=== PATIENT | female | born 1945 | race Caucasian/White ===

== ENCOUNTER 2016-08-21 12:38 | Outpatient (CLI) | payer MEDICARE, OTHER | END 2016-08-21 12:39 | disposition home or self-care (01) | DX: L89.309 Pressure ulcer of unspecified buttock, unspecified stage (principal) ==

== ENCOUNTER 2016-11-05 15:03 | Outpatient (CLI) | payer MEDICARE, OTHER | END 2016-11-05 15:04 | DX: N18.9 Chronic kidney disease, unspecified (principal); E11.9 Type 2 diabetes mellitus without complications; R25.2 Cramp and spasm ==

== ENCOUNTER 2016-11-06 08:00 | Outpatient (CLI) | payer MEDICARE, OTHER | END 2016-11-06 23:59 | DX: N39.0 Urinary tract infection, site not specified (principal) ==

== ENCOUNTER 2016-11-23 17:56 | Outpatient (CLI) | payer MEDICARE | END 2016-11-23 17:57 | disposition EMS.NT | DX: Z03.89 Encounter for observation for other suspected diseases and conditions ruled out (principal) ==

== ENCOUNTER 2017-01-07 11:00 | Outpatient (CLI) | payer MEDICARE, OTHER | END 2017-01-07 11:01 | disposition home or self-care (01) | LOC: LAB.R 11:00 | PROVIDERS: ATTEND Nurse Practitioner Family | DX: L97.929 Non-pressure chronic ulcer of unspecified part of left lower leg with unspecified severity (principal); I87.313 Chronic venous hypertension (idiopathic) with ulcer of bilateral lower extremity | CPT/HCPCS: 87070; 87077; 87205 ==

== ENCOUNTER 2017-01-14 00:36 | Outpatient (CLI) | payer MEDICARE, OTHER | END 2017-01-14 00:37 | disposition EMS.NT | DX: Z03.89 Encounter for observation for other suspected diseases and conditions ruled out (principal) ==

== ENCOUNTER 2017-02-20 09:06 | Outpatient (CLI) | payer MEDICARE, OTHER ==
[2017-02-20 18:12] LABS: ALBUMIN/GLOBULIN RATIO 0.9 (1.0-2.2); BILIRUBIN,TOTAL 0.5 mg/dL (0.2-1.0); BUN - BLOOD UREA NITROGEN 26 mg/dL (6-20); CARBON DIOXIDE - CO2 26 mmol/L (21-32); CHLORIDE 104 mmol/L (101-111); CHOL/HDL RATIO 5.4 (<4.4); CHOLESTEROL 206 mg/dL; CREATININE 1.5 mg/dL (0.4-1.0); GFR - MDRD 34 (>89); GLUCOSE 122 mg/dL (70-100); HDL CHOLESTEROL 38 mg/dL; LDL/HDL RATIO 3.8 (<4.4); POTASSIUM 3.6 mmol/L (3.5-5.0); SODIUM 139 mmol/L (135-145); TOTAL PROTEIN 7.1 g/dL (6.7-8.2); TRIGLYCERIDES 116 mg/dL; VLDL CHOLESTEROL 23 mg/dL
[2017-02-20 18:32] LABS: HEMOGLOBIN A1C 1.94 g/dL
== END 2017-02-20 09:07 | disposition home or self-care (01) ==
LOC: LAB.F 09:06
PROVIDERS: ATTEND Nurse Practitioner Family
DX: E11.9 Type 2 diabetes mellitus without complications (principal)
CPT/HCPCS: 36415; 80053; 80061; 83036

== ENCOUNTER 2017-04-26 15:00 | Outpatient (CLI) | payer MEDICARE, OTHER | END 2017-04-26 15:01 | disposition home or self-care (01) | LOC: LAB.R 15:00 | PROVIDERS: ATTEND Nurse Practitioner Family | DX: Z79.4 Long term (current) use of insulin (principal); G89.29 Other chronic pain | CPT/HCPCS: 80307 ==

== ENCOUNTER 2017-07-04 08:39 | Outpatient (CLI) | payer MEDICARE, OTHER ==
[2017-07-04 12:04] LABS: CALCIUM 8.6 mg/dL (8.5-10.3); CREATININE 1.1 mg/dL (0.4-1.0); POTASSIUM 3.8 mmol/L (3.5-5.0)
[2017-07-04 12:19] LABS: HEMOGLOBIN A1C 1.99 g/dL
== END 2017-07-04 08:40 | disposition home or self-care (01) ==
LOC: LAB.F 08:39
PROVIDERS: ATTEND Nurse Practitioner Family
DX: E11.65 Type 2 diabetes mellitus with hyperglycemia (principal); N18.9 Chronic kidney disease, unspecified; R60.0 Localized edema
CPT/HCPCS: 36415; 80048; 83036; 85379

== ENCOUNTER 2017-07-05 17:52 | Outpatient (CLI) | payer MEDICARE, OTHER ==
--- NOTE | 2017-07-05 19:57 | Ultrasound Preliminary Report ---
Exam: US DUPLEX EXT VEINS BILATERAL IMPRESSION: 1. Bilateral lower extremity edema. 2. No evidence for deep venous thrombosis bilaterally. [facility] The call report notification system was initiated by Dr. Risa Godinez at 19:30 hrs on 07/05/17. The above findings were discussed with NAVA King by Dr. Risa Godinez at 19:56 hrs on 09/04/16. SITE ID: [id number]
--- NOTE | 2017-07-05 20:01 | Ultrasound Report ---
EXAM: BILATERAL LOWER EXTREMITY VENOUS ULTRASOUND EXAM DATE: 07/05/2017 07:10 PM. CLINICAL HISTORY: Leg edema, bilateral. COMPARISON: None. TECHNIQUE: Real-time sonographic vascular imaging was performed by the journeyman pipefitter through the lower extremities utilizing both color-flow and Doppler spectral analysis. Multiple publications sales representative static i mages were saved for review. FINDINGS: Right: Common Femoral Vein (CFV): Normal. CFV-GSV Junction: Normal. Profunda Femoral Vein (PFV): Normal. Femoral Vein (FV) Prox: Normal. Femoral Vein (FV) Mid: Normal. Femoral Vein (FV) Dist: Normal. Popliteal Vein: Normal. Posterior Tibial Veins: Normal. Peroneal Veins: Normal. Left: Common Femoral Vein (CFV): Normal. CFV-GSV Junction: Normal. Profunda Femoral Vein (PFV): Normal. Femoral Vein (FV) Prox: Normal. Femoral Vein (FV) Mid: Normal. Femoral Vein (FV) Dist: Normal. Popliteal Vein: Normal. Posterior Tibial Veins: Normal. Peroneal Veins: Normal. Other: Bilateral lower extremity edema noted. IMPRESSION: 1. Bilateral lower extremity edema. 2. No evidence for deep venous thrombosis bilaterally. [facility] The call report notification system was initiated by Dr. Risa Godinez at 19:30 hrs on 07/05/17. The above findings were discussed with NAVA King by Dr. Risa Godinez at 19:56 hrs on 09/04/16. Referring Provider Line: [phone] SITE ID: [id number]
== END 2017-07-05 17:53 | disposition home or self-care (01) ==
LOC: DI 17:52
PROVIDERS: ATTEND Nurse Practitioner Family
DX: R60.0 Localized edema (principal)
CPT/HCPCS: 93970

== ENCOUNTER 2017-07-14 01:36 | Outpatient (CLI) | payer MEDICARE, OTHER | END 2017-07-14 01:37 | disposition critical access hospital (66) | LOC: EMS 01:36 | PROVIDERS: ATTEND Surgery | DX: M54.9 Dorsalgia, unspecified (principal); R53.1 Weakness; W18.30XA Fall on same level, unspecified, initial encounter; Y92.008 Other place in unspecified non-institutional (private) residence as the place of occurrence of the external cause | CPT/HCPCS: A0425; A0429 ==

== ENCOUNTER 2017-07-14 02:01 | Inpatient (IN) | payer MEDICARE, OTHER ==
--- NOTE | 2017-07-14 02:08 | ED Physician Documentation ---
PD HPI BACK INJURY - Stated complaint Stated Complaint: GLF/BACK PAIN - History obtained from History obtained from: Patient, EMS - History of Present Illness Location: Lower Type of injury: Fall Where injury occurred: Home Timing - onset: Today (She had fallen this evening with an increase in her back pain. However she has been having back pain ongoing for a long time but is worsened with falls in the last several days. She has fallen several times last days because of generalized weakness and inability to transfer herself as she typically does. She does have obesity and neuropathy with swelling in the legs. She states her swelling in the legs has increased over the last week or 2. She is feeling generalized weakness and has been unable to transfer herself to her wheelchair, which is her primary mode of movement. She lives with her granddaughter who does help take care of her and helps with transfers. However the granddaughter says that she has been unable to maneuver the patient due to general weakness.) Timing - details: Gradual onset, Still present (worse the past few days after falling.) Quality: Pain, Aching Worsened by: Moving Associated symptoms: Weakness (generalized, but does feel weakness in her legs both sides.), Incontinent of urine (for long time). No: Fever Similar symptoms before: Diagnosis (she has had similar weakness with infections in the past, such as UTI. Has had ongoing low back pain, worse at times. Has had some leg edema chronically but worse recently. She does not like to take her diuretic as it is hard to get to the bathroom, especially with the weakness of the last few days.) Review of Systems Constitutional: denies: Fever, Chills, Myalgias Nose: denies: Rhinorrhea / runny nose, Congestion Throat: denies: Sore throat Cardiac: denies: Chest pain / pressure, Palpitations Respiratory: denies: Dyspnea, Cough, Wheezing GI: reports: Nausea. denies: Abdominal Pain, Vomiting, Constipation, Diarrhea, Bloody / black stool : reports: Frequency, Incontinent. denies: Dysuria Skin: denies: Rash, Lesions, Abrasion (s) Neurologic: reports: Generalized weakness, Numbness (chronically in both legs due to diabetic neuropathy). denies: Focal weakness, Headache, Head injury Endocrine: denies: Weight loss Immunocompromised: denies: Immunocompromised PD PAST MEDICAL HISTORY - Past Medical History Cardiovascular: High cholesterol, Atrial fibrillation Respiratory: Pneumonia Neuro: Peripheral neuropathy Endocrine/Autoimmune: Type 2 diabetes GI: Other : Chronic bladder infection, Frequency HEENT: Chronic vision loss Psych: Depression Musculoskeletal: Osteoarthritis Derm: None - Past Surgical History Past Surgical History: Yes Ortho: Other Derm: Other - Present Medications Home Medications: Ambulatory Orders Medication Instructions Recorded Confirmed Cholecalciferol (Vitamin D3) 1,000 unit PO DAILY 08/02/13 07/14/17 [Vitamin D3] Gabapentin 600 mg PO TID 08/02/13 07/14/17 Insulin Glargine,Hum.rec.anlog 45 unit SQ DAILY 11/09/13 07/14/17 [Lantus] Furosemide 80 mg PO DAILY 12/21/14 07/14/17 HYDROmorphone [Dilaudid] 8 mg PO TID 12/21/14 07/14/17 Insulin Aspart (Vial) [NovoLOG 5 - 20 units SQ AC 12/21/14 07/14/17 (VIAL FOR ED USE)] Felodipine [Felodipine ER] 10 mg PO DAILY 08/23/15 07/14/17 Omeprazole 20 mg PO DAILY 08/23/15 07/14/17 Fluconazole 100 mg PO ONCE 03/04/16 07/14/17 Cyclobenzaprine [Flexeril] 10 mg PO TID 01/15/17 07/14/17 Duloxetine HCl [Cymbalta] 60 mg PO DAILY 01/15/17 07/14/17 Furosemide 40 mg PO DAILY PM 01/15/17 07/14/17 Insulin Glargine [Lantus] 40 unit SUBQ QPM 01/15/17 07/14/17 Nystatin 1 each PO DAILY PRN 01/15/17 07/14/17 Potassium Chloride 20 meq PO BID 01/15/17 07/14/17 Rivaroxaban [Xarelto] 20 mg PO DAILY 01/15/17 07/14/17 diazePAM [Diazepam] 10 mg PO DAILY PRN 01/15/17 07/14/17 - Allergies Allergies/Adverse Reactions: Allergies Allergy/AdvReac Type Severity Reaction Status Date / Time Penicillins Allergy unknown Verified 07/14/17 02:09 - Social History Does the pt smoke?: No Smoking Status: Former smoker Does the pt drink ETOH?: No Does the pt have substance abuse?: No - Family History Family history: reports: Non contributory - Immunizations Immunizations are current?: Yes - POLST Patient has POLST: No PD ED PE NORMAL - Vitals Vital signs reviewed: Yes - General General: Alert and oriented X 3, Well developed/nourished - HEENT HEENT: Ears normal, Moist mucous membranes, Pharynx benign - Neck Neck: Supple, no meningeal sign, No bony TTP, No adenopathy - Cardiac Cardiac: RRR, No murmur - Respiratory Respiratory: Clear bilaterally - Abdomen Abdomen: Soft, Non tender, Non distended, Other (obese) - Female Female : Deferred (but nurses said no rash noted when they did urine cath. ) - Rectal Rectal: Deferred - Back Back: No CVA TTP - Derm Derm: Normal color, Warm and dry - Extremities Extremities: No tenderness to palpate, Other (edema 2+ pitting in both legs up to knees, with tenderness. No redness and no calf pain per se. ) - Neuro Neuro: Alert and oriented X 3, No motor deficit, Normal speech, Other ( decreased sensation in both legs generally more c/w neuropathy. ) Eye Opening: Spontaneous Motor: Obeys Commands Verbal: Oriented GCS Score: 15 - Psych Psych: Normal mood, Normal affect Results - Vitals Vitals: Vital Signs - 24 hr 07/14/17 02:06 Temperature 36.6 C Heart Rate 95 Respiratory 20 Rate Blood Pressure 114/66 O2 Saturation 96 Oxygen O2 Source [With Activity] Nasal cannula O2 Source [Without Activity] Nasal cannula O2 Source Room air - Labs Labs: Laboratory Tests 07/14/17 07/14/17 07/14/17 03:38 03:38 03:38 WBC 6.9 RBC 3.86 L Hgb 11.7 L Hct 34.4 L MCV 89.2 MCH 30.5 MCHC 34.1 RDW 13.2 Plt Count 201 MPV 9.4 Neut # 4.8 Lymph # 1.3 L [place] # 0.6 Eos # 0.2 Baso # 0.0 Absolute Nucleated RBC 0.00 Nucleated RBC % 0.0 Sodium 131 L Potassium 5.0 Chloride 102 Carbon Dioxide 23 Anion Gap 6.0 BUN 34 H Creatinine 1.4 H Estimated GFR (MDRD) 37 L Glucose 426 H Calcium 8.3 L Magnesium 1.8 Total Bilirubin 0.5 AST 19 ALT 26 Alkaline Phosphatase 119 B-Natriuretic Peptide 77 Total Protein 6.5 L Albumin 2.9 L Globulin 3.6 Albumin/Globulin Ratio 0.8 L Lipase 29 Urine Color Urine Clarity Urine pH Ur Specific [place] Urine Protein Urine Glucose (UA) Urine Ketones Urine Occult Blood Urine Nitrite Urine Bilirubin Urine Urobilinogen Ur Leukocyte Esterase Urine RBC Urine WBC Ur Squamous Epith Cells Urine Bacteria Ur Microscopic Review Urine Culture Comments 07/14/17 04:30 WBC RBC Hgb Hct MCV MCH MCHC RDW Plt Count MPV Neut # Lymph # [place] # Eos # Baso # Absolute Nucleated RBC Nucleated RBC % Sodium Potassium Chloride Carbon Dioxide Anion Gap BUN Creatinine Estimated GFR (MDRD) Glucose Calcium Magnesium Total Bilirubin AST ALT Alkaline Phosphatase B-Natriuretic Peptide Total Protein Albumin Globulin Albumin/Globulin Ratio Lipase Urine Color YELLOW Urine Clarity HAZY Urine pH 6.0 Ur Specific [place] 1.010 Urine Protein 30 H Urine Glucose (UA) >=1000 H Urine Ketones NEGATIVE Urine Occult Blood MODERATE H Urine Nitrite POSITIVE H Urine Bilirubin NEGATIVE Urine Urobilinogen 0.2 (NORMAL) Ur Leukocyte Esterase NEGATIVE Urine RBC 6-10 H Urine WBC >25 H Ur Squamous Epith Cells MOD Squamous H Urine Bacteria Many H Ur Microscopic Review INDICATED Urine Culture Comments NOT INDICATED - Rads (name of study) lumbar CT Radiology: Prelim report reviewed (no acute fractures) head CT Radiology: Prelim report reviewed (no ICH nor focal lesions) chest xray Radiology: Prelim report reviewed (no infiltrates nor over CHF; borderline enlarged heart.) PD MEDICAL DECISION MAKING - ED course Complexity details: reviewed results, re-evaluated patient (She does have UTI by cath urine. Normal WBC, but does have general weakness, elevated glucose. So can be effect of infection. Has edema and neuropathy which are chronic but worse the past few days. Had fall with worse back pain but no fractures. Concern with the general weakness and falls, presume from increased edema, UTI. Will treat with diuretic and antibiotics. She does not seem septic. In hospital with goal of improved general strength to resume her regular mobility at home of transfers and ability to get to bathroom/etc. ), considered differential, d/ w patient, d/w family Departure - Departure Disposition: ED Place in Observation Clinical Impression: Weakness generalized, Bilateral leg edema Falls Qualifiers: Encounter type: initial encounter Qualified Code(s): W19.XXXA - Unspecified fall, initial encounter UTI (urinary tract infection) Qualifiers: Urinary tract infection type: acute cystitis Hematuria presence: without hematuria Qualified Code(s): N30.00 - Acute cystitis without hematuria Diabetic neuropathy Qualifiers: Diabetes mellitus type: type 2 Diabetes mellitus complication detail: diabetic polyneuropathy Qualified Code(s): E11.42 - Type 2 diabetes mellitus with diabetic polyneuropathy Low back pain Qualifiers: Chronicity: chronic Back pain laterality: bilateral Sciatica presence: unspecified whether sciatica present Qualified Code(s): M54.5 - Low back pain Condition: Stable Record reviewed to determine appropriate education?: Yes
[2017-07-14] MEDS ORDERED: KETOROLAC 60 MG/2 ML VIAL IVP STA (02:43)
[2017-07-14] MEDS ORDERED: KETOROLAC 30 MG/ML VIAL ONE (03:15)
[2017-07-14] MEDS ORDERED: KETOROLAC 60 MG/2 ML VIAL IM STA (03:43)
[2017-07-14 03:44] LABS: BASOPHILS % (AUTO) 0.6 %; EOSINOPHILS # (AUTO) 0.2 10^3/uL (0.0-0.7); EOSINOPHILS % (AUTO) 2.5 %; HCT - HEMATOCRIT 34.4 % (37.0-47.0); HGB - HEMOGLOBIN 11.7 g/dL (12.0-16.0); LYMPHOCYTES # (AUTO) 1.3 10^3/uL (1.5-3.5); LYMPHOCYTES % (AUTO) 18.7 %; MEAN CORPUSCULAR HEMOGLOBIN 30.5 pg (27.0-31.0); MEAN CORPUSCULAR HGB CONC 34.1 g/dL (32.0-36.0); MEAN CORPUSCULAR VOLUME 89.2 fL (81.0-99.0); MEAN PLATELET VOLUME 9.4 fL (7.9-10.8); MONOCYTES # (AUTO) 0.6 10^3/uL (0.0-1.0); MONOCYTES % (AUTO) 8.7 %; NEUTROPHILS # (AUTO) 4.8 10^3/uL (1.5-6.6); NEUTROPHILS % (AUTO) 69.5 %; RED BLOOD COUNT 3.86 10^6/uL (4.20-5.40); RED CELL DISTRIBUTION WIDTH 13.2 % (12.0-15.0); UNCORRECTED WHITE BLOOD COUNT 6.9 x10^3/uL; WHITE BLOOD COUNT 6.9 x10^3/uL (4.8-10.8)
[2017-07-14] MEDS ORDERED: ACETAMINOPHEN 325 MG TABLET PO STA (03:45)
--- NOTE | 2017-07-14 03:49 | CT Preliminary Report ---
Exam: CT HEAD W/O IMPRESSION: 1. No acute intra-cranial process. 2. Chronic appearing frontal and ethmoid paranasal sinus disease. [facility] SITE ID: [id number]
--- NOTE | 2017-07-14 03:50 | XRAY Preliminary Report ---
Exam: XR CHEST 1 VIEW IMPRESSION: Borderline enlargement of the cardiac silhouette without overt CHF. [facility] SITE ID: [id number]
--- NOTE | 2017-07-14 03:51 | CT Report ---
EXAM: CT HEAD EXAM DATE: 07/14/2017 03:10 AM. CLINICAL HISTORY: Recent falls, some headache. COMPARISON: Head CT 03/05/2016. TECHNIQUE: Multiaxial CT images were obtained from the foramen magnum to the vertex. Reformats: Coron al. IV contrast: None. In accordance with CT protocol optimization, one or more of the following dose reduction techniques w ere utilized for this exam: automated exposure control, adjustment of mA and/or KV based on patient s ize, or use of iterative reconstructive technique. FINDINGS: Parenchyma: No intraparenchymal hemorrhage. No evidence of mass, midline shift, or CT findings of inf arction. Lafleur-white differentiation is distinct. Extraaxial Spaces: Mild diffuse enlargement of sulci. No subdural or epidural collections identified. Ventricles: Mild ventricular megaly. No mass effect. No midline shift. Sinuses and Orbits: Orbits unremarkable. There is opacification and mucosal thickening in multiple et hmoid air cells. There is frontal sinus opacification. No sinus fluid levels. Bones: No evidence of fracture or calvarial defect. Other: None. IMPRESSION: 1. No acute intra-cranial process. 2. Chronic appearing frontal and ethmoid paranasal sinus disease. [facility] Referring Provider Line: [phone] SITE ID: [id number]
--- NOTE | 2017-07-14 03:53 | XRAY Report ---
EXAM: CHEST RADIOGRAPHY EXAM DATE: 07/14/2017 03:07 AM. CLINICAL HISTORY: Dyspnea and weakness. COMPARISON: 03/04/2016 TECHNIQUE: 1 view. FINDINGS: Lungs/Pleura: No focal opacities evident. No pleural effusion. No pneumothorax. Mediastinum: Borderline enlargement of the cardiac silhouette. Other: None. IMPRESSION: Borderline enlargement of the cardiac silhouette without overt CHF. [facility] Referring Provider Line: [phone] SITE ID: [id number]
[2017-07-14 03:54] LABS: ALBUMIN/GLOBULIN RATIO 0.8 (1.0-2.2); BILIRUBIN,TOTAL 0.5 mg/dL (0.2-1.0); CALCIUM 8.3 mg/dL (8.5-10.3); CREATININE 1.4 mg/dL (0.4-1.0); MAGNESIUM 1.8 mg/dL (1.7-2.8); TOTAL PROTEIN 6.5 g/dL (6.7-8.2)
--- NOTE | 2017-07-14 04:02 | CT Preliminary Report ---
Exam: CT LUMBAR SPINE W/O IMPRESSION: 1. No evidence of lumbar spine fracture. 2. Detail diminished by motion and soft tissue attenuation. 3. Likely stable degenerative changes with mild central canal narrowing at L2-L3, L3-L4, and L4-L5. 4. Moderate right L1-L2 neural foraminal narrowing. Mild bilateral L3-L4, mild left L4-L5, and mild b ilateral L5-S1 neural foraminal narrowing. [facility] SITE ID: [id number]
--- NOTE | 2017-07-14 04:05 | CT Report ---
EXAM: CT LUMBAR SPINE WITHOUT CONTRAST EXAM DATE: 07/14/2017 03:16 AM. CLINICAL HISTORY: Low back pain, recent falls. COMPARISONS: Lumbar spine CT 02/26/2016. TECHNIQUE: Thin-section axial images were acquired of the lumbar spine from T12 to S1 without contras t. Post-processing: Coronal and sagittal reformats. Other: None. In accordance with CT protocol optimization, one or more of the following dose reduction techniques w ere utilized for this exam: automated exposure control, adjustment of mA and/or KV based on patient s ize, or use of iterative reconstructive technique. FINDINGS: Motion and soft tissue attenuation decrease bone detail. Alignment: Normal. No scoliosis or spondylolisthesis. Bones: Five [id number] lumbar vertebral bodies are present. No fractures or bone lesions. Disk Levels/Facets: T12-L1: Unremarkable. L1-L2: There is moderate right facet hypertrophy with moderate right neural foraminal narrowing. No e vidence of central canal narrowing. L2-L3: There is mild bilateral facet hypertrophy. There is likely mild central canal narrowing. L3-L4: There is mild bilateral facet hypertrophy. There may be mild central canal narrowing. There is mild bilateral neural foraminal narrowing. L4-L5: There is disk height loss and endplate degenerative changes. There is a broad-based disk bulge . There is mild bilateral facet hypertrophy. There is mild central canal narrowing. There is mild lef t neural foraminal narrowing. L5-S1: There is vacuum disk phenomena. There is moderate right and mild left facet hypertrophy. There is mild bilateral neural foraminal narrowing. Other: There is a punctate right renal calculus. There is a 16 x 23 mm left adrenal nodule, likely an adenoma. IMPRESSION: 1. No evidence of lumbar spine fracture. 2. Detail diminished by motion and soft tissue attenuation. 3. Likely stable degenerative changes with mild central canal narrowing at L2-L3, L3-L4, and L4-L5. 4. Moderate right L1-L2 neural foraminal narrowing. Mild bilateral L3-L4, mild left L4-L5, and mild b ilateral L5-S1 neural foraminal narrowing. [facility] Referring Provider Line: [phone] SITE ID: [id number]
[2017-07-14 04:51] LABS: BILIRUBIN,URINE NEGATIVE (NEGATIVE); UA w/ MICROSCOPIC CHARGE YES
[2017-07-14 04:57] LABS: UR CULTURE IF IND NOT INDICATED; WBC,URINE >25 /HPF (0-5)
[2017-07-14] MEDS ORDERED: cefTRIAXone 1 GM in SODIUM CHLORIDE 0.9% MINIBAG 100 ML IV STA (05:02)
[2017-07-14] MEDS ORDERED: INSULIN REGULAR HUMAN 100 UNIT/1 ML 10 ML MDV IVP STA (05:03)
[2017-07-14] MEDS ORDERED: NYSTATIN PO PRN (05:03)
[2017-07-14] MEDS ORDERED: FUROSEMIDE 20 MG/2 ML VIAL IVP STA (05:03)
[2017-07-14] MEDS ORDERED: SODIUM CHLORIDE FLUSH 0.9% 10 ML SYRINGE IVP PRN (05:05)
[2017-07-14] MEDS ORDERED: ONDANSETRON 4 MG/2 ML VIAL IVP PRN (05:05)
[2017-07-14] MEDS ORDERED: ZOLPIDEM 5 MG TABLET PO PRN (05:05)
[2017-07-14] MEDS ORDERED: PROCHLORPERAZINE 10 MG/2 ML VIAL IVP PRN (05:05)
[2017-07-14] MEDS ORDERED: HYDROmorphone 0.5 MG/0.5 ML SYRINGE IVP PRN (05:05)
[2017-07-14] MEDS ORDERED: ACETAMINOPHEN 325 MG TABLET PO PRN (05:05)
[2017-07-14] MEDS ORDERED: cefTRIAXone 1 GM VIAL ONE (05:23)
[2017-07-14] MEDS ORDERED: FUROSEMIDE 20 MG/2 ML VIAL IVP ONE (05:24)
[2017-07-14] MEDS ORDERED: INSULIN REGULAR HUMAN 100 UNIT/1 ML 10 ML MDV ONE (05:24)
--- NOTE | 2017-07-14 05:51 | HISTORY & PHYSICAL EXAMINATION ---
Chief Complaint - Chief Complaint Chief Complaint: Generalized weakness and back History of Present Illness - Admitted From Admitted From:: Emergency department - History Obtained From Records Reviewed: Yes History obtained from: Patient and patient's granddaughter Exam Limitations: Patient has severe immobility secondary to back pain and morbid obesity - History of Present Illness HPI Comment/Other: Patient is a 71-year-old female with past medical history significant for morbid obesity which is left ear wheelchair-bound with ability to transfer, poorly controlled diabetes, hypertension, atrial fibrillation on Xarelto, CKD stage III, pulmonary hypertension and chronic back pain and she presents to the emergency department today with a complaint of generalized weakness and increasing back pain for several days. The patient states that she has had 3 falls in the last 2 days. She states that her decline started about 3 weeks ago when she went from being able to transfer from the wheelchair to requiring the help of her kids to make the transfer. She also states that over the last week she has noticed that she has had increased urinary frequency and incontinence. The patient states that after her fall today she had worsening back pain and was so weak she could not get up so she was brought into the ER. The patient denies any nausea, vomiting or abdominal pain. She does admit to chills but no fevers. The patient denies any headaches, blurred vision, runny nose, sore throat, nasal congestion, difficulty swallowing, neck pain, chest pain, shortness of air , the patient does have chronic orthopnea and usually sleeps in a recliner. The patient denies any abdominal pain, vomiting, diarrhea, constipation, increased joint swelling, neck stiffness, recent unintentional weight loss, change in her appetite or any focal neurologic deficits. On presentation to the emergency department the patient was afebrile heart rate was in the 90s, blood pressure was stable and she was not in any respiratory distress. The patient however was in significant distress secondary to pain and inability to move in the bed due to back pain. The patient was given Toradol in the emergency department for her back pain. The patient underwent routine lab tests which revealed that she did have a chronic kidney disease mild hyponatremia significantly elevated blood glucose of 426 but without any evidence of DKA. The patient did not have any leukocytosis but she did have a mild lymphopenia. The patient's urine did reveal positive nitrite, with RBCs, greater than 25 WBCs and many bacteria. Given the patient's generalized weakness she was placed in observation for urinary tract infection. The patient also underwent CT imaging of her lumbar spine which showed chronic degenerative disease and chronic spinal canal narrowing as well as chronic neural foramen narrowing in the L-spine. There was no evidence of any acute fractures. The patient also had a CT head which did not show any acute bleed. The patient's chest x-ray showed no acute process. The patient was placed in observation for urinary tract infection with generalized weakness. History - Past Medical History Cardiovascular: reports: Hypertension, High cholesterol, Atrial fibrillation, Other (Morbid obesity) Respiratory: reports: Pneumonia, Other (Moderate pulmonary hypertension) Neuro: reports: Peripheral neuropathy Endocrine/Autoimmune: reports: Type 2 diabetes GI: reports: Other : reports: Chronic bladder infection, Renal insuffiency (CKD stage III), Frequency HEENT: reports: Chronic vision loss Psych: reports: Depression Musculoskeletal: reports: Osteoarthritis Derm: reports: None MRSA Hx?: No - Past Surgical History Ortho: reports: Other Derm: reports: Other - Family & Social History Family History: Mother: , Father: , Sister: Diabetes, Type 2, Renal Disease/Failure (Sister has end-stage renal disease), Other family: Alcoholism (Daughter is an alcoholic) Living arrangement: At home Living Situation: With family Social History Notes: The patient lives in her home in [place], [place] with her daughter and granddaughter as well as 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 She is wheelchair-bound at home but is able to transfer from the wheelchair to bed or couch. She sleeps in a recliner at home. She is born in [place]. She is her in 2011. She has 7 children. She smoked 3-4 packs a day for 2 years in her early 20s but quit almost 50 years ago. She does not drink alcohol and denies any illicit drug use. - POLST Patient has POLST: Yes POLST Status: DNR Meds/Allgy - Home Medications Home Medications: Ambulatory Orders Medication Instructions Recorded Confirmed Cholecalciferol (Vitamin D3) 1,000 unit PO DAILY 08/02/13 07/14/17 [Vitamin D3] Gabapentin 600 mg PO TID 08/02/13 07/14/17 Insulin Glargine,Hum.rec.anlog 45 unit SQ DAILY 11/09/13 07/14/17 [Lantus] Furosemide 80 mg PO DAILY 12/21/14 07/14/17 HYDROmorphone [Dilaudid] 8 mg PO TID 12/21/14 07/14/17 Insulin Aspart (Vial) [NovoLOG 5 - 20 units SQ AC 12/21/14 07/14/17 (VIAL FOR ED USE)] Felodipine [Felodipine ER] 10 mg PO DAILY 08/23/15 07/14/17 Omeprazole 20 mg PO DAILY 08/23/15 07/14/17 Fluconazole 100 mg PO ONCE 03/04/16 07/14/17 Cyclobenzaprine [Flexeril] 10 mg PO TID 01/15/17 07/14/17 Duloxetine HCl [Cymbalta] 60 mg PO DAILY 01/15/17 07/14/17 Furosemide 40 mg PO DAILY PM 01/15/17 07/14/17 Insulin Glargine [Lantus] 40 unit SUBQ QPM 01/15/17 07/14/17 Nystatin 1 each PO DAILY PRN 01/15/17 07/14/17 Potassium Chloride 20 meq PO BID 01/15/17 07/14/17 Rivaroxaban [Xarelto] 20 mg PO DAILY 01/15/17 07/14/17 diazePAM [Diazepam] 10 mg PO DAILY PRN 01/15/17 07/14/17 - Allergies Allergies/Adverse Reactions: Allergies Allergy/AdvReac Type Severity Reaction Status Date / Time Penicillins Allergy unknown Verified 07/14/17 02:09 Review of Systems - Other Findings Other Findings: A comprehensive review of systems was performed the pertinent positives and negatives are stated above in the HPI and the remainder of the review of systems is negative. Exam - Physical Exam General Appearance: positive: Alert, Mild distress (Secondary to back pain she cannot move in bed), Other (Morbidly obese) Eyes Bilateral: positive: Normal inspection, PERRL, EOMI, No lid inflammation, Conjunctivae nml, No scleral icterus ENT: positive: ENT inspection nml, Pharynx nml, Dry mucous membranes. negative : Purulent nasal drainage, Pharyngeal erythema, Oral lesions Neck: positive: Nml inspection, Thyroid nml, No JVD, Trachea midline. negative : Thyromegaly, Lymphadenopathy (R), Lymphadenopathy (L), Stiff neck, Carotid bruit, Tracheal deviation Respiratory: positive: Chest non-tender, No respiratory distress, Other ( Decreased breath sounds bilaterally secondary to large body habitus) Cardiovascular: positive: No murmur, No gallop, Irregularly irregular Peripheral Pulses: positive: 2+ Abdomen: positive: Non-tender, Nml bowel sounds, Other (Obese). negative: Guarding, Rebound, Hepatomegaly Back: positive: Other (Severe back pain with decreased range of motion). negative: CVA tenderness (R), CVA tenderness (L) Skin: positive: Color nml, No rash, Dry. negative: Cyanosis, Diaphoresis, Pallor Extremities: positive: Full ROM, Pedal edema (Bilateral edema) Neurologic/Psychiatric: positive: Oriented x3, CN's nml (2-12), Sensation nml, Weakness (Generalized) Conclusion/Plan - Problem List (1) Urinary tract infection Conclusion/Plan: Patient presents to the emergency department with generalized weakness for several days with frequent falls at home. Several times EMS had to be called to the home to help to lift the patient and patient's granddaughter and family are unable to lift her off the floor due to her morbid obesity. The patient also has worsening chronic back pain secondary to the falls. Today she presented with generalized weakness and was found to have positive UA with positive nitrate, moderate blood, RBCs and greater than 25 WBCs with many bacteria. Patient was afebrile, hemodynamically stable and did not have a leukocytosis. Given the patient's generalized weakness she was placed in observation for treatment of UTI, hydration and PT consultation. Plan: Treat patient with IV ceftriaxone Await urine cultures Give IV fluids Qualifiers: Urinary tract infection type: acute cystitis Hematuria presence: without hematuria Qualified Code(s): N30.00 - Acute cystitis without hematuria (2) Weakness generalized Conclusion/Plan: Patient presents with generalized weakness. She likely has generalized weakness secondary to urinary tract infection. The patient has had multiple falls during the last few days and now has worsening of her chronic back pain. Plan: We will treat the patient's urinary tract infection and give her IV fluids hoping that she does have improvement in her weakness. Patient will be seen by physical therapy and will be assessed to see if she is at her baseline strength after treatment Patient would likely benefit from home health and we will consult social work (3) Diabetes Conclusion/Plan: The patient has very poorly controlled diabetes her glucose on presentation is 426 this is likely led to her urinary tract infection. Blood glucose likely elevated due to infection Plan: Patient will be placed on her home dose of Lantus and sliding scale insulin at moderate to high dose Patient will be given IV fluids We will monitor patient's blood glucose before meals at bedtime Check hemoglobin A1c We will titrate patient's insulin regimen as needed Qualifiers: Diabetes mellitus type: type 2 (4) Hyponatremia Conclusion/Plan: Patient does appear to have hypovolemic hyponatremia although some part of the patient's hypo-natremia is due to pseudohyponatremia from the patient's elevated blood glucose. We will treat patient with insulin for her blood glucose and treat her UTI to improve her blood glucose. Patient will be given IV fluids We will monitor the patient's sodium (5) Chronic back pain Conclusion/Plan: Patient has chronic back pain and after recent falls has worsening of her symptoms. Patient underwent CT of her lumbar spine which showed significant neural foraminal narrowing throughout the L-spine and stable degenerative changes with mild central canal narrowing throughout the L-spine. The patient did not have any acute fractures. Plan: Patient will be continued on her chronic pain medication p.o. Dilaudid and we will give her IV Dilaudid for breakthrough pain. She will also be continued on diazepam and gabapentin. Patient will get a PT evaluation (6) HTN (hypertension) Conclusion/Plan: The patient has history of hypertension and is on Lasix and felodipine at home for her hypertension. The patient does have significant swelling of bilateral lower extremities. Although the patient does appear to be dehydrated and hypovolemic given her severe lower extremity edema we will continue her oral Lasix and give her IV fluid at the same time. We will continue to monitor patient's blood pressure and titrate medications as needed. Qualifiers: Hypertension type: essential hypertension Qualified Code(s): I10 - Essential (primary) hypertension (7) Atrial fibrillation Conclusion/Plan: The patient has chronic atrial fibrillation and is on Xarelto for anticoagulation. The patient does not appear to be on any medications for rate control. On presentation to the emergency department the patient's rate is controlled in the high 90s. Patient will be monitored on telemetry We will continue the patient's home dose of Xarelto We will consider starting a rate control agent if the heart rate does become elevated. Qualifiers: Atrial fibrillation type: chronic Qualified Code(s): I48.2 - Chronic atrial fibrillation - Lab Results Lab results reviewed: Yes Fish Bones: 07/14/17 03:38 07/14/17 03:38 Other Lab Results: Laboratory Results WBC 6.9 x10^3/uL (4.8-10.8) 07/14/17 03:38 RBC 3.86 10^6/uL (4.20-5.40) L 07/14/17 03:38 Hgb 11.7 g/dL (12.0-16.0) L 07/14/17 03:38 Hct 34.4 % (37.0-47.0) L 07/14/17 03:38 MCV 89.2 fL (81.0-99.0) 07/14/17 03:38 MCH 30.5 pg (27.0-31.0) 07/14/17 03:38 MCHC 34.1 g/dL (32.0-36.0) 07/14/17 03:38 RDW 13.2 % (12.0-15.0) 07/14/17 03:38 Plt Count 201 10^3/uL (130-450) 07/14/17 03:38 MPV 9.4 fL (7.9-10.8) 07/14/17 03:38 Neut # 4.8 10^3/uL (1.5-6.6) 07/14/17 03:38 Lymph # 1.3 10^3/uL (1.5-3.5) L 07/14/17 03:38 [place] # 0.6 10^3/uL (0.0-1.0) 07/14/17 03:38 Eos # 0.2 10^3/uL (0.0-0.7) 07/14/17 03:38 Baso # 0.0 10^3/uL (0.0-0.1) 07/14/17 03:38 Absolute Nucleated RBC 0.00 x10^3/uL 07/14/17 03:38 Nucleated RBC % 0.0 /100WBC 07/14/17 03:38 Sodium 131 mmol/L (135-145) L 07/14/17 03:38 Potassium 5.0 mmol/L (3.5-5.0) 07/14/17 03:38 Chloride 102 mmol/L (101-111) 07/14/17 03:38 Carbon Dioxide 23 mmol/L (21-32) 07/14/17 03:38 Anion Gap 6.0 (6-13) 07/14/17 03:38 BUN 34 mg/dL (6-20) H 07/14/17 03:38 Creatinine 1.4 mg/dL (0.4-1.0) H 07/14/17 03:38 Estimated GFR (MDRD) 37 (>89) L 07/14/17 03:38 Glucose 426 mg/dL (70-100) H 07/14/17 03:38 Calcium 8.3 mg/dL (8.5-10.3) L 07/14/17 03:38 Magnesium 1.8 mg/dL (1.7-2.8) 07/14/17 03:38 Total Bilirubin 0.5 mg/dL (0.2-1.0) 07/14/17 03:38 AST 19 IU/L (10-42) 07/14/17 03:38 ALT 26 IU/L (10-60) 07/14/17 03:38 Alkaline Phosphatase 119 IU/L (42-121) 07/14/17 03:38 B-Natriuretic Peptide 77 pg/mL (5-100) 07/14/17 03:38 Total Protein 6.5 g/dL (6.7-8.2) L 07/14/17 03:38 Albumin 2.9 g/dL (3.2-5.5) L 07/14/17 03:38 Globulin 3.6 g/dL (2.1-4.2) 07/14/17 03:38 Albumin/Globulin Ratio 0.8 (1.0-2.2) L 07/14/17 03:38 Lipase 29 U/L (22-51) 07/14/17 03:38 Urine Color YELLOW 07/14/17 04:30 Urine Clarity HAZY (CLEAR) 07/14/17 04:30 Urine pH 6.0 PH (5.0-7.5) 07/14/17 04:30 Ur Specific [place] 1.010 (1.002-1.030) 07/14/17 04:30 Urine Protein 30 mg/dL (NEGATIVE) H 07/14/17 04:30 Urine Glucose (UA) >=1000 mg/dL (NEGATIVE) H 07/14/17 04:30 Urine Ketones NEGATIVE mg/dL (NEGATIVE) 07/14/17 04:30 Urine Occult Blood MODERATE (NEGATIVE) H 07/14/17 04:30 Urine Nitrite POSITIVE (NEGATIVE) H 07/14/17 04:30 Urine Bilirubin NEGATIVE (NEGATIVE) 07/14/17 04:30 Urine Urobilinogen 0.2 (NORMAL) E.U./dL (NORMAL) 07/14/17 04:30 Ur Leukocyte Esterase NEGATIVE (NEGATIVE) 07/14/17 04:30 Urine RBC 6-10 /HPF (0-5) H 07/14/17 04:30 Urine WBC >25 /HPF (0-5) H 07/14/17 04:30 Ur Squamous Epith Cells MOD Squamous (<= Few) H 07/14/17 04:30 Urine Bacteria Many /HPF (None Seen) H 07/14/17 04:30 Ur Microscopic Review INDICATED 07/14/17 04:30 Urine Culture Comments NOT INDICATED 07/14/17 04:30 - Diagnostic Imaging Results Diagnostic Imaging Results: positive: Final report reviewed Diagnostic Imaging Results Comments: Chest x-ray Impression: Borderline enlargement of the cardiac silhouette without overt CHF CT head Impression: 1. No acute intracranial process. 2. Chronic appearing frontal and ethmoid para nasal sinus disease. CT lumbar spine Impression: 1. No evidence of lumbar spinal fracture 2 detailed diminished by motion and soft tissue attenuation 3. Likely stable degenerative changes with mild central canal narrowing at L2- L3, L3-L4 and L4-L5 4. Moderate right L1-L2 neural foraminal narrowing. Mild bilateral L3-L4, mild left L4-L5, and mild bilateral L5-S1 neural foraminal narrowing. Issues/Core Measures - Anticipated LOS Anticipated Stay Length: Less than 2 midnights - DVT/VTE - Prophylaxis VTE/DVT Device ordered at admit?: Yes
[2017-07-14] MEDS ORDERED: NON FORMULARY MED (Gabapentin [Gabapentin] 600 MG) PO SCH (06:00)
[2017-07-14] MEDS: SODIUM CHLORIDE FLUSH 0.9% 10 ML SYRINGE IVP SCH ×3 (07:20→21:40)
[2017-07-14] MEDS ORDERED: NON FORMULARY MED (Duloxetine Hcl [Cymbalta] 60 MG) PO SCH (09:00)
[2017-07-14] MEDS ORDERED: FELODIPINE 10 MG PO SCH (09:00)
[2017-07-14] MEDS ORDERED: FUROSEMIDE 20 MG TABLET PO SCH (09:00)
[2017-07-14] MEDS ORDERED: INSULIN GLARGINE HUM REC ANLOG 45 UNIT SQ SCH (09:00)
[2017-07-14] MEDS ORDERED: diazePAM 5 MG TABLET PO PRN (09:00)
[2017-07-14] MEDS: SODIUM CHLORIDE 0.9% 1,000 ML IV SCH ×2 (09:30→17:26)
[2017-07-14] MEDS: CYCLOBENZAPRINE 10 MG TABLET PO SCH ×3 (10:22→20:25)
[2017-07-14] MEDS: RIVAROXABAN 15 MG TABLET PO SCH (10:23)
[2017-07-14] MEDS: INSULIN ASPART 300 UNIT/3 ML PEN SUBQ SCH ×4 (10:23→21:40)
[2017-07-14] MEDS: HYDROmorphone 2 MG TABLET PO SCH ×2 (10:23→14:38)
[2017-07-14] MEDS: GABAPENTIN 300 MG CAPSULE PO SCH ×3 (10:23→20:25)
[2017-07-14] MEDS: INSULIN GLARGINE 300 UNIT/3 ML PEN SUBQ SCH (10:24)
[2017-07-14] MEDS: FAMOTIDINE 20 MG TABLET PO SCH (10:25)
[2017-07-14] MEDS ORDERED: FLUCONAZOLE 100 MG TABLET PO SCH (11:06)
[2017-07-14 11:35] LABS: BASOPHILS % (AUTO) 0.7 %; EOSINOPHILS # (AUTO) 0.2 10^3/uL (0.0-0.7); EOSINOPHILS % (AUTO) 3.1 %; HCT - HEMATOCRIT 32.3 % (37.0-47.0); HGB - HEMOGLOBIN 11.1 g/dL (12.0-16.0); LYMPHOCYTES # (AUTO) 1.1 10^3/uL (1.5-3.5); LYMPHOCYTES % (AUTO) 23.5 %; MEAN CORPUSCULAR HEMOGLOBIN 30.2 pg (27.0-31.0); MEAN CORPUSCULAR HGB CONC 34.3 g/dL (32.0-36.0); MEAN CORPUSCULAR VOLUME 88.2 fL (81.0-99.0); MEAN PLATELET VOLUME 9.1 fL (7.9-10.8); MONOCYTES # (AUTO) 0.4 10^3/uL (0.0-1.0); MONOCYTES % (AUTO) 9.1 %; NEUTROPHILS # (AUTO) 3.1 10^3/uL (1.5-6.6); NEUTROPHILS % (AUTO) 63.6 %; NUCLEATED RED BLOOD CELLS AUTO 0.1 /100WBC; RED BLOOD COUNT 3.66 10^6/uL (4.20-5.40); UNCORRECTED WHITE BLOOD COUNT 4.9 x10^3/uL; WHITE BLOOD COUNT 4.9 x10^3/uL (4.8-10.8)
[2017-07-14 11:44] LABS: CALCIUM 8.5 mg/dL (8.5-10.3); CREATININE 1.6 mg/dL (0.4-1.0); POTASSIUM 4.7 mmol/L (3.5-5.0)
[2017-07-14 11:54] LABS: HEMOGLOBIN A1C 1.55 g/dL
[2017-07-14] MEDS: FELODIPINE ER 2.5 MG TABLET PO SCH (13:19)
[2017-07-14] MEDS: POTASSIUM CHLORIDE 20 MEQ TABLET PO SCH ×2 (13:20→17:19)
[2017-07-14] MEDS: DULoxetine 30 MG CAPSULE PO SCH (13:20)
[2017-07-14] MEDS: SACCHAROMYCES BOULARDII 250 MG CAPSULE PO SCH ×2 (13:21→17:19)
[2017-07-14] MEDS: CHOLECALCIFEROL 1,000 UNIT TABLET PO SCH (13:22)
[2017-07-14] MEDS: POLYETHYLENE GLYCOL 3350 17 GM PACKET PO SCH (13:33)
[2017-07-14] MEDS: NYSTATIN POWDER 15 GM TOP SCH ×2 (13:34→20:28)
[2017-07-14] MEDS: FUROSEMIDE 40 MG TABLET PO SCH (14:38)
--- NOTE | 2017-07-14 17:04 | PROVIDER PROGRESS NOTE ---
Subjective - Prog Note Date Prog Note Date: 07/14/17 Prog Note Time: 17:04 - Subjective Pt reports feeling: No change Subjective: Cleo has minimal responses during exam, but appears comfortable. Current Medications - Current Medications Current Medications: Active Medications Acetaminophen (Tylenol) 650 mg PO Q4HR PRN PRN Reason: Pain 1 to 4 Cholecalciferol (Vitamin D3) 1,000 unit PO DAILY [facility] Last Admin: 07/14/17 13:22 Dose: 1,000 unit Cyclobenzaprine HCl (Flexeril) 10 mg PO TID [facility] Last Admin: 07/14/17 14:38 Dose: Not Given Diazepam (Valium) 10 mg PO DAILY PRN PRN Reason: NEEDED PER PROVIDER ORDERS Duloxetine HCl (Cymbalta) 60 mg PO DAILY [facility] Last Admin: 07/14/17 13:20 Dose: 60 mg Famotidine (Pepcid) 20 mg PO DAILY [facility] Last Admin: 07/14/17 10:25 Dose: 20 mg Felodipine (Plendil) 10 mg PO DAILY [facility] Last Admin: 07/14/17 13:19 Dose: 10 mg Furosemide (Lasix) 80 mg PO DAILY [facility] Last Admin: 07/14/17 10:22 Dose: 80 mg Furosemide (Lasix) 40 mg PO DAILY@1400 [facility] Last Admin: 07/14/17 14:38 Dose: Not Given Gabapentin (Neurontin) 600 mg PO TID [facility] Last Admin: 07/14/17 14:38 Dose: Not Given Hydromorphone HCl (Dilaudid) 8 mg PO TID [facility] Last Admin: 07/14/17 14:38 Dose: Not Given Hydromorphone HCl (Dilaudid Inj Syringe) 0.5 mg IVP Q2H PRN PRN Reason: Pain 8 to 10 Ceftriaxone Sodium 1 gm/ (Sodium Chloride) 100 mls @ 200 mls/hr IV DAILY [facility] Sodium Chloride (Normal Saline 0.9%) 1,000 mls @ 125 mls/hr IV .Q8H [facility] Last Admin: 07/14/17 09:30 Dose: 125 mls/hr Insulin Aspart (Novolog) 3 - 11 unit SUBQ 0800,1200,1700,2100 [facility] PRN Reason: Protocol Insulin Glargine (Lantus Solostar) 40 unit SUBQ QPM [facility] Insulin Glargine (Lantus Solostar) 45 unit SUBQ DAILY [facility] Last Admin: 07/14/17 10:24 Dose: 45 unit Nystatin (Nystop) 1 applic TOP BID [facility] Last Admin: 07/14/17 13:34 Dose: 1 applic Ondansetron HCl (Zofran Inj) 4 mg IVP Q6HR PRN PRN Reason: Nausea / Vomiting Polyethylene Glycol (Miralax) 17 gm PO DAILY [facility] Last Admin: 07/14/17 13:33 Dose: Not Given Potassium Chloride (K-Dur) 20 meq PO BIDWM [facility] Last Admin: 07/14/17 13:20 Dose: 20 meq Prochlorperazine Edisylate (Compazine Inj) 10 mg IVP Q6HR PRN PRN Reason: Nausea / Vomiting Rivaroxaban (Xarelto) 15 mg PO DAILY [facility] Last Admin: 07/14/17 10:23 Dose: 15 mg Saccharomyces Boulardii (Florastor) 250 mg PO BIDWM [facility] Last Admin: 07/14/17 13:21 Dose: 250 mg Sodium Chloride (Normal Saline Flush 0.9%) 10 ml IVP PRN PRN PRN Reason: NEEDED PER PROVIDER ORDERS Sodium Chloride (Normal Saline Flush 0.9%) 10 ml IVP Q8HR [facility] Last Admin: 07/14/17 10:31 Dose: Not Given Zolpidem Tartrate (Ambien) 5 mg PO QPM PRN PRN Reason: Insomnia Cholecalciferol (Vitamin D3) [Vitamin D3] 1,000 unit PO DAILY 08/02/13 Gabapentin 600 mg PO TID 08/02/13 HYDROmorphone [Dilaudid] 8 mg PO Q8HR 12/21/14 Felodipine [Felodipine ER] 10 mg PO DAILY 08/23/15 Omeprazole 20 mg PO QDAC 08/23/15 Cyclobenzaprine [Flexeril] 10 mg PO TID 01/15/17 Duloxetine HCl [Cymbalta] 60 mg PO DAILY 01/15/17 Furosemide 40 mg PO DAILY 01/15/17 Nystatin 1 applic TOP BID 01/15/17 Potassium Chloride 20 meq PO BID 01/15/17 diazePAM [Diazepam] 5 mg PO QPM PRN 01/15/17 Atorvastatin Calcium 80 mg PO QPM 07/14/17 Cholecalciferol (Vitamin D3) [Vitamin D3] 1,000 units PO DAILY 07/14/17 Cyclobenzaprine [Flexeril] 10 mg PO TID PRN 07/14/17 Felodipine [Felodipine ER] 10 mg PO DAILY 07/14/17 Insulin Glargine [Lantus Solostar] 45 units SUBQ BID 07/14/17 Lisinopril 2.5 mg PO DAILY 07/14/17 Rivaroxaban [Xarelto] 20 mg PO DAILY 07/14/17 Objective - Vital Signs/Intake & Output Reviewed Vital Signs: Yes Vital Signs: Vital Signs x48h Temp Pulse Pulse Resp BP BP Pulse Ox 07/14/17 15:52 36.7 C 90 19 116/68 96 07/14/17 11:45 95 113/64 07/14/17 10:03 36.3 C L 90 20 127/62 92 Pulse Ox 07/14/17 15:52 07/14/17 11:45 98 07/14/17 10:03 Intake & Output: Intake & Output 07/11/17 07/12/17 07/13/17 07/14/17 23:59 23:59 23:59 23:59 Intake Total 600 Output Total 700 Balance -100 - Objective General Appearance: positive: No acute distress, Lethargic Eyes Bilateral: positive: Normal inspection ENT: positive: ENT inspection nml, Pharynx nml, Dry mucous membranes Neck: positive: Nml inspection, Thyroid nml, No JVD Respiratory: positive: Chest non-tender, No respiratory distress, Wheezes, Rhonchi (lower lobe crackes.) Cardiovascular: positive: Regular rate & rhythm, No gallop, Systolic murmur Peripheral Pulses: 1+ Radial (R), 1+ Radial (L) Abdomen: positive: Non-tender, Nml bowel sounds, Guarding, Hepatomegaly Back: positive: Nml inspection Skin: positive: Color nml, No rash, Warm, Dry, Pallor Neurologic/Psychiatric: positive: Disoriented to time, Weakness, Sensory loss Reflexes: Bicep (R): 2+, Bicep (L): 2+ - Lab Results Fish Bones: 07/14/17 11:24 07/14/17 11:24 Other Labs: Lab Results x24hrs 07/14/17 07/14/17 07/14/17 Range/Units 11:24 11:24 11:24 WBC 4.9 (4.8-10.8) x10^3/uL RBC 3.66 L (4.20-5.40) 10^6/uL Hgb 11.1 L (12.0-16.0) g/dL Hct 32.3 L (37.0-47.0) % MCV 88.2 (81.0-99.0) fL MCH 30.2 (27.0-31.0) pg MCHC 34.3 (32.0-36.0) g/dL RDW 13.0 (12.0-15.0) % Plt Count 198 (130-450) 10^3/uL MPV 9.1 (7.9-10.8) fL Neut # 3.1 (1.5-6.6) 10^3/uL Lymph # 1.1 L (1.5-3.5) 10^3/uL [place] # 0.4 (0.0-1.0) 10^3/uL Eos # 0.2 (0.0-0.7) 10^3/uL Baso # 0.0 (0.0-0.1) 10^3/uL Absolute Nucleated RBC 0.00 x10^3/uL Nucleated RBC % 0.1 /100WBC Sodium 134 L (135-145) mmol/L Potassium 4.7 (3.5-5.0) mmol/L Chloride 101 (101-111) mmol/L Carbon Dioxide 25 (21-32) mmol/L Anion Gap 8.0 (6-13) BUN 33 H (6-20) mg/dL Creatinine 1.6 H (0.4-1.0) mg/dL Estimated GFR (MDRD) 32 L (>89) Glucose 294 H (70-100) mg/dL Glycated Hemoglobin 14.4 H (4.6-6.2) % Estim Average Glucose 367 H (70-100) Calcium 8.5 (8.5-10.3) mg/dL TSH (0.34-5.60) uIU/mL 07/14/17 Range/Units 07:42 WBC (4.8-10.8) x10^3/uL RBC (4.20-5.40) 10^6/uL Hgb (12.0-16.0) g/dL Hct (37.0-47.0) % MCV (81.0-99.0) fL MCH (27.0-31.0) pg MCHC (32.0-36.0) g/dL RDW (12.0-15.0) % Plt Count (130-450) 10^3/uL MPV (7.9-10.8) fL Neut # (1.5-6.6) 10^3/uL Lymph # (1.5-3.5) 10^3/uL [place] # (0.0-1.0) 10^3/uL Eos # (0.0-0.7) 10^3/uL Baso # (0.0-0.1) 10^3/uL Absolute Nucleated RBC x10^3/uL Nucleated RBC % /100WBC Sodium (135-145) mmol/L Potassium (3.5-5.0) mmol/L Chloride (101-111) mmol/L Carbon Dioxide (21-32) mmol/L Anion Gap (6-13) BUN (6-20) mg/dL Creatinine (0.4-1.0) mg/dL Estimated GFR (MDRD) (>89) Glucose (70-100) mg/dL Glycated Hemoglobin (4.6-6.2) % Estim Average Glucose (70-100) Calcium (8.5-10.3) mg/dL TSH 1.43 (0.34-5.60) uIU/mL - Diagnostic Imaging Diagnostic Imaging Results: positive: Prelim report reviewed Assessment/Plan - Problem List (1) Urinary tract infection Impression: Patient was admitted after findings of generalized weakness and was found to have positive UA with positive nitrate, moderate blood, RBCs and greater than 25 WBCs with many bacteria. Patient was afebrile, hemodynamically stable and did not have a leukocytosis. Given the patient's generalized weakness she was placed in observation for treatment of UTI, hydration and PT consultation. Plan: Treat patient with IV ceftriaxone, IV fluids. We will attempt to obtain another sample since first specimen was not eligible for culture. Qualifiers: Urinary tract infection type: acute cystitis Hematuria presence: without hematuria Qualified Code(s): N30.00 - Acute cystitis without hematuria (2) Weakness generalized Impression: Patient presents with generalized weakness. She likely has generalized weakness secondary to urinary tract infection. The patient has had multiple falls during the last few days and now has worsening of her chronic back pain. Plan: We will treat the patient's urinary tract infection and give her IV fluids hoping that she does have improvement in her weakness. Patient will be seen by physical therapy and will be assessed to see if she is at her baseline strength after treatment. Patient would likely benefit from home health and we will consult social work (3) Chronic back pain Impression: Patient has chronic back pain and after recent falls has worsening of her symptoms. Patient underwent CT of her lumbar spine which showed significant neural foraminal narrowing throughout the L-spine and stable degenerative changes with mild central canal narrowing throughout the L-spine. The patient did not have any acute fractures. Plan: Patient will be continued on her chronic pain medication p.o. Dilaudid and we will give her IV Dilaudid for breakthrough pain. She will also be continued on diazepam and gabapentin. Patient will get a PT evaluation. Continue to encourage activity. (4) Type II diabetes mellitus with complication, uncontrolled Impression: The patient has very poorly controlled diabetes her glucose on presentation is 426 this is likely led to her urinary tract infection. Blood glucose likely elevated due to infection. HgA1C was grossly elevated at 14.4, which confirms uncontrolled status and not a new problem. Plan: Patient will be placed on her home dose of Lantus and sliding scale insulin at moderate to high dose, IV fluids, monitor patient's blood glucose before meals at bedtime. We will titrate patient's insulin regimen as needed. (5) Hyponatremia Impression: This is likely due to acute illness and dehydration. Plan: we will continue to monitor lab results and hydration status. (6) HTN (hypertension) Impression: The patient has history of hypertension and is on Lasix and felodipine at home for her hypertension. The patient does have significant swelling of bilateral lower extremities. Although the patient does appear to be dehydrated and hypovolemic given her severe lower extremity edema we will continue her oralLasix and give her IV fluid at the same time. Patient refused oral lasix, so IV was ordered to ensure appropriate diuresis. Plan: We will continue to monitor patient's blood pressure and titrate medications as needed. Qualifiers: Hypertension type: essential hypertension Qualified Code(s): I10 - Essential (primary) hypertension (7) Atrial fibrillation Impression: Patient has a know history and is on Xarelto for anticoagulation. The patient does not appear to be on any medications for rate control. On presentation to the emergency department the patient's rate is controlled in the high 90s. Xarelto may be renally adjusted. Plan: Patient will be monitored on telemetry continue Xarelto, and may consider starting a rate control agent if the heart rate does become elevated. Qualifiers: Atrial fibrillation type: chronic Qualified Code(s): I48.2 - Chronic atrial fibrillation
[2017-07-14] MEDS: HYDROmorphone 2 MG TABLET PO PRN (20:25)
[2017-07-14] MEDS ORDERED: INSULIN GLARGINE 300 UNIT/3 ML PEN SUBQ SCH (21:00)
[2017-07-14] MEDS ORDERED: INSULIN GLARGINE 40 UNIT SUBQ SCH (21:00)
[2017-07-15] MEDS: SODIUM CHLORIDE 0.9% 1,000 ML IV SCH ×2 (01:44→05:00)
[2017-07-15] MEDS: SODIUM CHLORIDE FLUSH 0.9% 10 ML SYRINGE IVP SCH ×3 (05:01→20:58)
[2017-07-15] MEDS ORDERED: FUROSEMIDE 100 MG/10 ML VIAL IVP ONE (05:49)
[2017-07-15] MEDS ORDERED: NS W/20 MEQ KCL 1,000 ML IV SCH (06:00)
[2017-07-15 06:13] LABS: ALBUMIN/GLOBULIN RATIO 0.7 (1.0-2.2); BILIRUBIN,TOTAL 0.6 mg/dL (0.2-1.0); CALCIUM 7.9 mg/dL (8.5-10.3); CREATININE 1.6 mg/dL (0.4-1.0); POTASSIUM 5.6 mmol/L (3.5-5.0); TOTAL PROTEIN 5.5 g/dL (6.7-8.2)
[2017-07-15 06:18] LABS: BASOPHILS % (AUTO) 0.4 %; EOSINOPHILS # (AUTO) 0.2 10^3/uL (0.0-0.7); EOSINOPHILS % (AUTO) 3.2 %; HCT - HEMATOCRIT 31.5 % (37.0-47.0); HGB - HEMOGLOBIN 10.3 g/dL (12.0-16.0); LYMPHOCYTES # (AUTO) 1.2 10^3/uL (1.5-3.5); LYMPHOCYTES % (AUTO) 19.6 %; MEAN CORPUSCULAR HEMOGLOBIN 29.9 pg (27.0-31.0); MEAN CORPUSCULAR HGB CONC 32.9 g/dL (32.0-36.0); MEAN CORPUSCULAR VOLUME 90.9 fL (81.0-99.0); MEAN PLATELET VOLUME 10.1 fL (7.9-10.8); MONOCYTES # (AUTO) 0.4 10^3/uL (0.0-1.0); NEUTROPHILS # (AUTO) 4.4 10^3/uL (1.5-6.6); NEUTROPHILS % (AUTO) 69.8 %; RED BLOOD COUNT 3.46 10^6/uL (4.20-5.40); UNCORRECTED WHITE BLOOD COUNT 7.2 x10^3/uL; WHITE BLOOD COUNT 6.3 x10^3/uL (4.8-10.8)
[2017-07-15 06:46] LABS: PLATELET ESTIMATE, MANUAL DECREASED (<130,000) (NORMAL); PLATELET MORPHOLOGY NORMAL APPEARANCE (NORMAL)
[2017-07-15] MEDS: GABAPENTIN 300 MG CAPSULE PO SCH ×3 (06:46→21:00)
[2017-07-15] MEDS: CYCLOBENZAPRINE 10 MG TABLET PO SCH ×3 (06:46→21:00)
[2017-07-15] MEDS: INSULIN ASPART 300 UNIT/3 ML PEN SUBQ SCH ×4 (08:41→20:58)
[2017-07-15] MEDS: POLYETHYLENE GLYCOL 3350 17 GM PACKET PO SCH (08:42)
[2017-07-15] MEDS: SACCHAROMYCES BOULARDII 250 MG CAPSULE PO SCH ×2 (08:43→16:24)
[2017-07-15] MEDS: POTASSIUM CHLORIDE 20 MEQ TABLET PO SCH ×2 (08:43→16:24)
[2017-07-15] MEDS: FELODIPINE ER 2.5 MG TABLET PO SCH (08:43)
[2017-07-15] MEDS: CHOLECALCIFEROL 1,000 UNIT TABLET PO SCH (08:44)
[2017-07-15] MEDS: RIVAROXABAN 15 MG TABLET PO SCH (08:44)
[2017-07-15] MEDS: DULoxetine 30 MG CAPSULE PO SCH (08:45)
[2017-07-15] MEDS: INSULIN GLARGINE 300 UNIT/3 ML PEN SUBQ SCH (08:45)
[2017-07-15] MEDS: FAMOTIDINE 20 MG TABLET PO SCH (08:47)
[2017-07-15] MEDS: cefTRIAXone 1 GM in SODIUM CHLORIDE 0.9% MINIBAG 100 ML IV SCH (08:51)
[2017-07-15] MEDS: NYSTATIN POWDER 15 GM TOP SCH ×2 (08:54→20:58)
[2017-07-15] MEDS ORDERED: FUROSEMIDE 40 MG TABLET PO SCH (09:00)
[2017-07-15] MEDS ORDERED: INSULIN GLARGINE 300 UNIT/3 ML PEN SUBQ SCH ×2 (11:39→11:41)
[2017-07-15] MEDS: FUROSEMIDE 40 MG TABLET PO SCH (13:31)
--- NOTE | 2017-07-15 13:46 | PROVIDER PROGRESS NOTE ---
Subjective - Prog Note Date Prog Note Date: 07/15/17 Prog Note Time: 13:46 - Subjective Pt reports feeling: No change Subjective: Cleo's grand daughter was at the bedside for this exam. She denies SOB, chest pain, N/V or a new cough. Current Medications - Current Medications Current Medications: Active Medications Acetaminophen (Tylenol) 650 mg PO Q4HR PRN PRN Reason: Pain 1 to 4 Cholecalciferol (Vitamin D3) 1,000 unit PO DAILY [facility] Last Admin: 07/15/17 08:44 Dose: 1,000 unit Cyclobenzaprine HCl (Flexeril) 10 mg PO TID [facility] Last Admin: 07/15/17 13:31 Dose: 10 mg Diazepam (Valium) 10 mg PO DAILY PRN PRN Reason: NEEDED PER PROVIDER ORDERS Duloxetine HCl (Cymbalta) 60 mg PO DAILY [facility] Last Admin: 07/15/17 08:45 Dose: 60 mg Famotidine (Pepcid) 20 mg PO DAILY [facility] Last Admin: 07/15/17 08:47 Dose: 20 mg Felodipine (Plendil) 10 mg PO DAILY [facility] Last Admin: 07/15/17 08:43 Dose: 10 mg Furosemide (Lasix) 40 mg PO DAILY@1400 [facility] Last Admin: 07/15/17 13:31 Dose: 40 mg Furosemide (Lasix) 80 mg PO DAILY [facility] Last Admin: 07/15/17 08:44 Dose: 80 mg Gabapentin (Neurontin) 600 mg PO TID [facility] Last Admin: 07/15/17 13:31 Dose: 600 mg Hydromorphone HCl (Dilaudid Inj Syringe) 0.5 mg IVP Q2H PRN PRN Reason: Pain 8 to 10 Hydromorphone HCl (Dilaudid) 8 mg PO TID PRN PRN Reason: PAIN Last Admin: 07/14/17 20:25 Dose: 8 mg Ceftriaxone Sodium 1 gm/ (Sodium Chloride) 100 mls @ 200 mls/hr IV DAILY [facility] Last Infusion: 07/15/17 09:21 Dose: Infused Insulin Aspart (Novolog) 3 - 11 unit SUBQ 0800,1200,1700,2100 [facility] PRN Reason: Protocol Last Admin: 07/15/17 11:59 Dose: Not Given Insulin Glargine (Lantus Solostar) 35 unit SUBQ QPM [facility] Insulin Glargine (Lantus Solostar) 40 unit SUBQ DAILY [facility] Nystatin (Nystop) 1 applic TOP BID [facility] Last Admin: 07/15/17 08:54 Dose: 1 applic Ondansetron HCl (Zofran Inj) 4 mg IVP Q6HR PRN PRN Reason: Nausea / Vomiting Polyethylene Glycol (Miralax) 17 gm PO DAILY [facility] Last Admin: 07/15/17 08:42 Dose: 17 gm Potassium Chloride (K-Dur) 20 meq PO BIDWM [facility] Last Admin: 07/15/17 08:43 Dose: 20 meq Prochlorperazine Edisylate (Compazine Inj) 10 mg IVP Q6HR PRN PRN Reason: Nausea / Vomiting Rivaroxaban (Xarelto) 15 mg PO DAILY [facility] Last Admin: 07/15/17 08:44 Dose: 15 mg Saccharomyces Boulardii (Florastor) 250 mg PO BIDWM [facility] Last Admin: 07/15/17 08:43 Dose: 250 mg Sodium Chloride (Normal Saline Flush 0.9%) 10 ml IVP PRN PRN PRN Reason: NEEDED PER PROVIDER ORDERS Sodium Chloride (Normal Saline Flush 0.9%) 10 ml IVP Q8HR [facility] Last Admin: 07/15/17 13:32 Dose: 10 ml Zolpidem Tartrate (Ambien) 5 mg PO QPM PRN PRN Reason: Insomnia Cholecalciferol (Vitamin D3) [Vitamin D3] 1,000 unit PO DAILY 08/02/13 Gabapentin 600 mg PO TID 08/02/13 HYDROmorphone [Dilaudid] 8 mg PO Q8HR 12/21/14 Felodipine [Felodipine ER] 10 mg PO DAILY 08/23/15 Omeprazole 20 mg PO QDAC 08/23/15 Cyclobenzaprine [Flexeril] 10 mg PO TID 01/15/17 Duloxetine HCl [Cymbalta] 60 mg PO DAILY 01/15/17 Furosemide 40 mg PO DAILY 01/15/17 Nystatin 1 applic TOP BID 01/15/17 Potassium Chloride 20 meq PO BID 01/15/17 diazePAM [Diazepam] 5 mg PO QPM PRN 01/15/17 Atorvastatin Calcium 80 mg PO QPM 07/14/17 Cholecalciferol (Vitamin D3) [Vitamin D3] 1,000 units PO DAILY 07/14/17 Cyclobenzaprine [Flexeril] 10 mg PO TID PRN 07/14/17 Felodipine [Felodipine ER] 10 mg PO DAILY 07/14/17 Insulin Glargine [Lantus Solostar] 45 units SUBQ BID 07/14/17 Lisinopril 2.5 mg PO DAILY 07/14/17 Rivaroxaban [Xarelto] 20 mg PO DAILY 07/14/17 Objective - Vital Signs/Intake & Output Reviewed Vital Signs: Yes Vital Signs: Vital Signs x48h Temp Pulse Resp BP Pulse Ox 07/15/17 11:44 36.2 C L 76 18 77/57 L 95 Intake & Output: Intake & Output 07/12/17 07/13/17 07/14/17 07/15/17 23:59 23:59 23:59 23:59 Intake Total 240 Output Total 510 Balance -270 - Objective General Appearance: positive: No acute distress, Alert Eyes Bilateral: positive: Normal inspection ENT: positive: ENT inspection nml, Pharynx nml, Dry mucous membranes Neck: positive: Nml inspection, Thyroid nml, No JVD, Trachea midline Respiratory: positive: Chest non-tender, No respiratory distress, Other ( diminished.) Cardiovascular: positive: Regular rate & rhythm, Systolic murmur Peripheral Pulses: 1+ Radial (R), 1+ Radial (L) Abdomen: positive: Non-tender, Guarding, Rebound, Hepatomegaly, Abnml bowel sounds Back: positive: Nml inspection Skin: positive: Color nml, No rash, Warm, Dry Extremities: positive: Non-tender, Pedal edema, Calf tenderness, Joint swelling Neurologic/Psychiatric: positive: Disoriented to time, Weakness, Sensory loss Reflexes: Bicep (R): 2+, Bicep (L): 2+ - Lab Results Fish Bones: 07/17/17 05:43 07/17/17 14:10 - Diagnostic Imaging Diagnostic Imaging Results: positive: Prelim report reviewed Assessment/Plan - Problem List (1) Urinary tract infection Impression: Patient was admitted after findings of generalized weakness and was found to have positive UA with positive nitrate, moderate blood, RBCs and greater than 25 WBCs with many bacteria. Patient was afebrile, hemodynamically stable and did not have a leukocytosis. Given the patient's generalized weakness she was placed in observation for treatment of UTI, hydration and PT consultation. Plan: Treat patient with IV ceftriaxone, IV fluids. Urine culture pending. Qualifiers: Urinary tract infection type: acute cystitis Hematuria presence: without hematuria Qualified Code(s): N30.00 - Acute cystitis without hematuria (2) Weakness generalized Impression: Patient presents with generalized weakness. She likely has generalized weakness secondary to urinary tract infection. The patient has had multiple falls during the last few days and now has worsening of her chronic back pain. Plan: We will treat the patient's urinary tract infection and give her IV fluids hoping that she does have improvement in her weakness. Patient will be seen by physical therapy and will be assessed to see if she is at her baseline strength after treatment. Patient would likely benefit from home health and we will consult social work (3) Hyponatremia Impression: This is likely due to acute illness and dehydration. Last sodium level was 136. Plan: we will continue to monitor lab results and hydration status. (4) Type II diabetes mellitus with complication, uncontrolled Impression: The patient has very poorly controlled diabetes her glucose on presentation is 426 this is likely led to her urinary tract infection. Blood glucose likely elevated due to infection. HgA1C was grossly elevated at 14.4, which confirms uncontrolled status and not a new problem. Plan: Patient will be placed on her home dose of Lantus and sliding scale insulin at moderate to high dose, IV fluids, monitor patient's blood glucose before meals at bedtime. We will titrate patient's insulin regimen as needed. (5) HTN (hypertension) Impression: The patient has history of hypertension and is on Lasix and felodipine at home for her hypertension. The patient does have significant swelling of bilateral lower extremities. Although the patient does appear to be dehydrated and hypovolemic given her severe lower extremity edema we will continue her oralLasix and give her IV fluid at the same time. Patient refused oral lasix, so IV was ordered to ensure appropriate diuresis. Plan: We will continue to monitor patient's blood pressure and titrate medications as needed. Qualifiers: Hypertension type: essential hypertension Qualified Code(s): I10 - Essential (primary) hypertension (6) Atrial fibrillation Impression: Patient has a know history and is on Xarelto for anticoagulation. The patient does not appear to be on any medications for rate control. On presentation to the emergency department the patient's rate is controlled in the high 90s. Xarelto may be renally adjusted. Plan: Patient will be monitored on telemetry continue Xarelto, and may consider starting a rate control agent if the heart rate does become elevated. 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 She has a known history of AMS upon chart review. Plan: Control blood sugars, keep patient free from infection. Monitor labs.
[2017-07-15] MEDS ORDERED: ZINC OXIDE 20% OINT 28.35 GM TUBE TOP ONE (20:49)
[2017-07-15] MEDS ORDERED: ZINC OXIDE 20% OINT 28.35 GM TUBE TOP PRN (21:05)
[2017-07-16 06:02] LABS: BASOPHILS % (AUTO) 0.6 %; EOSINOPHILS # (AUTO) 0.1 10^3/uL (0.0-0.7); EOSINOPHILS % (AUTO) 2.1 %; HCT - HEMATOCRIT 32.8 % (37.0-47.0); HGB - HEMOGLOBIN 10.9 g/dL (12.0-16.0); LYMPHOCYTES # (AUTO) 1.3 10^3/uL (1.5-3.5); MEAN CORPUSCULAR HEMOGLOBIN 30.1 pg (27.0-31.0); MEAN CORPUSCULAR HGB CONC 33.4 g/dL (32.0-36.0); MEAN CORPUSCULAR VOLUME 90.1 fL (81.0-99.0); MEAN PLATELET VOLUME 8.6 fL (7.9-10.8); MONOCYTES # (AUTO) 0.5 10^3/uL (0.0-1.0); MONOCYTES % (AUTO) 6.7 %; NEUTROPHILS # (AUTO) 4.9 10^3/uL (1.5-6.6); NEUTROPHILS % (AUTO) 71.6 %; RED BLOOD COUNT 3.64 10^6/uL (4.20-5.40); RED CELL DISTRIBUTION WIDTH 13.2 % (12.0-15.0); UNCORRECTED WHITE BLOOD COUNT 6.8 x10^3/uL; WHITE BLOOD COUNT 6.8 x10^3/uL (4.8-10.8)
[2017-07-16] MEDS: CYCLOBENZAPRINE 10 MG TABLET PO SCH ×3 (06:06→21:13)
[2017-07-16] MEDS: GABAPENTIN 300 MG CAPSULE PO SCH ×3 (06:06→21:13)
[2017-07-16] MEDS: SODIUM CHLORIDE FLUSH 0.9% 10 ML SYRINGE IVP SCH ×3 (06:07→21:15)
[2017-07-16 06:17] LABS: ALBUMIN/GLOBULIN RATIO 0.8 (1.0-2.2); BILIRUBIN,TOTAL 0.3 mg/dL (0.2-1.0); CALCIUM 8.3 mg/dL (8.5-10.3); CREATININE 1.7 mg/dL (0.4-1.0); POTASSIUM 5.1 mmol/L (3.5-5.0)
[2017-07-16] MEDS ORDERED: INSULIN GLARGINE 300 UNIT/3 ML PEN SUBQ SCH ×4 (07:01→21:00)
[2017-07-16] MEDS: INSULIN ASPART 300 UNIT/3 ML PEN SUBQ SCH ×4 (08:41→21:15)
[2017-07-16] MEDS: POTASSIUM CHLORIDE 20 MEQ TABLET PO SCH (08:42)
[2017-07-16] MEDS: cefTRIAXone 1 GM in SODIUM CHLORIDE 0.9% MINIBAG 100 ML IV SCH (08:54)
[2017-07-16] MEDS: SACCHAROMYCES BOULARDII 250 MG CAPSULE PO SCH ×2 (08:54→16:04)
[2017-07-16] MEDS: INSULIN GLARGINE 300 UNIT/3 ML PEN SUBQ SCH (08:54)
[2017-07-16] MEDS: RIVAROXABAN 15 MG TABLET PO SCH (08:54)
[2017-07-16] MEDS: CHOLECALCIFEROL 1,000 UNIT TABLET PO SCH (08:54)
[2017-07-16] MEDS: FAMOTIDINE 20 MG TABLET PO SCH (08:54)
[2017-07-16] MEDS: POLYETHYLENE GLYCOL 3350 17 GM PACKET PO SCH (08:54)
[2017-07-16] MEDS: DULoxetine 30 MG CAPSULE PO SCH (08:54)
[2017-07-16] MEDS: NYSTATIN POWDER 15 GM TOP SCH ×2 (08:55→20:28)
[2017-07-16] MEDS: FUROSEMIDE 40 MG TABLET PO SCH (13:41)
--- NOTE | 2017-07-16 14:20 | PROVIDER PROGRESS NOTE ---
Subjective - Prog Note Date Prog Note Date: 07/16/17 - Subjective Pt reports feeling: Improved Subjective: pt state she feel better. No chest pain, shortness of breath, fever, chill. Current Medications - Current Medications Current Medications: Active Medications Acetaminophen (Tylenol) 650 mg PO Q4HR PRN PRN Reason: Pain 1 to 4 Cholecalciferol (Vitamin D3) 1,000 unit PO DAILY [facility] Last Admin: 07/16/17 08:54 Dose: 1,000 unit Cyclobenzaprine HCl (Flexeril) 10 mg PO TID [facility] Last Admin: 07/16/17 13:41 Dose: 10 mg Diazepam (Valium) 10 mg PO DAILY PRN PRN Reason: NEEDED PER PROVIDER ORDERS Duloxetine HCl (Cymbalta) 60 mg PO DAILY [facility] Last Admin: 07/16/17 08:54 Dose: 60 mg Famotidine (Pepcid) 20 mg PO DAILY [facility] Last Admin: 07/16/17 08:54 Dose: 20 mg Furosemide (Lasix) 40 mg PO DAILY@1400 [facility] Last Admin: 07/16/17 13:41 Dose: 40 mg Gabapentin (Neurontin) 600 mg PO TID [facility] Last Admin: 07/16/17 13:41 Dose: 600 mg Hydromorphone HCl (Dilaudid Inj Syringe) 0.5 mg IVP Q2H PRN PRN Reason: Pain 8 to 10 Hydromorphone HCl (Dilaudid) 8 mg PO TID PRN PRN Reason: PAIN Last Admin: 07/14/17 20:25 Dose: 8 mg Ceftriaxone Sodium 1 gm/ (Sodium Chloride) 100 mls @ 200 mls/hr IV DAILY [facility] Last Infusion: 07/16/17 09:24 Dose: Infused Insulin Aspart (Novolog) 3 - 11 unit SUBQ 0800,1200,1700,2100 [facility] PRN Reason: Protocol Last Admin: 07/16/17 12:14 Dose: 3 unit Insulin Glargine (Lantus Solostar) 25 unit SUBQ QPM [facility] Insulin Glargine (Lantus Solostar) 25 unit SUBQ DAILY [facility] Last Admin: 07/16/17 08:54 Dose: Not Given Multi-Ingredient Ointment (Zinc Oxide) 1 applic TOP PRN PRN PRN Reason: Skin Care Nystatin (Nystop) 1 applic TOP BID [facility] Last Admin: 07/16/17 08:55 Dose: 1 applic Ondansetron HCl (Zofran Inj) 4 mg IVP Q6HR PRN PRN Reason: Nausea / Vomiting Polyethylene Glycol (Miralax) 17 gm PO DAILY [facility] Last Admin: 07/16/17 08:54 Dose: 17 gm Prochlorperazine Edisylate (Compazine Inj) 10 mg IVP Q6HR PRN PRN Reason: Nausea / Vomiting Rivaroxaban (Xarelto) 15 mg PO DAILY [facility] Last Admin: 07/16/17 08:54 Dose: 15 mg Saccharomyces Boulardii (Florastor) 250 mg PO BIDWM [facility] Last Admin: 07/16/17 08:54 Dose: 250 mg Sodium Chloride (Normal Saline Flush 0.9%) 10 ml IVP PRN PRN PRN Reason: NEEDED PER PROVIDER ORDERS Sodium Chloride (Normal Saline Flush 0.9%) 10 ml IVP Q8HR [facility] Last Admin: 07/16/17 13:41 Dose: 10 ml Zolpidem Tartrate (Ambien) 5 mg PO QPM PRN PRN Reason: Insomnia Cholecalciferol (Vitamin D3) [Vitamin D3] 1,000 unit PO DAILY 08/02/13 Gabapentin 600 mg PO TID 08/02/13 HYDROmorphone [Dilaudid] 8 mg PO Q8HR 12/21/14 Felodipine [Felodipine ER] 10 mg PO DAILY 08/23/15 Omeprazole 20 mg PO QDAC 08/23/15 Cyclobenzaprine [Flexeril] 10 mg PO TID 01/15/17 Duloxetine HCl [Cymbalta] 60 mg PO DAILY 01/15/17 Furosemide 40 mg PO DAILY 01/15/17 Nystatin 1 applic TOP BID 01/15/17 Potassium Chloride 20 meq PO BID 01/15/17 diazePAM [Diazepam] 5 mg PO QPM PRN 01/15/17 Atorvastatin Calcium 80 mg PO QPM 07/14/17 Cholecalciferol (Vitamin D3) [Vitamin D3] 1,000 units PO DAILY 07/14/17 Cyclobenzaprine [Flexeril] 10 mg PO TID PRN 07/14/17 Felodipine [Felodipine ER] 10 mg PO DAILY 07/14/17 Insulin Glargine [Lantus Solostar] 45 units SUBQ BID 07/14/17 Lisinopril 2.5 mg PO DAILY 07/14/17 Rivaroxaban [Xarelto] 20 mg PO DAILY 07/14/17 Objective - Vital Signs/Intake & Output Reviewed Vital Signs: Yes Vital Signs: Vital Signs x48h Temp Pulse Resp BP Pulse Ox 07/16/17 12:04 36.3 C L 93 18 107/68 93 07/16/17 09:46 94 16 115/53 L 96 07/16/17 09:27 36.3 C L 93 18 103/68 95 Intake & Output: Intake & Output 07/13/17 07/14/17 07/15/17 07/16/17 23:59 23:59 23:59 23:59 Intake Total 800 100 Output Total 1410 1600 Balance -610 -1500 - Objective General Appearance: positive: No acute distress, Alert. negative: Lethargic Eyes Bilateral: positive: Normal inspection, PERRL, No lid inflammation, Conjunctivae nml ENT: positive: ENT inspection nml, Pharynx nml, No signs of dehydration. negative: Purulent nasal drainage, Pharyngeal erythema, Oral lesions Neck: positive: Nml inspection, Thyroid nml, Trachea midline. negative: Thyromegaly, Lymphadenopathy (R), Lymphadenopathy (L), Stiff neck, Carotid bruit , Swelling/bruising, Tracheal deviation Respiratory: positive: Chest non-tender, No respiratory distress, Breath sounds nml. negative: Wheezes, Rales, Rhonchi Cardiovascular: positive: Regular rate & rhythm, No murmur, No gallop. negative : Irregularly irregular, Extrasystoles, Tachycardia, Bradycardia, Systolic murmur, Diastolic murmur Peripheral Pulses: 2+ Radial (R), 2+ Radial (L), 2+ Dorsalis pedis (R), 2+ Dorsalis pedis (L) Abdomen: positive: Non-tender, Nml bowel sounds. negative: Tenderness, Guarding , Rebound Back: positive: Nml inspection. negative: CVA tenderness (R), CVA tenderness (L ) Skin: positive: Color nml, Warm, Dry, Skin rash (mild to moderate skin erythema at lower extremity). negative: Cyanosis, Diaphoresis, Pallor Extremities: positive: Non-tender, Full ROM. negative: Calf tenderness, Joint swelling, Matthew's sign/cords Neurologic/Psychiatric: positive: Oriented x3, Motor nml, Sensation nml, Weakness. negative: Sensory loss, Facial droop, Slurred/abnml speech, Depressed mood/affect - Lab Results Fish Bones: 07/16/17 05:50 07/16/17 05:50 Other Labs: Lab Results x24hrs 07/16/17 07/16/17 07/16/17 Range/Units 09:21 06:58 06:39 WBC (4.8-10.8) x10^3/uL RBC (4.20-5.40) 10^6/uL Hgb (12.0-16.0) g/dL Hct (37.0-47.0) % MCV (81.0-99.0) fL MCH (27.0-31.0) pg MCHC (32.0-36.0) g/dL RDW (12.0-15.0) % Plt Count (130-450) 10^3/uL MPV (7.9-10.8) fL Neut # (1.5-6.6) 10^3/uL Lymph # (1.5-3.5) 10^3/uL [place] # (0.0-1.0) 10^3/uL Eos # (0.0-0.7) 10^3/uL Baso # (0.0-0.1) 10^3/uL Absolute Nucleated RBC x10^3/uL Nucleated RBC % /100WBC Sodium (135-145) mmol/L Potassium (3.5-5.0) mmol/L Chloride (101-111) mmol/L Carbon Dioxide (21-32) mmol/L Anion Gap (6-13) BUN (6-20) mg/dL Creatinine (0.4-1.0) mg/dL Estimated GFR (MDRD) (>89) Glucose (70-100) mg/dL POC Whole Bld Glucose 133 H 64 L 62 L (70 - 100) mg/dL Calcium (8.5-10.3) mg/dL Total Bilirubin (0.2-1.0) mg/dL AST (10-42) IU/L ALT (10-60) IU/L Alkaline Phosphatase (42-121) IU/L Total Protein (6.7-8.2) g/dL Albumin (3.2-5.5) g/dL Globulin (2.1-4.2) g/dL Albumin/Globulin Ratio (1.0-2.2) 07/16/17 07/16/17 07/15/17 Range/Units 05:50 05:50 20:37 WBC 6.8 (4.8-10.8) x10^3/uL RBC 3.64 L (4.20-5.40) 10^6/uL Hgb 10.9 L (12.0-16.0) g/dL Hct 32.8 L (37.0-47.0) % MCV 90.1 (81.0-99.0) fL MCH 30.1 (27.0-31.0) pg MCHC 33.4 (32.0-36.0) g/dL RDW 13.2 (12.0-15.0) % Plt Count 238 (130-450) 10^3/uL MPV 8.6 (7.9-10.8) fL Neut # 4.9 (1.5-6.6) 10^3/uL Lymph # 1.3 L (1.5-3.5) 10^3/uL [place] # 0.5 (0.0-1.0) 10^3/uL Eos # 0.1 (0.0-0.7) 10^3/uL Baso # 0.0 (0.0-0.1) 10^3/uL Absolute Nucleated RBC 0.00 x10^3/uL Nucleated RBC % 0.0 /100WBC Sodium 136 (135-145) mmol/L Potassium 5.1 H (3.5-5.0) mmol/L Chloride 104 (101-111) mmol/L Carbon Dioxide 25 (21-32) mmol/L Anion Gap 7.0 (6-13) BUN 42 H (6-20) mg/dL Creatinine 1.7 H (0.4-1.0) mg/dL Estimated GFR (MDRD) 30 L (>89) Glucose 60 L* (70-100) mg/dL POC Whole Bld Glucose 91 (70 - 100) mg/dL Calcium 8.3 L (8.5-10.3) mg/dL Total Bilirubin 0.3 (0.2-1.0) mg/dL AST 15 (10-42) IU/L ALT 17 (10-60) IU/L Alkaline Phosphatase 97 (42-121) IU/L Total Protein 6.0 L (6.7-8.2) g/dL Albumin 2.6 L (3.2-5.5) g/dL Globulin 3.4 (2.1-4.2) g/dL Albumin/Globulin Ratio 0.8 L (1.0-2.2) 07/15/17 Range/Units 16:30 WBC (4.8-10.8) x10^3/uL RBC (4.20-5.40) 10^6/uL Hgb (12.0-16.0) g/dL Hct (37.0-47.0) % MCV (81.0-99.0) fL MCH (27.0-31.0) pg MCHC (32.0-36.0) g/dL RDW (12.0-15.0) % Plt Count (130-450) 10^3/uL MPV (7.9-10.8) fL Neut # (1.5-6.6) 10^3/uL Lymph # (1.5-3.5) 10^3/uL [place] # (0.0-1.0) 10^3/uL Eos # (0.0-0.7) 10^3/uL Baso # (0.0-0.1) 10^3/uL Absolute Nucleated RBC x10^3/uL Nucleated RBC % /100WBC Sodium (135-145) mmol/L Potassium (3.5-5.0) mmol/L Chloride (101-111) mmol/L Carbon Dioxide (21-32) mmol/L Anion Gap (6-13) BUN (6-20) mg/dL Creatinine (0.4-1.0) mg/dL Estimated GFR (MDRD) (>89) Glucose (70-100) mg/dL POC Whole Bld Glucose 130 H (70 - 100) mg/dL Calcium (8.5-10.3) mg/dL Total Bilirubin (0.2-1.0) mg/dL AST (10-42) IU/L ALT (10-60) IU/L Alkaline Phosphatase (42-121) IU/L Total Protein (6.7-8.2) g/dL Albumin (3.2-5.5) g/dL Globulin (2.1-4.2) g/dL Albumin/Globulin Ratio (1.0-2.2) Assessment/Plan - Problem List (1) Urinary tract infection Impression: Impression: review of UA and sensitive study, Rocephin is sensitive in the study continue Rocephin treatment for antibiotics course Patient was admitted after findings of generalized weakness and was found to have positive UA with positive nitrate, moderate blood, RBCs and greater than 25 WBCs with many bacteria. Patient was afebrile, hemodynamically stable and did not have a leukocytosis. Given the patient's generalized weakness she was placed in observation for treatment of UTI, hydration and PT consultation. Plan: Treat patient with IV ceftriaxone, IV fluids. We will attempt to obtain another sample since first specimen was not eligible for culture. (2) Weakness generalized Impression: pt with hx of chronic back pain, UTI, mortality of obese, uncontrolled DM2 will continue PT and OT evaluation and treatment continue treatment of UTI continue vital monitor Patient presents with generalized weakness. She likely has generalized weakness secondary to urinary tract infection. The patient has had multiple falls during the last few days and now has worsening of her chronic back pain. Plan: We will treat the patient's urinary tract infection and give her IV fluids hoping that she does have improvement in her weakness. Patient will be seen by physical therapy and will be assessed to see if she is at her baseline strength after treatment. Patient would likely benefit from home health and we will consult social work (3) Chronic back pain Impression: continue pain control Patient has chronic back pain and after recent falls has worsening of her symptoms. Patient underwent CT of her lumbar spine which showed significant neural foraminal narrowing throughout the L-spine and stable degenerative changes with mild central canal narrowing throughout the L-spine. The patient did not have any acute fractures. Plan: Patient will be continued on her chronic pain medication p.o. Dilaudid and we will give her IV Dilaudid for breakthrough pain. She will also be continued on diazepam and gabapentin. Patient will get a PT evaluation. Continue to encourage activity. (4) Type II diabetes mellitus with complication, uncontrolled Impression: hypoglycemia once, and pt is at low glucose level at morning. reduce Lantus dosage, [facility] hypoglycemia protocol The patient has very poorly controlled diabetes her glucose on presentation is 426 this is likely led to her urinary tract infection. Blood glucose likely elevated due to infection. HgA1C was grossly elevated at 14.4, which confirms uncontrolled status and not a new problem. Plan: Patient will be placed on her home dose of Lantus and sliding scale insulin at moderate to high dose, IV fluids, monitor patient's blood glucose before meals at bedtime. We will titrate patient's insulin regimen as needed. (5) Hyponatremia Impression: resolved continue lab test This is likely due to acute illness and dehydration. Plan: we will continue to monitor lab results and hydration status. (6) HTN (hypertension) Impression: slight low blood pressure, hold home meds Plendil now vital monitor continue home Lasix The patient has history of hypertension and is on Lasix and felodipine at home for her hypertension. The patient does have significant swelling of bilateral lower extremities. Although the patient does appear to be dehydrated and hypovolemic given her severe lower extremity edema we will continue her oralLasix and give her IV fluid at the same time. Patient refused oral lasix, so IV was ordered to ensure appropriate diuresis. Plan: We will continue to monitor patient's blood pressure and titrate medications as needed. (7) Atrial fibrillation Impression: HR is stable continue Xarelto as home meds for anticoagulation continue vital, tele monitor continue lab daily Patient has a know history and is on Xarelto for anticoagulation. The patient does not appear to be on any medications for rate control. On presentation to the emergency department the patient's rate is controlled in the high 90s. Xarelto may be renally adjusted. Plan: Patient will be monitored on telemetry continue Xarelto, and may consider starting a rate control agent if the heart rate does become elevated. (8) CKD chronic renal insufficiency will balance hydration for CKD and prevention of fluid over-loaded hold nephrotoxic agents daily lab monitor Qualifiers: Urinary tract infection type: acute cystitis Hematuria presence: without hematuria Qualified Code(s): N30.00 - Acute cystitis without hematuria
[2017-07-17] MEDS: HYDROmorphone 2 MG TABLET PO PRN (03:05)
[2017-07-17 05:59] LABS: BASOPHILS % (AUTO) 0.6 %; EOSINOPHILS # (AUTO) 0.2 10^3/uL (0.0-0.7); HCT - HEMATOCRIT 32.8 % (37.0-47.0); HGB - HEMOGLOBIN 10.9 g/dL (12.0-16.0); LYMPHOCYTES # (AUTO) 1.9 10^3/uL (1.5-3.5); LYMPHOCYTES % (AUTO) 31.2 %; MEAN CORPUSCULAR HEMOGLOBIN 29.9 pg (27.0-31.0); MEAN CORPUSCULAR HGB CONC 33.3 g/dL (32.0-36.0); MEAN CORPUSCULAR VOLUME 89.7 fL (81.0-99.0); MEAN PLATELET VOLUME 8.8 fL (7.9-10.8); MONOCYTES # (AUTO) 0.5 10^3/uL (0.0-1.0); MONOCYTES % (AUTO) 8.8 %; NEUTROPHILS # (AUTO) 3.5 10^3/uL (1.5-6.6); NEUTROPHILS % (AUTO) 56.4 %; RED BLOOD COUNT 3.66 10^6/uL (4.20-5.40); RED CELL DISTRIBUTION WIDTH 12.9 % (12.0-15.0); UNCORRECTED WHITE BLOOD COUNT 6.2 x10^3/uL; WHITE BLOOD COUNT 6.2 x10^3/uL (4.8-10.8)
[2017-07-17] MEDS: CYCLOBENZAPRINE 10 MG TABLET PO SCH ×3 (06:10→22:09)
[2017-07-17] MEDS: SODIUM CHLORIDE FLUSH 0.9% 10 ML SYRINGE IVP SCH ×3 (06:10→22:13)
[2017-07-17] MEDS: GABAPENTIN 300 MG CAPSULE PO SCH ×3 (06:10→22:09)
[2017-07-17 06:13] LABS: ALBUMIN/GLOBULIN RATIO 0.6 (1.0-2.2); BILIRUBIN,TOTAL 0.4 mg/dL (0.2-1.0); CALCIUM 8.1 mg/dL (8.5-10.3); CREATININE 1.6 mg/dL (0.4-1.0); POTASSIUM 5.3 mmol/L (3.5-5.0); TOTAL PROTEIN 6.1 g/dL (6.7-8.2)
[2017-07-17] MEDS: INSULIN ASPART 300 UNIT/3 ML PEN SUBQ SCH ×4 (07:42→20:37)
[2017-07-17] MEDS ORDERED: INSULIN GLARGINE 300 UNIT/3 ML PEN SUBQ SCH (07:45)
[2017-07-17] MEDS ORDERED: SODIUM POLYSTYRENE SULFONATE 15 GM/60 ML BOTTLE PO SCH (07:48)
[2017-07-17] MEDS: FAMOTIDINE 20 MG TABLET PO SCH (08:37)
[2017-07-17] MEDS: CHOLECALCIFEROL 1,000 UNIT TABLET PO SCH (08:38)
[2017-07-17] MEDS: SACCHAROMYCES BOULARDII 250 MG CAPSULE PO SCH ×2 (08:38→17:07)
[2017-07-17] MEDS: RIVAROXABAN 15 MG TABLET PO SCH (08:38)
[2017-07-17] MEDS: DULoxetine 30 MG CAPSULE PO SCH (08:39)
[2017-07-17] MEDS: cefTRIAXone 1 GM in SODIUM CHLORIDE 0.9% MINIBAG 100 ML IV SCH (08:39)
[2017-07-17] MEDS: POLYETHYLENE GLYCOL 3350 17 GM PACKET PO SCH (08:39)
[2017-07-17] MEDS ORDERED: DOCUSATE SODIUM 250 MG CAPSULE PO SCH (09:00)
[2017-07-17] MEDS ORDERED: SENNA 8.6 MG TABLET PO SCH (09:00)
[2017-07-17] MEDS: NYSTATIN POWDER 15 GM TOP SCH ×2 (10:19→20:48)
[2017-07-17] MEDS: INSULIN GLARGINE 300 UNIT/3 ML PEN SUBQ SCH (10:19)
--- NOTE | 2017-07-17 12:59 | PROVIDER PROGRESS NOTE ---
Subjective - Prog Note Date Prog Note Date: 07/17/17 - Subjective Pt reports feeling: Improved Subjective: pt state she feel good. no pain. no fever, chill, dysuria. pt's glucose is down to 49, 55 at vest backer, although continue down Lantus dosage. Pt took Lantus 45 unit daily but she has 427 glucose at admission. Then pt had Lantus 85 units on 07/14, 35 at 07/15, 25 unit at 07/16 but had hypoglycemia. Objective - Vital Signs/Intake & Output Vital Signs: Vital Signs x48h Temp Pulse Resp BP Pulse Ox 07/17/17 09:08 35.6 C L 95 13 113/62 98 Intake & Output: Intake & Output 07/14/17 07/15/17 07/16/17 07/17/17 23:59 23:59 23:59 23:59 Intake Total 689 910 7219 Output Total 1410 3800 575 Balance -610 -3280 755 - Lab Results Fish Bones: 07/17/17 05:43 07/17/17 05:43 Other Labs: Lab Results x24hrs 07/17/17 07/17/17 07/17/17 Range/Units 11:14 08:23 07:50 WBC (4.8-10.8) x10^3/uL RBC (4.20-5.40) 10^6/uL Hgb (12.0-16.0) g/dL Hct (37.0-47.0) % MCV (81.0-99.0) fL MCH (27.0-31.0) pg MCHC (32.0-36.0) g/dL RDW (12.0-15.0) % Plt Count (130-450) 10^3/uL MPV (7.9-10.8) fL Neut # (1.5-6.6) 10^3/uL Lymph # (1.5-3.5) 10^3/uL [place] # (0.0-1.0) 10^3/uL Eos # (0.0-0.7) 10^3/uL Baso # (0.0-0.1) 10^3/uL Absolute Nucleated RBC x10^3/uL Nucleated RBC % /100WBC Sodium (135-145) mmol/L Potassium (3.5-5.0) mmol/L Chloride (101-111) mmol/L Carbon Dioxide (21-32) mmol/L Anion Gap (6-13) BUN (6-20) mg/dL Creatinine (0.4-1.0) mg/dL Estimated GFR (MDRD) (>89) Glucose (70-100) mg/dL POC Whole Bld Glucose 165 H 109 H 55 L* (70 - 100) mg/dL Calcium (8.5-10.3) mg/dL Total Bilirubin (0.2-1.0) mg/dL AST (10-42) IU/L ALT (10-60) IU/L Alkaline Phosphatase (42-121) IU/L Total Protein (6.7-8.2) g/dL Albumin (3.2-5.5) g/dL Globulin (2.1-4.2) g/dL Albumin/Globulin Ratio (1.0-2.2) 07/17/17 07/17/17 07/17/17 Range/Units 07:34 05:43 05:43 WBC 6.2 (4.8-10.8) x10^3/uL RBC 3.66 L (4.20-5.40) 10^6/uL Hgb 10.9 L (12.0-16.0) g/dL Hct 32.8 L (37.0-47.0) % MCV 89.7 (81.0-99.0) fL MCH 29.9 (27.0-31.0) pg MCHC 33.3 (32.0-36.0) g/dL RDW 12.9 (12.0-15.0) % Plt Count 241 (130-450) 10^3/uL MPV 8.8 (7.9-10.8) fL Neut # 3.5 (1.5-6.6) 10^3/uL Lymph # 1.9 (1.5-3.5) 10^3/uL [place] # 0.5 (0.0-1.0) 10^3/uL Eos # 0.2 (0.0-0.7) 10^3/uL Baso # 0.0 (0.0-0.1) 10^3/uL Absolute Nucleated RBC 0.00 x10^3/uL Nucleated RBC % 0.0 /100WBC Sodium 136 (135-145) mmol/L Potassium 5.3 H (3.5-5.0) mmol/L Chloride 104 (101-111) mmol/L Carbon Dioxide 26 (21-32) mmol/L Anion Gap 6.0 (6-13) BUN 43 H (6-20) mg/dL Creatinine 1.6 H (0.4-1.0) mg/dL Estimated GFR (MDRD) 32 L (>89) Glucose 63 L (70-100) mg/dL POC Whole Bld Glucose 49 L* (70 - 100) mg/dL Calcium 8.1 L (8.5-10.3) mg/dL Total Bilirubin 0.4 (0.2-1.0) mg/dL AST 14 (10-42) IU/L ALT 16 (10-60) IU/L Alkaline Phosphatase 92 (42-121) IU/L Total Protein 6.1 L (6.7-8.2) g/dL Albumin 2.4 L (3.2-5.5) g/dL Globulin 3.7 (2.1-4.2) g/dL Albumin/Globulin Ratio 0.6 L (1.0-2.2) 07/16/17 07/16/17 Range/Units 20:18 16:03 WBC (4.8-10.8) x10^3/uL RBC (4.20-5.40) 10^6/uL Hgb (12.0-16.0) g/dL Hct (37.0-47.0) % MCV (81.0-99.0) fL MCH (27.0-31.0) pg MCHC (32.0-36.0) g/dL RDW (12.0-15.0) % Plt Count (130-450) 10^3/uL MPV (7.9-10.8) fL Neut # (1.5-6.6) 10^3/uL Lymph # (1.5-3.5) 10^3/uL [place] # (0.0-1.0) 10^3/uL Eos # (0.0-0.7) 10^3/uL Baso # (0.0-0.1) 10^3/uL Absolute Nucleated RBC x10^3/uL Nucleated RBC % /100WBC Sodium (135-145) mmol/L Potassium (3.5-5.0) mmol/L Chloride (101-111) mmol/L Carbon Dioxide (21-32) mmol/L Anion Gap (6-13) BUN (6-20) mg/dL Creatinine (0.4-1.0) mg/dL Estimated GFR (MDRD) (>89) Glucose (70-100) mg/dL POC Whole Bld Glucose 178 H 218 H (70 - 100) mg/dL Calcium (8.5-10.3) mg/dL Total Bilirubin (0.2-1.0) mg/dL AST (10-42) IU/L ALT (10-60) IU/L Alkaline Phosphatase (42-121) IU/L Total Protein (6.7-8.2) g/dL Albumin (3.2-5.5) g/dL Globulin (2.1-4.2) g/dL Albumin/Globulin Ratio (1.0-2.2) Assessment/Plan - Problem List (1) Urinary tract infection Impression: Impression: continue to treat, planing D/C pt tomorrow continue lab daily, vital monitor review of UA and sensitive study, Rocephin is sensitive in the study continue Rocephin treatment for antibiotics course Patient was admitted after findings of generalized weakness and was found to have positive UA with positive nitrate, moderate blood, RBCs and greater than 25 WBCs with many bacteria. Patient was afebrile, hemodynamically stable and did not have a leukocytosis. Given the patient's generalized weakness she was placed in observation for treatment of UTI, hydration and PT consultation. Plan: Treat patient with IV ceftriaxone, IV fluids. We will attempt to obtain another sample since first specimen was not eligible for culture. (2) Weakness generalized Impression: pt request D/C to home, refuse to have the arrange to SNF per PT report plan D/C home tomorrow continue PT and OT evaluation and treatment pt with hx of chronic back pain, UTI, mortality of obese, uncontrolled DM2 will continue PT and OT evaluation and treatment continue treatment of UTI continue vital monitor Patient presents with generalized weakness. She likely has generalized weakness secondary to urinary tract infection. The patient has had multiple falls during the last few days and now has worsening of her chronic back pain. Plan: We will treat the patient's urinary tract infection and give her IV fluids hoping that she does have improvement in her weakness. Patient will be seen by physical therapy and will be assessed to see if she is at her baseline strength after treatment. Patient would likely benefit from home health and we will consult social work (3) Chronic back pain Impression: stable continue pain control Patient has chronic back pain and after recent falls has worsening of her symptoms. Patient underwent CT of her lumbar spine which showed significant neural foraminal narrowing throughout the L-spine and stable degenerative changes with mild central canal narrowing throughout the L-spine. The patient did not have any acute fractures. Plan: Patient will be continued on her chronic pain medication p.o. Dilaudid and we will give her IV Dilaudid for breakthrough pain. She will also be continued on diazepam and gabapentin. Patient will get a PT evaluation. Continue to encourage activity. (4) Type II diabetes mellitus with complication, uncontrolled Impression: pt's A1C 14.4, uncontrolled. continue to have episode of hypoglycemia, although decrease Lantus dosage continue decrease Lantus, recheck morning sugar continue hypoglycemia protocol hypoglycemia once, and pt is at low glucose level at morning. reduce Lantus dosage, [facility] hypoglycemia protocol The patient has very poorly controlled diabetes her glucose on presentation is 426 this is likely led to her urinary tract infection. Blood glucose likely elevated due to infection. HgA1C was grossly elevated at 14.4, which confirms uncontrolled status and not a new problem. Plan: Patient will be placed on her home dose of Lantus and sliding scale insulin at moderate to high dose, IV fluids, monitor patient's blood glucose before meals at bedtime. We will titrate patient's insulin regimen as needed. (5) Hyponatremia Impression: resolved continue lab test This is likely due to acute illness and dehydration. Plan: we will continue to monitor lab results and hydration status. (6) HTN (hypertension) Impression: slight low blood pressure, hold home meds Plendil now vital monitor continue home Lasix The patient has history of hypertension and is on Lasix and felodipine at home for her hypertension. The patient does have significant swelling of bilateral lower extremities. Although the patient does appear to be dehydrated and hypovolemic given her severe lower extremity edema we will continue her oralLasix and give her IV fluid at the same time. Patient refused oral lasix, so IV was ordered to ensure appropriate diuresis. Plan: We will continue to monitor patient's blood pressure and titrate medications as needed. (7) Atrial fibrillation Impression: HR is stable continue Xarelto as home meds for anticoagulation continue vital, tele monitor continue lab daily Patient has a know history and is on Xarelto for anticoagulation. The patient does not appear to be on any medications for rate control. On presentation to the emergency department the patient's rate is controlled in the high 90s. Xarelto may be renally adjusted. Plan: Patient will be monitored on telemetry continue Xarelto, and may consider starting a rate control agent if the heart rate does become elevated. (8) CKD stable, continue current treatment daily lab, vital monitor pt chronic renal insufficiency will balance hydration for CKD and prevention of fluid over-loaded hold nephrotoxic agents daily lab monitor (9) hypoglycemia pt has glucose at 49 at vest backer, and pt report she felt very dizziness. pt had 25 units Lantus at last night, pt took 45 units at home. Decrease Lantus to 15 unit tonight, recheck tomorrow morning glucose ACHS, hypoglycemia protocol Qualifiers: Urinary tract infection type: acute cystitis Hematuria presence: without hematuria Qualified Code(s): N30.00 - Acute cystitis without hematuria
[2017-07-17] MEDS: FUROSEMIDE 40 MG TABLET PO SCH (14:45)
[2017-07-18 05:47] LABS: BASOPHILS % (AUTO) 0.4 %; EOSINOPHILS # (AUTO) 0.2 10^3/uL (0.0-0.7); EOSINOPHILS % (AUTO) 2.7 %; HCT - HEMATOCRIT 34.5 % (37.0-47.0); HGB - HEMOGLOBIN 11.5 g/dL (12.0-16.0); LYMPHOCYTES # (AUTO) 2.3 10^3/uL (1.5-3.5); LYMPHOCYTES % (AUTO) 31.1 %; MEAN CORPUSCULAR HGB CONC 33.3 g/dL (32.0-36.0); MEAN PLATELET VOLUME 10.7 fL (7.9-10.8); MONOCYTES # (AUTO) 0.6 10^3/uL (0.0-1.0); MONOCYTES % (AUTO) 8.1 %; NEUTROPHILS # (AUTO) 4.3 10^3/uL (1.5-6.6); NEUTROPHILS % (AUTO) 57.7 %; RED BLOOD COUNT 3.83 10^6/uL (4.20-5.40); UNCORRECTED WHITE BLOOD COUNT 7.4 x10^3/uL; WHITE BLOOD COUNT 7.4 x10^3/uL (4.8-10.8)
[2017-07-18 06:26] LABS: ALBUMIN/GLOBULIN RATIO 0.7 (1.0-2.2); BILIRUBIN,TOTAL 0.5 mg/dL (0.2-1.0); CALCIUM 8.4 mg/dL (8.5-10.3); CREATININE 1.5 mg/dL (0.4-1.0); TOTAL PROTEIN 6.3 g/dL (6.7-8.2)
[2017-07-18] MEDS: CYCLOBENZAPRINE 10 MG TABLET PO SCH ×4 (06:40→21:24)
[2017-07-18] MEDS: SODIUM CHLORIDE FLUSH 0.9% 10 ML SYRINGE IVP SCH ×3 (06:41→21:24)
[2017-07-18] MEDS: GABAPENTIN 300 MG CAPSULE PO SCH ×4 (06:50→21:24)
[2017-07-18] MEDS: INSULIN ASPART 300 UNIT/3 ML PEN SUBQ SCH ×4 (08:03→21:28)
[2017-07-18] MEDS: cefTRIAXone 1 GM in SODIUM CHLORIDE 0.9% MINIBAG 100 ML IV SCH (10:32)
[2017-07-18] MEDS: SACCHAROMYCES BOULARDII 250 MG CAPSULE PO SCH ×2 (10:32→20:09)
[2017-07-18] MEDS: CHOLECALCIFEROL 1,000 UNIT TABLET PO SCH (10:32)
[2017-07-18] MEDS: FAMOTIDINE 20 MG TABLET PO SCH (10:33)
[2017-07-18] MEDS: INSULIN GLARGINE 300 UNIT/3 ML PEN SUBQ SCH (10:33)
[2017-07-18] MEDS: DULoxetine 30 MG CAPSULE PO SCH (10:33)
[2017-07-18] MEDS: POLYETHYLENE GLYCOL 3350 17 GM PACKET PO SCH (10:34)
[2017-07-18] MEDS: NYSTATIN POWDER 15 GM TOP SCH ×2 (10:34→21:26)
[2017-07-18] MEDS: RIVAROXABAN 15 MG TABLET PO SCH (10:34)
[2017-07-18] MEDS: FUROSEMIDE 40 MG TABLET PO SCH (14:15)
--- NOTE | 2017-07-18 15:32 | PROVIDER PROGRESS NOTE ---
Subjective - Prog Note Date Prog Note Date: 07/18/17 - Subjective Pt reports feeling: Worse Subjective: pt feel dizziness and weakness and some lethargic at the morning. Pt's glucose is 49 at morning. Pt had Lantus 45 unit at home but she only had 15 unit on last night. Current Medications - Current Medications Current Medications: Active Medications Acetaminophen (Tylenol) 650 mg PO Q4HR PRN PRN Reason: Pain 1 to 4 Cholecalciferol (Vitamin D3) 1,000 unit PO DAILY [facility] Last Admin: 07/18/17 10:32 Dose: 1,000 unit Cyclobenzaprine HCl (Flexeril) 10 mg PO TID [facility] Last Admin: 07/18/17 14:15 Dose: 10 mg Diazepam (Valium) 10 mg PO DAILY PRN PRN Reason: NEEDED PER PROVIDER ORDERS Duloxetine HCl (Cymbalta) 60 mg PO DAILY [facility] Last Admin: 07/18/17 10:33 Dose: 60 mg Famotidine (Pepcid) 20 mg PO DAILY [facility] Last Admin: 07/18/17 10:33 Dose: 20 mg Furosemide (Lasix) 40 mg PO DAILY@1400 [facility] Last Admin: 07/18/17 14:15 Dose: 40 mg Gabapentin (Neurontin) 600 mg PO TID [facility] Last Admin: 07/18/17 14:15 Dose: 600 mg Hydromorphone HCl (Dilaudid Inj Syringe) 0.5 mg IVP Q2H PRN PRN Reason: Pain 8 to 10 Hydromorphone HCl (Dilaudid) 8 mg PO TID PRN PRN Reason: PAIN Last Admin: 07/17/17 03:05 Dose: 8 mg Ceftriaxone Sodium 1 gm/ (Sodium Chloride) 100 mls @ 200 mls/hr IV DAILY [facility] Last Infusion: 07/18/17 11:02 Dose: Infused Insulin Aspart (Novolog) 3 - 11 unit SUBQ 0800,1200,1700,2100 [facility] PRN Reason: Protocol Last Admin: 07/18/17 14:02 Dose: Not Given Insulin Glargine (Lantus Solostar) 25 unit SUBQ DAILY [facility] Last Admin: 07/18/17 10:33 Dose: Not Given Multi-Ingredient Ointment (Zinc Oxide) 1 applic TOP PRN PRN PRN Reason: Skin Care Nystatin (Nystop) 1 applic TOP BID [facility] Last Admin: 07/18/17 10:34 Dose: 1 applic Ondansetron HCl (Zofran Inj) 4 mg IVP Q6HR PRN PRN Reason: Nausea / Vomiting Polyethylene Glycol (Miralax) 17 gm PO DAILY [facility] Last Admin: 07/18/17 10:34 Dose: 17 gm Prochlorperazine Edisylate (Compazine Inj) 10 mg IVP Q6HR PRN PRN Reason: Nausea / Vomiting Rivaroxaban (Xarelto) 15 mg PO DAILY [facility] Last Admin: 07/18/17 10:34 Dose: 15 mg Saccharomyces Boulardii (Florastor) 250 mg PO BIDWM [facility] Last Admin: 07/18/17 10:32 Dose: 250 mg Sodium Chloride (Normal Saline Flush 0.9%) 10 ml IVP PRN PRN PRN Reason: NEEDED PER PROVIDER ORDERS Last Admin: 07/18/17 10:35 Dose: 10 ml Sodium Chloride (Normal Saline Flush 0.9%) 10 ml IVP Q8HR [facility] Last Admin: 07/18/17 14:15 Dose: 10 ml Zolpidem Tartrate (Ambien) 5 mg PO QPM PRN PRN Reason: Insomnia Cholecalciferol (Vitamin D3) [Vitamin D3] 1,000 unit PO DAILY 08/02/13 Gabapentin 600 mg PO TID 08/02/13 HYDROmorphone [Dilaudid] 8 mg PO Q8HR 12/21/14 Felodipine [Felodipine ER] 10 mg PO DAILY 08/23/15 Omeprazole 20 mg PO QDAC 08/23/15 Cyclobenzaprine [Flexeril] 10 mg PO TID 01/15/17 Duloxetine HCl [Cymbalta] 60 mg PO DAILY 01/15/17 Furosemide 40 mg PO DAILY 01/15/17 Nystatin 1 applic TOP BID 01/15/17 Potassium Chloride 20 meq PO BID 01/15/17 diazePAM [Diazepam] 5 mg PO QPM PRN 01/15/17 Atorvastatin Calcium 80 mg PO QPM 07/14/17 Cholecalciferol (Vitamin D3) [Vitamin D3] 1,000 units PO DAILY 07/14/17 Cyclobenzaprine [Flexeril] 10 mg PO TID PRN 07/14/17 Felodipine [Felodipine ER] 10 mg PO DAILY 07/14/17 Insulin Glargine [Lantus Solostar] 45 units SUBQ BID 07/14/17 Lisinopril 2.5 mg PO DAILY 07/14/17 Rivaroxaban [Xarelto] 20 mg PO DAILY 07/14/17 Objective - Vital Signs/Intake & Output Reviewed Vital Signs: Yes Vital Signs: Vital Signs x48h Temp Pulse Resp BP Pulse Ox 07/18/17 07:47 36.3 C L 91 16 103/55 L 95 Intake & Output: Intake & Output 07/15/17 07/16/17 07/17/17 07/18/17 23:59 23:59 23:59 23:59 Intake Total 039 785 0568 940 Output Total 1410 3800 2225 1999 Balance -610 -3280 -895 -1060 - Objective General Appearance: positive: No acute distress, Alert, Lethargic Eyes Bilateral: positive: Normal inspection, PERRL, No lid inflammation, Conjunctivae nml ENT: positive: ENT inspection nml, Pharynx nml, No signs of dehydration. negative: Purulent nasal drainage, Pharyngeal erythema, Oral lesions Neck: positive: Nml inspection, Thyroid nml, No JVD, Trachea midline. negative : Thyromegaly, Lymphadenopathy (R), Lymphadenopathy (L), Stiff neck, Carotid bruit, Swelling/bruising, Tracheal deviation Respiratory: positive: Chest non-tender, No respiratory distress, Breath sounds nml. negative: Wheezes, Rales, Rhonchi Cardiovascular: positive: Regular rate & rhythm, No murmur, No gallop. negative : Irregularly irregular, Extrasystoles, Tachycardia, Bradycardia, Systolic murmur, Diastolic murmur Peripheral Pulses: 2+ Radial (R), 2+ Radial (L), 2+ Dorsalis pedis (R), 2+ Dorsalis pedis (L) Abdomen: positive: Non-tender, Nml bowel sounds. negative: Tenderness, Guarding , Rebound Back: positive: Nml inspection. negative: CVA tenderness (R), CVA tenderness (L ) Skin: positive: Color nml, No rash, Warm, Dry. negative: Cyanosis, Diaphoresis , Pallor, Skin rash Extremities: positive: Non-tender, Full ROM, Nml appearance. negative: Pedal edema, Joint swelling, Matthew's sign/cords Neurologic/Psychiatric: positive: Oriented x3, Sensation nml, Mood/affect nml. negative: Sensory loss, Facial droop, Slurred/abnml speech, Depressed mood/ affect - Lab Results Fish Bones: 07/18/17 04:53 07/18/17 04:53 Other Labs: Lab Results x24hrs 07/18/17 07/18/17 07/18/17 Range/Units 11:14 07:44 07:22 WBC (4.8-10.8) x10^3/uL RBC (4.20-5.40) 10^6/uL Hgb (12.0-16.0) g/dL Hct (37.0-47.0) % MCV (81.0-99.0) fL MCH (27.0-31.0) pg MCHC (32.0-36.0) g/dL RDW (12.0-15.0) % Plt Count (130-450) 10^3/uL MPV (7.9-10.8) fL Neut # (1.5-6.6) 10^3/uL Lymph # (1.5-3.5) 10^3/uL [place] # (0.0-1.0) 10^3/uL Eos # (0.0-0.7) 10^3/uL Baso # (0.0-0.1) 10^3/uL Absolute Nucleated RBC x10^3/uL Nucleated RBC % /100WBC Sodium (135-145) mmol/L Potassium (3.5-5.0) mmol/L Chloride (101-111) mmol/L Carbon Dioxide (21-32) mmol/L Anion Gap (6-13) BUN (6-20) mg/dL Creatinine (0.4-1.0) mg/dL Estimated GFR (MDRD) (>89) Glucose (70-100) mg/dL POC Whole Bld Glucose 116 H 90 72 (70 - 100) mg/dL Calcium (8.5-10.3) mg/dL Total Bilirubin (0.2-1.0) mg/dL AST (10-42) IU/L ALT (10-60) IU/L Alkaline Phosphatase (42-121) IU/L Total Protein (6.7-8.2) g/dL Albumin (3.2-5.5) g/dL Globulin (2.1-4.2) g/dL Albumin/Globulin Ratio (1.0-2.2) 07/18/17 07/18/17 07/18/17 Range/Units 07:02 06:42 04:53 WBC (4.8-10.8) x10^3/uL RBC (4.20-5.40) 10^6/uL Hgb (12.0-16.0) g/dL Hct (37.0-47.0) % MCV (81.0-99.0) fL MCH (27.0-31.0) pg MCHC (32.0-36.0) g/dL RDW (12.0-15.0) % Plt Count (130-450) 10^3/uL MPV (7.9-10.8) fL Neut # (1.5-6.6) 10^3/uL Lymph # (1.5-3.5) 10^3/uL [place] # (0.0-1.0) 10^3/uL Eos # (0.0-0.7) 10^3/uL Baso # (0.0-0.1) 10^3/uL Absolute Nucleated RBC x10^3/uL Nucleated RBC % /100WBC Sodium 138 (135-145) mmol/L Potassium 5.0 (3.5-5.0) mmol/L Chloride 104 (101-111) mmol/L Carbon Dioxide 27 (21-32) mmol/L Anion Gap 7.0 (6-13) BUN 42 H (6-20) mg/dL Creatinine 1.5 H (0.4-1.0) mg/dL Estimated GFR (MDRD) 34 L (>89) Glucose 53 L* (70-100) mg/dL POC Whole Bld Glucose 50 L* 48 L* (70 - 100) mg/dL Calcium 8.4 L (8.5-10.3) mg/dL Total Bilirubin 0.5 (0.2-1.0) mg/dL AST 15 (10-42) IU/L ALT 15 (10-60) IU/L Alkaline Phosphatase 95 (42-121) IU/L Total Protein 6.3 L (6.7-8.2) g/dL Albumin 2.6 L (3.2-5.5) g/dL Globulin 3.7 (2.1-4.2) g/dL Albumin/Globulin Ratio 0.7 L (1.0-2.2) 07/18/17 07/17/17 07/17/17 Range/Units 04:53 20:24 16:48 WBC 7.4 (4.8-10.8) x10^3/uL RBC 3.83 L (4.20-5.40) 10^6/uL Hgb 11.5 L (12.0-16.0) g/dL Hct 34.5 L (37.0-47.0) % MCV 90.0 (81.0-99.0) fL MCH 30.0 (27.0-31.0) pg MCHC 33.3 (32.0-36.0) g/dL RDW 13.0 (12.0-15.0) % Plt Count 154 (130-450) 10^3/uL MPV 10.7 (7.9-10.8) fL Neut # 4.3 (1.5-6.6) 10^3/uL Lymph # 2.3 (1.5-3.5) 10^3/uL [place] # 0.6 (0.0-1.0) 10^3/uL Eos # 0.2 (0.0-0.7) 10^3/uL Baso # 0.0 (0.0-0.1) 10^3/uL Absolute Nucleated RBC 0.00 x10^3/uL Nucleated RBC % 0.0 /100WBC Sodium (135-145) mmol/L Potassium (3.5-5.0) mmol/L Chloride (101-111) mmol/L Carbon Dioxide (21-32) mmol/L Anion Gap (6-13) BUN (6-20) mg/dL Creatinine (0.4-1.0) mg/dL Estimated GFR (MDRD) (>89) Glucose (70-100) mg/dL POC Whole Bld Glucose 103 H 136 H (70 - 100) mg/dL Calcium (8.5-10.3) mg/dL Total Bilirubin (0.2-1.0) mg/dL AST (10-42) IU/L ALT (10-60) IU/L Alkaline Phosphatase (42-121) IU/L Total Protein (6.7-8.2) g/dL Albumin (3.2-5.5) g/dL Globulin (2.1-4.2) g/dL Albumin/Globulin Ratio (1.0-2.2) Assessment/Plan - Problem List (1) Urinary tract infection Impression: (1) Urinary tract infection Impression: Impression: continue to treat with antibiotics, according to sensitivity study hold D/C today because pt has some lethargic and hypoglycemia continue lab daily, vital monitor review of UA and sensitive study, Rocephin is sensitive in the study continue Rocephin treatment for antibiotics course Patient was admitted after findings of generalized weakness and was found to have positive UA with positive nitrate, moderate blood, RBCs and greater than 25 WBCs with many bacteria. Patient was afebrile, hemodynamically stable and did not have a leukocytosis. Given the patient's generalized weakness she was placed in observation for treatment of UTI, hydration and PT consultation. Plan: Treat patient with IV ceftriaxone, IV fluids. We will attempt to obtain another sample since first specimen was not eligible for culture. (2) Weakness generalized Impression: pt refuse to have the arrange to SNF per PT report plan D/C home tomorrow continue PT and OT evaluation and treatment pt with hx of chronic back pain, UTI, mortality of obese, uncontrolled DM2 will continue PT and OT evaluation and treatment continue treatment of UTI continue vital monitor Patient presents with generalized weakness. She likely has generalized weakness secondary to urinary tract infection. The patient has had multiple falls during the last few days and now has worsening of her chronic back pain. Plan: We will treat the patient's urinary tract infection and give her IV fluids hoping that she does have improvement in her weakness. Patient will be seen by physical therapy and will be assessed to see if she is at her baseline strength after treatment. Patient would likely benefit from home health and we will consult social work (3) Chronic back pain Impression: stable continue pain control Patient has chronic back pain and after recent falls has worsening of her symptoms. Patient underwent CT of her lumbar spine which showed significant neural foraminal narrowing throughout the L-spine and stable degenerative changes with mild central canal narrowing throughout the L-spine. The patient did not have any acute fractures. Plan: Patient will be continued on her chronic pain medication p.o. Dilaudid and we will give her IV Dilaudid for breakthrough pain. She will also be continued on diazepam and gabapentin. Patient will get a PT evaluation. Continue to encourage activity. (4) Type II diabetes mellitus with complication, uncontrolled Impression: pt's A1C 14.4, uncontrolled. Glucose 427 at admission pt took 45 unit Lantus at home but had 15 unit, morning glucose 49 will hold day time insulin ACHS, slide scale, adjust insulin as needed for safe to be d/c. continue to have episode of hypoglycemia, although decrease Lantus dosage continue decrease Lantus, recheck morning sugar continue hypoglycemia protocol hypoglycemia once, and pt is at low glucose level at morning. reduce Lantus dosage, [facility] hypoglycemia protocol The patient has very poorly controlled diabetes her glucose on presentation is 426 this is likely led to her urinary tract infection. Blood glucose likely elevated due to infection. HgA1C was grossly elevated at 14.4, which confirms uncontrolled status and not a new problem. Plan: Patient will be placed on her home dose of Lantus and sliding scale insulin at moderate to high dose, IV fluids, monitor patient's blood glucose before meals at bedtime. We will titrate patient's insulin regimen as needed. (5) Hyponatremia Impression: resolved continue lab test This is likely due to acute illness and dehydration. Plan: we will continue to monitor lab results and hydration status. (6) HTN (hypertension) Impression: slight low blood pressure, hold home meds Plendil now vital monitor continue home Lasix The patient has history of hypertension and is on Lasix and felodipine at home for her hypertension. The patient does have significant swelling of bilateral lower extremities. Although the patient does appear to be dehydrated and hypovolemic given her severe lower extremity edema we will continue her oralLasix and give her IV fluid at the same time. Patient refused oral lasix, so IV was ordered to ensure appropriate diuresis. Plan: We will continue to monitor patient's blood pressure and titrate medications as needed. (7) Atrial fibrillation Impression: HR is stable continue Xarelto as home meds for anticoagulation continue vital, tele monitor continue lab daily Patient has a know history and is on Xarelto for anticoagulation. The patient does not appear to be on any medications for rate control. On presentation to the emergency department the patient's rate is controlled in the high 90s. Xarelto may be renally adjusted. Plan: Patient will be monitored on telemetry continue Xarelto, and may consider starting a rate control agent if the heart rate does become elevated. (8) CKD stable, continue current treatment daily lab, vital monitor pt chronic renal insufficiency will balance hydration for CKD and prevention of fluid over-loaded hold nephrotoxic agents daily lab monitor (9) hypoglycemia pt has glucose at 48 at pruner, hold daytime insulin will adjust insulin at the night and pt report she felt very dizziness. pt had 25 units Lantus at last night, pt took 45 units at home. Decrease Lantus to 15 unit tonight, recheck tomorrow morning glucose ACHS, hypoglycemia protocol (10) Lethargic most likely from hypoglycemia, glucose 48 today morning closely monitor glucose, vital monitor adjust insulin, continue ACHS hypoglycemia protocol Qualifiers: Urinary tract infection type: acute cystitis Hematuria presence: without hematuria Qualified Code(s): N30.00 - Acute cystitis without hematuria
[2017-07-18] MEDS ORDERED: INSULIN GLARGINE 300 UNIT/3 ML PEN SUBQ SCH (21:00)
[2017-07-19] MEDS: CYCLOBENZAPRINE 10 MG TABLET PO SCH (05:37)
[2017-07-19] MEDS: GABAPENTIN 300 MG CAPSULE PO SCH (05:38)
[2017-07-19] MEDS: HYDROmorphone 2 MG TABLET PO PRN (05:43)
[2017-07-19] MEDS: SODIUM CHLORIDE FLUSH 0.9% 10 ML SYRINGE IVP SCH (05:46)
[2017-07-19 05:56] LABS: BASOPHILS % (AUTO) 0.5 %; EOSINOPHILS # (AUTO) 0.2 10^3/uL (0.0-0.7); EOSINOPHILS % (AUTO) 2.5 %; LYMPHOCYTES # (AUTO) 1.8 10^3/uL (1.5-3.5); LYMPHOCYTES % (AUTO) 29.1 %; MEAN CORPUSCULAR HEMOGLOBIN 29.9 pg (27.0-31.0); MEAN CORPUSCULAR HGB CONC 33.2 g/dL (32.0-36.0); MEAN CORPUSCULAR VOLUME 89.9 fL (81.0-99.0); MEAN PLATELET VOLUME 8.6 fL (7.9-10.8); MONOCYTES # (AUTO) 0.5 10^3/uL (0.0-1.0); MONOCYTES % (AUTO) 7.5 %; NEUTROPHILS # (AUTO) 3.7 10^3/uL (1.5-6.6); NEUTROPHILS % (AUTO) 60.4 %; RED BLOOD COUNT 3.67 10^6/uL (4.20-5.40); RED CELL DISTRIBUTION WIDTH 13.1 % (12.0-15.0); UNCORRECTED WHITE BLOOD COUNT 6.1 x10^3/uL; WHITE BLOOD COUNT 6.1 x10^3/uL (4.8-10.8)
[2017-07-19 06:08] LABS: ALBUMIN/GLOBULIN RATIO 0.7 (1.0-2.2); BILIRUBIN,TOTAL 0.6 mg/dL (0.2-1.0); CALCIUM 8.2 mg/dL (8.5-10.3); CREATININE 1.5 mg/dL (0.4-1.0); POTASSIUM 5.2 mmol/L (3.5-5.0); TOTAL PROTEIN 6.1 g/dL (6.7-8.2)
[2017-07-19] MEDS: INSULIN ASPART 300 UNIT/3 ML PEN SUBQ SCH ×2 (08:04→12:03)
[2017-07-19] MEDS: POLYETHYLENE GLYCOL 3350 17 GM PACKET PO SCH (08:48)
[2017-07-19] MEDS: cefTRIAXone 1 GM in SODIUM CHLORIDE 0.9% MINIBAG 100 ML IV SCH (08:48)
[2017-07-19] MEDS: CHOLECALCIFEROL 1,000 UNIT TABLET PO SCH (08:48)
[2017-07-19] MEDS: NYSTATIN POWDER 15 GM TOP SCH (08:48)
[2017-07-19] MEDS: RIVAROXABAN 15 MG TABLET PO SCH (08:48)
[2017-07-19] MEDS: DULoxetine 30 MG CAPSULE PO SCH (08:48)
[2017-07-19] MEDS: SACCHAROMYCES BOULARDII 250 MG CAPSULE PO SCH (08:48)
[2017-07-19] MEDS: FAMOTIDINE 20 MG TABLET PO SCH (08:48)
[2017-07-19 10:04] VITALS: BP 109/57
--- NOTE | 2017-07-19 10:19 | Discharge Plan ---
Discharge Plan Disposition: Home, Self Care Condition: Stable Prescriptions: Ciprofloxacin HCl [Cipro] 500 mg PO BID #8 tablet Diet: Diabetic Activity Restrictions: Activity as Tolerated Shower Restrictions: No Assistance Devices: Walker Weight Bearing: Full Weight Instruction Topics: Diabetes Healthy Meals, Diabetes Kidney Disease, UTI Additional Instructions or Follow Up instructions: May follow up PCP in three or four days. May have a sleep study as out-pt. Follow-Up Care: Dietitian, [facility], [facility] No Smoking: If you smoke, Please STOP! Call for help. Follow-up with: Gosia King ARNP [Primary Care Provider] -
--- NOTE | 2017-07-19 11:42 | DISCHARGE SUMMARY ---
Discharge Summary Discharge Date: 07/19/17 Discharging Provider: RODRIGES Primary Care Provider: Gosia Ortega Condition at Discharge: Stable Discharge Disposition: Home, Self Care Discharge Facility Name: home - DIAGNOSES Admission Diagnoses: (1) Urinary tract infection (2) Weakness generalized (3) Chronic back pain (4) Type II diabetes mellitus with complication, uncontrolled (5) Hyponatremia (6) HTN (hypertension) (7) Atrial fibrillation (8) CKD Discharge Diagnoses with Status of Each Condition: (1) Urinary tract infection treated with Rocephin, according to sensitive study. No dysuria or hematuria continue antibiotics course (2) Weakness generalized better, pt decline to go to SNF (3) Chronic back pain stable (4) Type II diabetes mellitus with complication, uncontrolled Pt' A1C is 14.4. Pt is found hypoglycemia, then reduce Lantus unit to home follow PCP in 3/4 days (5) Hyponatremia resolved (6) HTN (hypertension) stable (7) Atrial fibrillation stable, continue home regime (8) CKD stable (9) hypoglycemia resolved after reduced Lantus (10) Lethargic resolved - HPI History of Present Illness: please refer from Dr. Ordaz's HPI on 07/14/17 as the following: Patient is a 71-year-old female with past medical history significant for morbid obesity which is left ear wheelchair-bound with ability to transfer, poorly controlled diabetes, hypertension, atrial fibrillation on Xarelto, CKD stage III, pulmonary hypertension and chronic back pain and she presents to the emergency department today with a complaint of generalized weakness and increasing back pain for several days. The patient states that she has had 3 falls in the last 2 days. She states that her decline started about 3 weeks ago when she went from being able to transfer from the wheelchair to requiring the help of her kids to make the transfer. She also states that over the last week she has noticed that she has had increased urinary frequency and incontinence. The patient states that after her fall today she had worsening back pain and was so weak she could not get up so she was brought into the ER. The patient denies any nausea, vomiting or abdominal pain. She does admit to chills but no fevers. The patient denies any headaches, blurred vision, runny nose, sore throat, nasal congestion, difficulty swallowing, neck pain, chest pain, shortness of air , the patient does have chronic orthopnea and usually sleeps in a recliner. The patient denies any abdominal pain, vomiting, diarrhea, constipation, increased joint swelling, neck stiffness, recent unintentional weight loss, change in her appetite or any focal neurologic deficits. On presentation to the emergency department the patient was afebrile heart rate was in the 90s, blood pressure was stable and she was not in any respiratory distress. The patient however was in significant distress secondary to pain and inability to move in the bed due to back pain. The patient was given Toradol in the emergency department for her back pain. The patient underwent routine lab tests which revealed that she did have a chronic kidney disease mild hyponatremia significantly elevated blood glucose of 426 but without any evidence of DKA. The patient did not have any leukocytosis but she did have a mild lymphopenia. The patient's urine did reveal positive nitrite, with RBCs, greater than 25 WBCs and many bacteria. Given the patient's generalized weakness she was placed in observation for urinary tract infection. The patient also underwent CT imaging of her lumbar spine which showed chronic degenerative disease and chronic spinal canal narrowing as well as chronic neural foramen narrowing in the L-spine. There was no evidence of any acute fractures. The patient also had a CT head which did not show any acute bleed. The patient's chest x-ray showed no acute process. The patient was placed in observation for urinary tract infection with generalized weakness. - HOSPITAL COURSE Hospital Course: pt was admitted for generalized weakness, UTI and hyperglycemia. Pt was treated with Rocephin, and evaluation and treatment with PT/OT, increase of Lantus for hyperglycemia. Then Pt was found hypoglycemia, the lantus was reduced. Pt declined to be discharged to SNF for further training and strength training. The antibiotics was selected to treat pt according to sensitive study. Pt will continue to have antibiotics to finish the course after D/C. - ALLERGIES Allergies/Adverse Reactions: Allergies Allergy/AdvReac Type Severity Reaction Status Date / Time Penicillins Allergy unknown Verified 07/14/17 02:09 - MEDICATIONS Home Medications: Ambulatory Orders Medication Instructions Recorded Confirmed Gabapentin 600 mg PO TID 08/02/13 07/14/17 HYDROmorphone [Dilaudid] 8 mg PO Q8HR 12/21/14 07/14/17 Omeprazole 20 mg PO QDAC 08/23/15 07/14/17 Duloxetine HCl [Cymbalta] 60 mg PO DAILY 01/15/17 07/14/17 Furosemide 40 mg PO DAILY 01/15/17 07/14/17 Nystatin 1 applic TOP BID 01/15/17 07/14/17 diazePAM [Diazepam] 5 mg PO QPM PRN 01/15/17 07/14/17 Atorvastatin Calcium 80 mg PO QPM 07/14/17 07/14/17 Cholecalciferol (Vitamin D3) 1,000 units PO DAILY 07/14/17 07/14/17 [Vitamin D3] Cyclobenzaprine [Flexeril] 10 mg PO TID PRN 07/14/17 07/14/17 Felodipine [Felodipine ER] 10 mg PO DAILY 07/14/17 07/14/17 Rivaroxaban [Xarelto] 20 mg PO DAILY 07/14/17 07/14/17 Ciprofloxacin HCl [Cipro] 500 mg PO BID #8 tablet 07/19/17 Insulin Glargine [Lantus Solostar] 10 unit SUBQ QPM pen 07/19/17 - PHYSICAL EXAM AT DISCHARGE General Appearance: positive: No acute distress, Alert. negative: Lethargic Eyes Bilateral: positive: Normal inspection, PERRL, No lid inflammation, Conjunctivae nml ENT: positive: ENT inspection nml, Pharynx nml, No signs of dehydration. negative: Purulent nasal drainage, Pharyngeal erythema, Oral lesions Neck: positive: Nml inspection, Thyroid nml, No JVD, Trachea midline. negative : Thyromegaly, Lymphadenopathy (R), Lymphadenopathy (L), Stiff neck, Carotid bruit, Swelling/bruising, Tracheal deviation Respiratory: positive: Chest non-tender, No respiratory distress, Breath sounds nml. negative: Wheezes, Rales, Rhonchi Cardiovascular: positive: Regular rate & rhythm, No murmur, No gallop. negative : Irregularly irregular, Extrasystoles, Tachycardia, Bradycardia, Systolic murmur, Diastolic murmur Peripheral Pulses: positive: 2+ Abdomen: positive: Non-tender, Nml bowel sounds. negative: Tenderness, Guarding , Rebound, Abnml bowel sounds Back: positive: Nml inspection. negative: CVA tenderness (R), CVA tenderness (L ) Skin: positive: Color nml, No rash, Warm, Dry. negative: Cyanosis, Diaphoresis , Pallor, Skin rash Extremities: positive: Non-tender, Full ROM, Nml appearance. negative: Calf tenderness, Joint swelling, Matthew's sign/cords Neurologic/Psychiatric: positive: Oriented x3, Sensation nml, Mood/affect nml, Weakness. negative: Sensory loss, Facial droop, Slurred/abnml speech, Depressed mood/affect - LABS Result Diagrams: 07/19/17 05:41 07/19/17 05:41 - FOLLOW UP Follow Up: Pt is advised to follow op PCP in 3 or 4 days. Pt state she did not use Novelog insulin for quite long time. Pt is advised to continue monitor her glucose and continue to use Novelog at [facility] base. Pt is advised to hold Lisinopril and Potassium until see her PCP Pt is advised to have carbo controlled, health diet.
== END 2017-07-19 12:28 | disposition home or self-care (01) | DRG 690 ==
LOC: EDUNIT# → SUPCPDRO 02:01 → ED 02:01 → OBS 05:05 → OBSVTOIN 07-15 11:37 → MS2 07-15 11:37
PROVIDERS: ADMIT Internal Medicine; ATTEND Nurse Practitioner Gerontology
DX: R53.1 Weakness (principal); R60.0 Localized edema; N39.0 Urinary tract infection, site not specified; N30.00 Acute cystitis without hematuria; E66.9 Obesity, unspecified; E87.1 Hypo-osmolality and hyponatremia; R32 Unspecified urinary incontinence; Z68.43 Body mass index [BMI] 50.0-59.9, adult; M54.5 Low back pain; G89.29 Other chronic pain; M54.9 Dorsalgia, unspecified; E11.65 Type 2 diabetes mellitus with hyperglycemia; E11.649 Type 2 diabetes mellitus with hypoglycemia without coma; E11.42 Type 2 diabetes mellitus with diabetic polyneuropathy; M19.90 Unspecified osteoarthritis, unspecified site; I12.9 Hypertensive chronic kidney disease with stage 1 through stage 4 chronic kidney disease, or unspecified chronic kidney disease; E11.22 Type 2 diabetes mellitus with diabetic chronic kidney disease; N18.3 Chronic kidney disease, stage 3 (moderate); Z79.4 Long term (current) use of insulin; I48.2 Chronic atrial fibrillation; E66.01 Morbid (severe) obesity due to excess calories; Z99.3 Dependence on wheelchair; I27.20 Pulmonary hypertension, unspecified; Z79.891 Long term (current) use of opiate analgesic; Z79.01 Long term (current) use of anticoagulants; Z79.899 Other long term (current) drug therapy; Z91.81 History of falling; Z87.01 Personal history of pneumonia (recurrent); Z87.440 Personal history of urinary (tract) infections; Z87.891 Personal history of nicotine dependence
CPT/HCPCS: 36415; 51701; 70450; 71010; 72131; 80048; 80053; 81001; 81003; 83036; 83690; 83735; 83880; 84132; 84443; 85025; 87040; 87086; 96361; 96365; 96366; 96372; 96375; 96376; 99283; 99285

== ENCOUNTER 2017-09-12 08:00 | Outpatient (CLI) | payer MEDICARE, OTHER ==
[2017-09-12 17:21] LABS: BILIRUBIN,URINE NEGATIVE (NEGATIVE); GLUCOSE, URINE (UA) >=1000 mg/dL (NEGATIVE); KETONES,URINE (UA) NEGATIVE (NEGATIVE); LEUKOCYTE ESTERASE, URINE TRACE (NEGATIVE); NITRITE,URINE NEGATIVE (NEGATIVE); OCCULT BLOOD,URINE MODERATE (NEGATIVE); PROTEIN,URINE 100 mg/dL (NEGATIVE); UROBILINOGEN,URINE 0.2 (NORMAL) E.U./dL (NORMAL)
[2017-09-12 17:38] LABS: BACTERIA,URINE Many /HPF (None Seen); CLARITY,URINE HAZY (CLEAR); SQUAMOUS EPITHELIAL CELL,UR FEW Squamous (<= Few); WBC CLUMPS,URINE PRESENT; YEAST,URINE PRESENT
== END 2017-09-12 08:01 | disposition home or self-care (01) ==
LOC: LAB.R 08:00
PROVIDERS: ATTEND Nurse Practitioner Family
DX: R30.0 Dysuria (principal)
CPT/HCPCS: 81001; 87086

== ENCOUNTER 2017-12-23 08:00 | Outpatient (CLI) | payer MEDICARE, OTHER ==
[2017-12-23 18:10] LABS: BILIRUBIN,URINE NEGATIVE (NEGATIVE); GLUCOSE, URINE (UA) >=1000 mg/dL (NEGATIVE); KETONES,URINE (UA) NEGATIVE (NEGATIVE); LEUKOCYTE ESTERASE, URINE NEGATIVE (NEGATIVE); NITRITE,URINE POSITIVE (NEGATIVE); OCCULT BLOOD,URINE MODERATE (NEGATIVE); PROTEIN,URINE 100 mg/dL (NEGATIVE); UROBILINOGEN,URINE 0.2 (NORMAL) E.U./dL (NORMAL)
[2017-12-23 18:21] LABS: BACTERIA,URINE Many /HPF (None Seen); CLARITY,URINE HAZY (CLEAR); RBC,URINE TNTC /HPF (0-5); SQUAMOUS EPITHELIAL CELL,UR RARE Squamous (<= Few); WBC CLUMPS,URINE PRESENT; YEAST,URINE PRESENT
== END 2017-12-23 08:01 | disposition home or self-care (01) ==
LOC: LAB.R 08:00
PROVIDERS: ATTEND Nurse Practitioner Family
DX: R30.0 Dysuria (principal)
CPT/HCPCS: 81001; 87077; 87086

== ENCOUNTER 2018-01-07 18:46 | Emergency (ER) | payer MEDICARE, OTHER ==
[2018-01-07 19:03] VITALS: BP 146/81
[2018-01-07] MEDS ORDERED: NYSTATIN CREAM 15 GM TUBE TOP STA (20:21)
--- NOTE | 2018-01-07 21:04 | ED Physician Documentation ---
PD HPI LOWER EXT INJURY - Stated complaint Stated Complaint: LT LEG PX - Chief complaint Chief Complaint: Ext Problem - History obtained from History obtained from: Patient, Family - History of Present Illness PD HPI LOW EXT INJURY LOCATION: Left, Hip Where injury occurred: Home Timing - onset: Chronic Timing - details: Gradual onset, Still present, Intermittant Worsened by: Moving Similar symptoms before: Work up / diagnostics, Treatment Recently seen: Clinic - Additional information Additional information: Patient is a 72 year old female with severe peripheral edema and chronic pain who is presenting to the emergency department for chronic leg pain. According to patient and family patient's leg pain has been getting progressively worse. patient is on multiple medications and is unable to control the pain. Patient states that she has fallen multiple times and wants an x-ray to make sure there is no fracture. Review of Systems Constitutional: denies: Fever, Chills Skin: reports: Rash, Lesions Musculoskeletal: reports: Extremity pain, Joint pain, Extremity swelling, Joint swelling Neurologic: reports: Generalized weakness. denies: Focal weakness, Headache, LOC Immunocompromised: denies: Immunocompromised PD PAST MEDICAL HISTORY - Past Medical History Cardiovascular: Hypertension, High cholesterol, Atrial fibrillation, Other Respiratory: Pneumonia, Other Endocrine/Autoimmune: Type 2 diabetes GI: GERD, Other : Incontinence, Chronic bladder infection, Renal insuffiency, Frequency HEENT: Chronic vision loss Psych: Depression Musculoskeletal: Osteoarthritis, Chronic back pain Derm: None - Past Surgical History Past Surgical History: Yes Ortho: Other Derm: Other - Present Medications Home Medications: Ambulatory Orders Medication Instructions Recorded Confirmed Gabapentin 600 mg PO TID 08/02/13 11/19/17 HYDROmorphone [Dilaudid] 8 mg PO Q8HR PRN 12/21/14 11/19/17 Omeprazole 20 mg PO QDAC 08/23/15 11/19/17 Duloxetine HCl [Cymbalta] 60 mg PO DAILY 01/15/17 11/19/17 Furosemide 40 mg PO DAILY 01/15/17 11/19/17 Nystatin 1 applic TOP BID 01/15/17 11/19/17 Atorvastatin Calcium 80 mg PO QPM 07/14/17 11/19/17 Cyclobenzaprine [Flexeril] 10 mg PO TID PRN 07/14/17 01/07/18 Felodipine [Felodipine ER] 10 mg PO DAILY 07/14/17 11/19/17 Rivaroxaban [Xarelto] 20 mg PO DAILY 07/14/17 11/19/17 Insulin Glargine [Lantus Solostar] 10 unit SUBQ QPM pen 07/19/17 11/19/17 Ciprofloxacin HCl [Cipro] 1 tab PO BID 01/07/18 01/07/18 Ciprofloxacin HCl [Cipro] 500 mg PO BID #14 tablet 01/07/18 Nystatin Cream [Mycostatin Cream] 1 applic TOP BID #1 tube 01/07/18 - Allergies Allergies/Adverse Reactions: Allergies Allergy/AdvReac Type Severity Reaction Status Date / Time Penicillins Allergy unknown Verified 01/07/18 19:03 - Social History Does the pt smoke?: No Smoking Status: Former smoker Does the pt drink ETOH?: No Does the pt have substance abuse?: No - Immunizations Immunizations are current?: Yes - POLST Patient has POLST: Yes POLST Status: DNR PD ED PE NORMAL - Vitals Vital signs reviewed: Yes - General General: Alert and oriented X 3 - HEENT HEENT: Atraumatic - Cardiac Cardiac: RRR - Neuro Neuro: Alert and oriented X 3 Eye Opening: Spontaneous PD ED PE EXPANDED - General General: Other (morbidly obese) - Derm Derm: Rash (rash consistent with fungal infection with abdominal and lower extremity creases) - Extremities Extremities: Pedal edema bilateral, Other (severe bilateral lymphadema ) Results - Vitals Vitals: Vital Signs - 24 hr 01/07/18 19:00 Temperature 36.2 C L Heart Rate 99 Respiratory 18 Rate Blood Pressure 146/81 H O2 Saturation 98 Oxygen O2 Source [With Activity] Room air O2 Source [Without Activity] Nasal cannula O2 Source Room air - Rads (name of study) left hip x-ray Radiology: Final report received (no acute fracture or dislocation) PD MEDICAL DECISION MAKING - ED course Complexity details: reviewed old records, reviewed results, re-evaluated patient , considered differential, d/w patient, d/w family ED course: Patient was seen and examined at bedside. patient's symptoms were chronic in nature but imaging was ordered. When patient returned she was treated with nystatin cream for fungal infection. Patient had no acute fracture or dislocation. patient was already on multiple pain medications and was having a home health evaluation by [facility] tomorrow. Patient required no further inpatient work-up and was stable for discharge with outpatient follow up. Departure - Departure Disposition: 01 Home, Self Care Clinical Impression: Bilateral leg edema, Fungal infection of musculoskeletal system Condition: Good Instructions: ED Chronic Pain Management Follow-Up: Sylvia Martinez ARNP [Primary Care Provider] - Tomorrow Prescriptions: Ciprofloxacin HCl [Cipro] 500 mg PO BID #14 tablet Nystatin Cream [Mycostatin Cream] 1 applic TOP BID #1 tube Comments: Your diagnostics today were within normal limits. There was no acute fracture or dislocation. You do have a fungal infection and will need to apply the nystatin cream or powder twice a day. You should continue to work with your doctor for chronic pain management and sustainable long care solutions. You may return to the emergency department at any time for new, worsening or uncontrollable symptoms.
[2018-01-07] MEDS ORDERED: GABAPENTIN 100 MG CAPSULE PO STA (21:18)
--- NOTE | 2018-01-07 21:36 | XRAY Report ---
EXAM: LEFT HIP AND PELVIS RADIOGRAPHY EXAM DATE: 01/07/2018 09:14 PM. HISTORY: Left hip pain. COMPARISONS: None. TECHNIQUE: 1 view of the pelvis and 1 view of the hip. FINDINGS: Bones: No acute fracture identified. Optimal visualization limited by body habitus. Joints: Joint space appears symmetric. Soft Tissues: Normal. No soft tissue swelling. IMPRESSION: No fracture identified. Limited by body habitus. [facility] Referring Provider Line: [phone] SITE ID: [id number]
== END 2018-01-07 21:55 | disposition home or self-care (01) ==
LOC: ED 18:46
DX: R60.0 Localized edema (principal); B99.8 Other infectious disease; I87.313 Chronic venous hypertension (idiopathic) with ulcer of bilateral lower extremity; L97.921 Non-pressure chronic ulcer of unspecified part of left lower leg limited to breakdown of skin; L97.911 Non-pressure chronic ulcer of unspecified part of right lower leg limited to breakdown of skin; I10 Essential (primary) hypertension; Z48.00 Encounter for change or removal of nonsurgical wound dressing; E78.00 Pure hypercholesterolemia, unspecified; I48.91 Unspecified atrial fibrillation; Z79.01 Long term (current) use of anticoagulants; E11.9 Type 2 diabetes mellitus without complications; Z79.4 Long term (current) use of insulin; K21.9 Gastro-esophageal reflux disease without esophagitis; M19.90 Unspecified osteoarthritis, unspecified site; G89.29 Other chronic pain; Z79.899 Other long term (current) drug therapy; Z87.891 Personal history of nicotine dependence
CPT/HCPCS: 29581; 73502; 99281; 99283; A9270

== ENCOUNTER 2018-02-03 | Outpatient (CLI) | END 2018-02-03 17:26 | disposition critical access hospital (66) | CPT/HCPCS: A0425; A0429 ==

== ENCOUNTER 2018-02-03 18:16 | Emergency (ER) | payer MEDICARE, OTHER ==
[2018-02-03] MEDS ORDERED: SODIUM CHLORIDE 0.9% 1,000 ML IV ONE ×2 (18:44)
--- NOTE | 2018-02-03 18:46 | ED Physician Documentation ---
History of Present Illness - Stated complaint Stated Complaint: GLF - Chief complaint Chief Complaint: General - History obtained from History obtained from: Patient, EMS - History of Present Illness Timing: Today Pain level max: 5 Pain level now: 4 Improved by: nothing Worsened by: nothing - Additonal information Additional information: Patient is a 72-year-old diabetic female who presents to the emergency department with chief complaint of increasing weakness for the past 3-4 days. Today she fell out of her wheelchair. No injury. Did not strike her head. Family called 911. She states that she is on antibiotics for infections in her legs. She does not know which antibiotics. No headache. No loss of consciousness. Has chronic leg pain. Unchanged from baseline. No fevers. Review of Systems Ten Systems: 10 systems reviewed and negative Constitutional: denies: Fever, Chills Ears: denies: Ear pain Nose: denies: Rhinorrhea / runny nose, Congestion Throat: denies: Sore throat Cardiac: denies: Chest pain / pressure Respiratory: denies: Cough GI: denies: Nausea, Vomiting, Diarrhea Skin: denies: Rash Musculoskeletal: denies: Neck pain, Back pain Neurologic: denies: Focal weakness, Numbness, Confused, Altered mental status, Headache PD PAST MEDICAL HISTORY - Past Medical History Cardiovascular: Hypertension, High cholesterol, Atrial fibrillation, Other Respiratory: Pneumonia, Other Endocrine/Autoimmune: Type 2 diabetes GI: GERD, Other : Incontinence, Chronic bladder infection, Renal insuffiency, Frequency HEENT: Chronic vision loss Psych: Depression Musculoskeletal: Osteoarthritis, Chronic back pain Derm: None - Past Surgical History Past Surgical History: Yes Ortho: Other Derm: Other - Present Medications Home Medications: Ambulatory Orders Medication Instructions Recorded Confirmed Gabapentin 600 mg PO TID 08/02/13 11/19/17 HYDROmorphone [Dilaudid] 8 mg PO Q8HR PRN 12/21/14 11/19/17 Omeprazole 20 mg PO QDAC 08/23/15 11/19/17 Duloxetine HCl [Cymbalta] 60 mg PO DAILY 01/15/17 11/19/17 Furosemide 40 mg PO DAILY 01/15/17 11/19/17 Nystatin 1 applic TOP BID 01/15/17 11/19/17 Atorvastatin Calcium 80 mg PO QPM 07/14/17 11/19/17 Cyclobenzaprine [Flexeril] 10 mg PO TID PRN 07/14/17 01/07/18 Felodipine [Felodipine ER] 10 mg PO DAILY 07/14/17 11/19/17 Rivaroxaban [Xarelto] 20 mg PO DAILY 07/14/17 11/19/17 Insulin Glargine [Lantus Solostar] 10 unit SUBQ QPM pen 07/19/17 11/19/17 Ciprofloxacin HCl [Cipro] 1 tab PO BID 01/07/18 01/07/18 Ciprofloxacin HCl [Cipro] 500 mg PO BID #14 tablet 01/07/18 Nystatin Cream [Mycostatin Cream] 1 applic TOP BID #1 tube 01/07/18 Cefdinir 300 mg PO BID #14 capsule 02/03/18 - Allergies Allergies/Adverse Reactions: Allergies Allergy/AdvReac Type Severity Reaction Status Date / Time Penicillins Allergy unknown Verified 02/03/18 18:36 - Social History Does the pt smoke?: No Smoking Status: Former smoker Does the pt drink ETOH?: No Does the pt have substance abuse?: No - Immunizations Immunizations are current?: Yes - POLST Patient has POLST: Yes POLST Status: DNR PD ED PE NORMAL - Vitals Vital signs reviewed: Yes - General General: Alert and oriented X 3, No acute distress, Other (morbidly obese) - HEENT HEENT: Moist mucous membranes, Pharynx benign - Neck Neck: Supple, no meningeal sign - Cardiac Cardiac: RRR, Strong equal pulses - Respiratory Respiratory: No respiratory distress, Clear bilaterally - Abdomen Abdomen: Soft, Non tender, Non distended - Back Back: No CVA TTP - Derm Derm: Warm and dry - Extremities Extremities: Other (diffuse edema to BLE) - Neuro Neuro: Alert and oriented X 3, foreman or supervisor and operator 2-12 intact, No motor deficit, No sensory deficit - Psych Psych: Normal mood, Normal affect Results - Vitals Vitals: Vital Signs - 24 hr 02/03/18 02/03/18 02/03/18 18:18 21:01 21:11 Temperature 37 C 37.0 C Heart Rate 106 H 102 H 100 Respiratory 20 14 14 Rate Blood Pressure 123/71 91/70 129/81 H O2 Saturation 97 99 95 02/03/18 22:20 Temperature 37.0 C Heart Rate 104 H Respiratory 14 Rate Blood Pressure 131/90 H O2 Saturation 100 Oxygen O2 Source [With Activity] Room air O2 Source [Without Activity] Nasal cannula O2 Source Room air - Labs Labs: Laboratory Tests 02/03/18 02/03/18 02/03/18 19:10 20:00 20:00 WBC 7.0 RBC 3.42 L Hgb 10.5 L Hct 31.0 L MCV 90.8 MCH 30.6 MCHC 33.7 RDW 13.7 Plt Count 174 MPV 9.9 Neut # (Auto) 5.4 Lymph # (Auto) 0.8 L [place] # (Auto) 0.5 Eos # (Auto) 0.1 Baso # (Auto) 0.0 Absolute Nucleated RBC 0.00 Nucleated RBC % 0.0 VBG pH VBG pCO2 VBG pO2 VBG HCO3 VBG Total CO2 VBG O2 Saturation VBG Base Excess Sodium 129 L Potassium 4.0 Chloride 97 L Carbon Dioxide 27 Anion Gap 5.0 L BUN 20 Creatinine 1.4 H Estimated GFR (MDRD) 37 L Glucose 498 H Calcium 7.9 L Total Bilirubin 1.0 AST 13 ALT 15 Alkaline Phosphatase 118 Total Protein 5.6 L Albumin 2.3 L Globulin 3.3 Albumin/Globulin Ratio 0.7 L Lipase 22 Urine Color YELLOW Urine Clarity HAZY Urine pH 5.5 Ur Specific [place] 1.020 Urine Protein >=300 H Urine Glucose (UA) >=1000 H Urine Ketones NEGATIVE Urine Occult Blood LARGE H Urine Nitrite NEGATIVE Urine Bilirubin NEGATIVE Urine Urobilinogen 0.2 (NORMAL) Ur Leukocyte Esterase NEGATIVE Urine RBC 6-10 H Urine WBC 4-5 Ur Squamous Epith Cells FEW Squamous Amorphous Sediment Few Urine Bacteria Rare Ur Microscopic Review INDICATED Urine Culture Comments NOT INDICATED Serum Ketones NEGATIVE 02/03/18 20:00 WBC RBC Hgb Hct MCV MCH MCHC RDW Plt Count MPV Neut # (Auto) Lymph # (Auto) [place] # (Auto) Eos # (Auto) Baso # (Auto) Absolute Nucleated RBC Nucleated RBC % VBG pH 7.450 H VBG pCO2 39.8 L VBG pO2 82.0 H VBG HCO3 27.0 VBG Total CO2 28.3 VBG O2 Saturation 96.3 H VBG Base Excess 2.9 H Sodium Potassium Chloride Carbon Dioxide Anion Gap BUN Creatinine Estimated GFR (MDRD) Glucose Calcium Total Bilirubin AST ALT Alkaline Phosphatase Total Protein Albumin Globulin Albumin/Globulin Ratio Lipase Urine Color Urine Clarity Urine pH Ur Specific [place] Urine Protein Urine Glucose (UA) Urine Ketones Urine Occult Blood Urine Nitrite Urine Bilirubin Urine Urobilinogen Ur Leukocyte Esterase Urine RBC Urine WBC Ur Squamous Epith Cells Amorphous Sediment Urine Bacteria Ur Microscopic Review Urine Culture Comments Serum Ketones PD MEDICAL DECISION MAKING - ED course Complexity details: reviewed old records, reviewed results, re-evaluated patient , considered differential, d/w patient, d/w family ED course: Patient is a 72-year-old female who appears to have recurrent infection of her bilateral lower extremities, this apparently is a chronic illness for her. She had been on ciprofloxacin, but ran out of antibiotics and recently started taking some old antibiotics per her granddaughter. I reviewed her prior cultures and sensitivities and we will try her on a cephalosporin instead and see how she progresses. She is also found to be significantly hyperglycemic, improved with insulin and family states that her blood sugars normally run 3- 400. She feels better after IV fluids as well. No altered mental status here. Will have her follow-up closely with her doctor for further evaluation and care. Family is comfortable taking her home at this time. Patient and family counseled regarding signs and symptoms for which I believe and urgent re- evaluation would be necessary. Patient with good understanding of and agreement to plan and is comfortable going home at this time This document was made in part using voice recognition software. While efforts are made to proofread this document, sound alike and grammatical errors may occur. - Sepsis Event Vital Signs: Vital Signs - 24 hr 02/03/1818 02/03/18 18:18 21:01 21:11 Temperature 37 C 37.0 C Heart Rate 106 H 102 H 100 Respiratory 20 14 14 Rate Blood Pressure 123/71 91/70 129/81 H O2 Saturation 97 99 95 02/03/18 22:20 Temperature 37.0 C Heart Rate 104 H Respiratory 14 Rate Blood Pressure 131/90 H O2 Saturation 100 Oxygen O2 Source [With Activity] Room air O2 Source [Without Activity] Nasal cannula O2 Source Room air Departure - Departure Disposition: Home, Self Care Clinical Impression: Hyperglycemia UTI (urinary tract infection) Qualifiers: Urinary tract infection type: acute cystitis Hematuria presence: without hematuria Qualified Code(s): N30.00 - Acute cystitis without hematuria Condition: Good Instructions: ED Infec Skin Cellulitis Follow-Up: Sylvia Martinez ARNP [Primary Care Provider] - Within 3 Days Prescriptions: Cefdinir 300 mg PO BID #14 capsule Comments: Return if Cleo worsens. Take all antibiotics until gone. Discharge Date/Time: 02/03/18 22:39
[2018-02-03 19:49] LABS: BILIRUBIN,URINE NEGATIVE (NEGATIVE); GLUCOSE, URINE (UA) >=1000 mg/dL (NEGATIVE); KETONES,URINE (UA) NEGATIVE (NEGATIVE); LEUKOCYTE ESTERASE, URINE NEGATIVE (NEGATIVE); NITRITE,URINE NEGATIVE (NEGATIVE); OCCULT BLOOD,URINE LARGE (NEGATIVE); PH,URINE 5.5 PH (5.0-7.5); PROTEIN,URINE >=300 mg/dL (NEGATIVE); UROBILINOGEN,URINE 0.2 (NORMAL) E.U./dL (NORMAL)
[2018-02-03 19:56] LABS: CLARITY,URINE HAZY (CLEAR)
[2018-02-03 19:57] LABS: AMORPHOUS SEDIMENT,UR Few /LPF; BACTERIA,URINE Rare /HPF (None Seen); SQUAMOUS EPITHELIAL CELL,UR FEW Squamous (<= Few)
[2018-02-03 20:12] LABS: BASOPHILS % (AUTO) 0.6 %; EOSINOPHILS # (AUTO) 0.1 10^3/uL (0.0-0.7); HGB - HEMOGLOBIN 10.5 g/dL (12.0-16.0); LYMPHOCYTES # (AUTO) 0.8 10^3/uL (1.5-3.5); LYMPHOCYTES % (AUTO) 12.2 %; MEAN CORPUSCULAR HEMOGLOBIN 30.6 pg (27.0-31.0); MEAN CORPUSCULAR HGB CONC 33.7 g/dL (32.0-36.0); MEAN CORPUSCULAR VOLUME 90.8 fL (81.0-99.0); MEAN PLATELET VOLUME 9.9 fL (7.9-10.8); MONOCYTES # (AUTO) 0.5 10^3/uL (0.0-1.0); MONOCYTES % (AUTO) 7.6 %; NEUTROPHILS # (AUTO) 5.4 10^3/uL (1.5-6.6); NEUTROPHILS % (AUTO) 77.6 %; PLT - PLATELET COUNT 174 10^3/uL (130-450); RED BLOOD COUNT 3.42 10^6/uL (4.20-5.40); RED CELL DISTRIBUTION WIDTH 13.7 % (12.0-15.0)
[2018-02-03 20:13] LABS: VBG PCO2 39.8 mmHg (41-51); VBG PH 7.45 (7.31-7.41)
[2018-02-03 20:14] LABS: VBG BASE EXCESS 2.9 mmol/L (-2 - +2); VBG TOTAL CO2 28.3 mmol/L (24-29)
[2018-02-03 20:17] LABS: KETONES, SERUM (ACETEST) NEGATIVE (NEGATIVE)
[2018-02-03 20:22] LABS: ALBUMIN 2.3 g/dL (3.2-5.5); ALBUMIN/GLOBULIN RATIO 0.7 (1.0-2.2); ALKALINE PHOSPHATASE 118 IU/L (42-121); ALT ALANINE AMINOTRANSFERASE 15 IU/L (10-60); AST ASPARTATE AMINOTRANSFERASE 13 IU/L (10-42); BUN - BLOOD UREA NITROGEN 20 mg/dL (6-20); CALCIUM 7.9 mg/dL (8.5-10.3); CARBON DIOXIDE - CO2 27 mmol/L (21-32); CHLORIDE 97 mmol/L (101-111); CREATININE 1.4 mg/dL (0.4-1.0); GFR - MDRD 37 (>89); GLUCOSE 498 mg/dL (70-100); LIPASE 22 U/L (22-51); SODIUM 129 mmol/L (135-145); TOTAL PROTEIN 5.6 g/dL (6.7-8.2)
[2018-02-03] MEDS ORDERED: INSULIN REGULAR HUMAN 100 UNIT/1 ML 10 ML MDV IVP STA (20:30)
[2018-02-03] MEDS ORDERED: INSULIN REGULAR HUMAN 100 UNIT/1 ML 10 ML MDV SUBQ STA (21:20)
[2018-02-03] MEDS ORDERED: CIPROFLOXACIN 250 MG TABLET PO STA (21:43)
[2018-02-03] MEDS ORDERED: cefTRIAXone 1 GM VIAL IVP STA (21:48)
[2018-02-03 22:22] VITALS: BP 131/90
== END 2018-02-03 22:39 | disposition home or self-care (01) ==
LOC: EDUNIT# → ED 18:16
DX: E11.65 Type 2 diabetes mellitus with hyperglycemia (principal); Z79.4 Long term (current) use of insulin; N30.00 Acute cystitis without hematuria; L08.9 Local infection of the skin and subcutaneous tissue, unspecified; I10 Essential (primary) hypertension; I48.91 Unspecified atrial fibrillation; E78.00 Pure hypercholesterolemia, unspecified; K21.9 Gastro-esophageal reflux disease without esophagitis; N28.9 Disorder of kidney and ureter, unspecified; M19.90 Unspecified osteoarthritis, unspecified site; Z79.01 Long term (current) use of anticoagulants; Z87.891 Personal history of nicotine dependence
CPT/HCPCS: 36415; 80053; 81001; 81003; 82009; 82803; 83690; 85025; 87086; 99283; 99284

== ENCOUNTER 2018-02-06 06:50 | Outpatient (CLI) | payer MEDICARE, OTHER | END 2018-02-06 06:51 | disposition critical access hospital (66) | LOC: EMS 06:50 | PROVIDERS: ATTEND Surgery | DX: R41.82 Altered mental status, unspecified (principal); R53.1 Weakness | CPT/HCPCS: A0425; A0429 ==

== ENCOUNTER 2018-02-06 07:41 | Inpatient (IN) | payer MEDICARE, OTHER ==
[2018-02-06] MEDS ORDERED: SODIUM CHLORIDE 0.9% 500 ML IV ONE (08:05)
--- NOTE | 2018-02-06 08:08 | ED Physician Documentation ---
History of Present Illness - Stated complaint Stated Complaint: DEC LOC - Chief complaint Chief Complaint: Neuro - History obtained from History obtained from: Patient, EMS - Additonal information Additional information: The patient is a 72-year-old female with a history of type 2 diabetes, atrial fibrillation, and renal insufficiency, who arrives via ambulance because of progressive generalized weakness and decreased mental status. She was seen here 4 days ago and diagnosed with acute cystitis and cellulitis, and prescribed Cefdinar. Her granddaughters who provide in-home care for her report that this morning she was too weak to get out of bed. Normally she is able to ambulate without assistance. The patient provides limited history, although she denies pain of any kind, denies cough, and denies dysuria. Review of her medical records reveals history of chronic cystitis. She is seen in wound care clinic for venous stasis ulcers on her lower extremities. Review of Systems Constitutional: reports: Fatigue. denies: Fever Nose: denies: Congestion Throat: denies: Sore throat Cardiac: denies: Chest pain / pressure Respiratory: denies: Dyspnea, Cough GI: denies: Abdominal Pain, Vomiting, Diarrhea : denies: Dysuria Skin: reports: Other (venous stasis dermatitis; recently diagnosed with lower extremity cellulitis.). denies: Rash Musculoskeletal: reports: Extremity swelling (chronic) Neurologic: reports: Generalized weakness, Altered mental status (Decreased responsiveness.). 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: None : Incontinence, Chronic bladder infection, Renal insuffiency, Frequency HEENT: Chronic vision loss Psych: Depression Musculoskeletal: Osteoarthritis, Chronic back pain Derm: None - Past Surgical History Past Surgical History: Yes Ortho: Other Derm: Other - Present Medications Home Medications: Ambulatory Orders Medication Instructions Recorded Confirmed Omeprazole 20 mg PO QDAC 08/23/15 02/06/18 Duloxetine HCl [Cymbalta] 60 mg PO DAILY 01/15/17 02/06/18 Furosemide 40 mg PO DAILY 01/15/17 02/06/18 Atorvastatin Calcium 80 mg PO QPM 07/14/17 02/06/18 Cyclobenzaprine [Flexeril] 10 mg PO TID PRN 07/14/17 02/06/18 Felodipine [Felodipine ER] 10 mg PO DAILY 07/14/17 02/06/18 Rivaroxaban [Xarelto] 20 mg PO DAILY 07/14/17 02/06/18 Diazepam [Valium] 5 mg PO QPM PRN 02/06/18 02/06/18 Gabapentin [Neurontin] 800 mg PO TID 02/06/18 02/06/18 Hydromorphone HCl [Dilaudid] 8 mg PO Q8H 02/06/18 02/06/18 Insulin Aspart [NovoLOG] 3 unit SUBQ TIDWM 02/06/18 02/06/18 Insulin Glargine [Lantus Solostar] 10 unit SUBQ BID 02/06/18 02/06/18 - Allergies Allergies/Adverse Reactions: Allergies Allergy/AdvReac Type Severity Reaction Status Date / Time Penicillins Allergy unknown Verified 02/03/18 18:36 - Social History Does the pt smoke?: No Smoking Status: Former smoker Does the pt drink ETOH?: No Does the pt have substance abuse?: No - Immunizations Immunizations are current?: Yes - POLST Patient has POLST: Yes POLST Status: DNR PD ED PE NORMAL - Vitals Vital signs reviewed: Yes (blood pressure low end of normal.) - General General: Other (Awake but drowsy appearing; morbidly obese.) - HEENT HEENT: Atraumatic, Moist mucous membranes, Pharynx benign - Neck Neck: No adenopathy, No JVD - Cardiac Cardiac: RRR - Respiratory Respiratory: Clear bilaterally - Abdomen Abdomen: Soft, Non tender - Back Back: No CVA TTP - Derm Derm: Other (Dermatitis in abdominal pannus and lower extremities.) - Extremities Extremities: No calf tenderness / cord, Other (Venous stasis dermatitis.) - Neuro Neuro: Other (Awake, but drowsy. Moves all extremities, though very slowly. No focal motor deficit.) Results - Vitals Vitals: Vital Signs - 24 hr 02/06/18 02/06/18 02/06/18 07:46 09:00 09:30 Temperature 36.7 C Heart Rate 94 99 95 Respiratory 16 18 18 Rate Blood Pressure 94/49 L 107/64 100/60 O2 Saturation 94 98 97 02/06/18 02/06/18 10:00 10:49 Temperature 36 C L Heart Rate 101 H 99 Respiratory 18 14 Rate Blood Pressure 125/64 108/63 O2 Saturation 98 98 Oxygen O2 Source [With Activity] Room air O2 Source [Without Activity] Nasal cannula O2 Source Room air - EKG (time done) 08:14 Rate: Rate (enter#) (96) Rhythm: Atrial fibrillation [place]: Normal QRS: Low voltage Ischemia: Other (Diffuse T-wave flattening.) Compare to prior EKG: Unchanged from prior EKG Computer interpretation: Agree with computer - Labs Labs: Laboratory Tests 02/06/18 02/06/18 02/06/18 08:37 08:37 08:37 WBC 5.9 RBC 3.49 L Hgb 10.7 L Hct 31.9 L MCV 91.5 MCH 30.6 MCHC 33.4 RDW 13.9 Plt Count 195 MPV 9.0 Neut # (Auto) 5.3 Lymph # (Auto) 0.3 L [place] # (Auto) 0.3 Eos # (Auto) 0.0 Baso # (Auto) 0.0 Absolute Nucleated RBC 0.00 Nucleated RBC % 0.0 PT 11.7 INR 1.0 APTT 30.3 Sodium 132 L Potassium 4.5 Chloride 100 L Carbon Dioxide 26 Anion Gap 6.0 BUN 29 H Creatinine 1.8 H Estimated GFR (MDRD) 28 L Glucose 473 H POC Whole Bld Glucose Lactic Acid Calcium 8.0 L Total Bilirubin 1.1 H AST 15 ALT 15 Alkaline Phosphatase 106 Troponin I Total Protein 6.1 L Albumin 2.5 L Globulin 3.6 Albumin/Globulin Ratio 0.7 L Lipase 17 L Urine Color Urine Clarity Urine pH Ur Specific [place] Urine Protein Urine Glucose (UA) Urine Ketones Urine Occult Blood Urine Nitrite Urine Bilirubin Urine Urobilinogen Ur Leukocyte Esterase Urine RBC Urine WBC Urine WBC Clumps Ur Squamous Epith Cells Urine Crystals Amorphous Sediment Urine Bacteria Urine Casts Urine Yeast Ur Microscopic Review Urine Culture Comments 02/06/18 02/06/18 02/06/18 08:37 08:37 08:53 WBC RBC Hgb Hct MCV MCH MCHC RDW Plt Count MPV Neut # (Auto) Lymph # (Auto) [place] # (Auto) Eos # (Auto) Baso # (Auto) Absolute Nucleated RBC Nucleated RBC % PT INR APTT Sodium Potassium Chloride Carbon Dioxide Anion Gap BUN Creatinine Estimated GFR (MDRD) Glucose POC Whole Bld Glucose Lactic Acid 1.0 Calcium Total Bilirubin AST ALT Alkaline Phosphatase Troponin I < 0.04 Total Protein Albumin Globulin Albumin/Globulin Ratio Lipase Urine Color YELLOW Urine Clarity HAZY Urine pH 5.5 Ur Specific [place] 1.025 Urine Protein >=300 H Urine Glucose (UA) >=1000 H Urine Ketones NEGATIVE Urine Occult Blood MODERATE H Urine Nitrite NEGATIVE Urine Bilirubin NEGATIVE Urine Urobilinogen 0.2 (NORMAL) Ur Leukocyte Esterase NEGATIVE Urine RBC 6-10 H Urine WBC 11-25 H Urine WBC Clumps PRESENT Ur Squamous Epith Cells MANY Squamous H Urine Crystals 0-2 Calcium Oxalate Amorphous Sediment Marked Urine Bacteria Many H Urine Casts 3-5 Granular Casts Urine Yeast PRESENT Ur Microscopic Review INDICATED Urine Culture Comments NOT INDICATED 02/06/18 02/06/18 10:37 11:12 WBC RBC Hgb Hct MCV MCH MCHC RDW Plt Count MPV Neut # (Auto) Lymph # (Auto) [place] # (Auto) Eos # (Auto) Baso # (Auto) Absolute Nucleated RBC Nucleated RBC % PT INR APTT Sodium Potassium Chloride Carbon Dioxide Anion Gap BUN Creatinine Estimated GFR (MDRD) Glucose POC Whole Bld Glucose 437 H Lactic Acid Calcium Total Bilirubin AST ALT Alkaline Phosphatase Troponin I Total Protein Albumin Globulin Albumin/Globulin Ratio Lipase Urine Color YELLOW Urine Clarity HAZY Urine pH 5.5 Ur Specific [place] 1.025 Urine Protein 100 H Urine Glucose (UA) >=1000 H Urine Ketones NEGATIVE Urine Occult Blood MODERATE H Urine Nitrite NEGATIVE Urine Bilirubin NEGATIVE Urine Urobilinogen 0.2 (NORMAL) Ur Leukocyte Esterase NEGATIVE Urine RBC 6-10 H Urine WBC 6-10 H Urine WBC Clumps PRESENT Ur Squamous Epith Cells FEW Squamous Urine Crystals Amorphous Sediment Marked Urine Bacteria Many H Urine Casts 3-5 Granular Casts Urine Yeast PRESENT Ur Microscopic Review INDICATED Urine Culture Comments INDICATED PD MEDICAL DECISION MAKING - ED course Complexity details: reviewed old records, reviewed results, re-evaluated patient , considered differential, d/w patient, d/w content management consultant ED course: Patient's presentation is significant for left lower lobe pneumonia and urinary tract infection, with associated generalized weakness and mental status changes , characterized as decreased level of alertness and generalized confusion. Sepsis was considered, but is unlikely with a normal white count and a normal lactate of 1.0. In addition to the above she has hyperglycemia with a blood sugar of 473, without ketoacidosis. Treatment in the emergency department included administration of normal saline 500 mL IV, insulin 10 units subcu, ceftriaxone 1 g IV, and Zithromax 500 mg IV. I discussed her condition with Dr. Tompkins who accepts for further evaluation and treatment. - Sepsis Event Vital Signs: Vital Signs - 24 hr 02/06/18 02/06/18 02/06/18 07:46 09:00 09:30 Temperature 36.7 C Heart Rate 94 99 95 Respiratory 16 18 18 Rate Blood Pressure 94/49 L 107/64 100/60 O2 Saturation 94 98 97 02/06/18 02/06/18 10:00 10:49 Temperature 36 C L Heart Rate 101 H 99 Respiratory 18 14 Rate Blood Pressure 125/64 108/63 O2 Saturation 98 98 Oxygen O2 Source [With Activity] Room air O2 Source [Without Activity] Nasal cannula O2 Source Room air Departure - Departure Disposition: 66 [facility] DC/Xfer Clinical Impression: Confusion Pneumonia Qualifiers: Pneumonia type: due to unspecified organism Laterality: left Lung location: lower lobe of lung Qualified Code(s): J18.1 - Lobar pneumonia, unspecified organism Urinary tract infection Qualifiers: Urinary tract infection type: acute cystitis Hematuria presence: without hematuria Qualified Code(s): N30.00 - Acute cystitis without hematuria Hyperglycemia due to type 2 diabetes mellitus Qualifiers: 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
--- NOTE | 2018-02-06 08:35 | XRAY Report ---
Procedure Date: 02/06/2018 Accession Number: [id number] / [id number] Procedure: XR - Chest 1 View X-Ray CPT Code: 52724 FULL RESULT: EXAM: CHEST RADIOGRAPHY EXAM DATE: 02/06/2018 08:24 AM. CLINICAL HISTORY: Chest pain. COMPARISON: 07/14/2017. TECHNIQUE: 1 view. FINDINGS: Lungs/Pleura: New small to moderate left pleural effusion and left basilar opacity. No vascular congestion. No pneumothorax. Mediastinum: Heart is enlarged. Aorta is tortuous. Other: None. IMPRESSION: 1. New left basilar consolidation/atelectasis and small to moderate left pleural effusion. [facility]
[2018-02-06 08:50] LABS: BASOPHILS % (AUTO) 0.3 %; EOSINOPHILS % (AUTO) 0.2 %; HGB - HEMOGLOBIN 10.7 g/dL (12.0-16.0); LYMPHOCYTES # (AUTO) 0.3 10^3/uL (1.5-3.5); LYMPHOCYTES % (AUTO) 4.8 %; MEAN CORPUSCULAR HEMOGLOBIN 30.6 pg (27.0-31.0); MEAN CORPUSCULAR HGB CONC 33.4 g/dL (32.0-36.0); MEAN CORPUSCULAR VOLUME 91.5 fL (81.0-99.0); MONOCYTES # (AUTO) 0.3 10^3/uL (0.0-1.0); MONOCYTES % (AUTO) 4.3 %; NEUTROPHILS # (AUTO) 5.3 10^3/uL (1.5-6.6); NEUTROPHILS % (AUTO) 90.4 %; PLT - PLATELET COUNT 195 10^3/uL (130-450); RED BLOOD COUNT 3.49 10^6/uL (4.20-5.40); RED CELL DISTRIBUTION WIDTH 13.9 % (12.0-15.0); WHITE BLOOD COUNT 5.9 x10^3/uL (4.8-10.8)
[2018-02-06 08:58] LABS: PT - PROTHROMBIN TIME 11.7 secs (9.9-12.6)
[2018-02-06 09:01] LABS: ALBUMIN 2.5 g/dL (3.2-5.5); ALBUMIN/GLOBULIN RATIO 0.7 (1.0-2.2); BILIRUBIN,TOTAL 1.1 mg/dL (0.2-1.0); CREATININE 1.8 mg/dL (0.4-1.0); TOTAL PROTEIN 6.1 g/dL (6.7-8.2)
[2018-02-06 09:12] LABS: BILIRUBIN,URINE NEGATIVE (NEGATIVE); GLUCOSE, URINE (UA) >=1000 mg/dL (NEGATIVE); KETONES,URINE (UA) NEGATIVE (NEGATIVE); LEUKOCYTE ESTERASE, URINE NEGATIVE (NEGATIVE); NITRITE,URINE NEGATIVE (NEGATIVE); OCCULT BLOOD,URINE MODERATE (NEGATIVE); PH,URINE 5.5 PH (5.0-7.5); PROTEIN,URINE >=300 mg/dL (NEGATIVE); UROBILINOGEN,URINE 0.2 (NORMAL) E.U./dL (NORMAL)
[2018-02-06 09:15] LABS: CLARITY,URINE HAZY (CLEAR)
[2018-02-06 09:28] LABS: AMORPHOUS SEDIMENT,UR Marked /LPF; BACTERIA,URINE Many /HPF (None Seen); SQUAMOUS EPITHELIAL CELL,UR MANY Squamous (<= Few); WBC CLUMPS,URINE PRESENT
[2018-02-06 09:29] LABS: CRYSTALS,URINE 0-2 Calcium Oxalate /LPF; YEAST,URINE PRESENT
[2018-02-06 10:47] LABS: BILIRUBIN,URINE NEGATIVE (NEGATIVE); GLUCOSE, URINE (UA) >=1000 mg/dL (NEGATIVE); KETONES,URINE (UA) NEGATIVE (NEGATIVE); LEUKOCYTE ESTERASE, URINE NEGATIVE (NEGATIVE); NITRITE,URINE NEGATIVE (NEGATIVE); OCCULT BLOOD,URINE MODERATE (NEGATIVE); PH,URINE 5.5 PH (5.0-7.5); PROTEIN,URINE 100 mg/dL (NEGATIVE); UROBILINOGEN,URINE 0.2 (NORMAL) E.U./dL (NORMAL)
[2018-02-06] MEDS ORDERED: cefTRIAXone 1 GM in SODIUM CHLORIDE 0.9% MINIBAG 100 ML IV STA (10:58)
[2018-02-06] MEDS ORDERED: INSULIN REGULAR HUMAN 100 UNIT/1 ML 10 ML MDV SUBQ STA (11:02)
[2018-02-06 11:10] LABS: BACTERIA,URINE Many /HPF (None Seen); CLARITY,URINE HAZY (CLEAR); SQUAMOUS EPITHELIAL CELL,UR FEW Squamous (<= Few)
[2018-02-06 11:11] LABS: AMORPHOUS SEDIMENT,UR Marked /LPF
[2018-02-06 11:12] LABS: WBC CLUMPS,URINE PRESENT; YEAST,URINE PRESENT
[2018-02-06] MEDS ORDERED: AZITHROMYCIN INJ 500 MG in SODIUM CHLORIDE 0.9% 250 ML IV STA (11:39)
[2018-02-06] MEDS ORDERED: CYCLOBENZAPRINE 10 MG TABLET PO PRN (11:43)
--- NOTE | 2018-02-06 11:43 | HISTORY & PHYSICAL EXAMINATION ---
Chief Complaint - Chief Complaint Chief Complaint: Lethargy and generalized weakness History of Present Illness - Admitted From Admitted From:: Emergency department - History Obtained From Records Reviewed: Yes History obtained from: Patient and patient's children Exam Limitations: None - History of Present Illness HPI Comment/Other: Patient is a 72-year-old female with a past medical history significant for morbid obesity which has left her wheelchair bound with ability to transfer, poorly controlled diabetes, hypertension, atrial fibrillation on Xarelto, CKD stage III, pulmonary hypertension and chronic back pain who presents to the emergency department with a chief complaint of lethargy and generalized weakness. The patient lives with her granddaughter who is also her caregiver. The patient's granddaughter provides the history. The patient's granddaughter states that about 1 week ago she noticed that the patient was having increasing fatigue and having episodes of confusion and increasing weakness. She states that this slowly progressed to the point where 2 days ago the patient had a fall and they could not get her up. At that time she presented to the emergency department and was thought to have a left lower extremity cellulitis and was given antibiotics and sent home. The patient's granddaughter states that the patient continued to worsen last night she had decreased level of consciousness and was too weak to transfer just from her wheelchair to the commode. Then she states this morning the patient again fell off the couch and then was so lethargic that she was not responding or answering questions in the family decided to call 911. The granddaughter denies the patient having any cough or fevers at home. She also states that she has not noticed that the patient has had any gross urinary frequency or that she is complained of dysuria. The patient has been having increasing pain in her legs and has recently been started on oral Dilaudid. The patient herself does admit to feeling weak but denies any fevers, chills, cough, urinary symptoms, headache, neck stiffness, vomiting, diarrhea, abdominal pain. Patient denies any blurred vision, runny nose, sore throat, nasal congestion, difficulty swallowing, chest pain, shortness of air, orthopnea, PND, nausea, constipation, dysuria, increased urinary frequency, worsening back pain, changes in her appetite, recent unintentional weight loss, skin changes, hair loss or any focal neurologic deficits. On presentation to the emergency department the patient was afebrile, heart rate was in the 90s and blood pressure was 94/49. Her oxygen saturation was about 94% on room air and she was placed on 2 L of oxygen. The patient was quite lethargic on presentation and underwent workup with labs. Her CBC showed a slight chronic anemia but her white blood cell count was within normal limits. The patient was slightly hyponatremic with a sodium of 132 and had slightly worsening renal failure with a creatinine of 1.8. Patient also had a blood glucose of 473 but had a normal anion gap and no acidosis. The patient's troponin was negative. The patient did undergo a urine analysis which did show 6-10 WBCs with moderate occult blood and many bacteria consistent with a urinary tract infection. The patient's chest x-ray also revealed a new left basilar consolidation and a small to moderate left pleural effusion. The patient was admitted to the hospital for urinary tract infection and community- acquired pneumonia causing her lethargy and generalized weakness. History - Past Medical History Cardiovascular: reports: Hypertension, High cholesterol, Atrial fibrillation, Other Respiratory: reports: Pneumonia, Other Neuro: reports: Peripheral neuropathy Endocrine/Autoimmune: reports: Type 2 diabetes GI: reports: GERD, Other [employer]: reports: None : reports: Incontinence, Chronic bladder infection, Renal insuffiency, Frequency HEENT: reports: Chronic vision loss Psych: reports: Depression Musculoskeletal: reports: Osteoarthritis, Chronic back pain Derm: reports: None MRSA Hx?: No - Past Surgical History Ortho: reports: Other Derm: reports: Other - Family & Social History Family History: Mother: , Father: , Sister: Diabetes, Type 2, Renal Disease/Failure (ESRD), Other family: Alcoholism (Daughter) Living arrangement: At home Living Situation: With family Social History Notes: The patient lives in her home in [place], [place] with her daughter and granddaughter as well as 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 She is wheelchair-bound at home but is able to transfer from the wheelchair to bed or couch. She sleeps in a recliner at home. She is born in [place]. She is her in 2011. She has 7 children. She smoked 3-4 packs a day for 2 years in her early 20s but quit almost 50 years ago. She does not drink alcohol and denies any illicit drug use. - POLST Patient has POLST: Yes POLST Status: DNR Meds/Allgy - Home Medications Home Medications: Ambulatory Orders Medication Instructions Recorded Confirmed Omeprazole 20 mg PO QDAC 08/23/15 02/06/18 Duloxetine HCl [Cymbalta] 60 mg PO DAILY 01/15/17 02/06/18 Furosemide 40 mg PO DAILY 01/15/17 02/06/18 Atorvastatin Calcium 80 mg PO QPM 07/14/17 02/06/18 Cyclobenzaprine [Flexeril] 10 mg PO TID PRN 07/14/17 02/06/18 Felodipine [Felodipine ER] 10 mg PO DAILY 07/14/17 02/06/18 Rivaroxaban [Xarelto] 20 mg PO DAILY 07/14/17 02/06/18 Diazepam [Valium] 5 mg PO QPM PRN 02/06/18 02/06/18 Gabapentin [Neurontin] 800 mg PO TID 02/06/18 02/06/18 Hydromorphone HCl [Dilaudid] 8 mg PO Q8H 02/06/18 02/06/18 Insulin Aspart [NovoLOG] 3 unit SUBQ TIDWM 02/06/18 02/06/18 Insulin Glargine [Lantus Solostar] 10 unit SUBQ BID 02/06/18 02/06/18 - Allergies Allergies/Adverse Reactions: Allergies Allergy/AdvReac Type Severity Reaction Status Date / Time Penicillins Allergy unknown Verified 02/03/18 18:36 Review of Systems - Other Findings Other Findings: A comprehensive review of systems was performed the pertinent positives and negatives are stated above in the HPI and the remainder of the review of systems is negative. Exam - Vital Signs Reviewed Vital Signs: Yes Vital Signs: Vital Signs x48h Temp Pulse Resp BP Pulse Ox 02/06/18 10:49 36 C L 99 14 108/63 98 02/06/18 10:00 101 H 18 125/64 98 02/06/18 09:30 95 18 100/60 97 02/06/18 09:00 99 18 107/64 98 02/06/18 07:46 36.7 C 94 16 94/49 L 94 - Physical Exam General Appearance: positive: No acute distress, Lethargic (now more alert than in ER and able to answer questions) Eyes Bilateral: positive: Normal inspection, PERRL, EOMI, No lid inflammation, Conjunctivae nml, No scleral icterus ENT: positive: ENT inspection nml, Pharynx nml, No signs of dehydration. negative: Purulent nasal drainage, Pharyngeal erythema, Oral lesions Neck: positive: Nml inspection, Thyroid nml, No JVD, Trachea midline. negative : Thyromegaly, Lymphadenopathy (R), Lymphadenopathy (L), Stiff neck, Carotid bruit, Tracheal deviation Respiratory: positive: Chest non-tender, No respiratory distress, Breath sounds nml. negative: Wheezes, Rales, Rhonchi Cardiovascular: positive: No murmur, No gallop, Irregularly irregular Peripheral Pulses: positive: 2+ Abdomen: positive: Non-tender, No organomegaly, Nml bowel sounds, No distention. negative: Guarding, Rebound, Hepatomegaly Back: positive: Nml inspection. negative: CVA tenderness (R), CVA tenderness (L ) Skin: positive: Color nml, No rash, Warm, Dry, Skin rash (Stasis dermatitis bilateral LEs, left worse than right) Extremities: positive: Non-tender, Full ROM, Nml appearance, Pedal edema ( Bilateral lower extremity edema), Other (Bilateral lower extremity erythema with stasis dermatitis) Neurologic/Psychiatric: positive: Oriented x3, CN's nml (2-12), Motor nml, Sensation nml, Mood/affect nml, Other (Decreased level of consciousness) Conclusion/Plan - Problem List (1) CAP (community acquired pneumonia) Conclusion/Plan: Patient presented with 1 week of increasing generalized weakness, confusion, fatigue and lethargy. Patient was found to have a left basilar consolidation on chest x-ray consistent with pneumonia. Patient was not febrile and did not have a white blood cell count but given her systemic symptoms of lethargy and acute renal failure as well as generalized weakness it was felt that she required hospitalization for treatment with IV antibiotics. Plan: IV ceftriaxone and IV azithromycin IV fluids Follow-up blood cultures Oxygen as needed Qualifiers: Laterality: left Lung location: lower lobe of lung Qualified Code(s): J18.1 - Lobar pneumonia, unspecified organism (2) Urinary tract infection Conclusion/Plan: Patient presented with 1 week of increasing generalized weakness, confusion, fatigue and lethargy. Patient was found to have positive UA with WBCs, moderate occult blood and many bacteria. Patient was not febrile and did not have a white blood cell count but given her systemic symptoms of lethargy and acute renal failure as well as generalized weakness it was felt that she required hospitalization for treatment with IV antibiotics. Plan: Ceftriaxone IV IV fluids Follow-up urine culture and blood cultures Qualifiers: Urinary tract infection type: acute cystitis Hematuria presence: without hematuria Qualified Code(s): N30.00 - Acute cystitis without hematuria (3) Metabolic encephalopathy Conclusion/Plan: Patient is lethargic and appears to have combination of metabolic encephalopathy and possible oversedation from narcotics. Patient has been on Dilaudid for the last week and has worsening renal failure which is likely caused decreased metabolism of Dilaudid and causing some lethargy along with the fact that she has got a UTI and pneumonia concurrently that is likely also affecting her mental status. Patient will be given IV fluids, we will decrease the frequency of her Dilaudid and we will give her IV antibiotics to treat the above infections. (4) Acute renal failure superimposed on stage 3 chronic kidney disease Conclusion/Plan: Patient has a history of CKD stage III however on presentation the patient's creatinine is elevated from a baseline of about 1.1-1.4. On presentation the patient's creatinine is elevated at 1.8. This is likely secondary to ongoing infection and dehydration. The patient appears to have prerenal azotemia as her BUN is elevated. The patient also appears to be dry on examination. Plan: Patient will be given IV fluids We will monitor creatinine We will avoid any nephrotoxic agents We will hold Lasix Qualifiers: Acute renal failure type: unspecified Qualified Code(s): N17.9 - Acute kidney failure, unspecified; N18.3 - Chronic kidney disease, stage 3 (moderate) ; N18.3 - Chronic kidney disease, stage 3 (moderate); N18.3 - Chronic kidney disease, stage 3 (moderate) (5) Type II diabetes mellitus with complication, uncontrolled Conclusion/Plan: Patient presents with uncontrolled blood glucose of 473. The patient is not in DKA. Patient is on insulin at home. We will continue her home dose of Lantus and titrate as needed. The patient will be given IV fluids. We will place her on a sliding scale insulin. She was placed on diabetic diet. We will check her blood glucose before meals at bedtime. 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 The patient's generalized weakness is likely systemic effects of ongoing infection with urinary tract infection and pneumonia. Patient also appears to be dehydrated with acute on chronic renal failure. Plan: Patient will be given IV fluids Patient will be given IV antibiotics We will monitor if patient does not improve we will need to get his PT consultation although the patient has wheelchair-bound and only transfers this may not be necessary (7) Hyponatremia Conclusion/Plan: Patient is hypokalemic on presentation with a sodium of 132 patient appears to have hypovolemic hyponatremia. The patient also has an elevated blood glucose of 473 which is likely also contributing to the hyponatremia. Patient will be given IV fluids we will continue to correct the blood glucose and monitor the patient's sodium. (8) Venous stasis dermatitis Conclusion/Plan: Patient has bilateral venous stasis dermatitis. She was diagnosed with cellulitis of the left lower extremity but it just appears to be venous stasis dermatitis. The patient will be continued with wound care while she is hospitalized. Qualifiers: Laterality: bilateral Qualified Code(s): I87.2 - Venous insufficiency ( chronic) (peripheral) (9) Atrial fibrillation Conclusion/Plan: Patient has history of chronic atrial fibrillation. She is in atrial fibrillation on presentation. The patient's rate is well controlled and she will be continued on her home dose of Xarelto for anticoagulation. The patient is not on any rate control agents. Qualifiers: Atrial fibrillation type: chronic Qualified Code(s): I48.2 - Chronic atrial fibrillation (10) Chronic pain Conclusion/Plan: The patient does have chronic back pain but is also been having worsening lower extremity pain from her chronic stasis dermatitis. The patient has been started on Dilaudid over the last week and has been requiring it frequently at home. The patient presented with lethargy and metabolic encephalopathy with some concern for possible effects of the opioids. We will decrease the patient' s Dilaudid frequency and continue to monitor for pain. The patient will be given breakthrough oxycodone if needed. Qualifiers: Chronic pain type: other chronic pain Qualified Code(s): G89.29 - Other chronic pain (11) HTN (hypertension) Conclusion/Plan: Patient has a history of hypertension and is on amlodipine at home. The patient 's blood pressure is borderline on presentation and continues to be in the low 100s. For now we will hold the patient's dose of amlodipine and continue to monitor. She will be given IV fluids. Qualifiers: Hypertension type: essential hypertension Qualified Code(s): I10 - Essential (primary) hypertension - Lab Results Lab results reviewed: Yes Fish Bones: 02/06/18 08:37 02/06/18 08:37 Other Lab Results: Laboratory Results WBC 5.9 x10^3/uL (4.8-10.8) 02/06/18 08:37 RBC 3.49 10^6/uL (4.20-5.40) L 02/06/18 08:37 Hgb 10.7 g/dL (12.0-16.0) L 02/06/18 08:37 Hct 31.9 % (37.0-47.0) L 02/06/18 08:37 MCV 91.5 fL (81.0-99.0) 02/06/18 08:37 MCH 30.6 pg (27.0-31.0) 02/06/18 08:37 MCHC 33.4 g/dL (32.0-36.0) 02/06/18 08:37 RDW 13.9 % (12.0-15.0) 02/06/18 08:37 Plt Count 195 10^3/uL (130-450) 02/06/18 08:37 MPV 9.0 fL (7.9-10.8) 02/06/18 08:37 Neut # (Auto) 5.3 10^3/uL (1.5-6.6) 02/06/18 08:37 Lymph # (Auto) 0.3 10^3/uL (1.5-3.5) L 02/06/18 08:37 [place] # (Auto) 0.3 10^3/uL (0.0-1.0) 02/06/18 08:37 Eos # (Auto) 0.0 10^3/uL (0.0-0.7) 02/06/18 08:37 Baso # (Auto) 0.0 10^3/uL (0.0-0.1) 02/06/18 08:37 Absolute Nucleated RBC 0.00 x10^3/uL 02/06/18 08:37 Nucleated RBC % 0.0 /100WBC 02/06/18 08:37 PT 11.7 secs (9.9-12.6) 02/06/18 08:37 INR 1.0 (0.8-1.2) 02/06/18 08:37 APTT 30.3 secs (24.9-33.3) 02/06/18 08:37 Sodium 132 mmol/L (135-145) L 02/06/18 08:37 Potassium 4.5 mmol/L (3.5-5.0) 02/06/18 08:37 Chloride 100 mmol/L (101-111) L 02/06/18 08:37 Carbon Dioxide 26 mmol/L (21-32) 02/06/18 08:37 Anion Gap 6.0 (6-13) 02/06/18 08:37 BUN 29 mg/dL (6-20) H 02/06/18 08:37 Creatinine 1.8 mg/dL (0.4-1.0) H 02/06/18 08:37 Estimated GFR (MDRD) 28 (>89) L 02/06/18 08:37 Glucose 473 mg/dL (70-100) H 02/06/18 08:37 POC Whole Bld Glucose 437 mg/dL (70 - 100) H 02/06/18 11:12 Lactic Acid 1.0 mmol/L (0.5-2.2) 02/06/18 08:37 Calcium 8.0 mg/dL (8.5-10.3) L 02/06/18 08:37 Total Bilirubin 1.1 mg/dL (0.2-1.0) H 02/06/18 08:37 AST 15 IU/L (10-42) 02/06/18 08:37 ALT 15 IU/L (10-60) 02/06/18 08:37 Alkaline Phosphatase 106 IU/L (42-121) 02/06/18 08:37 Troponin I < 0.04 ng/mL (<0.49) 02/06/18 08:37 Total Protein 6.1 g/dL (6.7-8.2) L 02/06/18 08:37 Albumin 2.5 g/dL (3.2-5.5) L 02/06/18 08:37 Globulin 3.6 g/dL (2.1-4.2) 02/06/18 08:37 Albumin/Globulin Ratio 0.7 (1.0-2.2) L 02/06/18 08:37 Lipase 17 U/L (22-51) L 02/06/18 08:37 Urine Color YELLOW 02/06/18 10:37 Urine Clarity HAZY (CLEAR) 02/06/18 10:37 Urine pH 5.5 PH (5.0-7.5) 02/06/18 10:37 Ur Specific [place] 1.025 (1.002-1.030) 02/06/18 10:37 Urine Protein 100 mg/dL (NEGATIVE) H 02/06/18 10:37 Urine Glucose (UA) >=1000 mg/dL (NEGATIVE) H 02/06/18 10:37 Urine Ketones NEGATIVE mg/dL (NEGATIVE) 02/06/18 10:37 Urine Occult Blood MODERATE (NEGATIVE) H 02/06/18 10:37 Urine Nitrite NEGATIVE (NEGATIVE) 02/06/18 10:37 Urine Bilirubin NEGATIVE (NEGATIVE) 02/06/18 10:37 Urine Urobilinogen 0.2 (NORMAL) E.U./dL (NORMAL) 02/06/18 10:37 Ur Leukocyte Esterase NEGATIVE (NEGATIVE) 02/06/18 10:37 Urine RBC 6-10 /HPF (0-5) H 02/06/18 10:37 Urine WBC 6-10 /HPF (0-5) H 02/06/18 10:37 Urine WBC Clumps PRESENT 02/06/18 10:37 Ur Squamous Epith Cells FEW Squamous (<= Few) 02/06/18 10:37 Urine Crystals 0-2 Calcium Oxalate /LPF 02/06/18 08:53 Amorphous Sediment Marked /LPF 02/06/18 10:37 Urine Bacteria Many /HPF (None Seen) H 02/06/18 10:37 Urine Casts 11-25 Hyaline Casts /LPF3-5 Granular Casts /LPF 02/06/18 08:53 Urine Casts 11-25 Hyaline Casts /LPF3-5 Granular Casts /LPF 02/06/18 10:37 Urine Casts 11-25 Hyaline Casts /LPF3-5 Granular Casts /LPF 02/06/18 10:37 Urine Yeast PRESENT 02/06/18 10:37 Ur Microscopic Review INDICATED 02/06/18 10:37 Urine Culture Comments INDICATED 02/06/18 10:37 - Diagnostic Imaging Results Diagnostic Imaging Results: positive: Final report reviewed Diagnostic Imaging Results Comments: Chest x-ray Impression: New left basilar consolidation/atelectasis and small to moderate left pleural effusion. - EKG Results EKG Interpreted Independently: Yes EKG Comparison: Unchanged from prior EKG EKG Findings: Atrial fibrillation Core Measures - Anticipated LOS I expect patient to be DC'd or transferred within 96 hours.: Yes - DVT/VTE - Prophylaxis VTE/DVT Device ordered at admit?: Yes
[2018-02-06] MEDS ORDERED: ACETAMINOPHEN 325 MG TABLET PO PRN (11:45)
[2018-02-06] MEDS ORDERED: ZOLPIDEM 5 MG TABLET PO PRN (11:45)
[2018-02-06] MEDS ORDERED: PROCHLORPERAZINE 10 MG/2 ML VIAL IVP PRN (11:45)
[2018-02-06] MEDS ORDERED: NON FORMULARY MED (Nystatin [Nystatin] 1 APPLIC) TOP SCH (11:45)
[2018-02-06] MEDS ORDERED: ALBUTEROL NEB 2.5 MG/3 ML INH PRN (11:45)
[2018-02-06] MEDS ORDERED: ONDANSETRON 4 MG/2 ML VIAL IVP PRN (11:45)
[2018-02-06] MEDS ORDERED: RIVAROXABAN 10 MG TABLET PO SCH (11:45)
[2018-02-06] MEDS: SODIUM CHLORIDE 0.9% 1,000 ML IV SCH ×2 (13:40→17:44)
[2018-02-06] MEDS ORDERED: HYDROmorphone 2 MG TABLET PO SCH (14:00)
[2018-02-06] MEDS: GABAPENTIN 300 MG CAPSULE PO SCH ×3 (14:23→21:18)
[2018-02-06] MEDS: NYSTATIN CREAM 15 GM TUBE TOP SCH ×2 (14:42→21:19)
[2018-02-06] MEDS: SACCHAROMYCES BOULARDII 250 MG CAPSULE PO SCH (17:43)
[2018-02-06] MEDS: RIVAROXABAN 10 MG TABLET PO SCH (17:44)
[2018-02-06] MEDS: SODIUM CHLORIDE FLUSH 0.9% 10 ML SYRINGE IVP SCH ×2 (17:44→23:43)
[2018-02-06] MEDS: INSULIN ASPART 300 UNIT/3 ML PEN SUBQ SCH ×2 (17:50→21:19)
[2018-02-06] MEDS: ATORVASTATIN 40 MG TABLET PO SCH (21:17)
[2018-02-06] MEDS: HYDROmorphone 2 MG TABLET PO SCH (21:18)
[2018-02-06] MEDS: INSULIN GLARGINE 300 UNIT/3 ML PEN SUBQ SCH (21:18)
[2018-02-07 05:41] LABS: ALBUMIN 1.9 g/dL (3.2-5.5); ALBUMIN/GLOBULIN RATIO 0.6 (1.0-2.2); BILIRUBIN,TOTAL 0.6 mg/dL (0.2-1.0); CALCIUM 7.7 mg/dL (8.5-10.3); CREATININE 1.8 mg/dL (0.4-1.0); TOTAL PROTEIN 4.9 g/dL (6.7-8.2)
[2018-02-07 05:53] LABS: HB2 TOTAL 10.6 g/dL; HEMOGLOBIN A1C 1.32 g/dL; HEMOGLOBIN A1C % 13.5 % (4.6-6.2)
[2018-02-07 06:30] LABS: BASOPHILS % (AUTO) 0.7 %; EOSINOPHILS # (AUTO) 0.2 10^3/uL (0.0-0.7); HGB - HEMOGLOBIN 10.1 g/dL (12.0-16.0); LYMPHOCYTES # (AUTO) 1.4 10^3/uL (1.5-3.5); LYMPHOCYTES % (AUTO) 22.1 %; MEAN CORPUSCULAR HEMOGLOBIN 30.3 pg (27.0-31.0); MEAN CORPUSCULAR HGB CONC 33.2 g/dL (32.0-36.0); MEAN CORPUSCULAR VOLUME 91.5 fL (81.0-99.0); MEAN PLATELET VOLUME 11.2 fL (7.9-10.8); MONOCYTES # (AUTO) 0.6 10^3/uL (0.0-1.0); MONOCYTES % (AUTO) 9.8 %; NEUTROPHILS % (AUTO) 63.4 %; PLT - PLATELET COUNT 134 10^3/uL (130-450); RED BLOOD COUNT 3.32 10^6/uL (4.20-5.40); RED CELL DISTRIBUTION WIDTH 14.5 % (12.0-15.0); WHITE BLOOD COUNT 6.3 x10^3/uL (4.8-10.8)
[2018-02-07] MEDS: GABAPENTIN 300 MG CAPSULE PO SCH ×3 (06:42→20:28)
[2018-02-07] MEDS: FELODIPINE ER 2.5 MG TABLET PO SCH (08:40)
[2018-02-07] MEDS: SACCHAROMYCES BOULARDII 250 MG CAPSULE PO SCH ×2 (08:41→18:24)
[2018-02-07] MEDS: HYDROmorphone 2 MG TABLET PO SCH (08:41)
[2018-02-07] MEDS: DULoxetine 30 MG CAPSULE PO SCH (08:41)
[2018-02-07] MEDS: INSULIN ASPART 300 UNIT/3 ML PEN SUBQ SCH ×3 (08:42→18:29)
[2018-02-07] MEDS: NYSTATIN CREAM 15 GM TUBE TOP SCH ×2 (08:42→20:27)
[2018-02-07] MEDS: SODIUM CHLORIDE FLUSH 0.9% 10 ML SYRINGE IVP SCH ×2 (08:43→18:15)
[2018-02-07] MEDS: POLYETHYLENE GLYCOL 3350 17 GM PACKET PO SCH (08:43)
[2018-02-07] MEDS ORDERED: cefTRIAXone 2 GM in SODIUM CHLORIDE 0.9% MINIBAG 100 ML IV SCH (09:00)
[2018-02-07] MEDS ORDERED: FAMOTIDINE 20 MG TABLET PO SCH (09:00)
[2018-02-07] MEDS ORDERED: AZITHROMYCIN INJ 500 MG in SODIUM CHLORIDE 0.9% 250 ML IV SCH (09:00)
[2018-02-07] MEDS ORDERED: SODIUM CHLORIDE 0.9% 1,000 ML IV SCH ×2 (11:00→19:00)
[2018-02-07] MEDS: NALOXONE 0.4 MG/ML VIAL IVP ONE ×2 (11:15→11:26)
[2018-02-07] MEDS ORDERED: NALOXONE 0.4 MG/ML VIAL ONE ×2 (11:35→11:45)
[2018-02-07] MEDS ORDERED: SODIUM CHLORIDE FLUSH 0.9% 10 ML SYRINGE ONE ×2 (11:36→11:45)
[2018-02-07] MEDS ORDERED: NALOXONE 0.4 MG/ML VIAL IVP ONE ×2 (11:38→12:33)
[2018-02-07 11:43] LABS: ABG BASE EXCESS -2.1 mmol/L (-2.0-3.0); ABG OXYGEN SATURATION 94 % (94-98); ABG PCO2 54 mmHg (34-45); ABG PH 7.29 (7.35-7.45); ABG PO2 75 mmHg (80-100); ABG TCO2 26.7 MMOL/L (21.0-29.0)
[2018-02-07 12:02] LABS: BASOPHILS % (AUTO) 0.4 %; EOSINOPHILS # (AUTO) 0.2 10^3/uL (0.0-0.7); EOSINOPHILS % (AUTO) 2.9 %; HGB - HEMOGLOBIN 10.3 g/dL (12.0-16.0); LYMPHOCYTES # (AUTO) 0.9 10^3/uL (1.5-3.5); LYMPHOCYTES % (AUTO) 12.8 %; MEAN CORPUSCULAR HEMOGLOBIN 30.3 pg (27.0-31.0); MEAN CORPUSCULAR HGB CONC 33.1 g/dL (32.0-36.0); MEAN CORPUSCULAR VOLUME 91.7 fL (81.0-99.0); MEAN PLATELET VOLUME 8.5 fL (7.9-10.8); MONOCYTES # (AUTO) 0.5 10^3/uL (0.0-1.0); MONOCYTES % (AUTO) 7.9 %; NEUTROPHILS # (AUTO) 5.1 10^3/uL (1.5-6.6); PLT - PLATELET COUNT 236 10^3/uL (130-450); RED CELL DISTRIBUTION WIDTH 14.3 % (12.0-15.0); WHITE BLOOD COUNT 6.7 x10^3/uL (4.8-10.8)
[2018-02-07 12:14] LABS: ALBUMIN/GLOBULIN RATIO 0.6 (1.0-2.2); ALKALINE PHOSPHATASE 85 IU/L (42-121); ALT ALANINE AMINOTRANSFERASE 16 IU/L (10-60); AST ASPARTATE AMINOTRANSFERASE 30 IU/L (10-42); BILIRUBIN,TOTAL 0.4 mg/dL (0.2-1.0); BUN - BLOOD UREA NITROGEN 29 mg/dL (6-20); CALCIUM 7.6 mg/dL (8.5-10.3); CARBON DIOXIDE - CO2 26 mmol/L (21-32); CHLORIDE 103 mmol/L (101-111); CREATININE 1.9 mg/dL (0.4-1.0); GFR - MDRD 26 (>89); GLUCOSE 147 mg/dL (70-100); SODIUM 134 mmol/L (135-145); TOTAL PROTEIN 5.2 g/dL (6.7-8.2)
[2018-02-07 12:19] LABS: VBG PH 7.301 (7.31-7.41)
--- NOTE | 2018-02-07 12:21 | XRAY Report ---
Procedure Date: 02/07/2018 Accession Number: [id number] / [id number] Procedure: XR - Chest 1 View X-Ray CPT Code: 00843 FULL RESULT: EXAM: Chest 1 View X-Ray DATE: 02/07/2018 12:01 PM CLINICAL HISTORY: Worsening, hypoxia, lethargy COMPARISON: 02/06/2018 TECHNIQUE: Single view of the chest. FINDINGS: Lungs/Pleura: Increasing pulmonary vascular redistribution and congestion with bilateral pleural effusions and basilar airspace disease. Mediastinum: Heart size accentuated by the AP technique Other: None. IMPRESSION: Worsening chest x-ray with increasing vascular congestion, bilateral pleural effusions and basilar air space disease left greater than right. RADIA
[2018-02-07 12:28] LABS: MAGNESIUM 1.6 mg/dL (1.7-2.8); PHOSPHORUS 4.1 mg/dL (2.5-4.6)
[2018-02-07] MEDS ORDERED: SODIUM CHLORIDE 0.9% 1,000 ML IV ONE ×2 (12:33→13:30)
[2018-02-07] MEDS: methylPREDNISolone SUCCINATE 40 MG/ML VIAL IVP SCH ×3 (12:57→23:13)
[2018-02-07] MEDS ORDERED: ROCURONIUM 50 MG/5 ML VIAL IVP ONE (13:00)
[2018-02-07] MEDS ORDERED: SUCCINYLCHOLINE 200 MG/10 ML VIAL IVP ONE (13:00)
[2018-02-07] MEDS: CEFEPIME 2 GM in SODIUM CHLORIDE 0.9% MINIBAG 100 ML IV SCH (13:00)
[2018-02-07] MEDS ORDERED: OXYTOCIN 10 UNIT/ML VIAL IV ONE (13:00)
[2018-02-07] MEDS ORDERED: LIDOCAINE-MPF 2% 5 ML VIAL IM ONE (13:00)
[2018-02-07] MEDS ORDERED: VANCOMYCIN PER PHARMACY 1 GM in SODIUM CHLORIDE 0.9% 250 ML IV SCH (13:00)
[2018-02-07 13:56] LABS: ABG PH 7.33 (7.35-7.45)
[2018-02-07 13:57] LABS: ABG BASE EXCESS -2.8 mmol/L (-2.0-3.0); ABG HCO3 23.2 mmol/L (22.0-26.0); ABG OXYGEN SATURATION 99 % (94-98); ABG PCO2 46 mmHg (34-45); ABG TCO2 24.6 MMOL/L (21.0-29.0); ALLEN TEST POSITIVE
[2018-02-07 14:05] LABS: ABG PO2 151 mmHg (80-100)
[2018-02-07] MEDS ORDERED: MIDAZOLAM 2 MG/2 ML VIAL IVP PRN (14:12)
[2018-02-07] MEDS ORDERED: IPRATROPIUM 0.2 MG/ML NEB INH PRN (14:12)
[2018-02-07] MEDS: VANCOMYCIN INJ 2 GM in SODIUM CHLORIDE 0.9% 500 ML IV SCH (14:15)
--- NOTE | 2018-02-07 14:57 | XRAY Report ---
Procedure Date: 02/07/2018 Accession Number: [id number] / [id number] Procedure: XR - Chest for Line Placement CPT Code: FULL RESULT: EXAM: Chest for Line Placement DATE: 02/07/2018 2:47 PM CLINICAL HISTORY: s/p intubation COMPARISON: Earlier the same day. TECHNIQUE: Single view of the chest. FINDINGS/IMPRESSION: New endotracheal tube ends in the mid trachea. Findings of fluid overload/congestive heart failure worsening since earlier. Superimposed pneumonia not excluded. RADIA
[2018-02-07 16:48] LABS: ABG BASE EXCESS -1.6 mmol/L (-2.0-3.0); ABG HCO3 24.5 mmol/L (22.0-26.0); ABG OXYGEN SATURATION 99 % (94-98); ABG PCO2 47 mmHg (34-45); ABG PH 7.34 (7.35-7.45); ABG TCO2 25.9 MMOL/L (21.0-29.0)
[2018-02-07 16:49] LABS: ALLEN TEST POSITIVE
[2018-02-07 16:51] LABS: ABG PO2 162 mmHg (80-100)
[2018-02-07] MEDS: PROPOFOL 1000 MG/100 ML 100 ML IV SCH (17:00)
[2018-02-07] MEDS: RIVAROXABAN 10 MG TABLET PO SCH (18:15)
--- NOTE | 2018-02-07 18:19 | PROVIDER PROGRESS NOTE ---
Assessment/Plan - Problem List (1) Acute respiratory failure with hypoxia and hypercapnia Assessment/Plan: This morning the patient was found to be lethargic and barely arousable even with sternal rub. The patient's oxygen saturations dropped down to the low 80s. The patient was also hypotensive with blood pressure in the 80s. Patient was given several doses of Narcan as we suspected oversedation from 8 mg of Dilaudid in the morning. This did not improve the patient's mentation. The patient was also given a liter of IV fluid with which the patient's blood pressure improved but mentation remained the same. The patient's ABG showed some mild hypercapnia. The patient was placed on a BiPAP and transferred to the intensive care unit. Patient's repeat chest x-ray showed worsening pneumonia. EKG and troponin were negative. Patient continued to be obtundent and was not protecting her airway therefore she was intubated after conversation with the patient's granddaughter. Patient's antibiotics were changed to vancomycin and cefepime and azithromycin and ceftriaxone were discontinued. Plan: Continue IV antibiotics with cefepime and vancomycin Continue ventilator support and CPAP trial in the morning Continue IV fluids. (1) CAP (community acquired pneumonia) Conclusion/Plan: Patient intubated today for acute respiratory failure with hypoxia and hypercapnia. Chest x-ray showed worsening pneumonia. Patient was also hypotensive and required IV fluid bolus. Plan: Ventilator support Switched to IV vancomycin and cefepime IV fluids Qualifiers: Laterality: left Lung location: lower lobe of lung Qualified Code(s): J18.1 - Lobar pneumonia, unspecified organism (2) Urinary tract infection Conclusion/Plan: Patient presented with 1 week of increasing generalized weakness, confusion, fatigue and lethargy. Patient was found to have positive UA with WBCs, moderate occult blood and many bacteria. Patient was not febrile and did not have a white blood cell count but given her systemic symptoms of lethargy and acute renal failure as well as generalized weakness it was felt that she required hospitalization for treatment with IV antibiotics. Plan: Cefepime IV Urine culture pending Blood culture negative after 1 day Qualifiers: Urinary tract infection type: acute cystitis Hematuria presence: without hematuria Qualified Code(s): N30.00 - Acute cystitis without hematuria (3) Metabolic encephalopathy Conclusion/Plan: Patient had worsening metabolic encephalopathy this morning and became obtundent requiring intubation for airway protection. The patient's metabolic encephalopathy was likely multifactorial secondary to infection, sedative medications as well as Dilaudid. The patient received several doses of Narcan which did not improve mentation. Patient required intubation as she was hypoxic and hypercapnic. (4) Acute renal failure superimposed on stage 3 chronic kidney disease Conclusion/Plan: Patient has a history of CKD stage III however on presentation the patient's creatinine is elevated from a baseline of about 1.1-1.4. On presentation the patient's creatinine is elevated at 1.8. This is likely secondary to ongoing infection and dehydration. Today patient's creatinine is stable at 1.8. Plan: Continue IV fluids as patient was hypotensive this morning We will monitor creatinine We will avoid any nephrotoxic agents We will hold Lasix Qualifiers: Acute renal failure type: unspecified Qualified Code(s): N17.9 - Acute kidney failure, unspecified; N18.3 - Chronic kidney disease, stage 3 (moderate) ; N18.3 - Chronic kidney disease, stage 3 (moderate); N18.3 - Chronic kidney disease, stage 3 (moderate) (5) Type II diabetes mellitus with complication, uncontrolled Conclusion/Plan: Blood glucose is improved today Continue Lantus and sliding scale insulin Monitor blood glucose before meals at bedtime Hemoglobin A1c severely elevated at 13.5 Qualifiers: 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 use Qualified Code( s): E11.8 - Type 2 diabetes mellitus with unspecified complications; E11.65 - Type 2 diabetes mellitus with hyperglycemia; E11.65 - Type 2 diabetes mellitus with hyperglycemia; E11.65 - Type 2 diabetes mellitus with hyperglycemia; E11.65 - Type 2 diabetes mellitus with hyperglycemia; Z79.4 - long term (current ) use of insulin; Z79.4 - long term (current) use of insulin; Z79.4 - senior care (current) use of insulin; Z79.4 - long term (current) use of insulin (6) Weakness generalized Conclusion/Plan: The patient has been having increasing generalized weakness for the last week and has fallen now twice. The patient's generalized weakness is likely systemic effects of ongoing infection with urinary tract infection and pneumonia. Patient also appears to be dehydrated with acute on chronic renal failure. Plan: Patient will be Continue IV fluids Patient will be Continue IV antibiotic We will monitor if patient does not improve we will need to get his PT consultation although the patient has wheelchair-bound and only transfers this may not be necessary (7) Hyponatremia Conclusion/Plan: Resolved with IV fluids (8) Venous stasis dermatitis Conclusion/Plan: Patient has bilateral venous stasis dermatitis. Wound care following and gave recommendations for wound care Qualifiers: Laterality: bilateral Qualified Code(s): I87.2 - Venous insufficiency ( chronic) (peripheral) (9) Atrial fibrillation Conclusion/Plan: Patient has history of chronic atrial fibrillation. She is in atrial fibrillation on presentation. The patient's rate is well controlled and she will be continued on her home dose of Xarelto for anticoagulation. The patient is not on any rate control agents. Qualifiers: Atrial fibrillation type: chronic Qualified Code(s): I48.2 - Chronic atrial fibrillation (10) Chronic pain Conclusion/Plan: Patient found to be obtunded and required intubation for airway protection Stop Dilaudid Monitor pain. Qualifiers: Chronic pain type: other chronic pain Qualified Code(s): G89.29 - Other chronic pain (11) HTN (hypertension) Conclusion/Plan: Patient was hypotensive this morning with blood pressure in the 80s required IV fluids Continue to hold antihypertensives Qualifiers: Hypertension type: essential hypertension Qualified Code(s): I10 - Essential (primary) hypertension - Current Meds Current Meds: Current Medications Generic Name Dose Route Start Last Admin Trade Name Freq PRN Reason Stop Dose Admin Atorvastatin Calcium 80 mg 02/06/18 21:00 02/06/18 21:17 Lipitor PO 80 mg QPM JOSE G Administration Duloxetine HCl 60 mg 02/07/18 09:00 02/07/18 08:41 Cymbalta PO 60 mg DAILY JOSE G Administration Felodipine 10 mg 02/07/18 09:00 02/07/18 08:40 Plendil PO 10 mg DAILY JOSE G Administration Gabapentin 600 mg 02/06/18 14:00 02/07/18 16:54 Neurontin PO Not Given TID JOSE G Cefepime HCl 2 gm/ Sodium 100 mls @ 200 mls/hr 02/07/18 13:00 02/07/18 13:00 Chloride IV 200 mls/hr Q12H JOSE G Administration Vancomycin HCl 2 gm/ Sodium 500 mls @ 250 mls/hr 02/07/18 14:00 02/07/18 16: 40 Chloride IV Infused Q24H JOSE G Infusion Propofol 100 mls @ 9.69 mls/hr 02/07/18 17:00 02/07/18 17:00 Diprivan IV 10 mcg/kg/min .[id number] JOSE G 9.69 mls/hr Protocol Administration 10 MCG/KG/MIN Insulin Aspart 2 - 10 unit 02/06/18 17:00 02/07/18 12:25 Novolog SUBQ 2 unit 0800,1200,1700,2100 JOSE G Administration Protocol Insulin Glargine 10 unit 02/06/18 21:00 02/06/18 21:18 Lantus Solostar SUBQ 10 unit QPM JOSE G Administration Methylprednisolone 40 mg 02/07/18 12:00 02/07/18 12:57 Solu-Medrol (40mg Vial) IVP 40 mg Q6HR JOSE G Administration Nystatin 1 applic 02/06/18 12:00 02/07/18 08:42 Mycostatin Cream TOP 1 applic BID JOSE G Administration Polyethylene Glycol 17 gm 02/07/18 09:00 02/07/18 08:43 Miralax PO 17 gm DAILY JOSE G Administration Rivaroxaban 20 mg 02/06/18 17:00 02/06/18 17:44 Xarelto PO 20 mg QDDINNER JOSE G Administration Saccharomyces Boulardii 250 mg 02/06/18 17:00 02/07/18 08:41 Florastor PO 250 mg BIDWM JOSE G Administration Sodium Chloride 10 ml 02/06/18 17:00 02/07/18 08:43 Normal Saline Flush 0.9% IVP 10 ml 0100,0900,1700 JOSE G Administration - Lab Result Lab results reviewed: Yes Fish Bone Diagrams: 02/07/18 11:54 02/07/18 11:54 Other Lab Results: Laboratory Results WBC 6.7 x10^3/uL (4.8-10.8) 02/07/18 11:54 RBC 3.40 10^6/uL (4.20-5.40) L 02/07/18 11:54 Hgb 10.3 g/dL (12.0-16.0) L 02/07/18 11:54 Hct 31.2 % (37.0-47.0) L 02/07/18 11:54 MCV 91.7 fL (81.0-99.0) 02/07/18 11:54 MCH 30.3 pg (27.0-31.0) 02/07/18 11:54 MCHC 33.1 g/dL (32.0-36.0) 02/07/18 11:54 RDW 14.3 % (12.0-15.0) 02/07/18 11:54 Plt Count 236 10^3/uL (130-450) 02/07/18 11:54 MPV 8.5 fL (7.9-10.8) 02/07/18 11:54 Neut # (Auto) 5.1 10^3/uL (1.5-6.6) 02/07/18 11:54 Lymph # (Auto) 0.9 10^3/uL (1.5-3.5) L 02/07/18 11:54 [place] # (Auto) 0.5 10^3/uL (0.0-1.0) 02/07/18 11:54 Eos # (Auto) 0.2 10^3/uL (0.0-0.7) 02/07/18 11:54 Baso # (Auto) 0.0 10^3/uL (0.0-0.1) 02/07/18 11:54 Absolute Nucleated RBC 0.00 x10^3/uL 02/07/18 11:54 Nucleated RBC % 0.0 /100WBC 02/07/18 11:54 PT 11.7 secs (9.9-12.6) 02/06/18 08:37 INR 1.0 (0.8-1.2) 02/06/18 08:37 APTT 30.3 secs (24.9-33.3) 02/06/18 08:37 Bld Gas Analysis Time 1647 02/07/18 16:40 Sample Site LA 02/07/18 16:40 Patient Temperature 36.7 CELSIUS 02/07/18 11:33 ABG pH 7.34 (7.35-7.45) L 02/07/18 16:40 ABG pCO2 47 mmHg (34-45) H 02/07/18 16:40 ABG pO2 162 mmHg (80-100) H* 02/07/18 16:40 ABG HCO3 24.5 mmol/L (22.0-26.0) 02/07/18 16:40 ABG Total CO2 25.9 MMOL/L (21.0-29.0) 02/07/18 16:40 ABG O2 Saturation 99 % (94-98) H 02/07/18 16:40 ABG Oximetry Spot Check 100 % 02/07/18 16:40 ABG Base Excess -1.6 mmol/L (-2.0-3.0) 02/07/18 16:40 Riley Test POSITIVE 02/07/18 16:40 VBG pH 7.301 (7.31-7.41) L 02/07/18 11:54 Ionized Calcium 1.09 mmol/L (1.15-1.33) L 02/07/18 11:54 Respiration Rate 16 b/min 02/07/18 16:40 O2 Delivery Device VENTILATOR 02/07/18 16:40 O2 Liters/Min 15.00 LPM 02/07/18 11:33 Vent Mode SIMV 02/07/18 16:40 FiO2 65.00 02/07/18 16:40 Tidal Volume 450 mL 02/07/18 16:40 PEEP 5 cmH2O 02/07/18 16:40 Pressure Support Vent 10 cmH2O 02/07/18 16:40 EPAP 6 cmH2O 02/07/18 13:38 IPAP 12 cmH2O 02/07/18 13:38 Sodium 134 mmol/L (135-145) L 02/07/18 11:54 Potassium 4.1 mmol/L (3.5-5.0) 02/07/18 11:54 Chloride 103 mmol/L (101-111) 02/07/18 11:54 Carbon Dioxide 26 mmol/L (21-32) 02/07/18 11:54 Anion Gap 5.0 (6-13) L 02/07/18 11:54 BUN 29 mg/dL (6-20) H 02/07/18 11:54 Creatinine 1.9 mg/dL (0.4-1.0) H 02/07/18 11:54 Estimated GFR (MDRD) 26 (>89) L 02/07/18 11:54 Glucose 147 mg/dL (70-100) H 02/07/18 11:54 POC Whole Bld Glucose 148 mg/dL (70 - 100) H 02/07/18 11:31 Glycated Hemoglobin 13.5 % (4.6-6.2) H 02/07/18 04:30 Estim Average Glucose 341 (70-100) H 02/07/18 04:30 Lactic Acid 0.8 mmol/L (0.5-2.2) 02/07/18 11:54 Calcium 7.6 mg/dL (8.5-10.3) L 02/07/18 11:54 Ionized Calcium YES 02/07/18 11:54 Phosphorus 4.1 mg/dL (2.5-4.6) 02/07/18 11:54 Magnesium 1.6 mg/dL (1.7-2.8) L 02/07/18 11:54 Total Bilirubin 0.4 mg/dL (0.2-1.0) 02/07/18 11:54 AST 30 IU/L (10-42) 02/07/18 11:54 ALT 16 IU/L (10-60) 02/07/18 11:54 Alkaline Phosphatase 85 IU/L (42-121) 02/07/18 11:54 Troponin I < 0.04 ng/mL (<0.49) 02/07/18 11:54 B-Natriuretic Peptide 89 pg/mL (5-100) 02/07/18 11:54 Total Protein 5.2 g/dL (6.7-8.2) L 02/07/18 11:54 Albumin 2.0 g/dL (3.2-5.5) L 02/07/18 11:54 Globulin 3.2 g/dL (2.1-4.2) 02/07/18 11:54 Albumin/Globulin Ratio 0.6 (1.0-2.2) L 02/07/18 11:54 Lipase 17 U/L (22-51) L 02/06/18 08:37 Urine Color YELLOW 02/06/18 10:37 Urine Clarity HAZY (CLEAR) 02/06/18 10:37 Urine pH 5.5 PH (5.0-7.5) 02/06/18 10:37 Ur Specific [place] 1.025 (1.002-1.030) 02/06/18 10:37 Urine Protein 100 mg/dL (NEGATIVE) H 02/06/18 10:37 Urine Glucose (UA) >=1000 mg/dL (NEGATIVE) H 02/06/18 10:37 Urine Ketones NEGATIVE mg/dL (NEGATIVE) 02/06/18 10:37 Urine Occult Blood MODERATE (NEGATIVE) H 02/06/18 10:37 Urine Nitrite NEGATIVE (NEGATIVE) 02/06/18 10:37 Urine Bilirubin NEGATIVE (NEGATIVE) 02/06/18 10:37 Urine Urobilinogen 0.2 (NORMAL) E.U./dL (NORMAL) 02/06/18 10:37 Ur Leukocyte Esterase NEGATIVE (NEGATIVE) 02/06/18 10:37 Urine RBC 6-10 /HPF (0-5) H 02/06/18 10:37 Urine WBC 6-10 /HPF (0-5) H 02/06/18 10:37 Urine WBC Clumps PRESENT 02/06/18 10:37 Ur Squamous Epith Cells FEW Squamous (<= Few) 02/06/18 10:37 Urine Crystals 0-2 Calcium Oxalate /LPF 02/06/18 08:53 Amorphous Sediment Marked /LPF 02/06/18 10:37 Urine Bacteria Many /HPF (None Seen) H 02/06/18 10:37 Urine Casts 11-25 Hyaline Casts /LPF3-5 Granular Casts /LPF 02/06/18 08:53 Urine Casts 11-25 Hyaline Casts /LPF3-5 Granular Casts /LPF 02/06/18 10:37 Urine Casts 11-25 Hyaline Casts /LPF3-5 Granular Casts /LPF 02/06/18 10:37 Urine Yeast PRESENT 02/06/18 10:37 Ur Microscopic Review INDICATED 02/06/18 10:37 Urine Culture Comments INDICATED 02/06/18 10:37 - EKG Results EKG Interpreted Independently: Yes - Diagnostic Imaging Results Diagnostic Imaging Results: Final report reviewed Diagnostic Imaging Results Comments: Chest x-ray Impression: Worsening chest x-ray with increasing vascular congestion, bilateral pleural effusions and basilar airspace disease left greater than right - Additional Planning Condition/Complexity: Critical My Orders: My Active Orders 02/07/18 11:44 Daily Weight [RC] 0600 Elevate HOB 30 - 45 degrees [RC] .ONCE IO [RC] Q1HR Initiate Flu Vaccine Screening [RC] ONCE Initiate ICU Electrolyte Prot. [RC] .protocol Initiate Pneumonia Vaccine Scr [RC] ONCE Oral Care - Nursing [RC] Q2HR Vital Signs [RC] Q1HR 02/07/18 11:45 NPO [DIET] 02/07/18 11:47 Oxygen Therapy [RC] .PRN Telemetry- [RC] Routine 02/07/18 12:00 methylPREDNISolone SUCCINATE [SOLU-Medrol (40MG VIAL)] 40 mg IVP Q6HR 02/07/18 13:00 Cefepime 2 gm Sodium Chloride 0.9% Minibag [Normal Saline 0.9% Minibag] 100 ml IV Q12H 02/07/18 13:53 ABG [Arterial Blood Gases - RT] [RC] .ONCE 02/07/18 13:54 ABG [Arterial Blood Gases - RT] [RC] .ONCE 02/07/18 14:00 Vancomycin Inj [Vancomycin] 2 gm Sodium Chloride 0.9% [Normal Saline 0.9%] 500 ml IV Q24H 02/07/18 14:12 Arterial Blood Gases - RT [RC] .ONCE Initial Ventilator Settings [RC] .ONCE Restraints Safety Checks [RC] Q1H Restraints [RC] Q24H Ventilator Bundle Oral Care [RC] Q2H Ventilator Bundle [RC] Q8H Ventilator Care - ICU [RC] Q4HR Ipratropium [Atrovent] 0.5 mg INH RTQ4H PRN Midazolam [Versed] 1 mg IVP Q5M PRN Morphine Inj [Morphine] 2 mg IVP Q1H PRN 02/07/18 15:19 Echo Transthoracic Complete [ECHO] Routine 02/07/18 15:30 Airway Suctioning [Suction] [RC] PRN 02/07/18 17:00 Propofol 1000 mg/100 ml [Diprivan] 100 ml IV 10 mcg/kg/min 02/07/18 17:26 Message to Nursing [RC] QSHIFT 02/07/18 21:00 Chlorhexidine [Peridex] 15 ml PO BID 02/08/18 07:00 Pantoprazole [Protonix] 40 mg IVP QDAC 02/08/18 09:00 ABG - ARTERIAL BLOOD GAS [BG] DAILY ABG - ARTERIAL BLOOD GAS [BG] DAILY 02/08/18 13:30 VANCOMYCIN RANDOM [CHEM] Timed 02/09/18 09:00 ABG - ARTERIAL BLOOD GAS [BG] DAILY ABG - ARTERIAL BLOOD GAS [BG] DAILY 02/10/18 09:00 ABG - ARTERIAL BLOOD GAS [BG] DAILY ABG - ARTERIAL BLOOD GAS [BG] DAILY 02/10/18 13:30 VANCOMYCIN TROUGH [CHEM] Timed 02/11/18 09:00 ABG - ARTERIAL BLOOD GAS [BG] DAILY ABG - ARTERIAL BLOOD GAS [BG] DAILY 02/12/18 09:00 ABG - ARTERIAL BLOOD GAS [BG] DAILY ABG - ARTERIAL BLOOD GAS [BG] DAILY 02/13/18 09:00 ABG - ARTERIAL BLOOD GAS [BG] DAILY Plan Discussed with:: Patient, Family Time Spent: Greater than 60 minutes Subjective - Subjective Patient Reports: Other (Patient found to be obtunded this morning not waking up even to sternal rub. Required several doses of Narcan and eventually needed to be intubated. She was found to be hypoxic, hypotensive and hypercapnic. She is transferred to the intensive care unit.) Nursing Reports: Sedated Objective Vital Signs: Vital Signs - 24 hr 02/07/18 02/07/18 02/07/18 00:11 07:44 07:49 Temperature 36.4 C L 36.6 C Heart Rate 100 Heart Rate [ 100 105 H Brachial] Respiratory 20 14 Rate Blood Pressure 102/59 L 95/55 L [Right Brachial artery] O2 Saturation 94 92 02/07/18 02/07/18 02/07/18 11:45 12:00 13:00 Temperature 36.8 C Heart Rate 86 Heart Rate [ 94 97 Brachial] Respiratory 17 16 Rate Blood Pressure 91/45 L 108/55 L [Right Brachial artery] O2 Saturation 97 02/07/18 02/07/18 02/07/18 14:00 14:29 16:00 Temperature Heart Rate 89 Heart Rate [ 89 88 Brachial] Respiratory 17 16 Rate Blood Pressure 100/64 113/71 [Right Brachial artery] O2 Saturation 100 100 02/07/18 02/07/18 02/07/18 16:25 17:00 17:25 Temperature Heart Rate 91 89 Heart Rate [ 94 Brachial] Respiratory 16 Rate Blood Pressure 124/78 [Right Brachial artery] O2 Saturation 100 Oxygen O2 Source Mechanical ventilator I&O (Last 24 Hrs): Intake and Output Totals x24h 02/05/18 02/06/18 02/07/18 23:59 23:59 23:59 Intake Total 3134.661 4337 Output Total 950 583 Balance 551.231 0796 General: Severe distress, Other (Obtunded, not following commands, not opening eyes to verbal stimuli, not responding to sternal rub.) HEENT: Atraumatic, PERRLA, EOMI, Other (Dry mucous membranes) Neck: Supple, No JVD, No thyromegaly, +2 carotid pulse wo bruit, No LAD Lymphatic: no adenopathy Neuro: Non Focal, Other (Obtunded) Cardiovascular: No murmurs, Other (Irregular) Respiratory: Wheezes, Rales, Rhonchi Abdomen: Normal bowel sounds, Soft, No tenderness, No hepatospenomegaly Extremities: No clubbing, No cyanosis, Normal pulses, Other (Bilateral lower extremity chronic stasis dermatitis) Comments/Notes: Bilateral lower extremity erythema with blisters and stasis dermatitis - Results Results: Laboratory Results WBC 6.7 x10^3/uL (4.8-10.8) 02/07/18 11:54 RBC 3.40 10^6/uL (4.20-5.40) L 02/07/18 11:54 Hgb 10.3 g/dL (12.0-16.0) L 02/07/18 11:54 Hct 31.2 % (37.0-47.0) L 02/07/18 11:54 MCV 91.7 fL (81.0-99.0) 02/07/18 11:54 MCH 30.3 pg (27.0-31.0) 02/07/18 11:54 MCHC 33.1 g/dL (32.0-36.0) 02/07/18 11:54 RDW 14.3 % (12.0-15.0) 02/07/18 11:54 Plt Count 236 10^3/uL (130-450) 02/07/18 11:54 MPV 8.5 fL (7.9-10.8) 02/07/18 11:54 Neut # (Auto) 5.1 10^3/uL (1.5-6.6) 02/07/18 11:54 Lymph # (Auto) 0.9 10^3/uL (1.5-3.5) L 02/07/18 11:54 [place] # (Auto) 0.5 10^3/uL (0.0-1.0) 02/07/18 11:54 Eos # (Auto) 0.2 10^3/uL (0.0-0.7) 02/07/18 11:54 Baso # (Auto) 0.0 10^3/uL (0.0-0.1) 02/07/18 11:54 Absolute Nucleated RBC 0.00 x10^3/uL 02/07/18 11:54 Nucleated RBC % 0.0 /100WBC 02/07/18 11:54 PT 11.7 secs (9.9-12.6) 02/06/18 08:37 INR 1.0 (0.8-1.2) 02/06/18 08:37 APTT 30.3 secs (24.9-33.3) 02/06/18 08:37 Bld Gas Analysis Time 1647 02/07/18 16:40 Sample Site LA 02/07/18 16:40 Patient Temperature 36.7 CELSIUS 02/07/18 11:33 ABG pH 7.34 (7.35-7.45) L 02/07/18 16:40 ABG pCO2 47 mmHg (34-45) H 02/07/18 16:40 ABG pO2 162 mmHg (80-100) H* 02/07/18 16:40 ABG HCO3 24.5 mmol/L (22.0-26.0) 02/07/18 16:40 ABG Total CO2 25.9 MMOL/L (21.0-29.0) 02/07/18 16:40 ABG O2 Saturation 99 % (94-98) H 02/07/18 16:40 ABG Oximetry Spot Check 100 % 02/07/18 16:40 ABG Base Excess -1.6 mmol/L (-2.0-3.0) 02/07/18 16:40 Riley Test POSITIVE 02/07/18 16:40 VBG pH 7.301 (7.31-7.41) L 02/07/18 11:54 Ionized Calcium 1.09 mmol/L (1.15-1.33) L 02/07/18 11:54 Respiration Rate 16 b/min 02/07/18 16:40 O2 Delivery Device VENTILATOR 02/07/18 16:40 O2 Liters/Min 15.00 LPM 02/07/18 11:33 Vent Mode SIMV 02/07/18 16:40 FiO2 65.00 02/07/18 16:40 Tidal Volume 450 mL 02/07/18 16:40 PEEP 5 cmH2O 02/07/18 16:40 Pressure Support Vent 10 cmH2O 02/07/18 16:40 EPAP 6 cmH2O 02/07/18 13:38 IPAP 12 cmH2O 02/07/18 13:38 Sodium 134 mmol/L (135-145) L 02/07/18 11:54 Potassium 4.1 mmol/L (3.5-5.0) 02/07/18 11:54 Chloride 103 mmol/L (101-111) 02/07/18 11:54 Carbon Dioxide 26 mmol/L (21-32) 02/07/18 11:54 Anion Gap 5.0 (6-13) L 02/07/18 11:54 BUN 29 mg/dL (6-20) H 02/07/18 11:54 Creatinine 1.9 mg/dL (0.4-1.0) H 02/07/18 11:54 Estimated GFR (MDRD) 26 (>89) L 02/07/18 11:54 Glucose 147 mg/dL (70-100) H 02/07/18 11:54 POC Whole Bld Glucose 148 mg/dL (70 - 100) H 02/07/18 11:31 Glycated Hemoglobin 13.5 % (4.6-6.2) H 02/07/18 04:30 Estim Average Glucose 341 (70-100) H 02/07/18 04:30 Lactic Acid 0.8 mmol/L (0.5-2.2) 02/07/18 11:54 Calcium 7.6 mg/dL (8.5-10.3) L 02/07/18 11:54 Ionized Calcium YES 02/07/18 11:54 Phosphorus 4.1 mg/dL (2.5-4.6) 02/07/18 11:54 Magnesium 1.6 mg/dL (1.7-2.8) L 02/07/18 11:54 Total Bilirubin 0.4 mg/dL (0.2-1.0) 02/07/18 11:54 AST 30 IU/L (10-42) 02/07/18 11:54 ALT 16 IU/L (10-60) 02/07/18 11:54 Alkaline Phosphatase 85 IU/L (42-121) 02/07/18 11:54 Troponin I < 0.04 ng/mL (<0.49) 02/07/18 11:54 B-Natriuretic Peptide 89 pg/mL (5-100) 02/07/18 11:54 Total Protein 5.2 g/dL (6.7-8.2) L 02/07/18 11:54 Albumin 2.0 g/dL (3.2-5.5) L 02/07/18 11:54 Globulin 3.2 g/dL (2.1-4.2) 02/07/18 11:54 Albumin/Globulin Ratio 0.6 (1.0-2.2) L 02/07/18 11:54 Lipase 17 U/L (22-51) L 02/06/18 08:37 Urine Color YELLOW 02/06/18 10:37 Urine Clarity HAZY (CLEAR) 02/06/18 10:37 Urine pH 5.5 PH (5.0-7.5) 02/06/18 10:37 Ur Specific [place] 1.025 (1.002-1.030) 02/06/18 10:37 Urine Protein 100 mg/dL (NEGATIVE) H 02/06/18 10:37 Urine Glucose (UA) >=1000 mg/dL (NEGATIVE) H 02/06/18 10:37 Urine Ketones NEGATIVE mg/dL (NEGATIVE) 02/06/18 10:37 Urine Occult Blood MODERATE (NEGATIVE) H 02/06/18 10:37 Urine Nitrite NEGATIVE (NEGATIVE) 02/06/18 10:37 Urine Bilirubin NEGATIVE (NEGATIVE) 02/06/18 10:37 Urine Urobilinogen 0.2 (NORMAL) E.U./dL (NORMAL) 02/06/18 10:37 Ur Leukocyte Esterase NEGATIVE (NEGATIVE) 02/06/18 10:37 Urine RBC 6-10 /HPF (0-5) H 02/06/18 10:37 Urine WBC 6-10 /HPF (0-5) H 02/06/18 10:37 Urine WBC Clumps PRESENT 02/06/18 10:37 Ur Squamous Epith Cells FEW Squamous (<= Few) 02/06/18 10:37 Urine Crystals 0-2 Calcium Oxalate /LPF 02/06/18 08:53 Amorphous Sediment Marked /LPF 02/06/18 10:37 Urine Bacteria Many /HPF (None Seen) H 02/06/18 10:37 Urine Casts 11-25 Hyaline Casts /LPF3-5 Granular Casts /LPF 02/06/18 08:53 Urine Casts 11-25 Hyaline Casts /LPF3-5 Granular Casts /LPF 02/06/18 10:37 Urine Casts 11-25 Hyaline Casts /LPF3-5 Granular Casts /LPF 02/06/18 10:37 Urine Yeast PRESENT 02/06/18 10:37 Ur Microscopic Review INDICATED 02/06/18 10:37 Urine Culture Comments INDICATED 02/06/18 10:37 ABX Reporting Has patient been on IV antibiotics over the past 48 hours?: No Current Medications - Current Medications Current Medications: Active Medications Generic Name Dose Route Start Last Admin Trade Name Freq PRN Reason Stop Dose Admin Acetaminophen 650 mg 02/06/18 11:45 Tylenol PO Q4HR PRN Pain 1 to 4 Albuterol 2.5 mg 02/06/18 11:45 INH Q4HR PRN Wheezing Atorvastatin Calcium 80 mg 02/06/18 21:00 02/06/18 21:17 Lipitor PO 80 mg QPM JOSE G Administration Chlorhexidine Gluconate 15 ml 02/07/18 21:00 Peridex PO BID JOSE G Cyclobenzaprine HCl 10 mg 02/06/18 11:43 Flexeril PO TID PRN Spasms Duloxetine HCl 60 mg 02/07/18 09:00 02/07/18 08:41 Cymbalta PO 60 mg DAILY JOS EG Administration Felodipine 10 mg 02/07/18 09:00 02/07/18 08:40 Plendil PO 10 mg DAILY JOSE G Administration Gabapentin 600 mg 02/06/18 14:00 02/07/18 16:54 Neurontin PO Not Given TID JOSE G Cefepime HCl 2 gm/ Sodium 100 mls @ 200 mls/hr 02/07/18 13:00 02/07/18 13:00 Chloride IV 200 mls/hr Q12H JOSE G Administration Vancomycin HCl 2 gm/ Sodium 500 mls @ 250 mls/hr 02/07/18 14:00 02/07/18 16: 40 Chloride IV Infused Q24H JOSE G Infusion Propofol 100 mls @ 9.69 mls/hr 02/07/18 17:00 02/07/18 17:00 Diprivan IV 10 mcg/kg/min .[id number] JOSE G 9.69 mls/hr Protocol Administration 10 MCG/KG/MIN Insulin Aspart 2 - 10 unit 02/06/18 17:00 02/07/18 12:25 Novolog SUBQ 2 unit 0800,1200,1700,2100 JOSE G Administration Protocol Insulin Glargine 10 unit 02/06/18 21:00 02/06/18 21:18 Lantus Solostar SUBQ 10 unit QPM JOSE G Administration Ipratropium [place] 0.5 mg 02/07/18 14:12 Atrovent INH RTQ4H PRN Wheezing Methylprednisolone 40 mg 02/07/18 12:00 02/07/18 18:16 Solu-Medrol (40mg Vial) IVP 40 mg Q6HR JOSE G Administration Midazolam HCl 1 mg 02/07/18 14:12 Versed IVP Q5M PRN Sedation Morphine Sulfate 2 mg 02/07/18 14:12 Morphine IVP Q1H PRN Discomfort Nystatin 1 applic 02/06/18 12:00 02/07/18 08:42 Mycostatin Cream TOP 1 applic BID JOSE G Administration Ondansetron HCl 4 mg 02/06/18 11:45 Zofran Inj IVP Q6HR PRN Nausea / Vomiting Oxycodone HCl 5 mg 02/06/18 11:45 Roxicodone PO Q4HR PRN Pain 5 to 7 Pantoprazole Sodium 40 mg 02/08/18 07:00 Protonix IVP [facility] [facility], [facility] Polyethylene Glycol 17 gm 02/07/18 09:00 02/07/18 08:43 Miralax PO 17 gm DAILY [facility] Administration Prochlorperazine Edisylate 10 mg 02/06/18 11:45 Compazine Inj IVP Q6HR PRN Nausea / Vomiting Rivaroxaban 20 mg 02/06/18 17:00 02/07/18 18:15 Xarelto PO Not Given QDDINNER [facility] Saccharomyces Boulardii 250 mg 02/06/18 17:00 02/07/18 08:41 Florastor PO 250 mg BIDWM JOSE G Administration Sodium Chloride 10 ml 02/06/18 11:45 Normal Saline Flush 0.9% IVP PRN PRN NEEDED PER PROVIDER ORDERS Sodium Chloride 10 ml 02/06/18 17:00 02/07/18 18:15 Normal Saline Flush 0.9% IVP 10 ml 0100,0900,1700 JOSE G Administration Zolpidem Tartrate 5 mg 02/06/18 11:45 Ambien PO QPM PRN Insomnia Omeprazole 20 mg PO QDAC 08/23/15 Duloxetine HCl [Cymbalta] 60 mg PO DAILY 01/15/17 Furosemide 40 mg PO DAILY 01/15/17 Atorvastatin Calcium 80 mg PO QPM 07/14/17 Cyclobenzaprine [Flexeril] 10 mg PO TID PRN 07/14/17 Felodipine [Felodipine ER] 10 mg PO DAILY 07/14/17 Rivaroxaban [Xarelto] 20 mg PO DAILY 07/14/17 Diazepam [Valium] 5 mg PO QPM PRN 02/06/18 Gabapentin [Neurontin] 800 mg PO TID 02/06/18 Hydromorphone HCl [Dilaudid] 8 mg PO Q8H 02/06/18 Insulin Aspart [NovoLOG] 3 unit SUBQ TIDWM 02/06/18 Insulin Glargine [Lantus Solostar] 10 unit SUBQ BID 02/06/18
[2018-02-07] MEDS ORDERED: MAGNESIUM SULFATE 2 GRAM 2 GM/50 ML BAG IV ONE (19:38)
[2018-02-07] MEDS: MORPHINE 2 MG/ML SYRINGE IVP PRN (19:51)
[2018-02-07] MEDS: CHLORHEXIDINE GLUCONATE 15 ML UDC PO SCH (20:20)
[2018-02-07] MEDS: ATORVASTATIN 40 MG TABLET PO SCH (20:22)
[2018-02-07] MEDS: INSULIN GLARGINE 300 UNIT/3 ML PEN SUBQ SCH (20:24)
[2018-02-07] MEDS ORDERED: CHLORHEXIDINE GLUCONATE 15 ML UDC PO SCH (21:00)
[2018-02-07] MEDS ORDERED: FUROSEMIDE 40 MG/4 ML VIAL IVP STA (23:00)
[2018-02-07] MEDS ORDERED: FUROSEMIDE 40 MG/4 ML VIAL IVP SCH (23:21)
[2018-02-07] MEDS: INSULIN REGULAR HUMAN 100 UNIT/1 ML 10 ML MDV SUBQ SCH (23:30)
[2018-02-08] MEDS: MORPHINE 2 MG/ML SYRINGE IVP PRN ×3 (00:38→06:11)
[2018-02-08] MEDS: CEFEPIME 2 GM in SODIUM CHLORIDE 0.9% MINIBAG 100 ML IV SCH ×2 (00:39→12:55)
[2018-02-08] MEDS: SODIUM CHLORIDE FLUSH 0.9% 10 ML SYRINGE IVP SCH ×3 (01:26→17:33)
[2018-02-08] MEDS: PROPOFOL 1000 MG/100 ML 100 ML IV SCH ×2 (02:14→07:45)
[2018-02-08] MEDS: GABAPENTIN 300 MG CAPSULE PO SCH ×2 (05:08→14:10)
[2018-02-08] MEDS: methylPREDNISolone SUCCINATE 40 MG/ML VIAL IVP SCH ×2 (05:35→12:25)
[2018-02-08] MEDS: INSULIN REGULAR HUMAN 100 UNIT/1 ML 10 ML MDV SUBQ SCH ×2 (05:35→12:24)
[2018-02-08 05:59] LABS: ALBUMIN/GLOBULIN RATIO 0.6 (1.0-2.2); BILIRUBIN,TOTAL 0.6 mg/dL (0.2-1.0); TOTAL PROTEIN 5.4 g/dL (6.7-8.2)
[2018-02-08] MEDS: PANTOPRAZOLE 40 MG VIAL IVP SCH (06:11)
[2018-02-08] MEDS: SODIUM CHLORIDE FLUSH 0.9% 10 ML SYRINGE IVP PRN ×2 (06:11→12:18)
[2018-02-08 06:55] LABS: BASOPHILS % (AUTO) 0.2 %; HGB - HEMOGLOBIN 12.1 g/dL (12.0-16.0); LYMPHOCYTES # (AUTO) 0.8 10^3/uL (1.5-3.5); LYMPHOCYTES % (AUTO) 11.6 %; MEAN CORPUSCULAR HEMOGLOBIN 30.3 pg (27.0-31.0); MEAN CORPUSCULAR VOLUME 94.7 fL (81.0-99.0); MEAN PLATELET VOLUME 10.1 fL (7.9-10.8); MONOCYTES # (AUTO) 0.1 10^3/uL (0.0-1.0); MONOCYTES % (AUTO) 1.8 %; NEUTROPHILS # (AUTO) 5.6 10^3/uL (1.5-6.6); NEUTROPHILS % (AUTO) 86.4 %; RED BLOOD COUNT 3.98 10^6/uL (4.20-5.40); RED CELL DISTRIBUTION WIDTH 14.4 % (12.0-15.0); WHITE BLOOD COUNT 6.5 x10^3/uL (4.8-10.8)
[2018-02-08] MEDS ORDERED: PANTOPRAZOLE 40 MG VIAL IVP SCH ×2 (07:00)
[2018-02-08 07:12] LABS: PLATELET MORPHOLOGY PLATELET CLUMPING (NORMAL)
[2018-02-08] MEDS: SACCHAROMYCES BOULARDII 250 MG CAPSULE PO SCH ×2 (07:46→17:33)
[2018-02-08] MEDS: CHLORHEXIDINE GLUCONATE 15 ML UDC PO SCH ×2 (08:35→21:03)
[2018-02-08] MEDS: COD LIVER OIL/ZINC OXIDE 113 GM TUBE TOP PRN (08:36)
[2018-02-08] MEDS: POLYETHYLENE GLYCOL 3350 17 GM PACKET PO SCH (08:41)
[2018-02-08] MEDS: NYSTATIN CREAM 15 GM TUBE TOP SCH ×2 (09:45→21:03)
[2018-02-08] MEDS: DULoxetine 30 MG CAPSULE PO SCH ×2 (09:51→14:11)
[2018-02-08] MEDS: FELODIPINE ER 2.5 MG TABLET PO SCH (09:51)
[2018-02-08] MEDS: FLUCONAZOLE 100 MG TABLET PO SCH ×2 (09:52→14:10)
[2018-02-08] MEDS ORDERED: FUROSEMIDE 40 MG/4 ML VIAL IVP STA (11:20)
--- NOTE | 2018-02-08 11:31 | XRAY Report ---
Procedure Date: 02/08/2018 Accession Number: [id number] / [id number] Procedure: XR - Chest 1 View X-Ray CPT Code: 44388 FULL RESULT: EXAM: CHEST RADIOGRAPHY EXAM DATE: 02/08/2018 09:50 AM. CLINICAL HISTORY: Intubated patient follow CXR. COMPARISON: 02/07/2018. TECHNIQUE: 1 view. FINDINGS: Lungs/Pleura: Similar small to moderate left pleural effusion and basal atelectasis or infiltrate. Mild bilateral interstitial opacity probably edema. No pneumothorax. Cardiomegaly. Mediastinum: As above. Other: ETT terminates 4.7 cm above the berto. Enteric tube terminates below diaphragm, tip excluded from the [id number]. IMPRESSION: 1. Similar appearance of the chest suggesting mild congestive failure. Small to moderate left pleural effusion. 2. ETT terminates 4.7 cm above the berto. RADIA
[2018-02-08] MEDS ORDERED: GABAPENTIN 400 MG CAPSULE PO SCH (14:30)
--- NOTE | 2018-02-08 14:35 | PROVIDER PROGRESS NOTE ---
Assessment/Plan - Problem List (1) Acute respiratory failure with hypoxia and hypercapnia Assessment/Plan: Patient was on vent overnight Improving This am was on minimal vent settings but oversedated after sedation vacation patient more alert Early afternoon patient passed CPAP trial and ABG looked good Patient extubated this afternoon and doing well on NC Plan: Continue IV antibiotics with cefepime and vancomycin day 2 COntinue supplemental O2 Continue nebs prn IV lasix as CXR this am shows CHF but echo shows preserved EF (2) CAP (community acquired pneumonia) Conclusion/Plan: Patient extubted this afternoon Blood cx negative Plan: Supplemental O2 Switched to IV vancomycin and cefepime day 2 Qualifiers: Laterality: left Lung location: lower lobe of lung Qualified Code(s): J18.1 - Lobar pneumonia, unspecified organism (3) Urinary tract infection Conclusion/Plan: Patient presented with 1 week of increasing generalized weakness, confusion, fatigue and lethargy. Patient was found to have positive UA with WBCs, moderate occult blood and many bacteria. Patient was not febrile and did not have a white blood cell count but given her systemic symptoms of lethargy and acute renal failure as well as generalized weakness it was felt that she required hospitalization for treatment with IV antibiotics. Urine cx growing yeast Plan: Start Fluconazole 200 mg q daily x14 days Qualifiers: Urinary tract infection type: acute cystitis Hematuria presence: without hematuria Qualified Code(s): N30.00 - Acute cystitis without hematuria (4) Metabolic encephalopathy Conclusion/Plan: Resolved. The patient's metabolic encephalopathy was likely multifactorial secondary to infection, sedative medications as well as Dilaudid. (5) Acute renal failure superimposed on stage 3 chronic kidney disease Conclusion/Plan: Patient has a history of CKD stage III however on presentation the patient's creatinine is elevated from a baseline of about 1.1-1.4. On presentation the patient's creatinine is elevated at 1.8. This is likely secondary to ongoing infection and dehydration. 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 We will monitor creatinine We will avoid any nephrotoxic agents Start lasix IV Qualifiers: Acute renal failure type: unspecified Qualified Code(s): N17.9 - Acute kidney failure, unspecified; N18.3 - Chronic kidney disease, stage 3 (moderate) ; N18.3 - Chronic kidney disease, stage 3 (moderate); N18.3 - Chronic kidney disease, stage 3 (moderate) (6) Type II diabetes mellitus with complication, uncontrolled Conclusion/Plan: Blood glucose is stable Continue Lantus and sliding scale insulin Monitor blood glucose before meals at bedtime Hemoglobin A1c severely elevated at 13.5 Qualifiers: Diabetes mellitus chcf insulin use: 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 Qualified Code( s): E11.8 - Type 2 diabetes mellitus with unspecified complications; E11.65 - Type 2 diabetes mellitus with hyperglycemia; E11.65 - Type 2 diabetes mellitus with hyperglycemia; E11.65 - Type 2 diabetes mellitus with hyperglycemia; E11.65 - Type 2 diabetes mellitus with hyperglycemia; Z79.4 - custodial (current ) use of insulin; Z79.4 - granulator (current) use of insulin; Z79.4 - custodial (current) use of insulin; Z79.4 - granulator (current) use of insulin (7) Weakness generalized Conclusion/Plan: The patient has been having increasing generalized weakness for the last week and has fallen now twice. The patient's generalized weakness is likely systemic effects of ongoing infection with urinary tract infection and pneumonia. Patient also appears to be dehydrated with acute on chronic renal failure. Plan: Patient will be Continue IV fluids Patient will be Continue IV antibiotic PT consult tomorrow once patient improved (8) Hyponatremia Conclusion/Plan: Resolved with IV fluids (9) Venous stasis dermatitis Conclusion/Plan: Patient has bilateral venous stasis dermatitis. Wound care following and gave recommendations for wound care Qualifiers: Laterality: bilateral Qualified Code(s): I87.2 - Venous insufficiency ( chronic) (peripheral) (10) Atrial fibrillation Conclusion/Plan: Patient has history of chronic atrial fibrillation. She is in atrial fibrillation on presentation. The patient's rate is well controlled and she will be continued on her home dose of Xarelto for anticoagulation. The patient is not on any rate control agents. Qualifiers: Atrial fibrillation type: chronic Qualified Code(s): I48.2 - Chronic atrial fibrillation (11) Chronic pain Conclusion/Plan: Holding dilaudid given respiratory depression Continue gabapentin and oxycodone prn Qualifiers: Chronic pain type: other chronic pain Qualified Code(s): G89.29 - Other chronic pain (12) HTN (hypertension) Conclusion/Plan: BP is stable Qualifiers: Hypertension type: essential hypertension Qualified Code(s): I10 - Essential (primary) hypertension - Current Meds Current Meds: Current Medications Generic Name Dose Route Start Last Admin Trade Name Freq PRN Reason Stop Dose Admin Atorvastatin Calcium 80 mg 02/06/18 21:00 02/07/18 20:22 Lipitor PO Not Given QPM JOSE G Chlorhexidine Gluconate 15 ml 02/07/18 21:00 02/08/18 08:35 Peridex PO 15 ml BID JOSE G Administration Duloxetine HCl 60 mg 02/07/18 09:00 02/08/18 14:11 Cymbalta PO 60 mg DAILY JOSE G Administration Fluconazole 200 mg 02/08/18 09:00 02/08/18 14:10 Diflucan PO 02/21/18 09:01 200 mg DAILY JOSE G Administration Gabapentin 600 mg 02/06/18 14:00 02/08/18 14:10 Neurontin PO 600 mg TID JOSE G Administration Vancomycin HCl 2 gm/ Sodium 500 mls @ 250 mls/hr 02/07/18 14:00 02/07/18 16: 40 Chloride IV Infused Q24H JOSE G Infusion Propofol 100 mls @ 9.69 mls/hr 02/07/18 17:00 02/08/18 12:01 Diprivan IV Infused .[id number] JOSE G Titration Protocol 10 MCG/KG/MIN Insulin Glargine 10 unit 02/06/18 21:00 02/07/18 20:24 Lantus Solostar SUBQ 10 unit QPM JOSE G Administration Insulin Human Regular 2 - 10 unit 02/08/18 00:00 02/08/18 12:24 Novolin R SUBQ 6 unit Q6HR JOSE G Administration Protocol Methylprednisolone 40 mg 02/07/18 12:00 02/08/18 12:25 Solu-Medrol (40mg Vial) IVP 40 mg Q6HR JOSE G Administration Morphine Sulfate 2 mg 02/07/18 14:12 02/08/18 06:11 Morphine IVP 2 mg Q1H PRN Administration Discomfort Nystatin 1 applic 02/06/18 12:00 02/08/18 09:45 Mycostatin Cream TOP 1 applic BID JOSE G Administration Pantoprazole Sodium 40 mg 02/08/18 07:00 02/08/18 06:11 Protonix IVP 40 mg QDAC JOSE G Administration Polyethylene Glycol 17 gm 02/07/18 09:00 02/08/18 08:41 Miralax PO Not Given DAILY [facility] Rivaroxaban 20 mg 02/06/18 17:00 02/07/18 18:15 Xarelto PO Not Given QDDINNER [facility] Saccharomyces Boulardii 250 mg 02/06/18 17:00 02/08/18 07:46 Florastor PO Not Given BIDWM [facility] Sodium Chloride 10 ml 02/06/18 11:45 02/08/18 12:18 Normal Saline Flush 0.9% IVP 20 ml PRN PRN Administration NEEDED PER PROVIDER ORDERS Sodium Chloride 10 ml 02/06/18 17:00 02/08/18 08:42 Normal Saline Flush 0.9% IVP 10 ml 0100,0900,1700 JOSE G Administration Zinc Oxide 113 gm 02/08/18 07:34 02/08/18 08:36 Desitin TOP 1 applic PRN PRN Administration Skin Care - Lab Result Lab results reviewed: Yes Fish Bone Diagrams: 02/08/18 06:20 02/08/18 05:18 - Diagnostic Imaging Results Diagnostic Imaging Results: Final report reviewed - Additional Planning Condition/Complexity: Guarded My Orders: My Active Orders 02/07/18 13:54 ABG [Arterial Blood Gases - RT] [RC] .ONCE 02/07/18 14:00 Vancomycin Inj [Vancomycin] 2 gm Sodium Chloride 0.9% [Normal Saline 0.9%] 500 ml IV Q24H 02/07/18 14:12 Arterial Blood Gases - RT [RC] .ONCE Ipratropium [Atrovent] 0.5 mg INH RTQ4H PRN Midazolam [Versed] 1 mg IVP Q5M PRN Morphine Inj [Morphine] 2 mg IVP Q1H PRN 02/07/18 15:19 Echo Transthoracic Complete [ECHO] Routine 02/07/18 15:30 Airway Suctioning [Suction] [RC] PRN 02/07/18 17:00 Propofol 1000 mg/100 ml [Diprivan] 100 ml IV 10 mcg/kg/min 02/07/18 17:26 Message to Nursing [RC] QSHIFT 02/07/18 19:15 RT [Ventilator Setting Changes] [RC] .ONCE 02/07/18 21:00 Chlorhexidine [Peridex] 15 ml PO BID 02/08/18 Palliative Care Consult [CONS] Routine 02/08/18 00:00 Insulin Regular Human [NovoLIN R] 2 - 10 unit SUBQ Q6HR 02/08/18 07:00 Pantoprazole [Protonix] 40 mg IVP QDAC 02/08/18 07:34 Cod Liver Oil/Zinc Oxide [Desitin] 113 gm TOP PRN PRN 02/08/18 09:00 Fluconazole [Diflucan] 200 mg PO DAILY 02/08/18 13:08 Extubate [RC] ONCE 02/08/18 13:35 VANCOMYCIN RANDOM [CHEM] Timed 02/09/18 05:00 MAGNESIUM [CHEM] DAILYLAB PHOSPHORUS [CHEM] DAILYLAB 02/09/18 09:00 ABG - ARTERIAL BLOOD GAS [BG] DAILY 02/09/18 13:00 Cefepime 2 gm Sodium Chloride 0.9% Minibag [Normal Saline 0.9% Minibag] 100 ml IV Q24H 02/10/18 05:00 MAGNESIUM [CHEM] DAILYLAB PHOSPHORUS [CHEM] DAILYLAB 02/10/18 09:00 ABG - ARTERIAL BLOOD GAS [BG] DAILY 02/10/18 13:30 VANCOMYCIN TROUGH [CHEM] Timed 02/11/18 09:00 ABG - ARTERIAL BLOOD GAS [BG] DAILY 02/12/18 09:00 ABG - ARTERIAL BLOOD GAS [BG] DAILY Plan Discussed with:: Patient, Family Time Spent: 31-60 minutes Subjective - Subjective Patient Reports: Other (Patient was intubated this am. Once extubated she feels much better and denies any coughing. She does have back pain but denies shortness of breath.) Nursing Reports: No Complaints Objective Vital Signs: Vital Signs - 24 hr 02/07/18 02/07/18 02/07/18 14:29 16:00 16:25 Temperature Heart Rate 89 91 Heart Rate [ 88 Brachial] Heart Rate [ Monitoring electrodes] Respiratory 16 Rate Blood Pressure 113/71 [Right Brachial artery] O2 Saturation 100 02/07/18 02/07/18 02/07/18 17:00 17:25 18:00 Temperature 36.2 C L Heart Rate 89 Heart Rate [ 94 89 Brachial] Heart Rate [ Monitoring electrodes] Respiratory 16 16 Rate Blood Pressure 124/78 116/70 [Right Brachial artery] O2 Saturation 100 99 06/22/18 06/22/18 06/22/18 19:00 19:20 20:00 Temperature 36.2 C L Heart Rate 93 Heart Rate [ 91 Brachial] Heart Rate [ 96 Monitoring electrodes] Respiratory 16 17 Rate Blood Pressure 121/76 119/73 [Right Brachial artery] O2 Saturation 100 100 02/07/18 02/07/18 02/07/18 20:54 21:00 22:00 Temperature Heart Rate 85 Heart Rate [ Brachial] Heart Rate [ 88 88 Monitoring electrodes] Respiratory 16 16 Rate Blood Pressure 118/79 118/73 [Right Brachial artery] O2 Saturation 100 98 02/07/18 02/07/18 02/07/18 23:00 23:22 23:24 Temperature 36.2 C L Heart Rate 87 Heart Rate [ Brachial] Heart Rate [ 90 Monitoring electrodes] Respiratory 16 Rate Blood Pressure 111/64 [Right Brachial artery] O2 Saturation 98 02/08/18 02/08/18 02/08/18 00:00 01:00 01:21 Temperature Heart Rate 91 Heart Rate [ Brachial] Heart Rate [ 89 90 Monitoring electrodes] Respiratory 16 16 Rate Blood Pressure 126/81 H 112/72 [Right Brachial artery] O2 Saturation 98 99 02/08/18 02/08/18 02/08/18 02:00 03:00 03:28 Temperature Heart Rate 88 Heart Rate [ Brachial] Heart Rate [ 89 90 Monitoring electrodes] Respiratory 16 16 Rate Blood Pressure 107/61 109/63 [Right Brachial artery] O2 Saturation 99 99 02/08/18 02/08/18 02/08/18 04:00 05:00 05:28 Temperature 37.1 C Heart Rate 86 Heart Rate [ Brachial] Heart Rate [ 91 90 Monitoring electrodes] Respiratory 16 16 Rate Blood Pressure 110/67 120/76 [Right Brachial artery] O2 Saturation 99 99 02/08/18 02/08/18 02/08/18 06:00 07:00 07:58 Temperature Heart Rate 88 Heart Rate [ Brachial] Heart Rate [ 88 90 Monitoring electrodes] Respiratory 18 16 Rate Blood Pressure 121/67 120/76 [Right Brachial artery] O2 Saturation 99 100 02/08/18 02/08/18 02/08/18 08:00 08:50 09:00 Temperature 35.4 C L Heart Rate 86 Heart Rate [ Brachial] Heart Rate [ 90 92 Monitoring electrodes] Respiratory 16 11 L Rate Blood Pressure 114/68 108/63 [Right Brachial artery] O2 Saturation 100 100 02/08/18 02/08/1802/08/18 09:30 10:00 11:00 Temperature Heart Rate 89 Heart Rate [ Brachial] Heart Rate [ 88 88 Monitoring electrodes] Respiratory 15 16 Rate Blood Pressure 104/81 H 120/69 [Right Brachial artery] O2 Saturation 100 100 02/08/18 02/08/18 02/08/18 11:05 12:00 13:00 Temperature 35.5 C L Heart Rate 84 Heart Rate [ Brachial] Heart Rate [ 925 H 90 Monitoring electrodes] Respiratory 18 20 Rate Blood Pressure 106/70 114/68 [Right Brachial artery] O2 Saturation 92 94 02/08/18 14:00 Temperature Heart Rate Heart Rate [ Brachial] Heart Rate [ 86 Monitoring electrodes] Respiratory 16 Rate Blood Pressure 128/82 H [Right Brachial artery] O2 Saturation 99 Oxygen O2 Source Nasal cannula I&O (Last 24 Hrs): Intake and Output Totals x24h 02/06/18 02/07/18 02/08/18 23:59 23:59 23:59 Intake Total 7593.352 5170.973 1197.367 Output Total 950 702 291 Balance 391.601 5062.973 906.367 General: Alert, Oriented x3, Cooperative, No acute distress, Other (Obese) HEENT: Atraumatic, PERRLA, EOMI, Mucous membr. moist/pink Neck: Supple, No JVD, No thyromegaly, +2 carotid pulse wo bruit, No LAD Lymphatic: no adenopathy Neuro: Alert, Non Focal, CN 2-12 Grossly Intact, Oriented Times 3 Cardiovascular: No murmurs, Other (Irregular) Respiratory: Chest non-tender, Rales (Bibasilar), Rhonchi (Left base) Abdomen: Normal bowel sounds, Soft, No tenderness, No hepatospenomegaly Extremities: No clubbing, No cyanosis, Normal pulses, Other (Bilateral lower extremity edema with venous stasis changes of lower extremities) Comments/Notes: Erythema of LE with venous stasis changes with skin break down, patient also has yeast infection under pannus and in groin area and skin folds. - Results Results: Laboratory Results WBC 6.5 x10^3/uL (4.8-10.8) 02/08/18 06:20 RBC 3.98 10^6/uL (4.20-5.40) L 02/08/18 06:20 Hgb 12.1 g/dL (12.0-16.0) 02/08/18 06:20 Hct 37.7 % (37.0-47.0) 02/08/18 06:20 MCV 94.7 fL (81.0-99.0) 02/08/18 06:20 MCH 30.3 pg (27.0-31.0) 02/08/18 06:20 MCHC 32.0 g/dL (32.0-36.0) 02/08/18 06:20 RDW 14.4 % (12.0-15.0) 02/08/18 06:20 Plt Count 10^3/uL (130-450) 02/08/18 06:20 MPV 10.1 fL (7.9-10.8) 02/08/18 06:20 Neut # (Auto) 5.6 10^3/uL (1.5-6.6) 02/08/18 06:20 Lymph # (Auto) 0.8 10^3/uL (1.5-3.5) L 02/08/18 06:20 [place] # (Auto) 0.1 10^3/uL (0.0-1.0) 02/08/18 06:20 Eos # (Auto) 0.0 10^3/uL (0.0-0.7) 02/08/18 06:20 Baso # (Auto) 0.0 10^3/uL (0.0-0.1) 02/08/18 06:20 Absolute Nucleated RBC 0.00 x10^3/uL 02/08/18 06:20 Nucleated RBC % 0.0 /100WBC 02/08/18 06:20 Platelet Morphology PLATELET CLUMPING (NORMAL) 02/08/18 06:20 PT 11.7 secs (9.9-12.6) 02/06/18 08:37 INR 1.0 (0.8-1.2) 02/06/18 08:37 APTT 30.3 secs (24.9-33.3) 02/06/18 08:37 Bld Gas Analysis Time 1647 02/07/18 16:40 Sample Site LA 02/07/18 16:40 Patient Temperature 36.7 CELSIUS 02/07/18 11:33 ABG pH 7.34 (7.35-7.45) L 02/07/18 16:40 ABG pCO2 47 mmHg (34-45) H 02/07/18 16:40 ABG pO2 162 mmHg (80-100) H* 02/07/18 16:40 ABG HCO3 24.5 mmol/L (22.0-26.0) 02/07/18 16:40 ABG Total CO2 25.9 MMOL/L (21.0-29.0) 02/07/18 16:40 ABG O2 Saturation 99 % (94-98) H 02/07/18 16:40 ABG Oximetry Spot Check 100 % 02/07/18 16:40 ABG Base Excess -1.6 mmol/L (-2.0-3.0) 02/07/18 16:40 Riley Test POSITIVE 02/07/18 16:40 VBG pH 7.301 (7.31-7.41) L 02/07/18 11:54 Ionized Calcium 1.09 mmol/L (1.15-1.33) L 02/07/18 11:54 Respiration Rate 16 b/min 02/07/18 16:40 O2 Delivery Device VENTILATOR 02/07/18 16:40 O2 Liters/Min 15.00 LPM 02/07/18 11:33 Vent Mode SIMV 02/07/18 16:40 FiO2 65.00 02/07/18 16:40 Tidal Volume 450 mL 02/07/18 16:40 PEEP 5 cmH2O 02/07/18 16:40 Pressure Support Vent 10 cmH2O 02/07/18 16:40 EPAP 6 cmH2O 02/07/18 13:38 IPAP 12 cmH2O 02/07/18 13:38 Sodium 137 mmol/L (135-145) 02/08/18 05:18 Potassium 5.1 mmol/L (3.5-5.0) H 02/08/18 05:18 Chloride 106 mmol/L (101-111) 02/08/18 05:18 Carbon Dioxide 22 mmol/L (21-32) 02/08/18 05:18 Anion Gap 9.0 (6-13) 02/08/18 05:18 BUN 35 mg/dL (6-20) H 02/08/18 05:18 Creatinine 2.0 mg/dL (0.4-1.0) H 02/08/18 05:18 Estimated GFR (MDRD) 25 (>89) L 02/08/18 05:18 Glucose 212 mg/dL (70-100) H 02/08/18 05:18 POC Whole Bld Glucose 232 mg/dL (70 - 100) H 02/08/18 12:00 Glycated Hemoglobin 13.5 % (4.6-6.2) H 02/07/18 04:30 Estim Average Glucose 341 (70-100) H 02/07/18 04:30 Lactic Acid 0.8 mmol/L (0.5-2.2) 02/07/18 11:54 Calcium 8.0 mg/dL (8.5-10.3) L 02/08/18 05:18 Ionized Calcium YES 02/07/18 11:54 Phosphorus 5.0 mg/dL (2.5-4.6) H 02/08/18 05:18 Magnesium 2.0 mg/dL (1.7-2.8) 02/08/18 05:18 Total Bilirubin 0.6 mg/dL (0.2-1.0) 02/08/18 05:18 AST 25 IU/L (10-42) 02/08/18 05:18 ALT 15 IU/L (10-60) 02/08/18 05:18 Alkaline Phosphatase 88 IU/L (42-121) 02/08/18 05:18 Troponin I < 0.04 ng/mL (<0.49) 02/07/18 11:54 B-Natriuretic Peptide 89 pg/mL (5-100) 02/07/18 11:54 Total Protein 5.4 g/dL (6.7-8.2) L 02/08/18 05:18 Albumin 2.0 g/dL (3.2-5.5) L 02/08/18 05:18 Globulin 3.4 g/dL (2.1-4.2) 02/08/18 05:18 Albumin/Globulin Ratio 0.6 (1.0-2.2) L 02/08/18 05:18 Lipase 17 U/L (22-51) L 02/06/18 08:37 Urine Color YELLOW 02/06/18 10:37 Urine Clarity HAZY (CLEAR) 02/06/18 10:37 Urine pH 5.5 PH (5.0-7.5) 02/06/18 10:37 Ur Specific [place] 1.025 (1.002-1.030) 02/06/18 10:37 Urine Protein 100 mg/dL (NEGATIVE) H 02/06/18 10:37 Urine Glucose (UA) >=1000 mg/dL (NEGATIVE) H 02/06/18 10:37 Urine Ketones NEGATIVE mg/dL (NEGATIVE) 02/06/18 10:37 Urine Occult Blood MODERATE (NEGATIVE) H 02/06/18 10:37 Urine Nitrite NEGATIVE (NEGATIVE) 02/06/18 10:37 Urine Bilirubin NEGATIVE (NEGATIVE) 02/06/18 10:37 Urine Urobilinogen 0.2 (NORMAL) E.U./dL (NORMAL) 02/06/18 10:37 Ur Leukocyte Esterase NEGATIVE (NEGATIVE) 02/06/18 10:37 Urine RBC 6-10 /HPF (0-5) H 02/06/18 10:37 Urine WBC 6-10 /HPF (0-5) H 02/06/18 10:37 Urine WBC Clumps PRESENT 02/06/18 10:37 Ur Squamous Epith Cells FEW Squamous (<= Few) 02/06/18 10:37 Urine Crystals 0-2 Calcium Oxalate /LPF 02/06/18 08:53 Amorphous Sediment Marked /LPF 02/06/18 10:37 Urine Bacteria Many /HPF (None Seen) H 02/06/18 10:37 Urine Casts 11-25 Hyaline Casts /LPF3-5 Granular Casts /LPF 02/06/18 08:53 Urine Casts 11-25 Hyaline Casts /LPF3-5 Granular Casts /LPF 02/06/18 10:37 Urine Casts 11-25 Hyaline Casts /LPF3-5 Granular Casts /LPF 02/06/18 10:37 Urine Yeast PRESENT 02/06/18 10:37 Ur Microscopic Review INDICATED 02/06/18 10:37 Urine Culture Comments INDICATED 02/06/18 10:37 ABX Reporting Has patient been on IV antibiotics over the past 48 hours?: Yes Current Medications - Current Medications Current Medications: Active Medications Generic Name Dose Route Start Last Admin Trade Name Freq PRN Reason Stop Dose Admin Acetaminophen 650 mg 02/06/18 11:45 Tylenol PO Q4HR PRN Pain 1 to 4 Albuterol 2.5 mg 02/06/18 11:45 INH Q4HR PRN Wheezing Atorvastatin Calcium 80 mg 02/06/18 21:00 02/07/18 20:22 Lipitor PO Not Given QPM JOSE G Chlorhexidine Gluconate 15 ml 02/07/18 21:00 02/08/18 08:35 Peridex PO 15 ml BID JOSE G Administration Cyclobenzaprine HCl 10 mg 02/06/18 11:43 Flexeril PO TID PRN Spasms Duloxetine HCl 60 mg 02/07/18 09:00 02/08/18 14:11 Cymbalta PO 60 mg DAILY JOSE G Administration Fluconazole 200 mg 02/08/18 09:00 02/08/18 14:10 Diflucan PO 02/21/18 09:01 200 mg DAILY JOSE G Administration Furosemide 120 mg 02/08/18 14:45 Lasix Inj 40 Mg Vial IVP 02/08/18 14:46 ONCE ONE Gabapentin 800 mg 02/08/18 22:00 Neurontin PO TID JOSE G Vancomycin HCl 2 gm/ Sodium 500 mls @ 250 mls/hr 02/07/18 14:00 02/07/18 16: 40 Chloride IV Infused Q24H JOSE G Infusion Propofol 100 mls @ 9.69 mls/hr 02/07/18 17:00 02/08/18 12:01 Diprivan IV Infused .[id number] [facility] Titration Protocol 10 MCG/KG/MIN Cefepime HCl 2 gm/ Sodium 100 mls @ 200 mls/hr 02/09/18 13:00 Chloride IV Q24H JOSE G Insulin Glargine 10 unit 02/06/18 21:00 02/07/18 20:24 Lantus Solostar SUBQ 10 unit QPM JOSE G Administration Insulin Human Regular 2 - 10 unit 02/08/18 00:00 02/08/18 12:24 Novolin R SUBQ 6 unit Q6HR JOSE G Administration Protocol Ipratropium [place] 0.5 mg 02/07/18 14:12 Atrovent INH RTQ4H PRN Wheezing Methylprednisolone 40 mg 02/07/18 12:00 02/08/18 12:25 Solu-Medrol (40mg Vial) IVP 40 mg Q6HR JOSE G Administration Midazolam HCl 1 mg 02/07/18 14:12 Versed IVP Q5M PRN Sedation Morphine Sulfate 2 mg 02/07/18 14:12 02/08/18 06:11 Morphine IVP 2 mg Q1H PRN Administration Discomfort Nystatin 1 applic 02/06/18 12:00 02/08/18 09:45 Mycostatin Cream TOP 1 applic BID JOSE G Administration Ondansetron HCl 4 mg 02/06/18 11:45 Zofran Inj IVP Q6HR PRN Nausea / Vomiting Oxycodone HCl 5 mg 02/06/18 11:45 Roxicodone PO Q4HR PRN Pain 5 to 7 Pantoprazole Sodium 40 mg 02/08/18 07:00 02/08/18 06:11 Protonix IVP 40 mg QDAC [facility] Administration Polyethylene Glycol 17 gm 02/07/18 09:00 02/08/18 08:41 Miralax PO Not Given DAILY [facility] Prochlorperazine Edisylate 10 mg 02/06/18 11:45 Compazine Inj IVP Q6HR PRN Nausea / Vomiting Rivaroxaban 20 mg 02/06/18 17:00 02/07/18 18:15 Xarelto PO Not Given QDDINNER [facility] Saccharomyces Boulardii 250 mg 02/06/18 17:00 02/08/18 07:46 Florastor PO Not Given BIDWM [facility] Sodium Chloride 10 ml 02/06/18 11:45 02/08/18 12:18 Normal Saline Flush 0.9% IVP 20 ml PRN PRN Administration NEEDED PER PROVIDER ORDERS Sodium Chloride 10 ml 02/06/18 17:00 02/08/18 08:42 Normal Saline Flush 0.9% IVP 10 ml 0100,0900,1700 [facility] Administration Zinc Oxide 113 gm 02/08/18 07:34 02/08/18 08:36 Desitin TOP 1 applic PRN PRN Administration [facility] Zolpidem Tartrate 5 mg 02/06/18 11:45 Ambien PO QPM PRN Insomnia Omeprazole 20 mg PO QDAC 08/23/15 Duloxetine HCl [Cymbalta] 60 mg PO DAILY 01/15/17 Furosemide 40 mg PO DAILY 01/15/17 Atorvastatin Calcium 80 mg PO QPM 07/14/17 Cyclobenzaprine [Flexeril] 10 mg PO TID PRN 07/14/17 Felodipine [Felodipine ER] 10 mg PO DAILY 11/26/17 Rivaroxaban [Xarelto] 20 mg PO DAILY 07/14/17 Diazepam [Valium] 5 mg PO QPM PRN 02/06/18 Gabapentin [Neurontin] 800 mg PO TID 02/06/18 Hydromorphone HCl [Dilaudid] 8 mg PO Q8H 02/06/18 Insulin Aspart [NovoLOG] 3 unit SUBQ TIDWM 02/06/18 Insulin Glargine [Lantus Solostar] 10 unit SUBQ BID 02/06/18
[2018-02-08] MEDS: VANCOMYCIN INJ 2 GM in SODIUM CHLORIDE 0.9% 500 ML IV SCH (14:45)
[2018-02-08] MEDS ORDERED: FUROSEMIDE 40 MG/4 ML VIAL IVP ONE (14:45)
[2018-02-08 15:03] LABS: ABG HCO3 22.7 mmol/L (22.0-26.0); ABG PCO2 45 mmHg (34-45); ABG PH 7.32 (7.35-7.45); ABG PO2 112 mmHg (80-100)
[2018-02-08 15:04] LABS: ABG BASE EXCESS -3.3 mmol/L (-2.0-3.0); ABG OXYGEN SATURATION 98 % (94-98); ABG TCO2 24.1 MMOL/L (21.0-29.0); ALLEN TEST POSITIVE
[2018-02-08] MEDS: RIVAROXABAN 10 MG TABLET PO SCH (17:33)
[2018-02-08] MEDS: INSULIN ASPART 300 UNIT/3 ML PEN SUBQ SCH ×2 (17:33→21:04)
[2018-02-08] MEDS: ATORVASTATIN 40 MG TABLET PO SCH (21:03)
[2018-02-08] MEDS: GABAPENTIN 400 MG CAPSULE PO SCH (21:03)
[2018-02-08] MEDS: INSULIN GLARGINE 300 UNIT/3 ML PEN SUBQ SCH (21:05)
[2018-02-09] MEDS: SODIUM CHLORIDE FLUSH 0.9% 10 ML SYRINGE IVP SCH ×3 (00:40→15:46)
[2018-02-09 05:28] LABS: BASOPHILS % (AUTO) 0.1 %; HGB - HEMOGLOBIN 11.6 g/dL (12.0-16.0); LYMPHOCYTES # (AUTO) 0.8 10^3/uL (1.5-3.5); LYMPHOCYTES % (AUTO) 7.8 %; MEAN CORPUSCULAR HEMOGLOBIN 30.4 pg (27.0-31.0); MEAN CORPUSCULAR HGB CONC 32.9 g/dL (32.0-36.0); MEAN CORPUSCULAR VOLUME 92.4 fL (81.0-99.0); MEAN PLATELET VOLUME 10.8 fL (7.9-10.8); MONOCYTES # (AUTO) 0.5 10^3/uL (0.0-1.0); MONOCYTES % (AUTO) 4.7 %; NEUTROPHILS # (AUTO) 8.7 10^3/uL (1.5-6.6); NEUTROPHILS % (AUTO) 87.4 %; PLT - PLATELET COUNT 130 10^3/uL (130-450); RED BLOOD COUNT 3.81 10^6/uL (4.20-5.40); RED CELL DISTRIBUTION WIDTH 13.9 % (12.0-15.0); WHITE BLOOD COUNT 9.9 x10^3/uL (4.8-10.8)
[2018-02-09 05:33] LABS: ALBUMIN 1.9 g/dL (3.2-5.5); ALBUMIN/GLOBULIN RATIO 0.6 (1.0-2.2); BILIRUBIN,TOTAL 0.6 mg/dL (0.2-1.0); CALCIUM 7.8 mg/dL (8.5-10.3); CREATININE 2.4 mg/dL (0.4-1.0); TOTAL PROTEIN 5.2 g/dL (6.7-8.2)
[2018-02-09 06:02] LABS: PLATELET ESTIMATE, MANUAL NORMAL (130-450,000) (NORMAL); PLATELET MORPHOLOGY PLATELET CLUMPING (NORMAL)
[2018-02-09] MEDS: SODIUM CHLORIDE FLUSH 0.9% 10 ML SYRINGE IVP PRN (06:13)
[2018-02-09] MEDS: GABAPENTIN 400 MG CAPSULE PO SCH ×3 (06:15→21:13)
[2018-02-09] MEDS: PANTOPRAZOLE 40 MG VIAL IVP SCH (06:16)
[2018-02-09] MEDS: INSULIN ASPART 300 UNIT/3 ML PEN SUBQ SCH ×4 (09:13→21:19)
[2018-02-09] MEDS: POLYETHYLENE GLYCOL 3350 17 GM PACKET PO SCH (09:14)
[2018-02-09] MEDS: SACCHAROMYCES BOULARDII 250 MG CAPSULE PO SCH ×2 (09:14→17:05)
[2018-02-09] MEDS: DULoxetine 30 MG CAPSULE PO SCH (09:18)
[2018-02-09] MEDS: FLUCONAZOLE 100 MG TABLET PO SCH (09:18)
[2018-02-09] MEDS: CHLORHEXIDINE GLUCONATE 15 ML UDC PO SCH ×2 (09:18→21:12)
[2018-02-09] MEDS: SODIUM CHLORIDE 0.9% 1,000 ML IV SCH ×2 (09:25→17:05)
[2018-02-09] MEDS: NYSTATIN CREAM 15 GM TUBE TOP SCH ×2 (10:26→21:14)
--- NOTE | 2018-02-09 10:58 | PROVIDER PROGRESS NOTE ---
Assessment/Plan - Problem List (1) Acute respiratory failure with hypoxia and hypercapnia Assessment/Plan: Patient intubated on 02/07/2018 and extubated on 02/08/2018 This am she is on RA and doing very well Resolved Likely combination of pneumonia and over sedation secondary to opioids echo shows preserved EF Plan: Continue IV antibiotics with cefepime and vancomycin day 3 COntinue supplemental O2 Continue nebs prn Stopped dilaudid (2) CAP (community acquired pneumonia) Conclusion/Plan: Patient extubted 02/08/18 Blood cx negative Plan: Supplemental O2 prn Switched to IV vancomycin and cefepime day 3 Nebs prn Qualifiers: Laterality: left Lung location: lower lobe of lung Qualified Code(s): J18.1 - Lobar pneumonia, unspecified organism (3) Urinary tract infection Conclusion/Plan: Patient presented with 1 week of increasing generalized weakness, confusion, fatigue and lethargy. Patient was found to have positive UA with WBCs, moderate occult blood and many bacteria. Patient was not febrile and did not have a white blood cell count but given her systemic symptoms of lethargy and acute renal failure as well as generalized weakness it was felt that she required hospitalization for treatment with IV antibiotics. Urine cx growing yeast Plan: Fluconazole 200 mg q daily day 2 of 14 Qualifiers: Urinary tract infection type: acute cystitis Hematuria presence: without hematuria Qualified Code(s): N30.00 - Acute cystitis without hematuria (4) Metabolic encephalopathy Conclusion/Plan: Resolved. The patient's metabolic encephalopathy was likely multifactorial secondary to infection, sedative medications as well as Dilaudid. Stopped dilaudid Continue IV abx (5) Acute renal failure superimposed on stage 3 chronic kidney disease Conclusion/Plan: Patient has a history of CKD stage III however on presentation the patient's creatinine is elevated from a baseline of about 1.1-1.4. On presentation the patient's creatinine is elevated at 1.8. This is likely secondary to ongoing infection and dehydration. Today patient's creatinine is 2.4 Patient appeared fluid overloaded yesterday and given IV lasix Medical Office Receptionist Assistant worse today so will try to give patient fluid especially Poor urine output Could have ATN from hypotension We will monitor creatinine We will avoid any nephrotoxic agents IVFs Consider renal ultrasound if not improving tomorrow Qualifiers: Acute renal failure type: unspecified Qualified Code(s): N17.9 - Acute kidney failure, unspecified; N18.3 - Chronic kidney disease, stage 3 (moderate) ; N18.3 - Chronic kidney disease, stage 3 (moderate); N18.3 - Chronic kidney disease, stage 3 (moderate) (6) Type II diabetes mellitus with complication, uncontrolled Conclusion/Plan: Blood glucose is stable Continue Lantus and sliding scale insulin Monitor blood glucose before meals at bedtime Hemoglobin A1c severely elevated at 13.5 BG in the 250s this am Will increase lantus to 15 units tonight Qualifiers: Diabetes mellitus assisted insulin use: with assisted use Qualified Code( s): E11.8 - Type 2 diabetes mellitus with unspecified complications; E11.65 - Type 2 diabetes mellitus with hyperglycemia; E11.65 - Type 2 diabetes mellitus with hyperglycemia; E11.65 - Type 2 diabetes mellitus with hyperglycemia; E11.65 - Type 2 diabetes mellitus with hyperglycemia; Z79.4 - anchor tacker (current ) use of insulin; Z79.4 - [facility] (current) use of insulin; Z79.4 - [facility] (current) use of insulin; Z79.4 - anchor tacker (current) use of insulin (7) Weakness generalized Conclusion/Plan: The patient has been having increasing generalized weakness for the last week and has fallen now twice. The patient's generalized weakness is likely systemic effects of ongoing infection with urinary tract infection and pneumonia. Patient also appears to be dehydrated with acute on chronic renal failure. Plan: Patient will be Continue IV fluids Patient will be Continue IV antibiotic PT consult today (8) Hyponatremia Conclusion/Plan: Resolved with IV fluids (9) Venous stasis dermatitis Conclusion/Plan: Patient has bilateral venous stasis dermatitis. Wound care following and gave recommendations for wound care Qualifiers: Laterality: bilateral Qualified Code(s): I87.2 - Venous insufficiency ( chronic) (peripheral) (10) Atrial fibrillation Conclusion/Plan: Patient has history of chronic atrial fibrillation. She is in atrial fibrillation on presentation. The patient's rate is well controlled and she will be continued on her home dose of Xarelto for anticoagulation. The patient is not on any rate control agents. Stable Qualifiers: Atrial fibrillation type: chronic Qualified Code(s): I48.2 - Chronic atrial fibrillation (11) Chronic pain Conclusion/Plan: Holding dilaudid given respiratory depression Continue gabapentin and oxycodone prn Stable Qualifiers: Chronic pain type: other chronic pain Qualified Code(s): G89.29 - Other chronic pain (12) HTN (hypertension) Conclusion/Plan: BP is stable Qualifiers: Hypertension type: essential hypertension Qualified Code(s): I10 - Essential (primary) hypertension Concerns over patients current living situation and conditions voiced by RN. She will report to APS. Notified social science instructor. Patient getting Dilaudid 84 tabs every month but according to patient she is not taking dilaudid and is giving pills to family to lock up but they have gone missing. She also has been babysitting her 2 year old great grandson when she cannot care for herself and requires and 24 hour caregiver. Patient however insists she wants to go home. Will await PT eval to help decide disposition. - Current Meds Current Meds: Current Medications Generic Name Dose Route Start Last Admin Trade Name Jessica PRN Reason Stop Dose Admin Atorvastatin Calcium 80 mg 02/06/18 21:00 02/08/18 21:03 Lipitor PO 80 mg QPM JOSE G Administration Chlorhexidine Gluconate 15 ml 02/07/18 21:00 02/09/18 09:18 Peridex PO 15 ml BID JOSE G Administration Duloxetine HCl 60 mg 02/07/18 09:00 02/09/18 09:18 Cymbalta PO 60 mg DAILY JOSE G Administration Fluconazole 200 mg 02/08/18 09:00 02/09/18 09:18 Diflucan PO 02/21/18 09:01 200 mg DAILY JOSE G Administration Gabapentin 800 mg 02/08/18 22:00 02/09/18 06:15 Neurontin PO 800 mg TID JOSE G Administration Vancomycin HCl 2 gm/ Sodium 500 mls @ 250 mls/hr 02/07/18 14:00 02/08/18 16: 45 Chloride IV Infused Q24H JOSE G Infusion Sodium Chloride 1,000 mls @ 125 mls/hr 02/09/18 09:00 02/09/18 09:25 Normal Saline 0.9% IV 02/10/18 00:59 125 mls/hr .Q8H JOSE G Administration Insulin Aspart 1 - 9 unit 02/08/18 17:00 02/09/18 09:13 Novolog SUBQ 5 unit 0800,1200,1700,2100 JOSE G Administration Protocol Insulin Glargine 10 unit 02/06/18 21:00 02/08/18 21:05 Lantus Solostar SUBQ 10 unit QPM JOSE G Administration Nystatin 1 applic 02/06/18 12:00 02/09/18 10:26 Mycostatin Cream TOP 1 applic BID JOSE G Administration Pantoprazole Sodium 40 mg 02/08/18 07:00 02/09/18 06:16 Protonix IVP 40 mg QDAC JOSE G Administration Polyethylene Glycol 17 gm 02/07/18 09:00 02/09/18 09:14 Miralax PO 17 gm DAILY JOSE G Administration Rivaroxaban 20 mg 02/06/18 17:00 02/08/18 17:33 Xarelto PO 20 mg QDDINNER JOSE G Administration Saccharomyces Boulardii 250 mg 02/06/18 17:00 02/09/18 09:14 Florastor PO 250 mg BIDWM JOSE G Administration Sodium Chloride 10 ml 02/06/18 11:45 02/09/18 06:13 Normal Saline Flush 0.9% IVP 10 ml PRN PRN Administration NEEDED PER PROVIDER ORDERS Sodium Chloride 10 ml 02/06/18 17:00 02/09/18 06:13 Normal Saline Flush 0.9% IVP 10 ml 0100,0900,1700 JOSE G Administration Zinc Oxide 113 gm 02/08/18 07:34 02/08/18 08:36 Desitin TOP 1 applic PRN PRN Administration Skin Care - Lab Result Lab results reviewed: Yes Fish Bone Diagrams: 02/09/18 05:08 02/09/18 05:08 - Additional Planning Condition/Complexity: Guarded My Orders: My Active Orders 02/08/18 17:00 Insulin Aspart [NovoLOG] 1 - 9 unit SUBQ 0800,1200,1700,2100 02/08/18 22:00 Gabapentin [Neurontin] 800 mg PO TID 02/08/18 Dinner Carb-controlled Diet [DIET] 02/09/18 09:00 ABG - ARTERIAL BLOOD GAS [BG] DAILY Sodium Chloride 0.9% [Normal Saline 0.9%] 1,000 ml IV 125 mls/hr 02/09/18 13:00 Cefepime 2 gm Sodium Chloride 0.9% Minibag [Normal Saline 0.9% Minibag] 100 ml IV Q24H 02/10/18 05:00 MAGNESIUM [CHEM] DAILYLAB PHOSPHORUS [CHEM] DAILYLAB 02/10/18 09:00 ABG - ARTERIAL BLOOD GAS [BG] DAILY 02/10/18 13:30 VANCOMYCIN TROUGH [CHEM] Timed 02/11/18 09:00 ABG - ARTERIAL BLOOD GAS [BG] DAILY 02/12/18 09:00 ABG - ARTERIAL BLOOD GAS [BG] DAILY Consult/Specialty: PT Plan Discussed with:: Patient Time Spent: 31-60 minutes Subjective - Subjective Patient Reports: Feeling Better, Resting Comfortably, Pain (back and leg), Other (Much more alert this am. No fevers or chills overnight.) Nursing Reports: No Complaints Objective Vital Signs: Vital Signs - 24 hr 02/08/18 02/08/18 02/08/18 11:00 11:05 12:00 Temperature 35.5 C L Heart Rate 84 Heart Rate [ 88 925 H Monitoring electrodes] Respiratory 16 18 Rate Blood Pressure 120/69 106/70 [Right Brachial artery] O2 Saturation 100 92 02/08/18 02/08/18 02/08/18 13:00 14:00 15:05 Temperature Heart Rate Heart Rate [ 90 86 86 Monitoring electrodes] Respiratory 20 16 17 Rate Blood Pressure 114/68 128/82 H 115/71 [Right Brachial artery] O2 Saturation 94 99 99 02/08/18 02/08/18 02/08/18 15:21 16:00 16:41 Temperature 36.3 C L Heart Rate 86 Heart Rate [ 87 91 Monitoring electrodes] Respiratory 14 12 16 Rate Blood Pressure 109/74 95/62 [Right Brachial artery] O2 Saturation 99 100 02/08/18 02/08/18 02/08/18 18:57 21:56 22:00 Temperature 36.0 C L 36.0 C L Heart Rate 87 Heart Rate [ 84 87 Monitoring electrodes] Respiratory 16 18 18 Rate Blood Pressure 130/76 106/56 L [Right Brachial artery] O2 Saturation 95 95 02/09/18 02/09/18 02/09/18 00:04 04:20 07:58 Temperature 36.3 C L 36.2 C L 36.2 C L Heart Rate Heart Rate [ 94 87 90 Monitoring electrodes] Respiratory 16 16 16 Rate Blood Pressure 100/45 L 93/51 L 95/52 L [Right Brachial artery] O2 Saturation 94 94 96 02/09/18 09:22 Temperature Heart Rate Heart Rate [ 91 Monitoring electrodes] Respiratory 16 Rate Blood Pressure [Right Brachial artery] O2 Saturation 94 Oxygen O2 Source Room air I&O (Last 24 Hrs): Intake and Output Totals x24h 02/07/18 02/08/18 02/09/18 23:59 23:59 23:59 Intake Total 5555.973 2097.367 740 Output Total 702 586 180 Balance 4853.973 1511.367 560 General: Alert, Oriented x3, Cooperative, No acute distress, Other (Morbidly obese) HEENT: Atraumatic, PERRLA, EOMI, Other (dry mucus membranes) Neck: Supple, No JVD, No thyromegaly, +2 carotid pulse wo bruit, No LAD Lymphatic: no adenopathy Neuro: Alert, Non Focal, CN 2-12 Grossly Intact, Oriented Times 3 Cardiovascular: No murmurs, Other (Irregular) Respiratory: Chest non-tender, No respiratory distress, Rhonchi Abdomen: Normal bowel sounds, Soft, No tenderness, No hepatospenomegaly Extremities: No clubbing, No cyanosis, Normal pulses, Other (Bilateral chronic stasis dermatitis with wounds) Comments/Notes: Bilateral stasis dermatitis worse on the left leg with wounds. - Results Results: Laboratory Results WBC 9.9 x10^3/uL (4.8-10.8) 02/09/18 05:08 RBC 3.81 10^6/uL (4.20-5.40) L 02/09/18 05:08 Hgb 11.6 g/dL (12.0-16.0) L 02/09/18 05:08 Hct 35.2 % (37.0-47.0) L 02/09/18 05:08 MCV 92.4 fL (81.0-99.0) 02/09/18 05:08 MCH 30.4 pg (27.0-31.0) 02/09/18 05:08 MCHC 32.9 g/dL (32.0-36.0) 02/09/18 05:08 RDW 13.9 % (12.0-15.0) 02/09/18 05:08 Plt Count 130 10^3/uL (130-450) 02/09/18 05:08 MPV 10.8 fL (7.9-10.8) 02/09/18 05:08 Neut # (Auto) 8.7 10^3/uL (1.5-6.6) H 02/09/18 05:08 Lymph # (Auto) 0.8 10^3/uL (1.5-3.5) L 02/09/18 05:08 [place] # (Auto) 0.5 10^3/uL (0.0-1.0) 02/09/18 05:08 Eos # (Auto) 0.0 10^3/uL (0.0-0.7) 02/09/18 05:08 Baso # (Auto) 0.0 10^3/uL (0.0-0.1) 02/09/18 05:08 Absolute Nucleated RBC 0.00 x10^3/uL 02/09/18 05:08 Nucleated RBC % 0.0 /100WBC 02/09/18 05:08 Platelet Estimate NORMAL (130-450,000) (NORMAL) 02/09/18 05:08 Platelet Morphology PLATELET CLUMPING (NORMAL) 02/09/18 05:08 PT 11.7 secs (9.9-12.6) 02/06/18 08:37 INR 1.0 (0.8-1.2) 02/06/18 08:37 APTT 30.3 secs (24.9-33.3) 02/06/18 08:37 Bld Gas Analysis Time 1303 02/08/18 12:56 Sample Site LEFT RADIAL 02/08/18 12:56 Patient Temperature 36.7 CELSIUS 02/07/18 11:33 ABG pH 7.32 (7.35-7.45) L 02/08/18 12:56 ABG pCO2 45 mmHg (34-45) 02/08/18 12:56 ABG pO2 112 mmHg (80-100) H 02/08/18 12:56 ABG HCO3 22.7 mmol/L (22.0-26.0) 02/08/18 12:56 ABG Total CO2 24.1 MMOL/L (21.0-29.0) 02/08/18 12:56 ABG O2 Saturation 98 % (94-98) 02/08/18 12:56 ABG Oximetry Spot Check 99 % 02/08/18 12:56 ABG Base Excess -3.3 mmol/L (-2.0-3.0) L 02/08/18 12:56 Riley Test POSITIVE 02/08/18 12:56 VBG pH 7.301 (7.31-7.41) L 02/07/18 11:54 Ionized Calcium 1.09 mmol/L (1.15-1.33) L 02/07/18 11:54 Respiration Rate 15 b/min 02/08/18 12:56 O2 Delivery Device VENTILATOR 02/08/18 12:56 O2 Liters/Min 15.00 LPM 02/07/18 11:33 Vent Mode SIMV 02/07/18 16:40 FiO2 35.00 02/08/18 12:56 Tidal Volume 864 mL 02/08/18 12:56 PEEP 5 cmH2O 02/08/18 12:56 Pressure Support Vent 10 cmH2O 02/07/18 16:40 EPAP 6 cmH2O 02/07/18 13:38 IPAP 12 cmH2O 02/07/18 13:38 Sodium 135 mmol/L (135-145) 02/09/18 05:08 Potassium 5.1 mmol/L (3.5-5.0) H 02/09/18 05:08 Chloride 104 mmol/L (101-111) 02/09/18 05:08 Carbon Dioxide 23 mmol/L (21-32) 02/09/18 05:08 Anion Gap 8.0 (6-13) 02/09/18 05:08 BUN 45 mg/dL (6-20) H 02/09/18 05:08 Creatinine 2.4 mg/dL (0.4-1.0) H 02/09/18 05:08 Estimated GFR (MDRD) 20 (>89) L 02/09/18 05:08 Glucose 292 mg/dL (70-100) H 02/09/18 05:08 POC Whole Bld Glucose 258 mg/dL (70 - 100) H 02/09/18 07:27 Glycated Hemoglobin 13.5 % (4.6-6.2) H 02/07/18 04:30 Estim Average Glucose 341 (70-100) H 02/07/18 04:30 Lactic Acid 0.8 mmol/L (0.5-2.2) 02/07/18 11:54 Calcium 7.8 mg/dL (8.5-10.3) L 02/09/18 05:08 Ionized Calcium YES 02/07/18 11:54 Phosphorus 6.0 mg/dL (2.5-4.6) H 02/09/18 05:08 Magnesium 2.0 mg/dL (1.7-2.8) 02/09/18 05:08 Total Bilirubin 0.6 mg/dL (0.2-1.0) 02/09/18 05:08 AST 18 IU/L (10-42) 02/09/18 05:08 ALT 14 IU/L (10-60) 02/09/18 05:08 Alkaline Phosphatase 85 IU/L (42-121) 02/09/18 05:08 Troponin I < 0.04 ng/mL (<0.49) 02/07/18 11:54 B-Natriuretic Peptide 89 pg/mL (5-100) 02/07/18 11:54 Total Protein 5.2 g/dL (6.7-8.2) L 02/09/18 05:08 Albumin 1.9 g/dL (3.2-5.5) L 02/09/18 05:08 Globulin 3.3 g/dL (2.1-4.2) 02/09/18 05:08 Albumin/Globulin Ratio 0.6 (1.0-2.2) L 02/09/18 05:08 Lipase 17 U/L (22-51) L 02/06/18 08:37 Urine Color YELLOW 02/06/18 10:37 Urine Clarity HAZY (CLEAR) 02/06/18 10:37 Urine pH 5.5 PH (5.0-7.5) 02/06/18 10:37 Ur Specific [place] 1.025 (1.002-1.030) 02/06/18 10:37 Urine Protein 100 mg/dL (NEGATIVE) H 02/06/18 10:37 Urine Glucose (UA) >=1000 mg/dL (NEGATIVE) H 02/06/18 10:37 Urine Ketones NEGATIVE mg/dL (NEGATIVE) 02/06/18 10:37 Urine Occult Blood MODERATE (NEGATIVE) H 02/06/18 10:37 Urine Nitrite NEGATIVE (NEGATIVE) 02/06/18 10:37 Urine Bilirubin NEGATIVE (NEGATIVE) 02/06/18 10:37 Urine Urobilinogen 0.2 (NORMAL) E.U./dL (NORMAL) 02/06/18 10:37 Ur Leukocyte Esterase NEGATIVE (NEGATIVE) 02/06/18 10:37 Urine RBC 6-10 /HPF (0-5) H 02/06/18 10:37 Urine WBC 6-10 /HPF (0-5) H 02/06/18 10:37 Urine WBC Clumps PRESENT 02/06/18 10:37 Ur Squamous Epith Cells FEW Squamous (<= Few) 02/06/18 10:37 Urine Crystals 0-2 Calcium Oxalate /LPF 02/06/18 08:53 Amorphous Sediment Marked /LPF 02/06/18 10:37 Urine Bacteria Many /HPF (None Seen) H 02/06/18 10:37 Urine Casts 11-25 Hyaline Casts /LPF3-5 Granular Casts /LPF 02/06/18 08:53 Urine Casts 11-25 Hyaline Casts /LPF3-5 Granular Casts /LPF 02/06/18 10:37 Urine Casts 11-25 Hyaline Casts /LPF3-5 Granular Casts /LPF 02/06/18 10:37 Urine Yeast PRESENT 02/06/18 10:37 Ur Microscopic Review INDICATED 02/06/18 10:37 Urine Culture Comments INDICATED 02/06/18 10:37 Last Dose Date UNK 02/08/18 13:35 Last Dose Time UNK 02/08/18 13:35 Random Vancomycin 12.0 ug/mL 02/08/18 13:35 ABX Reporting Has patient been on IV antibiotics over the past 48 hours?: Yes Current Medications - Current Medications Current Medications: Active Medications Generic Name Dose Route Start Last Admin Trade Name Freq PRN Reason Stop Dose Admin Acetaminophen 650 mg 02/06/18 11:45 Tylenol PO Q4HR PRN Pain 1 to 4 Albuterol 2.5 mg 02/06/18 11:45 INH Q4HR PRN Wheezing Atorvastatin Calcium 80 mg 02/06/18 21:00 02/08/18 21:03 Lipitor PO 80 mg QPM JOSE G Administration Chlorhexidine Gluconate 15 ml 02/07/18 21:00 02/09/18 09:18 Peridex PO 15 ml BID JOSE G Administration Cyclobenzaprine HCl 10 mg 02/06/18 11:43 Flexeril PO TID PRN Spasms Duloxetine HCl 60 mg 02/07/18 09:00 02/09/18 09:18 Cymbalta PO 60 mg DAILY JOSE G Administration Fluconazole 200 mg 02/08/18 09:00 02/09/18 09:18 Diflucan PO 02/21/18 09:01 200 mg DAILY JOSE G Administration Gabapentin 800 mg 02/08/18 22:00 02/09/18 06:15 Neurontin PO 800 mg TID JOSE G Administration Vancomycin HCl 2 gm/ Sodium 500 mls @ 250 mls/hr 02/07/18 14:00 02/08/18 16: 45 Chloride IV Infused Q24H JOSE G Infusion Cefepime HCl 2 gm/ Sodium 100 mls @ 200 mls/hr 02/09/18 13:00 Chloride IV Q24H JOSE G Sodium Chloride 1,000 mls @ 125 mls/hr 02/09/18 09:00 02/09/18 09:25 Normal Saline 0.9% IV 02/10/18 00:59 125 mls/hr .Q8H JOSE G Administration Insulin Aspart 1 - 9 unit 02/08/18 17:00 02/09/18 09:13 Novolog SUBQ 5 unit 0800,1200,1700,2100 JOSE G Administration Protocol Insulin Glargine 15 unit 02/09/18 21:00 Lantus Solostar SUBQ QPM JOSE G Ipratropium [employer] 0.5 mg 02/07/18 14:12 Atrovent INH RTQ4H PRN Wheezing Midazolam HCl 1 mg 02/07/18 14:12 Versed IVP Q5M PRN Sedation Nystatin 1 applic 02/06/18 12:00 02/09/18 10:26 Mycostatin Cream TOP 1 applic BID JOSE G Administration Ondansetron HCl 4 mg 02/06/18 11:45 Zofran Inj IVP Q6HR PRN Nausea / Vomiting Oxycodone HCl 5 mg 02/06/18 11:45 Roxicodone PO Q4HR PRN Pain 5 to 7 Pantoprazole Sodium 40 mg 02/08/18 07:00 02/09/18 06:16 Protonix IVP 40 mg QDAC JOSE G Administration Polyethylene Glycol 17 gm 02/07/18 09:00 02/09/18 09:14 Miralax PO 17 gm DAILY JOSE G Administration Prochlorperazine Edisylate 10 mg 02/06/18 11:45 Compazine Inj IVP Q6HR PRN Nausea / Vomiting Rivaroxaban 20 mg 02/06/18 17:00 02/08/18 17:33 Xarelto PO 20 mg QDDINNER JOSE G Administration Saccharomyces Boulardii 250 mg 02/06/18 17:00 02/09/18 09:14 Florastor PO 250 mg BIDWM JOSE G Administration Sodium Chloride 10 ml 02/06/18 11:45 02/09/18 06:13 Normal Saline Flush 0.9% IVP 10 ml PRN PRN Administration NEEDED PER PROVIDER ORDERS Sodium Chloride 10 ml 02/06/18 17:00 02/09/18 06:13 Normal Saline Flush 0.9% IVP 10 ml 0100,0900,1700 JOSE G Administration Zinc Oxide 113 gm 02/08/18 07:34 02/08/18 08:36 Desitin TOP 1 applic PRN PRN Administration Skin Care Zolpidem Tartrate 5 mg 02/06/18 11:45 Ambien PO QPM PRN Insomnia Omeprazole 20 mg PO QDAC 08/23/15 Duloxetine HCl [Cymbalta] 60 mg PO DAILY 01/15/17 Furosemide 40 mg PO DAILY 01/15/17 Atorvastatin Calcium 80 mg PO QPM 07/14/17 Cyclobenzaprine [Flexeril] 10 mg PO TID PRN 07/14/17 Felodipine [Felodipine ER] 10 mg PO DAILY 07/14/17 Rivaroxaban [Xarelto] 20 mg PO DAILY 07/14/17 Diazepam [Valium] 5 mg PO QPM PRN 02/06/18 Gabapentin [Neurontin] 800 mg PO TID 02/06/18 Hydromorphone HCl [Dilaudid] 8 mg PO Q8H 02/06/18 Insulin Aspart [NovoLOG] 3 unit SUBQ TIDWM 02/06/18 Insulin Glargine [Lantus Solostar] 10 unit SUBQ BID 02/06/18
[2018-02-09] MEDS ORDERED: SODIUM CHLORIDE 0.9% 500 ML IV ONE ×3 (11:52→14:45)
[2018-02-09] MEDS: CEFEPIME 2 GM in SODIUM CHLORIDE 0.9% MINIBAG 100 ML IV SCH (13:23)
[2018-02-09] MEDS: VANCOMYCIN INJ 2 GM in SODIUM CHLORIDE 0.9% 500 ML IV SCH (14:49)
[2018-02-09] MEDS: RIVAROXABAN 10 MG TABLET PO SCH (17:05)
[2018-02-09] MEDS: ATORVASTATIN 40 MG TABLET PO SCH (21:12)
[2018-02-09] MEDS: INSULIN GLARGINE 300 UNIT/3 ML PEN SUBQ SCH (21:18)
[2018-02-10] MEDS: SODIUM CHLORIDE FLUSH 0.9% 10 ML SYRINGE IVP SCH ×4 (01:25→21:22)
[2018-02-10 05:46] LABS: BASOPHILS # (AUTO) 0.1 10^3/uL (0.0-0.1); BASOPHILS % (AUTO) 0.7 %; EOSINOPHILS # (AUTO) 0.1 10^3/uL (0.0-0.7); EOSINOPHILS % (AUTO) 0.9 %; HGB - HEMOGLOBIN 10.3 g/dL (12.0-16.0); LYMPHOCYTES # (AUTO) 1.7 10^3/uL (1.5-3.5); LYMPHOCYTES % (AUTO) 18.6 %; MEAN CORPUSCULAR HGB CONC 32.8 g/dL (32.0-36.0); MEAN CORPUSCULAR VOLUME 94.6 fL (81.0-99.0); MONOCYTES # (AUTO) 0.6 10^3/uL (0.0-1.0); MONOCYTES % (AUTO) 6.5 %; NEUTROPHILS # (AUTO) 6.9 10^3/uL (1.5-6.6); NEUTROPHILS % (AUTO) 73.3 %; RED BLOOD COUNT 3.33 10^6/uL (4.20-5.40); RED CELL DISTRIBUTION WIDTH 14.4 % (12.0-15.0); WHITE BLOOD COUNT 9.4 x10^3/uL (4.8-10.8)
[2018-02-10 05:54] LABS: PLT - PLATELET COUNT 28 10^3/uL (130-450)
[2018-02-10 05:55] LABS: ALBUMIN/GLOBULIN RATIO 0.6 (1.0-2.2); BILIRUBIN,TOTAL 0.6 mg/dL (0.2-1.0); CALCIUM 7.2 mg/dL (8.5-10.3); CREATININE 2.6 mg/dL (0.4-1.0); PHOSPHORUS 6.1 mg/dL (2.5-4.6); TOTAL PROTEIN 5.1 g/dL (6.7-8.2)
[2018-02-10] MEDS: SODIUM CHLORIDE FLUSH 0.9% 10 ML SYRINGE IVP PRN ×4 (06:13→13:37)
[2018-02-10] MEDS: PANTOPRAZOLE 40 MG VIAL IVP SCH (06:13)
[2018-02-10] MEDS: GABAPENTIN 400 MG CAPSULE PO SCH ×3 (06:14→21:22)
[2018-02-10 06:20] LABS: RBC MORPHOLOGY (MULTIPLE) NORMAL APPEARANCE (NORMAL)
[2018-02-10 06:21] LABS: PLATELET ESTIMATE, MANUAL DECREASED (<130,000) (NORMAL); PLATELET MORPHOLOGY PLATELET CLUMPING (NORMAL)
[2018-02-10] MEDS ORDERED: SODIUM CHLORIDE 0.9% 1,000 ML IV ONE ×3 (07:37→18:05)
[2018-02-10 07:58] LABS: BASOPHILS % (AUTO) 0.5 %; EOSINOPHILS # (AUTO) 0.1 10^3/uL (0.0-0.7); EOSINOPHILS % (AUTO) 1.4 %; HGB - HEMOGLOBIN 10.2 g/dL (12.0-16.0); LYMPHOCYTES # (AUTO) 1.2 10^3/uL (1.5-3.5); LYMPHOCYTES % (AUTO) 20.4 %; MEAN CORPUSCULAR HEMOGLOBIN 30.6 pg (27.0-31.0); MEAN CORPUSCULAR HGB CONC 33.2 g/dL (32.0-36.0); MEAN CORPUSCULAR VOLUME 92.2 fL (81.0-99.0); MEAN PLATELET VOLUME 8.6 fL (7.9-10.8); MONOCYTES # (AUTO) 0.4 10^3/uL (0.0-1.0); MONOCYTES % (AUTO) 7.2 %; NEUTROPHILS # (AUTO) 4.2 10^3/uL (1.5-6.6); NEUTROPHILS % (AUTO) 70.5 %; PLT - PLATELET COUNT 210 10^3/uL (130-450); RED BLOOD COUNT 3.33 10^6/uL (4.20-5.40); RED CELL DISTRIBUTION WIDTH 14.5 % (12.0-15.0); WHITE BLOOD COUNT 5.9 x10^3/uL (4.8-10.8)
[2018-02-10 08:05] LABS: INR 1.4 (0.8-1.2); PT - PROTHROMBIN TIME 15.6 secs (9.9-12.6)
[2018-02-10] MEDS: CHLORHEXIDINE GLUCONATE 15 ML UDC PO SCH ×2 (08:09→21:15)
[2018-02-10] MEDS: INSULIN ASPART 300 UNIT/3 ML PEN SUBQ SCH ×4 (08:09→21:16)
[2018-02-10] MEDS: FLUCONAZOLE 100 MG TABLET PO SCH (08:09)
[2018-02-10] MEDS: SACCHAROMYCES BOULARDII 250 MG CAPSULE PO SCH ×2 (08:10→17:05)
[2018-02-10] MEDS: NYSTATIN CREAM 15 GM TUBE TOP SCH ×2 (08:10→21:16)
[2018-02-10] MEDS: POLYETHYLENE GLYCOL 3350 17 GM PACKET PO SCH (08:12)
[2018-02-10] MEDS: DULoxetine 30 MG CAPSULE PO SCH (08:12)
[2018-02-10] MEDS: HYDROCORTISONE SUCCINATE 100 MG/2 ML VIAL IVP SCH ×3 (11:17→21:22)
[2018-02-10] MEDS: CEFEPIME 2 GM in SODIUM CHLORIDE 0.9% MINIBAG 100 ML IV SCH (13:37)
[2018-02-10] MEDS ORDERED: VANCOMYCIN 1 GM VIAL ONE (13:43)
[2018-02-10 14:23] LABS: VANCOMYCIN,TROUGH 35.6 ug/mL (10.0-20.0)
--- NOTE | 2018-02-10 17:00 | ANESTHESIA PROCEDURE NOTE ---
Anesth Central Line Template - Central Line Central Line Preparation: Consent Obtained, Time out completed, Ultrasound used , Sterile prep and drape Central line location: Right IJ Central line type: Triple lumen Central line aftercare: Chlorhexidine disc placed, Secured, Bundle checklist complete, Pt tolerated well, Other (Right IJ triple lumen central line placed using ultrasound to image internal jugular. Wire removed. All 3 ports aspirate heme and flush easily. Chest xray pending.)
[2018-02-10] MEDS: RIVAROXABAN 10 MG TABLET PO SCH (17:05)
--- NOTE | 2018-02-10 17:18 | PROVIDER PROGRESS NOTE ---
Assessment/Plan - Problem List (1) Shock Assessment/Plan: Patient was hypotensive throughout the day yesterday and again overnight. She received 7 L of fluid up until this morning. Patient's blood pressure remained as low as 75 systolic despite. Patient was becoming increasingly lethargic. Patient did not spike fever nor did she increase her white blood cell count. This does not appear to be septic shock. Given that she has been given 7 L of fluid this does not appear to be hypovolemic shock. The patient was checked for a.m. cortisol level which was low at 1.3 making the concern for possible adrenal insufficiency and the patient. Patient was given dose of hydrocortisone 100 mg IV with which patient's blood pressure still did not respond. Had a long discussion with the patient and the family regarding how aggressive they wanted to be with treatment. They were offered transfer to the intensive care unit for central line placement and treatment with pressors. After much discussion the family and the patient decided they would like to go ahead with aggressive treatment. Patient was transferred to the intensive care unit, central line was placed and patient was started on levophed. Plan: Continue Levophed titrated for map of greater than 65 Continue IV fluids Continue hydrocortisone IV 100 mg every 6 hours Continue to monitor blood pressure Continue IV antibiotics (2) Acute renal failure superimposed on stage 3 chronic kidney disease Conclusion/Plan: Patient has a history of CKD stage III however on presentation the patient's creatinine is elevated from a baseline of about 1.1-1.4. On presentation the patient's creatinine is elevated at 1.8. This is likely secondary to ongoing infection and dehydration. 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 with poor urine output despite 7L of IVF Could have ATN from hypotension as she continues to be hypotensive Also patient has elevated vanco trough that could be cause of renal toxicity and elevated food photographer Stop Vanco We will avoid any nephrotoxic agents IVFs Consider renal ultrasound once more stable and not in shock Qualifiers: Acute renal failure type: unspecified Qualified Code(s): N17.9 - Acute kidney failure, unspecified; N18.3 - Chronic kidney disease, stage 3 (moderate) ; N18.3 - Chronic kidney disease, stage 3 (moderate); N18.3 - Chronic kidney disease, stage 3 (moderate) (3) Acute respiratory failure with hypoxia and hypercapnia Assessment/Plan: Resolved Patient intubated on 02/07/2018 and extubated on 02/08/2018 Stable Likely combination of pneumonia and over sedation secondary to opioids echo shows preserved EF Plan: Continue IV antibiotics with cefepime day 4 stopped vanco COntinue supplemental O2 Continue nebs prn Stopped dilaudid (4) CAP (community acquired pneumonia) Conclusion/Plan: Patient extubted 02/08/18 Blood cx negative Plan: Supplemental O2 prn On cefepime day 4 Nebs prn Qualifiers: Laterality: left Lung location: lower lobe of lung Qualified Code(s): J18.1 - Lobar pneumonia, unspecified organism (5) Urinary tract infection Conclusion/Plan: Patient presented with 1 week of increasing generalized weakness, confusion, fatigue and lethargy. Patient was found to have positive UA with WBCs, moderate occult blood and many bacteria. Patient was not febrile and did not have a white blood cell count but given her systemic symptoms of lethargy and acute renal failure as well as generalized weakness it was felt that she required hospitalization for treatment with IV antibiotics. Urine cx growing yeast Plan: Fluconazole 200 mg q daily day 3 of 14 Qualifiers: Urinary tract infection type: acute cystitis Hematuria presence: without hematuria Qualified Code(s): N30.00 - Acute cystitis without hematuria (6) Metabolic encephalopathy Conclusion/Plan: Resolved. The patient's metabolic encephalopathy was likely multifactorial secondary to infection, sedative medications as well as Dilaudid. Stopped dilaudid Continue IV abx (7) Type II diabetes mellitus with complication, uncontrolled Conclusion/Plan: Blood glucose is stable Continue Lantus and sliding scale insulin Monitor blood glucose before meals at bedtime Hemoglobin A1c severely elevated at 13.5 BG in the 200s this am Qualifiers: Diabetes mellitus nursing home insulin use: with continuous pickling line pickler use Qualified Code( s): E11.8 - Type 2 diabetes mellitus with unspecified complications; E11.65 - Type 2 diabetes mellitus with hyperglycemia; E11.65 - Type 2 diabetes mellitus with hyperglycemia; E11.65 - Type 2 diabetes mellitus with hyperglycemia; E11.65 - Type 2 diabetes mellitus with hyperglycemia; Z79.4 - penitentiary (current ) use of insulin; Z79.4 - penitentiary (current) use of insulin; Z79.4 - forestry and wildlife manager (current) use of insulin; Z79.4 - forestry and wildlife manager (current) use of insulin (8) Weakness generalized Conclusion/Plan: The patient has been having increasing generalized weakness for the last week and has fallen now twice. The patient's generalized weakness is likely systemic effects of ongoing infection with urinary tract infection and pneumonia. Patient also appears to be dehydrated with acute on chronic renal failure. Plan: Patient will be Continue IV fluids Patient will be Continue IV antibiotic PT consult held today secondary to change in status (9) Hyponatremia Conclusion/Plan: Na 133 IVFs (10) Venous stasis dermatitis Conclusion/Plan: Patient has bilateral venous stasis dermatitis. Wound care following and gave recommendations for wound care Qualifiers: Laterality: bilateral Qualified Code(s): I87.2 - Venous insufficiency ( chronic) (peripheral) (11) Atrial fibrillation Conclusion/Plan: Patient has history of chronic atrial fibrillation. She is in atrial fibrillation on presentation. The patient's rate is well controlled and she will be continued on her home dose of Xarelto for anticoagulation. The patient is not on any rate control agents. Stable Qualifiers: Atrial fibrillation type: chronic Qualified Code(s): I48.2 - Chronic atrial fibrillation (12) Chronic pain Conclusion/Plan: Holding dilaudid given respiratory depression Continue gabapentin and oxycodone prn Stable Qualifiers: Chronic pain type: other chronic pain Qualified Code(s): G89.29 - Other chronic pain (13) HTN (hypertension) Conclusion/Plan: BP is stable Qualifiers: Hypertension type: essential hypertension Qualified Code(s): I10 - Essential (primary) hypertension Concerns over patients current living situation and conditions voiced by RN. She will report to APS. Notified social science manager. Patient getting Dilaudid 84 tabs every month but according to patient she is not taking dilaudid and is giving pills to family to lock up but they have gone missing. She also has been babysitting her 2 year old great grandson when she cannot care for herself and requires and 24 hour caregiver. Patient however insists she wants to go home. Will await PT eval to help decide disposition. - Current Meds Current Meds: Current Medications Generic Name Dose Route Start Last Admin Trade Name Freq PRN Reason Stop Dose Admin Atorvastatin Calcium 80 mg 02/06/18 21:00 02/09/18 21:12 Lipitor PO 80 mg QPM JOSE G Administration Chlorhexidine Gluconate 15 ml 02/07/18 21:00 02/10/18 08:09 Peridex PO 15 ml BID JOSE G Administration Duloxetine HCl 60 mg 02/07/18 09:00 02/10/18 08:12 Cymbalta PO 60 mg DAILY JOSE G Administration Fluconazole 200 mg 02/08/18 09:00 02/10/18 08:09 Diflucan PO 02/21/18 09:01 200 mg DAILY JOSE G Administration Gabapentin 800 mg 02/08/18 22:00 02/10/18 13:37 Neurontin PO 800 mg TID JOSE G Administration Hydrocortisone Sodium Succinate 100 mg 02/10/18 11:00 02/10/18 11:17 Solu-Cortef IVP 100 mg TID JOSE G Administration Cefepime HCl 2 gm/ Sodium 100 mls @ 200 mls/hr 02/09/18 13:00 02/10/18 14:07 Chloride IV Infused Q24H JOSE G Infusion Insulin Aspart 2 - 10 unit 02/09/18 21:00 02/10/18 11:18 Novolog SUBQ 4 unit 0800,1200,1700,2100 JOSE G Administration Protocol Insulin Glargine 15 unit 02/09/18 21:00 02/09/18 21:18 Lantus Solostar SUBQ 15 unit QPM JOSE G Administration Nystatin 1 applic 02/06/18 12:00 02/10/18 08:10 Mycostatin Cream TOP 1 applic BID JOSE G Administration Pantoprazole Sodium 40 mg 02/08/18 07:00 02/10/18 06:13 Protonix IVP 40 mg QDAC JOSE G Administration Polyethylene Glycol 17 gm 02/07/18 09:00 02/10/18 08:12 Miralax PO Not Given DAILY [facility] Rivaroxaban 20 mg 02/06/18 17:00 02/09/18 17:05 Xarelto PO 20 mg QDDINNER JOSE G Administration Saccharomyces Boulardii 250 mg 02/06/18 17:00 02/10/18 08:10 Florastor PO 250 mg BIDWM JOSE G Administration Sodium Chloride 10 ml 02/06/18 11:45 02/10/18 13:37 Normal Saline Flush 0.9% IVP 10 ml PRN PRN Administration NEEDED PER PROVIDER ORDERS Sodium Chloride 10 ml 02/06/18 17:00 02/10/18 06:13 Normal Saline Flush 0.9% IVP 10 ml 0100,0900,1700 JOSE G Administration Zinc Oxide 113 gm 02/08/18 07:34 02/08/18 08:36 Desitin TOP 1 applic PRN PRN Administration Skin Care - Lab Result Lab results reviewed: Yes Fish Bone Diagrams: 02/10/18 07:50 02/10/18 05:24 - Diagnostic Imaging Results Diagnostic Imaging Results: Final report reviewed - Additional Planning Condition/Complexity: Critical My Orders: My Active Orders 02/09/18 21:00 Insulin Aspart [NovoLOG] 2 - 10 unit SUBQ 0800,1200,1700,2100 Insulin Glargine [Lantus Solostar] 15 unit SUBQ QPM 02/10/18 09:00 ABG - ARTERIAL BLOOD GAS [BG] DAILY 02/10/18 11:00 Hydrocortisone Succinate [Solu-CORTEF] 100 mg IVP TID 02/10/18 13:44 EKG - Electrocardiogram [RC] .ONCE 02/10/18 15:12 Admit \ Transfer \ Status [RC] ONCE Central Line Insertion [RC] ONCE IO [RC] Q1HR Initiate ICU Electrolyte Prot. [RC] .protocol Vital Signs [RC] Q1HR MRSA PCR, CCU ADMIT [RAPID] Routine 02/10/18 16:00 Dextrose 5% [D5w] 242 ml NORepinephrine [Levophed] 8 mg IV 8 mcg/min 02/11/18 05:00 CORTISOL,AM [IAI] DAILYLAB 02/11/18 09:00 ABG - ARTERIAL BLOOD GAS [BG] DAILY 02/12/18 09:00 ABG - ARTERIAL BLOOD GAS [BG] DAILY Consult/Specialty: PT Plan Discussed with:: Patient, Family Time Spent: Greater than 60 minutes Subjective - Subjective Patient Reports: Other (Patient is lethargic arouse. She denies any chest pain , fevers, chills, abdominal pain, nausea, vomiting, diarrhea or any coughing or shortness of breath.) Objective Vital Signs: Vital Signs - 24 hr 02/09/18 02/10/18 02/10/18 19:39 00:00 04:00 Temperature 36.2 C L 36.5 C 36.2 C L Heart Rate [ 92 85 85 Brachial] Heart Rate [ Monitoring electrodes] Respiratory 16 18 16 Rate Blood Pressure 87/57 L 84/52 L 83/53 L [Right Brachial artery] O2 Saturation 98 99 96 02/10/18 02/10/18 02/10/18 08:00 12:00 13:55 Temperature 36.4 C L 36.4 C L Heart Rate [ 95 86 Brachial] Heart Rate [ 93 Monitoring electrodes] Respiratory 16 18 Rate Blood Pressure 75/47 L 78/50 L 92/53 L [Right Brachial artery] O2 Saturation 96 95 02/10/18 02/10/18 14:00 15:24 Temperature 36.4 C L Heart Rate [ Brachial] Heart Rate [ 99 85 Monitoring electrodes] Respiratory 16 16 Rate Blood Pressure 91/58 L 96/72 [Right Brachial artery] O2 Saturation 94 93 Oxygen O2 Source [With Activity] Nasal cannula O2 Source Nasal cannula I&O (Last 24 Hrs): Intake and Output Totals x24h 02/08/18 02/09/18 02/10/18 23:59 23:59 23:59 Intake Total 2097.367 5500 2340 Output Total 586 405 200 Balance 6961.974 6112 2140 General: No acute distress, Other (Lethargic) HEENT: Atraumatic, PERRLA, EOMI, Other (Dry mucus membranes) Neck: Supple, No JVD, No thyromegaly, +2 carotid pulse wo bruit, No LAD Lymphatic: no adenopathy Neuro: Non Focal, CN 2-12 Grossly Intact, Oriented Times 3, Other (Lethargic) Cardiovascular: No murmurs, Other (Irregular) Respiratory: Chest non-tender, No respiratory distress, Rales (Bases), Rhonchi Abdomen: Normal bowel sounds, Soft, No tenderness, No hepatospenomegaly, Other ( Obese) Extremities: Other (Bilateral LE edema and stasis dermatitis) Comments/Notes: Yeast infection in folds and lesions on legs - Results Results: Laboratory Results WBC 5.9 x10^3/uL (4.8-10.8) 02/10/18 07:50 RBC 3.33 10^6/uL (4.20-5.40) L 02/10/18 07:50 Hgb 10.2 g/dL (12.0-16.0) L 02/10/18 07:50 Hct 30.7 % (37.0-47.0) L 02/10/18 07:50 MCV 92.2 fL (81.0-99.0) 02/10/18 07:50 MCH 30.6 pg (27.0-31.0) 02/10/18 07:50 MCHC 33.2 g/dL (32.0-36.0) 02/10/18 07:50 RDW 14.5 % (12.0-15.0) 02/10/18 07:50 Plt Count 210 10^3/uL (130-450) 02/10/18 07:50 MPV 8.6 fL (7.9-10.8) 02/10/18 07:50 Neut # (Auto) 4.2 10^3/uL (1.5-6.6) 02/10/18 07:50 Lymph # (Auto) 1.2 10^3/uL (1.5-3.5) L 02/10/18 07:50 Ross # (Auto) 0.4 10^3/uL (0.0-1.0) 02/10/18 07:50 Eos # (Auto) 0.1 10^3/uL (0.0-0.7) 02/10/18 07:50 Baso # (Auto) 0.0 10^3/uL (0.0-0.1) 02/10/18 07:50 Absolute Nucleated RBC 0.00 x10^3/uL 02/10/18 07:50 Nucleated RBC % 0.0 /100WBC 02/10/18 07:50 Manual Slide Review Indicated 02/10/18 05:24 Platelet Estimate DECREASED (<130,000) (NORMAL) 02/10/18 05:24 Platelet Morphology PLATELET CLUMPING (NORMAL) 02/10/18 05:24 RBC Morph Micro Appear NORMAL APPEARANCE (NORMAL) 02/10/18 05:24 PT 15.6 secs (9.9-12.6) H 02/10/18 07:50 INR 1.4 (0.8-1.2) H 02/10/18 07:50 APTT 30.3 secs (24.9-33.3) 02/06/18 08:37 Bld Gas Analysis Time 1303 02/08/18 12:56 Sample Site LEFT RADIAL 02/08/18 12:56 Patient Temperature 36.7 CELSIUS 02/07/18 11:33 ABG pH 7.32 (7.35-7.45) L 02/08/18 12:56 ABG pCO2 45 mmHg (34-45) 02/08/18 12:56 ABG pO2 112 mmHg (80-100) H 02/08/18 12:56 ABG HCO3 22.7 mmol/L (22.0-26.0) 02/08/18 12:56 ABG Total CO2 24.1 MMOL/L (21.0-29.0) 02/08/18 12:56 ABG O2 Saturation 98 % (94-98) 02/08/18 12:56 ABG Oximetry Spot Check 99 % 02/08/18 12:56 ABG Base Excess -3.3 mmol/L (-2.0-3.0) L 02/08/18 12:56 Riley Test POSITIVE 02/08/18 12:56 VBG pH 7.301 (7.31-7.41) L 02/07/18 11:54 Ionized Calcium 1.09 mmol/L (1.15-1.33) L 02/07/18 11:54 Respiration Rate 15 b/min 02/08/18 12:56 O2 Delivery Device VENTILATOR 02/08/18 12:56 O2 Liters/Min 15.00 LPM 02/07/18 11:33 Vent Mode SIMV 02/07/18 16:40 FiO2 35.00 02/08/18 12:56 Tidal Volume 864 mL 02/08/18 12:56 PEEP 5 cmH2O 02/08/18 12:56 Pressure Support Vent 10 cmH2O 02/07/18 16:40 EPAP 6 cmH2O 02/07/18 13:38 IPAP 12 cmH2O 02/07/18 13:38 Sodium 133 mmol/L (135-145) L 02/10/18 05:24 Potassium 4.6 mmol/L (3.5-5.0) 02/10/18 05:24 Chloride 106 mmol/L (101-111) 02/10/18 05:24 Carbon Dioxide 22 mmol/L (21-32) 02/10/18 05:24 Anion Gap 5.0 (6-13) L 02/10/18 05:24 BUN 45 mg/dL (6-20) H 02/10/18 05:24 Creatinine 2.6 mg/dL (0.4-1.0) H 02/10/18 05:24 Estimated GFR (MDRD) 18 (>89) L 02/10/18 05:24 Glucose 221 mg/dL (70-100) H 02/10/18 05:24 POC Whole Bld Glucose 204 mg/dL (70 - 100) H 02/10/18 11:15 Glycated Hemoglobin 13.5 % (4.6-6.2) H 02/07/18 04:30 Estim Average Glucose 341 (70-100) H 02/07/18 04:30 Lactic Acid 1.0 mmol/L (0.5-2.2) 02/10/18 14:15 Calcium 7.2 mg/dL (8.5-10.3) L 02/10/18 05:24 Ionized Calcium YES 02/07/18 11:54 Phosphorus 6.1 mg/dL (2.5-4.6) H 02/10/18 05:24 Magnesium 2.0 mg/dL (1.7-2.8) 02/10/18 05:24 Total Bilirubin 0.6 mg/dL (0.2-1.0) 02/10/18 05:24 AST 17 IU/L (10-42) 02/10/18 05:24 ALT 12 IU/L (10-60) 02/10/18 05:24 Alkaline Phosphatase 76 IU/L (42-121) 02/10/18 05:24 Troponin I < 0.04 ng/mL (<0.49) 02/10/18 14:15 B-Natriuretic Peptide 89 pg/mL (5-100) 02/07/18 11:54 Total Protein 5.1 g/dL (6.7-8.2) L 02/10/18 05:24 Albumin 2.0 g/dL (3.2-5.5) L 02/10/18 05:24 Globulin 3.1 g/dL (2.1-4.2) 02/10/18 05:24 Albumin/Globulin Ratio 0.6 (1.0-2.2) L 02/10/18 05:24 Lipase 17 U/L (22-51) L 02/06/18 08:37 Cortisol AM Sample 1.3 ug/dL 02/10/18 07:50 Urine Color YELLOW 02/06/18 10:37 Urine Clarity HAZY (CLEAR) 02/06/18 10:37 Urine pH 5.5 PH (5.0-7.5) 02/06/18 10:37 Ur Specific [place] 1.025 (1.002-1.030) 02/06/18 10:37 Urine Protein 100 mg/dL (NEGATIVE) H 02/06/18 10:37 Urine Glucose (UA) >=1000 mg/dL (NEGATIVE) H 02/06/18 10:37 Urine Ketones NEGATIVE mg/dL (NEGATIVE) 02/06/18 10:37 Urine Occult Blood MODERATE (NEGATIVE) H 02/06/18 10:37 Urine Nitrite NEGATIVE (NEGATIVE) 02/06/18 10:37 Urine Bilirubin NEGATIVE (NEGATIVE) 02/06/18 10:37 Urine Urobilinogen 0.2 (NORMAL) E.U./dL (NORMAL) 02/06/18 10:37 Ur Leukocyte Esterase NEGATIVE (NEGATIVE) 02/06/18 10:37 Urine RBC 6-10 /HPF (0-5) H 02/06/18 10:37 Urine WBC 6-10 /HPF (0-5) H 02/06/18 10:37 Urine WBC Clumps PRESENT 02/06/18 10:37 Ur Squamous Epith Cells FEW Squamous (<= Few) 02/06/18 10:37 Urine Crystals 0-2 Calcium Oxalate /LPF 02/06/18 08:53 Amorphous Sediment Marked /LPF 02/06/18 10:37 Urine Bacteria Many /HPF (None Seen) H 02/06/18 10:37 Urine Casts 11-25 Hyaline Casts /LPF3-5 Granular Casts /LPF 02/06/18 08:53 Urine Casts 11-25 Hyaline Casts /LPF3-5 Granular Casts /LPF 02/06/18 10:37 Urine Casts 11-25 Hyaline Casts /LPF3-5 Granular Casts /LPF 02/06/18 10:37 Urine Yeast PRESENT 02/06/18 10:37 Ur Microscopic Review INDICATED 02/06/18 10:37 Urine Culture Comments INDICATED 02/06/18 10:37 Last Dose Date 02/10/18 02/10/18 13:35 Last Dose Time 1700 02/10/18 13:35 Vancomycin Trough 35.6 ug/mL (10.0-20.0) H* 02/10/18 13:35 Random Vancomycin 12.0 ug/mL 02/08/18 13:35 ABX Reporting Has patient been on IV antibiotics over the past 48 hours?: Yes Current Medications - Current Medications Current Medications: Active Medications Generic Name Dose Route Start Last Admin Trade Name Freq PRN Reason Stop Dose Admin Acetaminophen 650 mg 02/06/18 11:45 Tylenol PO Q4HR PRN Pain 1 to 4 Albuterol 2.5 mg 02/06/18 11:45 INH Q4HR PRN Wheezing Atorvastatin Calcium 80 mg 02/06/18 21:00 02/09/18 21:12 Lipitor PO 80 mg QPM JOSE G Administration Chlorhexidine Gluconate 15 ml 02/07/18 21:00 02/10/18 08:09 Peridex PO 15 ml BID JOSE G Administration Cyclobenzaprine HCl 10 mg 02/06/18 11:43 Flexeril PO TID PRN Spasms Duloxetine HCl 60 mg 02/07/18 09:00 02/10/18 08:12 Cymbalta PO 60 mg DAILY JOSE G Administration Fluconazole 200 mg 02/08/18 09:00 02/10/18 08:09 Diflucan PO 02/21/18 09:01 200 mg DAILY JOSE G Administration Gabapentin 800 mg 02/08/18 22:00 02/10/18 13:37 Neurontin PO 800 mg TID JOSE G Administration Hydrocortisone Sodium Succinate 100 mg 02/10/18 11:00 02/10/18 17:05 Solu-Cortef IVP 100 mg TID JOSE G Administration Cefepime HCl 2 gm/ Sodium 100 mls @ 200 mls/hr 02/09/18 13:00 02/10/18 14:07 Chloride IV Infused Q24H JOSE G Infusion Norepinephrine Bitartrate 8 mg 250 mls @ 15 mls/hr 02/10/18 16:00 / Dextrose IV .[id number] [facility] Protocol 8 MCG/MIN Insulin Aspart 2 - 10 unit 02/09/18 21:00 02/10/18 17:15 Novolog SUBQ 6 unit 0800,1200,1700,2100 JOSE G Administration Protocol Insulin Glargine 15 unit 02/09/18 21:00 02/09/18 21:18 Lantus Solostar SUBQ 15 unit QPM JOSE G Administration Ipratropium [place] 0.5 mg 02/07/18 14:12 Atrovent INH RTQ4H PRN Wheezing Midazolam HCl 1 mg 02/07/18 14:12 Versed IVP Q5M PRN Sedation Nystatin 1 applic 02/06/18 12:00 02/10/18 08:10 Mycostatin Cream TOP 1 applic BID JOSE G Administration Ondansetron HCl 4 mg 02/06/18 11:45 Zofran Inj IVP Q6HR PRN Nausea / Vomiting Oxycodone HCl 5 mg 02/06/18 11:45 Roxicodone PO Q4HR PRN Pain 5 to 7 Pantoprazole Sodium 40 mg 02/08/18 07:00 02/10/18 06:13 Protonix IVP 40 mg QDAC JOSE G Administration Polyethylene Glycol 17 gm 02/07/18 09:00 02/10/18 08:12 Miralax PO Not Given DAILY [facility] Prochlorperazine Edisylate 10 mg 02/06/18 11:45 Compazine Inj IVP Q6HR PRN Nausea / Vomiting Rivaroxaban 20 mg 02/06/18 17:00 02/10/18 17:05 Xarelto PO 20 mg QDDINNER JOSE G Administration Saccharomyces Boulardii 250 mg 02/06/18 17:00 02/10/18 17:05 Florastor PO 250 mg BIDWM JOSE G Administration Sodium Chloride 10 ml 02/06/18 11:45 02/10/18 13:37 Normal Saline Flush 0.9% IVP 10 ml PRN PRN Administration NEEDED PER PROVIDER ORDERS Sodium Chloride 10 ml 02/06/18 17:00 02/10/18 17:05 Normal Saline Flush 0.9% IVP 10 ml 0100,0900,1700 JOSE G Administration Zinc Oxide 113 gm 02/08/18 07:34 02/08/18 08:36 Desitin TOP 1 applic PRN PRN Administration Skin Care Zolpidem Tartrate 5 mg 02/06/18 11:45 Ambien PO QPM PRN Insomnia Omeprazole 20 mg PO QDAC 08/23/15 Duloxetine HCl [Cymbalta] 60 mg PO DAILY 01/15/17 Furosemide 40 mg PO DAILY 01/15/17 Atorvastatin Calcium 80 mg PO QPM 07/14/17 Cyclobenzaprine [Flexeril] 10 mg PO TID PRN 07/14/17 Felodipine [Felodipine ER] 10 mg PO DAILY 07/14/17 Rivaroxaban [Xarelto] 20 mg PO DAILY 11/26/17 Diazepam [Valium] 5 mg PO QPM PRN 02/06/18 Gabapentin [Neurontin] 800 mg PO TID 02/06/18 Hydromorphone HCl [Dilaudid] 8 mg PO Q8H 02/06/18 Insulin Aspart [NovoLOG] 3 unit SUBQ TIDWM 02/06/18 Insulin Glargine [Lantus Solostar] 10 unit SUBQ BID 02/06/18
[2018-02-10] MEDS: ATORVASTATIN 40 MG TABLET PO SCH (21:16)
[2018-02-10] MEDS: INSULIN GLARGINE 300 UNIT/3 ML PEN SUBQ SCH (21:17)
--- NOTE | 2018-02-11 03:34 | XRAY Report ---
Procedure Date: 02/10/2018 Accession Number: [id number] / [id number] Procedure: XR - Chest for Line Placement CPT Code: FULL RESULT: EXAM: CHEST RADIOGRAPHY EXAM DATE: 02/10/2018 05:23 PM. CLINICAL HISTORY: Central line placement. COMPARISON: Chest 1 view 02/08/2018. TECHNIQUE: 1 view. FINDINGS: Lungs/Pleura: Increasing degree of opacification left lung base such that the inferior half of the left lung is now obscured, previously one-third. New small airspace opacities right lung base. Mildly low lung volumes. No vasculature congestion nor pneumothorax. Mediastinum: Stable mild cardiomegaly. Interval removal of the endotracheal and NG tubes. New right jugular line with the tip inferior third SVC. No tracheal shift. Other: None. IMPRESSION: 1. New right jugular line tip inferior third SVC. 2. Mild cardiomegaly. 3. Increasing bibasilar consolidation/atelectasis, remaining left greater than right. 4. Suspect increasing moderate left pleural effusion. RADIA
[2018-02-11] MEDS: HYDROCORTISONE SUCCINATE 100 MG/2 ML VIAL IVP SCH ×3 (06:16→21:34)
[2018-02-11] MEDS: SODIUM CHLORIDE FLUSH 0.9% 10 ML SYRINGE IVP PRN ×2 (06:16→14:19)
[2018-02-11] MEDS: SODIUM CHLORIDE FLUSH 0.9% 10 ML SYRINGE IVP SCH ×3 (06:16→21:40)
[2018-02-11] MEDS: GABAPENTIN 400 MG CAPSULE PO SCH ×3 (06:16→21:34)
[2018-02-11] MEDS: PANTOPRAZOLE 40 MG VIAL IVP SCH (06:29)
[2018-02-11 06:42] LABS: BASOPHILS % (AUTO) 0.1 %; HGB - HEMOGLOBIN 10.8 g/dL (12.0-16.0); LYMPHOCYTES # (AUTO) 0.4 10^3/uL (1.5-3.5); LYMPHOCYTES % (AUTO) 7.7 %; MEAN CORPUSCULAR HEMOGLOBIN 30.2 pg (27.0-31.0); MEAN CORPUSCULAR HGB CONC 32.8 g/dL (32.0-36.0); MEAN CORPUSCULAR VOLUME 92.1 fL (81.0-99.0); MEAN PLATELET VOLUME 9.5 fL (7.9-10.8); MONOCYTES # (AUTO) 0.1 10^3/uL (0.0-1.0); MONOCYTES % (AUTO) 2.1 %; NEUTROPHILS # (AUTO) 4.2 10^3/uL (1.5-6.6); NEUTROPHILS % (AUTO) 90.1 %; PLT - PLATELET COUNT 162 10^3/uL (130-450); RED BLOOD COUNT 3.58 10^6/uL (4.20-5.40); WHITE BLOOD COUNT 4.7 x10^3/uL (4.8-10.8)
[2018-02-11 06:58] LABS: ALBUMIN 1.9 g/dL (3.2-5.5); ALBUMIN/GLOBULIN RATIO 0.5 (1.0-2.2); BILIRUBIN,TOTAL 0.5 mg/dL (0.2-1.0); CALCIUM 7.4 mg/dL (8.5-10.3); TOTAL PROTEIN 5.4 g/dL (6.7-8.2)
[2018-02-11] MEDS: INSULIN ASPART 300 UNIT/3 ML PEN SUBQ SCH ×4 (09:17→21:35)
[2018-02-11] MEDS: SACCHAROMYCES BOULARDII 250 MG CAPSULE PO SCH ×2 (09:18→17:01)
[2018-02-11] MEDS: DULoxetine 30 MG CAPSULE PO SCH (09:19)
[2018-02-11] MEDS: CHLORHEXIDINE GLUCONATE 15 ML UDC PO SCH ×2 (09:19→21:35)
[2018-02-11] MEDS: FLUCONAZOLE 100 MG TABLET PO SCH (09:20)
[2018-02-11] MEDS: POLYETHYLENE GLYCOL 3350 17 GM PACKET PO SCH (09:21)
[2018-02-11] MEDS: COD LIVER OIL/ZINC OXIDE 113 GM TUBE TOP PRN ×2 (09:58→22:58)
[2018-02-11] MEDS: NYSTATIN CREAM 15 GM TUBE TOP SCH ×2 (09:59→22:58)
[2018-02-11] MEDS ORDERED: MIN OIL/DIMETHICON/COCONUT OIL 92 GM TUBE TOP ONE (12:32)
[2018-02-11] MEDS: CEFEPIME 2 GM in SODIUM CHLORIDE 0.9% MINIBAG 100 ML IV SCH (14:00)
[2018-02-11] MEDS: DOCUSATE SODIUM 250 MG CAPSULE PO SCH (14:46)
[2018-02-11] MEDS: SENNA 8.6 MG TABLET PO SCH (14:46)
--- NOTE | 2018-02-11 15:12 | Ultrasound Report ---
Procedure Date: 02/11/2018 Accession Number: [id number] / [id number] Procedure: US - Retroperitoneal Limited CPT Code: FULL RESULT: EXAM: Retroperitoneal Limited DATE: 02/11/2018 3:05 PM CLINICAL HISTORY: ARF COMPARISON: 08/02/2013 TECHNIQUE: Real-time scanning was performed with static images obtained. FINDINGS: Right Kidney: 10.5 x 6.0 x 4.6 cm. Possible small nonobstructing stone in an interpolar calyx. No hydronephrosis or solid renal lesion. Left Kidney: 10.5 x 6.5 x 5.7 cm. Normal echotexture with no stones, contour-deforming masses, or hydronephrosis.] Bladder: Decompressed with a [place] catheter. IMPRESSION: No hydronephrosis. Possible small nonobstructing right renal calculus. RADIA
--- NOTE | 2018-02-11 15:32 | PROVIDER PROGRESS NOTE ---
Assessment/Plan - Problem List (1) Adrenal insufficiency Assessment/Plan: Pt is now on tid Hydrocortisone replacement. Monitor a repeat am cortisol level on treatment. Will also check thyroid function tests (2) Acute renal failure superimposed on stage 3 chronic kidney disease Qualifiers: Acute renal failure type: unspecified Qualified Code(s): N17.9 - Acute kidney failure, unspecified; N18.3 - Chronic kidney disease, stage 3 (moderate) ; N18.3 - Chronic kidney disease, stage 3 (moderate); N18.3 - Chronic kidney disease, stage 3 (moderate) Assessment/Plan: Daily creat is climbing, despite 7L (+) fluid balance and 11 lb weight gain since admission. Will get US of renals, to R/O obstruction and evaluate kidney sizes. Will add renal diet to carb-controlled diet restrictions. Monitor daily BUN/creat and K If no better tomorrow, or if she becomes oliguric, will offer transfer to higher level of care facility (3) Acute respiratory failure with hypoxia and hypercapnia Assessment/Plan: Pt has improved clinically. Continue prn O2 and trear CAP, await culture results. (4) CAP (community acquired pneumonia) Qualifiers: Laterality: right Lung location: lower lobe of lung Qualified Code(s): J18.1 - Lobar pneumonia, unspecified organism Assessment/Plan: Pt on empiric antibiotics. await culture results. (5) Urinary tract infection Qualifiers: Urinary tract infection type: acute cystitis Hematuria presence: without hematuria Qualified Code(s): N30.00 - Acute cystitis without hematuria Assessment/Plan: Continue Diflucan for yeast UTI (6) Metabolic encephalopathy Assessment/Plan: Pt fatigued but confusion has resolved (7) Diabetes Qualifiers: Diabetes mellitus type: type 2 Assessment/Plan: Continue carb-controlled diet, ss Insulin and monitor glu achs (8) Weakness generalized Assessment/Plan: Pt still fatigued, has not been OOB, but is a billie lift qualifying Pt Will start OOB to chair tomorrow if Pt nore awake and ble to cooperate. (9) Hyponatremia Assessment/Plan: Willrestrict free water. Monitor daiuly BMP (10) Venous stasis dermatitis Qualifiers: Laterality: bilateral Qualified Code(s): I87.2 - Venous insufficiency ( chronic) (peripheral) Assessment/Plan: Pt to get compression bandaging. (11) Chronic a-fib Assessment/Plan: HR is under good control. Pt on appropriate Xarelto dose, changed for renal insufficiency. (12) Chronic pain Qualifiers: Chronic pain type: other chronic pain Qualified Code(s): G89.29 - Other chronic pain Assessment/Plan: Continue Gabapentin and prn narcotics. - Current Meds Current Meds: Current Medications Generic Name Dose Route Start Last Admin Trade Name Freq PRN Reason Stop Dose Admin Atorvastatin Calcium 80 mg 02/06/18 21:00 02/10/18 21:16 Lipitor PO 80 mg QPM JOSE G Administration Chlorhexidine Gluconate 15 ml 02/07/18 21:00 02/11/18 09:19 Peridex PO 15 ml BID JOSE G Administration Docusate Sodium 250 - 500 mg 02/11/18 12:00 02/11/18 14:46 Colace 250mg Capsule PO 250 mg DAILY JOSE G Administration Duloxetine HCl 60 mg 02/07/18 09:00 02/11/18 09:19 Cymbalta PO 60 mg DAILY JOSE G Administration Fluconazole 200 mg 02/08/18 09:00 02/11/18 09:20 Diflucan PO 02/21/18 09:01 200 mg DAILY JOSE G Administration Gabapentin 800 mg 02/08/18 22:00 02/11/18 14:46 Neurontin PO 800 mg TID JOSE G Administration Heparin Sodium (Beef Lung) 30 - 50 unit 02/10/18 18:56 02/11/18 06:17 IVP 50 unit PRN PRN Administration Central Line Protocol (<24 hr) Hydrocortisone Sodium Succinate 100 mg 02/10/18 11:00 02/11/18 14:17 Solu-Cortef IVP 100 mg TID JOSE G Administration Cefepime HCl 2 gm/ Sodium 100 mls @ 200 mls/hr 02/09/18 13:00 02/11/18 14:00 Chloride IV 200 mls/hr Q24H JOSE G Administration Insulin Aspart 3 - 11 unit 02/11/18 12:00 02/11/18 13:58 Novolog SUBQ 11 unit 0800,1200,1700,2100 JOSE G Administration Protocol Insulin Glargine 15 unit 02/09/18 21:00 02/10/18 21:17 Lantus Solostar SUBQ 15 unit QPM JOSE G Administration Nystatin 1 applic 02/06/18 12:00 02/11/18 09:59 Mycostatin Cream TOP 1 applic BID JOSE G Administration Pantoprazole Sodium 40 mg 02/08/18 07:00 02/11/18 06:29 Protonix IVP 40 mg QDAC JOSE G Administration Polyethylene Glycol 17 gm 02/07/18 09:00 02/11/18 09:21 Miralax PO 17 gm DAILY JOSE G Administration Saccharomyces Boulardii 250 mg 02/06/18 17:00 02/11/18 09:18 Florastor PO 250 mg BIDWM JOSE G Administration Senna 8.6 - 17.2 mg 02/11/18 12:00 02/11/18 14:46 Senokot PO 17.2 mg DAILY JOSE G Administration Sodium Chloride 10 ml 02/06/18 11:45 02/11/18 14:19 Normal Saline Flush 0.9% IVP 10 ml PRN PRN Administration NEEDED PER PROVIDER ORDERS Sodium Chloride 10 ml 02/06/18 17:00 02/11/18 06:16 Normal Saline Flush 0.9% IVP 10 ml 0100,0900,1700 JOSE G Administration Zinc Oxide 113 gm 02/08/18 07:34 02/11/18 09:58 Desitin TOP 1 applic PRN PRN Administration Skin Care - Lab Result Fish Bone Diagrams: 02/11/18 06:28 02/11/18 06:28 - Additional Planning My Orders: My Active Orders 02/11/18 Lunch Hepatic/Renal Diet [DIET] 02/12/18 05:00 BMP - BASIC METABOLIC PANEL [CHEM] DAILYLAB CBC - COMP BLD CT W/AUTO DIFF [HEME] DAILYLAB 02/13/18 05:00 BMP - BASIC METABOLIC PANEL [CHEM] DAILYLAB CBC - COMP BLD CT W/AUTO DIFF [HEME] DAILYLAB 02/14/18 05:00 BMP - BASIC METABOLIC PANEL [CHEM] DAILYLAB CBC - COMP BLD CT W/AUTO DIFF [HEME] DAILYLAB Subjective - Subjective Patient Reports: Resting Comfortably Nursing Reports: Other (Getting compression wraps of legs) Objective Vital Signs: Vital Signs - 24 hr 02/10/18 02/10/18 02/10/18 17:53 17:55 18:00 Temperature Heart Rate [ 88 92 84 Monitoring electrodes] Respiratory 19 17 18 Rate Blood Pressure 97/57 L [Left Brachial artery] Blood Pressure 104/61 106/63 [Right Brachial artery] O2 Saturation 98 96 95 06/25/18 06/25/18 06/25/18 18:05 18:10 18:26 Temperature 36.4 C L Heart Rate [ 90 88 91 Monitoring electrodes] Respiratory 16 12 16 Rate Blood Pressure [Left Brachial artery] Blood Pressure 119/49 L 108/69 97/57 L [Right Brachial artery] O2 Saturation 96 93 92 02/10/18 02/10/18 02/10/18 18:44 19:05 20:00 Temperature 36.4 C L Heart Rate [ 90 91 92 Monitoring electrodes] Respiratory 21 18 13 Rate Blood Pressure [Left Brachial artery] Blood Pressure 104/64 103/66 102/54 L [Right Brachial artery] O2 Saturation 92 98 97 02/10/18 02/10/18 02/10/18 21:00 21:30 22:00 Temperature Heart Rate [ 89 89 87 Monitoring electrodes] Respiratory 12 16 20 Rate Blood Pressure [Left Brachial artery] Blood Pressure 111/72 132/53 H 93/65 [Right Brachial artery] O2 Saturation 96 96 95 02/10/18 02/11/18 02/11/18 23:00 00:00 01:00 Temperature Heart Rate [ 85 87 86 Monitoring electrodes] Respiratory 16 9 L 12 Rate Blood Pressure [Left Brachial artery] Blood Pressure 95/61 103/72 96/65 [Right Brachial artery] O2 Saturation 95 96 96 02/11/18 02/11/18 02/11/18 02:00 03:00 04:00 Temperature Heart Rate [ 88 88 89 Monitoring electrodes] Respiratory 18 22 22 Rate Blood Pressure [Left Brachial artery] Blood Pressure 125/79 122/81 H 121/82 H [Right Brachial artery] O2 Saturation 94 97 97 02/11/18 02/11/18 02/11/18 05:00 06:00 07:00 Temperature 36.4 C L 36.2 C L Heart Rate [ 90 87 85 Monitoring electrodes] Respiratory 20 17 16 Rate Blood Pressure [Left Brachial artery] Blood Pressure 122/80 121/79 117/80 [Right Brachial artery] O2 Saturation 97 97 98 02/11/18 02/11/18 02/11/18 08:00 09:00 10:00 Temperature 35.9 C L 36.0 C L 36.0 C L Heart Rate [ 84 82 91 Monitoring electrodes] Respiratory 15 15 14 Rate Blood Pressure [Left Brachial artery] Blood Pressure 125/78 110/46 L 122/94 H [Right Brachial artery] O2 Saturation 98 94 94 02/11/18 02/11/18 02/11/18 11:00 12:00 13:00 Temperature 35.9 C L 35.9 C L 35.9 C L Heart Rate [ 84 90 88 Monitoring electrodes] Respiratory 24 25 H 20 Rate Blood Pressure [Left Brachial artery] Blood Pressure 125/82 H 125/82 H 126/86 H [Right Brachial artery] O2 Saturation 93 95 94 02/11/18 02/11/18 14:00 15:00 Temperature 36.1 C L 37.0 C Heart Rate [ 80 80 Monitoring electrodes] Respiratory 18 20 Rate Blood Pressure [Left Brachial artery] Blood Pressure 123/81 H 113/62 [Right Brachial artery] O2 Saturation 95 95 Oxygen O2 Source [With Activity] Nasal cannula O2 Source Room air I&O (Last 24 Hrs): Intake and Output Totals x24h 02/09/18 02/10/18 02/11/18 23:59 23:59 23:59 Intake Total 5500 2440 860 Output Total 405 425 825 Balance [id number] General: Other (sleeping) HEENT: Atraumatic, Mucous membr. moist/pink Neck: Supple Cardiovascular: No murmurs Respiratory: No respiratory distress Abdomen: Other (Large pannus, cannot eval for organomegaly or bowel sounds) Extremities: Other (venous stasis an 2+ edema, bandaging with compression wraps) - Results Results: Laboratory Results WBC 4.7 x10^3/uL (4.8-10.8) L 02/11/18 06:28 RBC 3.58 10^6/uL (4.20-5.40) L 02/11/18 06:28 Hgb 10.8 g/dL (12.0-16.0) L 02/11/18 06:28 Hct 33.0 % (37.0-47.0) L 02/11/18 06:28 MCV 92.1 fL (81.0-99.0) 02/11/18 06:28 MCH 30.2 pg (27.0-31.0) 02/11/18 06:28 MCHC 32.8 g/dL (32.0-36.0) 02/11/18 06:28 RDW 14.0 % (12.0-15.0) 02/11/18 06:28 Plt Count 162 10^3/uL (130-450) 02/11/18 06:28 MPV 9.5 fL (7.9-10.8) 02/11/18 06:28 Neut # (Auto) 4.2 10^3/uL (1.5-6.6) 02/11/18 06:28 Lymph # (Auto) 0.4 10^3/uL (1.5-3.5) L 02/11/18 06:28 [place] # (Auto) 0.1 10^3/uL (0.0-1.0) 02/11/18 06: Eos # (Auto) 0.0 10^3/uL (0.0-0.7) 02/11/18 06: Baso # (Auto) 0.0 10^3/uL (0.0-0.1) 02/11/18 06:28 Absolute Nucleated RBC 0.00 x10^3/uL 02/11/18 06: Nucleated RBC % 0.0 /100WBC 02/11/18 06:28 Manual Slide Review Indicated 02/10/18 05:24 Platelet Estimate DECREASED (<130,000) (NORMAL) 02/10/18 05:24 Platelet Morphology PLATELET CLUMPING (NORMAL) 02/10/18 05:24 RBC Morph Micro Appear NORMAL APPEARANCE (NORMAL) 02/10/18 05:24 PT 15.6 secs (9.9-12.6) H 02/10/18 07:50 INR 1.4 (0.8-1.2) H 02/10/18 07:50 APTT 30.3 secs (24.9-33.3) 02/06/18 08:37 Bld Gas Analysis Time 1303 02/08/18 12:56 Sample Site LEFT RADIAL 02/08/18 12:56 Patient Temperature 36.7 CELSIUS 02/07/18 11:33 ABG pH 7.32 (7.35-7.45) L 02/08/18 12:56 ABG pCO2 45 mmHg (34-45) 02/08/18 12:56 ABG pO2 112 mmHg (80-100) H 02/08/18 12:56 ABG HCO3 22.7 mmol/L (22.0-26.0) 02/08/18 12:56 ABG Total CO2 24.1 MMOL/L (21.0-29.0) 02/08/18 12:56 ABG O2 Saturation 98 % (94-98) 02/08/18 12:56 ABG Oximetry Spot Check 99 % 02/08/18 12:56 ABG Base Excess -3.3 mmol/L (-2.0-3.0) L 02/08/18 12:56 Riley Test POSITIVE 02/08/18 12:56 VBG pH 7.301 (7.31-7.41) L 02/07/18 11:54 Ionized Calcium 1.09 mmol/L (1.15-1.33) L 02/07/18 11:54 Respiration Rate 15 b/min 02/08/18 12:56 O2 Delivery Device VENTILATOR 02/08/18 12:56 O2 Liters/Min 15.00 LPM 02/07/18 11:33 Vent Mode SIMV 02/07/18 16:40 FiO2 35.00 02/08/18 12:56 Tidal Volume 864 mL 02/08/18 12:56 PEEP 5 cmH2O 02/08/18 12:56 Pressure Support Vent 10 cmH2O 02/07/18 16:40 EPAP 6 cmH2O 02/07/18 13:38 IPAP 12 cmH2O 02/07/18 13:38 Sodium 131 mmol/L (135-145) L 02/11/18 06:28 Potassium 5.1 mmol/L (3.5-5.0) H 02/11/18 06:28 Chloride 101 mmol/L (101-111) 02/11/18 06:28 Carbon Dioxide 23 mmol/L (21-32) 02/11/18 06:28 Anion Gap 7.0 (6-13) 02/11/18 06:28 BUN 50 mg/dL (6-20) H 02/11/18 06:28 Creatinine 3.0 mg/dL (0.4-1.0) H 02/11/18 06:28 Estimated GFR (MDRD) 15 (>89) L 02/11/18 06:28 Glucose 323 mg/dL (70-100) H 02/11/18 06:28 POC Whole Bld Glucose 342 mg/dL (70 - 100) H 02/11/18 11:33 Glycated Hemoglobin 13.5 % (4.6-6.2) H 02/07/18 04:30 Estim Average Glucose 341 (70-100) H 02/07/18 04:30 Lactic Acid 1.0 mmol/L (0.5-2.2) 02/10/18 14:15 Calcium 7.4 mg/dL (8.5-10.3) L 02/11/18 06:28 Ionized Calcium YES 02/07/18 11:54 Phosphorus 6.1 mg/dL (2.5-4.6) H 02/10/18 05:24 Magnesium 2.0 mg/dL (1.7-2.8) 02/10/18 05:24 Total Bilirubin 0.5 mg/dL (0.2-1.0) 02/11/18 06:28 AST 14 IU/L (10-42) 02/11/18 06:28 ALT 15 IU/L (10-60) 02/11/18 06:28 Alkaline Phosphatase 94 IU/L (42-121) 02/11/18 06:28 Troponin I < 0.04 ng/mL (<0.49) 02/10/18 14:15 B-Natriuretic Peptide 89 pg/mL (5-100) 02/07/18 11:54 Total Protein 5.4 g/dL (6.7-8.2) L 02/11/18 06:28 Albumin 1.9 g/dL (3.2-5.5) L 02/11/18 06:28 Globulin 3.5 g/dL (2.1-4.2) 02/11/18 06:28 Albumin/Globulin Ratio 0.5 (1.0-2.2) L 02/11/18 06:28 Lipase 17 U/L (22-51) L 02/06/18 08:37 Free T4 0.78 ng/dL (0.58-1.64) 02/11/18 06:28 Free T3 pg/mL 1.62 pg/mL (2.5-3.9) L 02/11/18 06:28 Cortisol AM Sample 86.0 ug/dL 02/11/18 06:28 Urine Color YELLOW 02/06/18 10:37 Urine Clarity HAZY (CLEAR) 02/06/18 10:37 Urine pH 5.5 PH (5.0-7.5) 02/06/18 10:37 Ur Specific [place] 1.025 (1.002-1.030) 02/06/18 10:37 Urine Protein 100 mg/dL (NEGATIVE) H 02/06/18 10:37 Urine Glucose (UA) >=1000 mg/dL (NEGATIVE) H 02/06/18 10:37 Urine Ketones NEGATIVE mg/dL (NEGATIVE) 02/06/18 10:37 Urine Occult Blood MODERATE (NEGATIVE) H 02/06/18 10:37 Urine Nitrite NEGATIVE (NEGATIVE) 02/06/18 10:37 Urine Bilirubin NEGATIVE (NEGATIVE) 02/06/18 10:37 Urine Urobilinogen 0.2 (NORMAL) E.U./dL (NORMAL) 02/06/18 10:37 Ur Leukocyte Esterase NEGATIVE (NEGATIVE) 02/06/18 10:37 Urine RBC 6-10 /HPF (0-5) H 02/06/18 10:37 Urine WBC 6-10 /HPF (0-5) H 02/06/18 10:37 Urine WBC Clumps PRESENT 02/06/18 10:37 Ur Squamous Epith Cells FEW Squamous (<= Few) 02/06/18 10:37 Urine Crystals 0-2 Calcium Oxalate /LPF 02/06/18 08:53 Amorphous Sediment Marked /LPF 02/06/18 10:37 Urine Bacteria Many /HPF (None Seen) H 02/06/18 10:37 Urine Casts 11-25 Hyaline Casts /LPF3-5 Granular Casts /LPF 02/06/18 08:53 Urine Casts 11-25 Hyaline Casts /LPF3-5 Granular Casts /LPF 02/06/18 10:37 Urine Casts 11-25 Hyaline Casts /LPF3-5 Granular Casts /LPF 02/06/18 10:37 Urine Yeast PRESENT 02/06/18 10:37 Ur Microscopic Review INDICATED 02/06/18 10:37 Urine Culture Comments INDICATED 02/06/18 10:37 Last Dose Date 02/10/18 02/10/18 13:35 Last Dose Time 1700 02/10/18 13:35 Vancomycin Trough 35.6 ug/mL (10.0-20.0) H* 02/10/18 13:35 Random Vancomycin 12.0 ug/mL 02/08/18 13:35
--- NOTE | 2018-02-11 20:03 | CONSULTATION NOTE ---
Palliative Care Consultation - Referral Referring Provider: Dr. Tompkins Time of Visit: 10:25-10:45; [id number] Referral setting: Hospitalized patient Referral Reason: Goals of Care - Information Sources Records reviewed: RN notes reviewed, Previous records reviewed History/Review of Systems obtained from: Patient, Family (granddaughter Reshma at afternoon visit) Exam limitations: Clinical condition (patient with some cognitive difficulties; focusing and processing information) - History of Present Illness Brief History of Present Illness: This is a 72-year-old woman who has multiple ongoing chronic health problems, most pronounced related to her morbid obesity, lower extremity venous stasis/ dermatitis, recurrent cellulitis of her lower extremities, and recurrent UTIs. She has poorly controlled diabetes, with a A1c of 13.5, who presented with increased confusion, falls, and weakness. She was admitted acutely ill with left basilar consolidation and small moderate pleural effusion, diagnosed with community-acquired pneumonia, as well as a urinary tract infection. She continued to have difficulty with her metabolic encephalopathy, attributed to possibly oversedation from narcotics, as well as her acute illness. She has been having increased acute renal failure with worsening kidney function, her admitting creatinine was 1.8, today is 3.0, her GFR is 15 down from her admitting GFR of 28. Her hospital course has been christi, though she is a do not attempt resuscitation, she was intubated on 02/07 and extubated on 02/08 related to most likely a combination of pneumonia and oversedation secondary to opioids. She was also severely hypotensive on 02/10 without any response to fluid resuscitation. Patient at that point time was unable to participate in decision-making, family did proceed to choose more aggressive measures including ICU stay with central line and pressors. Reshma her granddaughter, who appears in her early 20s, has been designated as the DPOAE. They have completed this paperwork and it is now on file. 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 It is quite complicated as far as trying to tease out goals of care, there is some ambiguity, patient herself though primary goal is she wants to go home. She does have some inkling of the seriousness of her illness, and wants to get her affairs in order. In the context though of actually transitioning to hospice, the patient is severely ill, she is acutely ill at this point in time, the question is whether she has a "terminal diagnosis" that will qualify her for hospice and whether the goals of care are comfort. Medical/Surgical History - Past Medical History Cardiovascular: reports: Hypertension, High cholesterol, Atrial fibrillation Respiratory: reports: Pneumonia, Other (pulmonary hypertension) Neuro: Peripheral neuropathy Neuro: reports: Peripheral neuropathy Endocrine/Autoimmune: reports: Type 2 diabetes, Other (adrenal insufficiency) GI: reports: GERD, Other JUNIOR MEDIA BUYER: reports: Other (recent episode of vaginal bleeding times one month; resolved) : reports: Incontinence, Chronic bladder infection, Renal insuffiency, Frequency HEENT: reports: Chronic vision loss Psych: reports: Depression Musculoskeletal: reports: Osteoarthritis, Chronic back pain Derm: reports: Other (venous stasis dermatitis with open areas; hx of pressure ulcers) MRSA Hx?: No Other Past Medical History: morbidly obese - Past Surgical History Ortho: reports: Other Derm: reports: Other Social History - Living Situation Living arrangement: At home Living Situation: With family (Patient has her own home, Starla her granddaughter has lived with her since , Starla has a 2-year-old Lauro in the home. Patient's daughter also lives there, can help participate but is not "caregiver". They are expecting her other daughter to come with their family for a visit, they are expected up in the next couple days. Sonia's perception is, she will be able to meet patient's care needs now that she is not working full-time. That she has family she can call on, given patient's morbid obesity, and ability to be able to manage her care particularly if she is bedbound), Other (Patient reports she has 2 of her own children, her had 2 children which she raised. She is he passed on 04/22/2012. She does attribute her deterioration in health over the time period that she had to care for him.) Family History - Family History Family History: Mother: , Father: , Sister: Alive and Well, Diabetes, Type 2, Renal Disease/Failure Medications/Allergies - Medications Active Medication List: Active Medications Acetaminophen (Tylenol) 650 mg PO Q4HR PRN PRN Reason: Pain 1 to 4 Albuterol () 2.5 mg INH Q4HR PRN PRN Reason: Wheezing Atorvastatin Calcium (Lipitor) 80 mg PO QPM [facility] Last Admin: 02/10/18 21:16 Dose: 80 mg Chlorhexidine Gluconate (Peridex) 15 ml PO BID [facility] Last Admin: 02/11/18 09:19 Dose: 15 ml Cyclobenzaprine HCl (Flexeril) 10 mg PO TID PRN PRN Reason: Spasms Docusate Sodium (Colace 250mg Capsule) 250 - 500 mg PO DAILY [facility] Last Admin: 02/11/18 14:46 Dose: 250 mg Duloxetine HCl (Cymbalta) 60 mg PO DAILY [facility] Last Admin: 02/11/18 09:19 Dose: 60 mg Fluconazole (Diflucan) 200 mg PO DAILY [facility] Stop: 02/21/18 09:01 Last Admin: 02/11/18 09:20 Dose: 200 mg Gabapentin (Neurontin) 800 mg PO TID [facility] Last Admin: 02/11/18 14:46 Dose: 800 mg Heparin Sodium (Beef Lung) () 30 - 50 unit IVP PRN PRN PRN Reason: Central Line Protocol (<24 hr) Last Admin: 02/11/18 17:02 Dose: 50 unit Hydrocortisone Sodium Succinate (Solu-Cortef) 100 mg IVP BID [facility] Cefepime HCl 2 gm/ Sodium (Chloride) 100 mls @ 200 mls/hr IV Q24H [facility] Last Infusion: 02/11/18 15:02 Dose: Infused Insulin Aspart (Novolog) 3 - 11 unit SUBQ 0800,1200,1700,2100 [facility] PRN Reason: Protocol Last Admin: 02/11/18 16:59 Dose: 11 unit Insulin Glargine (Lantus Solostar) 15 unit SUBQ QPM [facility] Last Admin: 02/10/18 21:17 Dose: 15 unit Ipratropium [place] (Atrovent) 0.5 mg INH RTQ4H PRN PRN Reason: Wheezing Midazolam HCl (Versed) 1 mg IVP Q5M PRN PRN Reason: Sedation Nystatin (Mycostatin Cream) 1 applic TOP BID [facility] Last Admin: 02/11/18 09:59 Dose: 1 applic Ondansetron HCl (Zofran Inj) 4 mg IVP Q6HR PRN PRN Reason: Nausea / Vomiting Oxycodone HCl (Roxicodone) 5 mg PO Q4HR PRN PRN Reason: Pain 5 to 7 Pantoprazole Sodium (Protonix) 40 mg IVP QDAC [facility] Last Admin: 02/11/18 06:29 Dose: 40 mg Polyethylene Glycol (Miralax) 17 gm PO DAILY [facility] Last Admin: 02/11/18 09:21 Dose: 17 gm Prochlorperazine Edisylate (Compazine Inj) 10 mg IVP Q6HR PRN PRN Reason: Nausea / Vomiting Saccharomyces Boulardii (Florastor) 250 mg PO BIDWM [facility] Last Admin: 02/11/18 17:01 Dose: 250 mg Senna (Senokot) 8.6 - 17.2 mg PO DAILY [facility] Last Admin: 02/11/18 14:46 Dose: 17.2 mg Sodium Chloride (Normal Saline Flush 0.9%) 10 ml IVP PRN PRN PRN Reason: NEEDED PER PROVIDER ORDERS Last Admin: 02/11/18 14:19 Dose: 10 ml Sodium Chloride (Normal Saline Flush 0.9%) 10 ml IVP 0100,0900,1700 [facility] Last Admin: 02/11/18 17:03 Dose: 10 ml Zinc Oxide (Desitin) 113 gm TOP PRN PRN PRN Reason: Skin Care Last Admin: 02/11/18 09:58 Dose: 1 applic Zolpidem Tartrate (Ambien) 5 mg PO QPM PRN PRN Reason: Insomnia Omeprazole 20 mg PO QDAC 08/23/15 Duloxetine HCl [Cymbalta] 60 mg PO DAILY 01/15/17 Furosemide 40 mg PO DAILY 01/15/17 Atorvastatin Calcium 80 mg PO QPM 07/14/17 Cyclobenzaprine [Flexeril] 10 mg PO TID PRN 07/14/17 Felodipine [Felodipine ER] 10 mg PO DAILY 07/14/17 Rivaroxaban [Xarelto] 20 mg PO DAILY 07/14/17 Diazepam [Valium] 5 mg PO QPM PRN 02/06/18 Gabapentin [Neurontin] 800 mg PO TID 02/06/18 Hydromorphone HCl [Dilaudid] 8 mg PO Q8H 02/06/18 Insulin Aspart [NovoLOG] 3 unit SUBQ TIDWM 02/06/18 Insulin Glargine [Lantus Solostar] 10 unit SUBQ BID 02/06/18 - Allergies Allergies/Adverse Reactions: Allergies Allergy/AdvReac Type Severity Reaction Status Date / Time Penicillins Allergy unknown Verified 02/03/18 18:36 Review of Systems - Constitutional Constitutional: reports: Fatigue, Poor appetite, Weight gain. denies: Fever - Eyes Eyes: reports: Vision loss, Corrective lenses - Ears, Nose & Throat Ears, Nose & Throat: reports: Hearing loss (mild), Dry mouth - Cardiovascular Cardiovascular: reports: Edema, Exertional dyspnea, Decr. exercise tolerance. denies: Chest pain - Respiratory Respiratory: reports: SOB with exertion. denies: SOB at rest - Gastrointestinal Gastrointestinal: reports: Poor appetite, Early satiety. denies: Constipation, Nausea - Genitourinary Genitourinary: reports: Incontinence, Other (frequent UTIs) - Musculoskeletal Musculoskeletal: reports: Muscle pain, Back pain, Muscle aches, Stiffness, Limited range of motion, Muscle weakness, Other (has been bedbound since hospitalization) - Integumentary Integumentary: reports: Other (LE has been wrapped/managed by clinic & MAC) - Neurological Neurological: reports: General weakness, Memory problems, Slurred speech - Psychiatric Psychiatric: reports: Depression, Anxiety - Endocrine Endocrine: reports: Diabetes type 2 - Hematologic/Lymphatic Hematologic/Lymphatic: reports: Anemia, Recurrent infections - All Other Systems All Other Systems: reports: Reviewed and negative Physical Exam - Vital Signs Vital Signs: Vital Signs x48h Temp Pulse Resp BP Pulse Ox 02/11/18 19:00 94 23 105/68 99 02/11/18 18:00 66 27 H 123/84 H 95 02/11/18 17:00 79 16 106/63 95 02/11/18 16:00 36.0 C L 86 14 116/71 95 02/11/18 15:00 37.0 C 80 20 113/62 95 02/11/18 14:00 36.1 C L 80 18 123/81 H 95 02/11/18 13:00 35.9 C L 88 20 126/86 H 94 - Physical Exam General Appearance: positive: No acute distress Eyes Bilateral: positive: Normal inspection ENT: positive: Dry mucous membranes Neck: positive: Trachea midline Cardiovascular: positive: Irregularly irregular Respiratory: positive: Diminished throughout, Other (increased resp. effort with conversation or bed mobilitly) Abdomen: positive: Non-tender, Distended, Obese Skin: positive: Other (legs wrapped on return; has diffuse redness left greater than right LE) Extremities: positive: Pedal edema Neurologic/Psychiatric: positive: Disoriented to time, Weakness, Flat affect Palliative Care - POLST POLST Status: DNR Pain: Pain unchanged, Location (patient on gabapentin 800 mg TID; reports peripheral neuropathy and back pain/joint pain; reports pain controlled has not received opioids;) Tiredness/Fatigue: Severe (7-10) Drowsiness/Sedation: Moderate (4-6) Nausea: None Depression: Moderate (4-6) Anxiety: Moderate (4-6) Dyspnea: Moderate (4-6) Anorexia: Moderate (4-6) Feelings of wellbeing/Perceived Quality of Life: Poor, Worsening Performance Status: Grandmother reports baseline activity as patient was able to transfer off couch to the chair and toilet herself independently in the bathroom. She was able to "walk around" with her wheelchair in the house. Patient currently displays significant effort with even bed mobility, difficulty moving legs without assistance, and has some difficulty feeding herself on observation. I would put her at a PPS currently at 40% - Palliative Care Discussion: In speaking with the patient on introduction this morning, her only recall is that she remembers being on the couch and needing to call 911. She has very little insight into the seriousness of her illness or things that have occurred since her hospitalization. She reports "I know I am going to " "I just do not know when". She is trying to get the kids together to finish her final will and giving away her belongings. She reports I "want to go home", she does not want go to the senior living. When speaking to Reshma about what her goals are for her grandma, she does want to take her home, she is not as clear as far as whether the focus should be comfort measures only, she has asked for hospice support previously but when pressed further about whether it be acceptable for her to allow natural , and focus on quality not quantity of life at this point in time, she feels like she needs more input from her family. We did discuss in the context of the patient's current multiple chronic conditions, she may not actually not meet hospice criteria, but would be willing to discuss this with the hospice medical office manager to see if this was an option. Again the discussion was the criteria is that she is deemed 6 months or less, she is acutely ill at this point in time , and her health has been failing, she does have multiple comorbidities, and she is currently is bedbound. But the other component of choosing hospice, is to be clear on the goals as far as focus on comfort and to not return to the hospital for more aggressive interventions or treatment. We discussed what might be needed as far as support at home they definitely need a hospital bed. Reshma had requested a Jared lift, though this was for her frequent falls, the patient herself has been lifted and is not too keen on this. We discussed if not going to go home with hospice, considering home health support particularly given the fact she does still have wound care needs , they are not going to be able to get to the MAC if she is this weak as she is , and if her goals do include returning to somewhat of a previous level of function she would need therapies as well. They have had services in the past and are not very open to this as this was not perceived as a positive experience. One of the things that the patient requested for ease of care, would be of [place] catheter. We did discuss this does increase her risk of infection, but also may make things more easy as far as her quality of life and meeting her caregiving needs. Results - Lab Results Lab results reviewed: Yes Fish Bones: 02/11/18 06:28 02/11/18 06:28 Lab and Imaging Results: Lab Results x24hrs 02/11/18 02/11/18 02/11/18 Range/Units 11:33 08:29 06:28 WBC (4.8-10.8) x10^3/uL RBC (4.20-5.40) 10^6/uL Hgb (12.0-16.0) g/dL Hct (37.0-47.0) % MCV (81.0-99.0) fL MCH (27.0-31.0) pg MCHC (32.0-36.0) g/dL RDW (12.0-15.0) % Plt Count (130-450) 10^3/uL MPV (7.9-10.8) fL Neut # (Auto) (1.5-6.6) 10^3/uL Lymph # (Auto) (1.5-3.5) 10^3/uL [place] # (Auto) (0.0-1.0) 10^3/uL Eos # (Auto) (0.0-0.7) 10^3/uL Baso # (Auto) (0.0-0.1) 10^3/uL Absolute Nucleated RBC x10^3/uL Nucleated RBC % /100WBC Sodium (135-145) mmol/L Potassium (3.5-5.0) mmol/L Chloride (101-111) mmol/L Carbon Dioxide (21-32) mmol/L Anion Gap (6-13) BUN (6-20) mg/dL Creatinine (0.4-1.0) mg/dL Estimated GFR (MDRD) (>89) Glucose (70-100) mg/dL POC Whole Bld Glucose 342 H 339 H (70 - 100) mg/dL Calcium (8.5-10.3) mg/dL Total Bilirubin (0.2-1.0) mg/dL AST (10-42) IU/L ALT (10-60) IU/L Alkaline Phosphatase (42-121) IU/L Total Protein (6.7-8.2) g/dL Albumin (3.2-5.5) g/dL Globulin (2.1-4.2) g/dL Albumin/Globulin Ratio (1.0-2.2) Free T4 (0.58-1.64) ng/dL Free T3 pg/mL 1.62 L (2.5-3.9) pg/mL Cortisol AM Sample ug/dL 02/11/18 02/11/18 02/11/18 Range/Units 06:28 06:28 06:28 WBC (4.8-10.8) x10^3/uL RBC (4.20-5.40) 10^6/uL Hgb (12.0-16.0) g/dL Hct (37.0-47.0) % MCV (81.0-99.0) fL MCH (27.0-31.0) pg MCHC (32.0-36.0) g/dL RDW (12.0-15.0) % Plt Count (130-450) 10^3/uL MPV (7.9-10.8) fL Neut # (Auto) (1.5-6.6) 10^3/uL Lymph # (Auto) (1.5-3.5) 10^3/uL [place] # (Auto) (0.0-1.0) 10^3/uL Eos # (Auto) (0.0-0.7) 10^3/uL Baso # (Auto) (0.0-0.1) 10^3/uL Absolute Nucleated RBC x10^3/uL Nucleated RBC % /100WBC Sodium 131 L (135-145) mmol/L Potassium 5.1 H (3.5-5.0) mmol/L Chloride 101 (101-111) mmol/L Carbon Dioxide 23 (21-32) mmol/L Anion Gap 7.0 (6-13) BUN 50 H (6-20) mg/dL Creatinine 3.0 H (0.4-1.0) mg/dL Estimated GFR (MDRD) 15 L (>89) Glucose 323 H (70-100) mg/dL POC Whole Bld Glucose (70 - 100) mg/dL Calcium 7.4 L (8.5-10.3) mg/dL Total Bilirubin 0.5 (0.2-1.0) mg/dL AST 14 (10-42) IU/L ALT 15 (10-60) IU/L Alkaline Phosphatase 94 (42-121) IU/L Total Protein 5.4 L (6.7-8.2) g/dL Albumin 1.9 L (3.2-5.5) g/dL Globulin 3.5 (2.1-4.2) g/dL Albumin/Globulin Ratio 0.5 L (1.0-2.2) Free T4 0.78 (0.58-1.64) ng/dL Free T3 pg/mL (2.5-3.9) pg/mL Cortisol AM Sample 86.0 ug/dL 02/11/18 02/10/18 Range/Units 06:28 20:50 WBC 4.7 L (4.8-10.8) x10^3/uL RBC 3.58 L (4.20-5.40) 10^6/uL Hgb 10.8 L (12.0-16.0) g/dL Hct 33.0 L (37.0-47.0) % MCV 92.1 (81.0-99.0) fL MCH 30.2 (27.0-31.0) pg MCHC 32.8 (32.0-36.0) g/dL RDW 14.0 (12.0-15.0) % Plt Count 162 (130-450) 10^3/uL MPV 9.5 (7.9-10.8) fL Neut # (Auto) 4.2 (1.5-6.6) 10^3/uL Lymph # (Auto) 0.4 L (1.5-3.5) 10^3/uL [place] # (Auto) 0.1 (0.0-1.0) 10^3/uL Eos # (Auto) 0.0 (0.0-0.7) 10^3/uL Baso # (Auto) 0.0 (0.0-0.1) 10^3/uL Absolute Nucleated RBC 0.00 x10^3/uL Nucleated RBC % 0.0 /100WBC Sodium (135-145) mmol/L Potassium (3.5-5.0) mmol/L Chloride (101-111) mmol/L Carbon Dioxide (21-32) mmol/L Anion Gap (6-13) BUN (6-20) mg/dL Creatinine (0.4-1.0) mg/dL Estimated GFR (MDRD) (>89) Glucose (70-100) mg/dL POC Whole Bld Glucose 261 H (70 - 100) mg/dL Calcium (8.5-10.3) mg/dL Total Bilirubin (0.2-1.0) mg/dL AST (10-42) IU/L ALT (10-60) IU/L Alkaline Phosphatase (42-121) IU/L Total Protein (6.7-8.2) g/dL Albumin (3.2-5.5) g/dL Globulin (2.1-4.2) g/dL Albumin/Globulin Ratio (1.0-2.2) Free T4 (0.58-1.64) ng/dL Free T3 pg/mL (2.5-3.9) pg/mL Cortisol AM Sample ug/dL Impression and Recommendations - Palliative Care Impression: This is a 72-year-old woman with significant acute diagnoses including community -acquired pneumonia, urinary tract infection, metabolic encephalopathy, worsening renal failure, and generalized weakness. She also has multiple other comorbidities, and her care is by the implications related morbid obesity and being able to meet her care needs in the home setting. This is further complicated by the psychosocial issues in the home setting, and concerns, though the patient's ultimate stated goal is to go home. Palliative care providing support and attempting to tease out final goals of care. Recommendations/Counseling Done: 1. Chronic pain syndrome. Patient's pain is currently controlled on gabapentin 800 mg 3 times daily, Cymbalta 60 mg, and with minimal opioid need for support. Given the concerns in the home setting, and patient's worsening renal failure , may need to revisit titrating down the opioid dosing or consider low dose methadone. 2. Venous stasis dermatitis. Patient has been managed with wraps and with support through the clinic and [facility]. If patient is homebound, may need to revisit if will accept home health support, or consider SNIF placement until patient's functional status improves. This will be determined by patient's ultimate goals, including if transitions to hospice if appropriate. 3. Advanced care planning. Patient does have poor prognostic indicators, she has had both functional and cognitive decline, she has significant and multiple comorbidities, and now presents with worsening renal failure. To qualify for hospice under the diagnosis of renal failure, the patient goals need to be not including seeking dialysis or renal transplant, creatinine clearance less than 15 cc/min for diabetics, serum creatinine greater than 6.0 for diabetics, and it estimated GFR less than 10 mils. She does have an albumin less than 3.5 of 1.9 as far as comorbid conditions, but does not currently present with oliguria, intractable hyperkalemia, or hepatorenal syndrome. I will have the hospice medical office manager review her chart though for other supporting data, but most important which I did not hear clearly, was the goals of care need to be comfort focused. Did review patient would be able to be followed by palliative care, but this could be intermittent visits by the nurse practitioner, social work is available if indicated, as well as machinery erector. Palliative care will continue to monitor patient's status if she continues to decline, whether a transition home with hospice support is possible and further work on defining goals of care. If patient and family looking at successful transition home with goals for improved function and independence, would look at recommending SNF as a bridge if unwilling to accept HH support particularly in needing wound care and equipment. Time Spent: 65 minutes with greater than 50% of this done in counseling and coordination of care anticipatory guidance
[2018-02-11] MEDS: ATORVASTATIN 40 MG TABLET PO SCH (21:35)
[2018-02-11] MEDS: INSULIN GLARGINE 300 UNIT/3 ML PEN SUBQ SCH (21:36)
[2018-02-12] MEDS: SODIUM CHLORIDE FLUSH 0.9% 10 ML SYRINGE IVP SCH ×3 (04:39→17:57)
[2018-02-12 05:17] LABS: CALCIUM 7.6 mg/dL (8.5-10.3); CREATININE 2.6 mg/dL (0.4-1.0)
[2018-02-12] MEDS: SODIUM CHLORIDE FLUSH 0.9% 10 ML SYRINGE IVP PRN ×2 (06:24→21:49)
[2018-02-12] MEDS: GABAPENTIN 400 MG CAPSULE PO SCH ×3 (06:24→21:32)
[2018-02-12] MEDS: PANTOPRAZOLE 40 MG VIAL IVP SCH (06:24)
[2018-02-12 06:29] LABS: BASOPHILS % (AUTO) 0.3 %; HGB - HEMOGLOBIN 11.5 g/dL (12.0-16.0); LYMPHOCYTES # (AUTO) 0.5 10^3/uL (1.5-3.5); LYMPHOCYTES % (AUTO) 6.1 %; MEAN CORPUSCULAR HEMOGLOBIN 30.4 pg (27.0-31.0); MEAN CORPUSCULAR HGB CONC 33.1 g/dL (32.0-36.0); MEAN CORPUSCULAR VOLUME 91.8 fL (81.0-99.0); MEAN PLATELET VOLUME 8.7 fL (7.9-10.8); MONOCYTES # (AUTO) 0.2 10^3/uL (0.0-1.0); MONOCYTES % (AUTO) 2.9 %; NEUTROPHILS # (AUTO) 6.8 10^3/uL (1.5-6.6); NEUTROPHILS % (AUTO) 90.7 %; PLT - PLATELET COUNT 228 10^3/uL (130-450); RED BLOOD COUNT 3.77 10^6/uL (4.20-5.40); RED CELL DISTRIBUTION WIDTH 14.4 % (12.0-15.0); WHITE BLOOD COUNT 7.5 x10^3/uL (4.8-10.8)
[2018-02-12] MEDS ORDERED: RIVAROXABAN 15 MG TABLET PO SCH (08:00)
[2018-02-12] MEDS: CHLORHEXIDINE GLUCONATE 15 ML UDC PO SCH ×2 (08:24→21:25)
[2018-02-12] MEDS: INSULIN ASPART 300 UNIT/3 ML PEN SUBQ SCH ×4 (08:26→21:54)
[2018-02-12] MEDS: SACCHAROMYCES BOULARDII 250 MG CAPSULE PO SCH ×2 (09:09→17:55)
[2018-02-12] MEDS: DULoxetine 30 MG CAPSULE PO SCH (09:10)
[2018-02-12] MEDS: FLUCONAZOLE 100 MG TABLET PO SCH (09:10)
[2018-02-12] MEDS: DOCUSATE SODIUM 250 MG CAPSULE PO SCH (09:10)
[2018-02-12] MEDS: HYDROCORTISONE SUCCINATE 100 MG/2 ML VIAL IVP SCH ×2 (09:11→21:25)
[2018-02-12] MEDS: SENNA 8.6 MG TABLET PO SCH (09:11)
[2018-02-12] MEDS: POLYETHYLENE GLYCOL 3350 17 GM PACKET PO SCH (09:14)
[2018-02-12] MEDS: NYSTATIN CREAM 15 GM TUBE TOP SCH ×2 (09:16→21:32)
[2018-02-12] MEDS: CEFEPIME 2 GM in SODIUM CHLORIDE 0.9% MINIBAG 100 ML IV SCH (14:00)
--- NOTE | 2018-02-12 18:51 | PROVIDER PROGRESS NOTE ---
Assessment/Plan - Problem List (1) Adrenal insufficiency Assessment/Plan: On treatment with Hydrocortisone iv. Will need oral management for transfer (to SNF). (2) Acute renal failure superimposed on stage 3 chronic kidney disease Qualifiers: Acute renal failure type: unspecified Qualified Code(s): N17.9 - Acute kidney failure, unspecified; N18.3 - Chronic kidney disease, stage 3 (moderate) ; N18.3 - Chronic kidney disease, stage 3 (moderate); N18.3 - Chronic kidney disease, stage 3 (moderate) Assessment/Plan: Improved creat minimally today. Since no renal size abnormality or obstruction was seen on US, this was probably ATN from volume depletion and Vanco use. Continue gentle hydration. Monitor BUN/creat daily. (3) CAP (community acquired pneumonia) Qualifiers: Laterality: right Lung location: lower lobe of lung Qualified Code(s): J18.1 - Lobar pneumonia, unspecified organism Assessment/Plan: Continue empiric antibiotics, transition to po at [facility]. Poss [facility] to SNF bariatric bed tomorrow (4) Urinary tract infection Qualifiers: Urinary tract infection type: acute cystitis Hematuria presence: without hematuria Qualified Code(s): N30.00 - Acute cystitis without hematuria Assessment/Plan: Continue antibiotics. Transition to po antibiotics at [facility]. (5) Metabolic encephalopathy Assessment/Plan: Pt is still lethargic, possibly from uremia. She will need senior care care for sacral decubitus, leg wraps and some physical therapy. (6) Diabetes Qualifiers: Diabetes mellitus type: type 2 Assessment/Plan: Continue carb-controlled diet, ss Insulin, Lantus Insulin adjustments and glu monitoring. (7) Weakness generalized Assessment/Plan: Pt will need PT and wound care after [facility] and she agrees to be [facility] to SNF. (8) Hyponatremia Assessment/Plan: Improving. Monitor daily BMP. (9) Venous stasis dermatitis Qualifiers: Laterality: bilateral Qualified Code(s): I87.2 - Venous insufficiency ( chronic) (peripheral) Assessment/Plan: Pt had wound consult and legs bandaged with changes to be done by nursing. Continue Lasix and leg elevation. (10) Chronic a-fib Assessment/Plan: HR is controlled and Eliquis dose was adjusted for CKD. (11) Chronic pain Qualifiers: Chronic pain type: other chronic pain Qualified Code(s): G89.29 - Other chronic pain Assessment/Plan: Pain is well controlled without additional narcotics. - Current Meds Current Meds: Current Medications Generic Name Dose Route Start Last Admin Trade Name Freq PRN Reason Stop Dose Admin Atorvastatin Calcium 80 mg 02/06/18 21:00 02/11/18 21:35 Lipitor PO 80 mg QPM JOSE G Administration Chlorhexidine Gluconate 15 ml 02/07/18 21:00 02/12/18 08:24 Peridex PO Not Given BID JOSE G Docusate Sodium 250 - 500 mg 02/11/18 12:00 02/12/18 09:10 Colace 250mg Capsule PO 250 mg DAILY JOSE G Administration Duloxetine HCl 60 mg 02/07/18 09:00 02/12/18 09:10 Cymbalta PO 60 mg DAILY JOSE G Administration Fluconazole 200 mg 02/08/18 09:00 02/12/18 09:10 Diflucan PO 02/21/18 09:01 200 mg DAILY JOSE G Administration Gabapentin 800 mg 02/08/18 22:00 02/12/18 14:00 Neurontin PO 800 mg TID JOSE G Administration Heparin Sodium (Beef Lung) 30 - 50 unit 02/10/18 18:56 02/12/18 18:00 IVP 30 unit PRN PRN Administration Central Line Protocol (<24 hr) Hydrocortisone Sodium Succinate 100 mg 02/11/18 21:00 02/12/18 09:11 Solu-Cortef IVP 100 mg BID JOSE G Administration Cefepime HCl 2 gm/ Sodium 100 mls @ 200 mls/hr 02/09/18 13:00 02/12/18 14:30 Chloride IV Infused Q24H JOSE G Infusion Insulin Aspart 3 - 11 unit 02/11/18 12:00 02/12/18 17:55 Novolog SUBQ 12 unit 0800,1200,1700,2100 JOSE G Administration Protocol Insulin Glargine 15 unit 02/09/18 21:00 02/11/18 21:36 Lantus Solostar SUBQ 15 unit QPM JOSE G Administration Nystatin 1 applic 02/06/18 12:00 02/12/18 09:16 Mycostatin Cream TOP 1 applic BID JOSE G Administration Pantoprazole Sodium 40 mg 02/08/18 07:00 02/12/18 06:24 Protonix IVP 40 mg QDAC JOSE G Administration Polyethylene Glycol 17 gm 02/07/18 09:00 02/12/18 09:14 Miralax PO 17 gm DAILY JOSE G Administration Saccharomyces Boulardii 250 mg 02/06/18 17:00 02/12/18 17:55 Florastor PO 250 mg BIDWM JOSE G Administration Senna 8.6 - 17.2 mg 02/11/18 12:00 02/12/18 09:11 Senokot PO 8.6 mg DAILY JOSE G Administration Sodium Chloride 10 ml 02/06/18 11:45 02/12/18 06:24 Normal Saline Flush 0.9% IVP 20 ml PRN PRN Administration NEEDED PER PROVIDER ORDERS Sodium Chloride 10 ml 02/06/18 17:00 02/12/18 17:57 Normal Saline Flush 0.9% IVP 30 ml 0100,0900,1700 JOSE G Administration Zinc Oxide 113 gm 02/08/18 07:34 02/11/18 22:58 Desitin TOP 1 applic PRN PRN Administration Skin Care - Lab Result Fish Bone Diagrams: 02/12/18 06:22 02/12/18 04:44 - Additional Planning My Orders: My Active Orders 02/11/18 21:00 Hydrocortisone Succinate [Solu-CORTEF] 100 mg IVP BID 02/12/18 Evaluate and Treat OT [OT] Routine Evaluate and Treat PT [PT] Routine 02/13/18 05:00 BMP - BASIC METABOLIC PANEL [CHEM] DAILYLAB CBC - COMP BLD CT W/AUTO DIFF [HEME] DAILYLAB 02/13/18 12:00 Rivaroxaban [Xarelto] 15 mg PO 1700 02/14/18 05:00 BMP - BASIC METABOLIC PANEL [CHEM] DAILYLAB CBC - COMP BLD CT W/AUTO DIFF [HEME] DAILYLAB Subjective - Subjective Patient Reports: Resting Comfortably, No Complaints Nursing Reports: Other (Has a sacral decubitus and is SOB when turning in bed.) Objective Vital Signs: Vital Signs - 24 hr 02/11/18 02/11/18 02/11/18 19:00 20:00 21:00 Temperature Heart Rate [ 94 85 86 Monitoring electrodes] Heart Rate [ Supine] Respiratory 23 20 23 Rate Respiratory Rate [With Activity] Blood Pressure 105/68 120/81 H 109/73 [Right Brachial artery] Blood Pressure [Supine] O2 Saturation 99 96 95 O2 Saturation [ With Activity] 02/11/18 02/11/18 02/12/18 22:00 23:00 00:00 Temperature 36.6 C Heart Rate [ 87 85 86 Monitoring electrodes] Heart Rate [ Supine] Respiratory 21 16 18 Rate Respiratory Rate [With Activity] Blood Pressure 109/92 H 149/85 H 137/89 H [Right Brachial artery] Blood Pressure [Supine] O2 Saturation 95 95 93 O2 Saturation [ With Activity] 02/12/18 02/12/18 02/12/18 01:00 02:00 03:00 Temperature 36.1 C L Heart Rate [ 87 87 86 Monitoring electrodes] Heart Rate [ Supine] Respiratory 12 12 11 L Rate Respiratory Rate [With Activity] Blood Pressure 138/89 H 127/84 H 121/84 H [Right Brachial artery] Blood Pressure [Supine] O2 Saturation 95 93 942 H O2 Saturation [ With Activity] 02/12/18 02/12/18 02/12/18 04:00 05:00 06:00 Temperature 36.1 C L Heart Rate [ 83 83 86 Monitoring electrodes] Heart Rate [ Supine] Respiratory 18 18 20 Rate Respiratory Rate [With Activity] Blood Pressure 120/83 H 118/80 117/80 [Right Brachial artery] Blood Pressure [Supine] O2 Saturation 94 94 93 O2 Saturation [ With Activity] 02/12/18 02/12/18 02/12/18 07:00 12:00 15:15 Temperature Heart Rate [ 87 84 Monitoring electrodes] Heart Rate [ 86 Supine] Respiratory 22 13 Rate Respiratory 14 Rate [With Activity] Blood Pressure 113/82 H 133/75 H [Right Brachial artery] Blood Pressure 133/75 H [Supine] O2 Saturation 94 95 O2 Saturation [ 91 L With Activity] 02/12/18 02/12/18 16:00 18:20 Temperature 36.2 C L Heart Rate [ 81 82 Monitoring electrodes] Heart Rate [ Supine] Respiratory 12 18 Rate Respiratory Rate [With Activity] Blood Pressure 124/68 108/68 [Right Brachial artery] Blood Pressure [Supine] O2 Saturation 95 94 O2 Saturation [ With Activity] Oxygen O2 Source [With Activity] Room air O2 Source Room air I&O (Last 24 Hrs): Intake and Output Totals x24h 02/10/18 02/11/18 02/12/18 23:59 23:59 23:59 Intake Total 2440 1990 950 Output Total 425 1240 910 Balance 2014 750 40 General: Other (Lethargic) HEENT: Mucous membr. moist/pink, Other (Alopecia) Neck: Supple Neuro: Other (Lethargic, unable to follow commands) Cardiovascular: No murmurs Respiratory: No respiratory distress, Breath sounds nml Abdomen: Other (Obese with pannus) Extremities: Other (Bandaged, venous stasis, 2+ edema) - Results Results: Laboratory Results WBC 7.5 x10^3/uL (4.8-10.8) 02/12/18 06:22 RBC 3.77 10^6/uL (4.20-5.40) L 02/12/18 06:22 Hgb 11.5 g/dL (12.0-16.0) L 02/12/18 06:22 Hct 34.6 % (37.0-47.0) L 02/12/18 06:22 MCV 91.8 fL (81.0-99.0) 02/12/18 06:22 MCH 30.4 pg (27.0-31.0) 02/12/18 06:22 MCHC 33.1 g/dL (32.0-36.0) 02/12/18 06:22 RDW 14.4 % (12.0-15.0) 02/12/18 06:22 Plt Count 228 10^3/uL (130-450) 02/12/18 06:22 MPV 8.7 fL (7.9-10.8) 02/12/18 06:22 Neut # (Auto) 6.8 10^3/uL (1.5-6.6) H 02/12/18 06:22 Lymph # (Auto) 0.5 10^3/uL (1.5-3.5) L 02/12/18 06:22 [place] # (Auto) 0.2 10^3/uL (0.0-1.0) 02/12/18 06:22 Eos # (Auto) 0.0 10^3/uL (0.0-0.7) 02/12/18 06:22 Baso # (Auto) 0.0 10^3/uL (0.0-0.1) 02/12/18 06:22 Absolute Nucleated RBC 0.00 x10^3/uL 02/12/18 06:22 Nucleated RBC % 0.0 /100WBC 02/12/18 06:22 Manual Slide Review Indicated 02/10/18 05:24 Platelet Estimate DECREASED (<130,000) (NORMAL) 02/10/18 05:24 Platelet Morphology PLATELET CLUMPING (NORMAL) 02/10/18 05:24 RBC Morph Micro Appear NORMAL APPEARANCE (NORMAL) 02/10/18 05:24 PT 15.6 secs (9.9-12.6) H 02/10/18 07:50 INR 1.4 (0.8-1.2) H 02/10/18 07:50 APTT 30.3 secs (24.9-33.3) 02/06/18 08:37 Bld Gas Analysis Time 1303 02/08/18 12:56 Sample Site LEFT RADIAL 02/08/18 12:56 Patient Temperature 36.7 CELSIUS 02/07/18 11:33 ABG pH 7.32 (7.35-7.45) L 02/08/18 12:56 ABG pCO2 45 mmHg (34-45) 02/08/18 12:56 ABG pO2 112 mmHg (80-100) H 02/08/18 12:56 ABG HCO3 22.7 mmol/L (22.0-26.0) 02/08/18 12:56 ABG Total CO2 24.1 MMOL/L (21.0-29.0) 02/08/18 12:56 ABG O2 Saturation 98 % (94-98) 02/08/18 12:56 ABG Oximetry Spot Check 99 % 02/08/18 12:56 ABG Base Excess -3.3 mmol/L (-2.0-3.0) L 02/08/18 12:56 Riley Test POSITIVE 02/08/18 12:56 VBG pH 7.301 (7.31-7.41) L 02/07/18 11:54 Ionized Calcium 1.09 mmol/L (1.15-1.33) L 02/07/18 11:54 Respiration Rate 15 b/min 02/08/18 12:56 O2 Delivery Device VENTILATOR 02/08/18 12:56 O2 Liters/Min 15.00 LPM 02/07/18 11:33 Vent Mode SIMV 02/07/18 16:40 FiO2 35.00 02/08/18 12:56 Tidal Volume 864 mL 02/08/18 12:56 PEEP 5 cmH2O 02/08/18 12:56 Pressure Support Vent 10 cmH2O 02/07/18 16:40 EPAP 6 cmH2O 02/07/18 13:38 IPAP 12 cmH2O 02/07/18 13:38 Sodium 132 mmol/L (135-145) L 02/12/18 04:44 Potassium 5.2 mmol/L (3.5-5.0) H 02/12/18 04:44 Chloride 102 mmol/L (101-111) 02/12/18 04:44 Carbon Dioxide 22 mmol/L (21-32) 02/12/18 04:44 Anion Gap 8.0 (6-13) 02/12/18 04:44 BUN 55 mg/dL (6-20) H 02/12/18 04:44 Creatinine 2.6 mg/dL (0.4-1.0) H 02/12/18 04:44 Estimated GFR (MDRD) 18 (>89) L 02/12/18 04:44 Glucose 357 mg/dL (70-100) H 02/12/18 04:44 POC Whole Bld Glucose 351 mg/dL (70 - 100) H 02/12/18 12:09 Glycated Hemoglobin 13.5 % (4.6-6.2) H 02/07/18 04:30 Estim Average Glucose 341 (70-100) H 02/07/18 04:30 Lactic Acid 1.0 mmol/L (0.5-2.2) 02/10/18 14:15 Calcium 7.6 mg/dL (8.5-10.3) L 02/12/18 04:44 Ionized Calcium YES 02/07/18 11:54 Phosphorus 6.1 mg/dL (2.5-4.6) H 02/10/18 05:24 Magnesium 2.0 mg/dL (1.7-2.8) 02/10/18 05:24 Total Bilirubin 0.5 mg/dL (0.2-1.0) 02/11/18 06:28 AST 14 IU/L (10-42) 02/11/18 06:28 ALT 15 IU/L (10-60) 02/11/18 06:28 Alkaline Phosphatase 94 IU/L (42-121) 06/26/18 06:28 Troponin I < 0.04 ng/mL (<0.49) 02/10/18 14:15 B-Natriuretic Peptide 89 pg/mL (5-100) 02/07/18 11:54 Total Protein 5.4 g/dL (6.7-8.2) L 02/11/18 06:28 Albumin 1.9 g/dL (3.2-5.5) L 02/11/18 06:28 Globulin 3.5 g/dL (2.1-4.2) 02/11/18 06:28 Albumin/Globulin Ratio 0.5 (1.0-2.2) L 02/11/18 06:28 Lipase 17 U/L (22-51) L 02/06/18 08:37 Free T4 0.78 ng/dL (0.58-1.64) 02/11/18 06:28 Free T3 pg/mL 1.62 pg/mL (2.5-3.9) L 02/11/18 06:28 Cortisol AM Sample 86.0 ug/dL 02/11/18 06:28 Urine Color YELLOW 02/06/18 10:37 Urine Clarity HAZY (CLEAR) 02/06/18 10:37 Urine pH 5.5 PH (5.0-7.5) 02/06/18 10:37 Ur Specific [place] 1.025 (1.002-1.030) 02/06/18 10:37 Urine Protein 100 mg/dL (NEGATIVE) H 02/06/18 10:37 Urine Glucose (UA) >=1000 mg/dL (NEGATIVE) H 02/06/18 10:37 Urine Ketones NEGATIVE mg/dL (NEGATIVE) 02/06/18 10:37 Urine Occult Blood MODERATE (NEGATIVE) H 02/06/18 10:37 Urine Nitrite NEGATIVE (NEGATIVE) 02/06/18 10:37 Urine Bilirubin NEGATIVE (NEGATIVE) 02/06/18 10:37 Urine Urobilinogen 0.2 (NORMAL) E.U./dL (NORMAL) 02/06/18 10:37 Ur Leukocyte Esterase NEGATIVE (NEGATIVE) 02/06/18 10:37 Urine RBC 6-10 /HPF (0-5) H 02/06/18 10:37 Urine WBC 6-10 /HPF (0-5) H 02/06/18 10:37 Urine WBC Clumps PRESENT 02/06/18 10:37 Ur Squamous Epith Cells FEW Squamous (<= Few) 02/06/18 10:37 Urine Crystals 0-2 Calcium Oxalate /LPF 02/06/18 08:53 Amorphous Sediment Marked /LPF 02/06/18 10:37 Urine Bacteria Many /HPF (None Seen) H 02/06/18 10:37 Urine Casts 11-25 Hyaline Casts /LPF3-5 Granular Casts /LPF 02/06/18 08:53 Urine Casts 11-25 Hyaline Casts /LPF3-5 Granular Casts /LPF 02/06/18 10:37 Urine Casts 11-25 Hyaline Casts /LPF3-5 Granular Casts /LPF 02/06/18 10:37 Urine Yeast PRESENT 02/06/18 10:37 Ur Microscopic Review INDICATED 02/06/18 10:37 Urine Culture Comments INDICATED 02/06/18 10:37 Last Dose Date 02/10/18 02/10/18 13:35 Last Dose Time 1700 02/10/18 13:35 Vancomycin Trough 35.6 ug/mL (10.0-20.0) H* 02/10/18 13:35 Random Vancomycin 12.0 ug/mL 02/08/18 13:35 ABX Reporting Has patient been on IV antibiotics over the past 48 hours?: Yes
[2018-02-12] MEDS: ATORVASTATIN 40 MG TABLET PO SCH (21:25)
[2018-02-12] MEDS ORDERED: INSULIN GLARGINE 300 UNIT/3 ML PEN SUBQ SCH ×2 (21:49→22:00)
[2018-02-12] MEDS ORDERED: INSULIN ASPART 300 UNIT/3 ML PEN SUBQ ONE (21:52)
[2018-02-13] MEDS: SODIUM CHLORIDE FLUSH 0.9% 10 ML SYRINGE IVP SCH ×3 (01:00→17:31)
[2018-02-13] MEDS ORDERED: INSULIN ASPART 300 UNIT/3 ML PEN SUBQ ONE (02:33)
[2018-02-13] MEDS: SODIUM CHLORIDE FLUSH 0.9% 10 ML SYRINGE IVP PRN ×4 (04:32→17:30)
[2018-02-13 05:28] LABS: CALCIUM 7.7 mg/dL (8.5-10.3); CREATININE 2.8 mg/dL (0.4-1.0)
[2018-02-13 06:07] LABS: BASOPHILS % (AUTO) 0.2 %; EOSINOPHILS % (AUTO) 0.3 %; HGB - HEMOGLOBIN 11.4 g/dL (12.0-16.0); LYMPHOCYTES # (AUTO) 0.7 10^3/uL (1.5-3.5); LYMPHOCYTES % (AUTO) 8.5 %; MEAN CORPUSCULAR HGB CONC 32.9 g/dL (32.0-36.0); MEAN CORPUSCULAR VOLUME 91.2 fL (81.0-99.0); MEAN PLATELET VOLUME 8.4 fL (7.9-10.8); MONOCYTES # (AUTO) 0.2 10^3/uL (0.0-1.0); MONOCYTES % (AUTO) 2.8 %; NEUTROPHILS # (AUTO) 7.2 10^3/uL (1.5-6.6); NEUTROPHILS % (AUTO) 88.2 %; PLT - PLATELET COUNT 227 10^3/uL (130-450); RED CELL DISTRIBUTION WIDTH 14.1 % (12.0-15.0); WHITE BLOOD COUNT 8.2 x10^3/uL (4.8-10.8)
[2018-02-13] MEDS: PANTOPRAZOLE 40 MG VIAL IVP SCH (06:18)
[2018-02-13] MEDS: GABAPENTIN 400 MG CAPSULE PO SCH ×3 (06:19→21:19)
[2018-02-13] MEDS: FLUCONAZOLE 100 MG TABLET PO SCH (08:28)
[2018-02-13] MEDS: SACCHAROMYCES BOULARDII 250 MG CAPSULE PO SCH ×2 (08:28→17:20)
[2018-02-13] MEDS: DULoxetine 30 MG CAPSULE PO SCH (08:28)
[2018-02-13] MEDS: SENNA 8.6 MG TABLET PO SCH (08:28)
[2018-02-13] MEDS: CHLORHEXIDINE GLUCONATE 15 ML UDC PO SCH ×3 (08:29→21:34)
[2018-02-13] MEDS: INSULIN ASPART 300 UNIT/3 ML PEN SUBQ SCH ×5 (08:29→21:26)
[2018-02-13] MEDS: DOCUSATE SODIUM 250 MG CAPSULE PO SCH (08:29)
[2018-02-13] MEDS: POLYETHYLENE GLYCOL 3350 17 GM PACKET PO SCH (08:29)
[2018-02-13] MEDS: HYDROCORTISONE SUCCINATE 100 MG/2 ML VIAL IVP SCH ×2 (08:37→21:19)
[2018-02-13] MEDS: NYSTATIN CREAM 15 GM TUBE TOP SCH ×2 (08:38→21:28)
[2018-02-13] MEDS: oxyCODONE 5 MG TABLET PO PRN ×2 (08:42→12:23)
[2018-02-13] MEDS: NS W/20 MEQ KCL 1,000 ML IV SCH ×2 (08:43→21:16)
[2018-02-13] MEDS ORDERED: RIVAROXABAN 15 MG TABLET PO SCH (12:00)
[2018-02-13] MEDS: CEFEPIME 2 GM in SODIUM CHLORIDE 0.9% MINIBAG 100 ML IV SCH (14:14)
[2018-02-13] MEDS ORDERED: INSULIN GLARGINE 300 UNIT/3 ML PEN SUBQ SCH (15:34)
--- NOTE | 2018-02-13 16:04 | PROVIDER PROGRESS NOTE ---
Subjective - Prog Note Date Prog Note Date: 02/13/18 Prog Note Time: 14:00 - Subjective Pt reports feeling: Improved Subjective: Patient is breathing easier today. She is on room air and is not short of breath. She denies any cough, fever, chills, nausea, vomiting, or any other new problems. Current Medications - Current Medications Current Medications: Active Medications Generic Name Dose Route Start Last Admin Trade Name Freq PRN Reason Stop Dose Admin Acetaminophen 650 mg 02/06/18 11:45 Tylenol PO Q4HR PRN Pain 1 to 4 Atorvastatin Calcium 80 mg 02/06/18 21:00 02/12/18 21:25 Lipitor PO 80 mg QPM JOSE G Administration Chlorhexidine Gluconate 15 ml 02/07/18 21:00 02/13/18 08:29 Peridex PO 15 ml BID JOSE G Administration Cyclobenzaprine HCl 10 mg 02/06/18 11:43 Flexeril PO TID PRN Spasms Docusate Sodium 250 - 500 mg 02/11/18 12:00 02/13/18 08:29 Colace 250mg Capsule PO 500 mg DAILY JOSE G Administration Duloxetine HCl 60 mg 02/07/18 09:00 02/13/18 08:28 Cymbalta PO 60 mg DAILY JOSE G Administration Fluconazole 200 mg 02/08/18 09:00 02/13/18 08:28 Diflucan PO 02/21/18 09:01 200 mg DAILY JOSE G Administration Gabapentin 800 mg 02/08/18 22:00 02/13/18 14:15 Neurontin PO 800 mg TID JOSE G Administration Heparin Sodium (Beef Lung) 30 - 50 unit 02/10/18 18:56 02/13/18 04:32 IVP 30 unit PRN PRN Administration Central Line Protocol (<24 hr) Hydrocortisone Sodium Succinate 100 mg 02/11/18 21:00 02/13/18 08:37 Solu-Cortef IVP 100 mg BID JOSE G Administration Cefepime HCl 2 gm/ Sodium 100 mls @ 200 mls/hr 02/09/18 13:00 02/13/18 14:14 Chloride IV 200 mls/hr Q24H JOSE G Administration Potassium Chloride/Sodium Chloride 1,000 mls @ 83.333 mls/hr 02/13/18 09:00 02/13/18 08:43 Normal Saline 0.9% W/20 Meq Kcl IV 83.333 mls/hr .Q12H JOSE G Administration Insulin Aspart 3 - 11 unit 02/11/18 12:00 02/13/18 12:18 Novolog SUBQ 11 unit 0800,1200,1700,2100 JOSE G Administration Protocol Insulin Aspart 5 unit 02/13/18 17:00 Novolog SUBQ TIDWM JOSE G Protocol Insulin Glargine 25 unit 02/13/18 15:34 Lantus Solostar SUBQ QPM JOSE G Midazolam HCl 1 mg 02/07/18 14:12 Versed IVP Q5M PRN Sedation Nystatin 1 applic 02/06/18 12:00 02/13/18 08:38 Mycostatin Cream TOP 1 applic BID JOSE G Administration Ondansetron HCl 4 mg 02/06/18 11:45 Zofran Inj IVP Q6HR PRN Nausea / Vomiting Oxycodone HCl 5 mg 02/06/18 11:45 02/13/18 12:23 Roxicodone PO 5 mg Q4HR PRN Administration Pain 5 to 7 Pantoprazole Sodium 40 mg 02/08/18 07:00 02/13/18 06:18 Protonix IVP 40 mg QDAC JOSE G Administration Polyethylene Glycol 17 gm 02/07/18 09:00 02/13/18 08:29 Miralax PO 17 gm DAILY JOSE G Administration Prochlorperazine Edisylate 10 mg 02/06/18 11:45 Compazine Inj IVP Q6HR PRN Nausea / Vomiting Rivaroxaban 15 mg 02/13/18 12:00 02/13/18 12:25 Xarelto PO 15 mg 1700 JOSE G Administration Saccharomyces Boulardii 250 mg 02/06/18 17:00 02/13/18 08:28 Florastor PO 250 mg BIDWM JOSE G Administration Senna 8.6 - 17.2 mg 02/11/18 12:00 02/13/18 08:28 Senokot PO 17.2 mg DAILY JOSE G Administration Sodium Chloride 10 ml 02/06/18 11:45 02/13/18 06:19 Normal Saline Flush 0.9% IVP 10 ml PRN PRN Administration NEEDED PER PROVIDER ORDERS Sodium Chloride 10 ml 02/06/18 17:00 02/13/18 08:38 Normal Saline Flush 0.9% IVP 10 ml 0100,0900,1700 JOSE G Administration Zinc Oxide 113 gm 02/08/18 07:34 02/11/18 22:58 Desitin TOP 1 applic PRN PRN Administration Skin Care Zolpidem Tartrate 5 mg 02/06/18 11:45 Ambien PO QPM PRN Insomnia Omeprazole 20 mg PO QDAC 08/23/15 Duloxetine HCl [Cymbalta] 60 mg PO DAILY 01/15/17 Furosemide 40 mg PO DAILY 01/15/17 Atorvastatin Calcium 80 mg PO QPM 07/14/17 Cyclobenzaprine [Flexeril] 10 mg PO TID PRN 07/14/17 Felodipine [Felodipine ER] 10 mg PO DAILY 07/14/17 Rivaroxaban [Xarelto] 20 mg PO DAILY 07/14/17 Diazepam [Valium] 5 mg PO QPM PRN 02/06/18 Gabapentin [Neurontin] 800 mg PO TID 02/06/18 Hydromorphone HCl [Dilaudid] 8 mg PO Q8H 02/06/18 Insulin Aspart [NovoLOG] 3 unit SUBQ TIDWM 02/06/18 Insulin Glargine [Lantus Solostar] 10 unit SUBQ BID 02/06/18 Objective - Vital Signs/Intake & Output Reviewed Vital Signs: Yes Vital Signs: Vital Signs x48h Temp Pulse Resp BP Pulse Ox 02/13/18 10:26 37.1 C 80 17 112/66 94 Intake & Output: Intake & Output 02/10/18 02/11/18 02/12/18 02/13/18 23:59 23:59 23:59 23:59 Intake Total 2440 1989 1450 770 Output Total 425 1240 1410 700 Balance 2014 750 40 70 - Objective General Appearance: positive: No acute distress, Alert Eyes Bilateral: positive: Normal inspection, PERRL, EOMI, No lid inflammation, Conjunctivae nml, No scleral icterus ENT: positive: ENT inspection nml, Pharynx nml, No signs of dehydration Neck: positive: Nml inspection, Thyroid nml, No JVD, Trachea midline. negative : Thyromegaly Respiratory: positive: Chest non-tender, No respiratory distress, Breath sounds nml. negative: Wheezes, Rales, Rhonchi Cardiovascular: positive: Regular rate & rhythm, No murmur, No gallop Abdomen: positive: Non-tender, No organomegaly, Nml bowel sounds, No distention. negative: Guarding, Rebound Back: positive: Nml inspection. negative: CVA tenderness (R), CVA tenderness (L ) Skin: positive: Color nml, No rash, Warm, Dry. negative: Cyanosis Extremities: positive: Non-tender, Full ROM, Nml appearance Neurologic/Psychiatric: positive: Oriented x3, CN's nml (2-12), Motor nml, Sensation nml, Mood/affect nml - Lab Results Fish Bones: 02/13/18 06:00 02/13/18 04:01 Other Labs: Lab Results x24hrs 02/13/18 02/13/18 02/13/18 Range/Units 11:58 07:59 06:00 WBC 8.2 (4.8-10.8) x10^3/uL RBC 3.80 L (4.20-5.40) 10^6/uL Hgb 11.4 L (12.0-16.0) g/dL Hct 34.7 L (37.0-47.0) % MCV 91.2 (81.0-99.0) fL MCH 30.0 (27.0-31.0) pg MCHC 32.9 (32.0-36.0) g/dL RDW 14.1 (12.0-15.0) % Plt Count 227 (130-450) 10^3/uL MPV 8.4 (7.9-10.8) fL Neut # (Auto) 7.2 H (1.5-6.6) 10^3/uL Lymph # (Auto) 0.7 L (1.5-3.5) 10^3/uL Yates # (Auto) 0.2 (0.0-1.0) 10^3/uL Eos # (Auto) 0.0 (0.0-0.7) 10^3/uL Baso # (Auto) 0.0 (0.0-0.1) 10^3/uL Absolute Nucleated RBC 0.00 x10^3/uL Nucleated RBC % 0.0 /100WBC Sodium (135-145) mmol/L Potassium (3.5-5.0) mmol/L Chloride (101-111) mmol/L Carbon Dioxide (21-32) mmol/L Anion Gap (6-13) BUN (6-20) mg/dL Creatinine (0.4-1.0) mg/dL Estimated GFR (MDRD) (>89) Glucose (70-100) mg/dL POC Whole Bld Glucose 335 H 267 H (70 - 100) mg/dL Calcium (8.5-10.3) mg/dL 02/13/18 Range/Units 04:01 WBC (4.8-10.8) x10^3/uL RBC (4.20-5.40) 10^6/uL Hgb (12.0-16.0) g/dL Hct (37.0-47.0) % MCV (81.0-99.0) fL MCH (27.0-31.0) pg MCHC (32.0-36.0) g/dL RDW (12.0-15.0) % Plt Count (130-450) 10^3/uL MPV (7.9-10.8) fL Neut # (Auto) (1.5-6.6) 10^3/uL Lymph # (Auto) (1.5-3.5) 10^3/uL Yates # (Auto) (0.0-1.0) 10^3/uL Eos # (Auto) (0.0-0.7) 10^3/uL Baso # (Auto) (0.0-0.1) 10^3/uL Absolute Nucleated RBC x10^3/uL Nucleated RBC % /100WBC Sodium 131 L (135-145) mmol/L Potassium 4.8 (3.5-5.0) mmol/L Chloride 102 (101-111) mmol/L Carbon Dioxide 23 (21-32) mmol/L Anion Gap 6.0 (6-13) BUN 57 H (6-20) mg/dL Creatinine 2.8 H (0.4-1.0) mg/dL Estimated GFR (MDRD) 17 L (>89) Glucose 332 H (70-100) mg/dL POC Whole Bld Glucose (70 - 100) mg/dL Calcium 7.7 L (8.5-10.3) mg/dL - Diagnostic Imaging Diagnostic Imaging Results: positive: Final report reviewed Diagnostic Imaging Comments: EXAM: CHEST RADIOGRAPHY EXAM DATE: 02/08/2018 09:50 AM. CLINICAL HISTORY: Intubated patient follow CXR. COMPARISON: 02/07/2018. TECHNIQUE: 1 view. FINDINGS: Lungs/Pleura: Similar small to moderate left pleural effusion and basal atelectasis or infiltrate. Mild bilateral interstitial opacity probably edema. No pneumothorax. Cardiomegaly. Mediastinum: As above. Other: ETT terminates 4.7 cm above the berto. Enteric tube terminates below diaphragm, tip excluded from the [id number]. IMPRESSION: 1. Similar appearance of the chest suggesting mild congestive failure. Small to moderate left pleural effusion. 2. ETT terminates 4.7 cm above the berto. EXAM: Retroperitoneal Limited DATE: 02/11/2018 3:05 PM CLINICAL HISTORY: ARF COMPARISON: 08/02/2013 TECHNIQUE: Real-time scanning was performed with static images obtained. FINDINGS: Right Kidney: 10.5 x 6.0 x 4.6 cm. Possible small nonobstructing stone in an interpolar calyx. No hydronephrosis or solid renal lesion. Left Kidney: 10.5 x 6.5 x 5.7 cm. Normal echotexture with no stones, contour-deforming masses, or hydronephrosis.] Bladder: Decompressed with a Villa catheter. IMPRESSION: No hydronephrosis. Possible small nonobstructing right renal calculus. ABX Reporting Has patient been on IV antibiotics over the past 48 hours?: Yes Assessment/Plan - Problem List (1) CAP (community acquired pneumonia) Impression: The patient is much improved clinically. She is breathing easily on room air and does not appear to be hypoxic or dyspneic. I will give her a bolus of 500 mg of azithromycin today in anticipation of discharging her home tomorrow on 250 mg daily for 5 days. She does not have leukocytosis and has not been running fevers. Qualifiers: Laterality: right Lung location: lower lobe of lung Qualified Code(s): J18.1 - Lobar pneumonia, unspecified organism (2) Acute renal failure superimposed on stage 3 chronic kidney disease Impression: The patient's creatinine is rising and I will restart the patient on low-dose fluids.Recent He echocardiogram showed the patient to have an ejection fraction of 50-55% with mild concentric left ventricular hypertrophy. I do not believe that these fluids will cause her any significant trouble. Qualifiers: Acute renal failure type: unspecified Qualified Code(s): N17.9 - Acute kidney failure, unspecified; N18.3 - Chronic kidney disease, stage 3 (moderate) ; N18.3 - Chronic kidney disease, stage 3 (moderate); N18.3 - Chronic kidney disease, stage 3 (moderate) (3) Adrenal insufficiency Impression: We are giving the patient hydrocortisone IV. We will switch over to oral medications in anticipation of transfer. (4) Urinary tract infection Impression: We have added a azithromycin in anticipation of the patient's discharge home and she is already on cefepime. Continue present care. Qualifiers: Urinary tract infection type: acute cystitis Hematuria presence: without hematuria Qualified Code(s): N30.00 - Acute cystitis without hematuria (5) Acute metabolic encephalopathy Impression: Apparently resolving as the patient was able to have a conversation today. She appears to be slightly lethargic but I am unsure of her baseline. Continue present care. (6) HTN (hypertension) Impression: Well-managed, continue felodipine Qualifiers: Hypertension type: essential hypertension Qualified Code(s): I10 - Essential (primary) hypertension (7) Hyponatremia Impression: Sodium is 131 today. I will restart the patient on normal saline with salt tablets added as well. Will recheck in the morning. (8) Type II diabetes mellitus with complication, uncontrolled Impression: The patient presented with uncontrolled glucose glucose of 473 but was not in DKA. We have restarted her on her home medication regimen with sliding scale for coverage. She is on a low carbohydrate diet. Qualifiers: Diabetes mellitus snf insulin use: with bed bug exterminator use Qualified Code( s): E11.8 - Type 2 diabetes mellitus with unspecified complications; E11.65 - Type 2 diabetes mellitus with hyperglycemia; E11.65 - Type 2 diabetes mellitus with hyperglycemia; E11.65 - Type 2 diabetes mellitus with hyperglycemia; E11.65 - Type 2 diabetes mellitus with hyperglycemia; Z79.4 - bed bug exterminator (current ) use of insulin; Z79.4 - skilled nursing (current) use of insulin; Z79.4 - bed bug exterminator (current) use of insulin; Z79.4 - skilled nursing (current) use of insulin
[2018-02-13] MEDS ORDERED: AZITHROMYCIN 250 MG TABLET PO STA (16:09)
[2018-02-13] MEDS: ATORVASTATIN 40 MG TABLET PO SCH (21:19)
[2018-02-14 05:11] LABS: CALCIUM 7.8 mg/dL (8.5-10.3); CREATININE 2.7 mg/dL (0.4-1.0)
[2018-02-14] MEDS: SODIUM CHLORIDE FLUSH 0.9% 10 ML SYRINGE IVP SCH ×3 (06:33→10:04)
[2018-02-14] MEDS: GABAPENTIN 400 MG CAPSULE PO SCH (06:33)
[2018-02-14] MEDS: PANTOPRAZOLE 40 MG VIAL IVP SCH (06:33)
[2018-02-14] MEDS: SODIUM CHLORIDE FLUSH 0.9% 10 ML SYRINGE IVP PRN (06:33)
[2018-02-14 06:43] LABS: BASOPHILS % (AUTO) 0.3 %; EOSINOPHILS % (AUTO) 0.3 %; HGB - HEMOGLOBIN 12.4 g/dL (12.0-16.0); LYMPHOCYTES # (AUTO) 0.8 10^3/uL (1.5-3.5); LYMPHOCYTES % (AUTO) 8.7 %; MEAN CORPUSCULAR HEMOGLOBIN 30.4 pg (27.0-31.0); MEAN CORPUSCULAR HGB CONC 33.1 g/dL (32.0-36.0); MEAN CORPUSCULAR VOLUME 91.7 fL (81.0-99.0); MEAN PLATELET VOLUME 9.3 fL (7.9-10.8); MONOCYTES # (AUTO) 0.3 10^3/uL (0.0-1.0); MONOCYTES % (AUTO) 3.6 %; NEUTROPHILS # (AUTO) 7.8 10^3/uL (1.5-6.6); NEUTROPHILS % (AUTO) 87.1 %; PLT - PLATELET COUNT 142 10^3/uL (130-450); RED BLOOD COUNT 4.07 10^6/uL (4.20-5.40); RED CELL DISTRIBUTION WIDTH 14.3 % (12.0-15.0)
[2018-02-14] MEDS: INSULIN ASPART 300 UNIT/3 ML PEN SUBQ SCH ×4 (09:08→13:33)
[2018-02-14] MEDS ORDERED: SODIUM CHLORIDE 0.9% 0 ML IV ONE (09:42)
[2018-02-14] MEDS: HYDROCORTISONE SUCCINATE 100 MG/2 ML VIAL IVP SCH (09:55)
[2018-02-14] MEDS ORDERED: WATER FOR INJECTION,STERILE 10 ML ONE (10:11)
[2018-02-14] MEDS: SENNA 8.6 MG TABLET PO SCH (10:14)
[2018-02-14] MEDS: FLUCONAZOLE 100 MG TABLET PO SCH (10:15)
[2018-02-14] MEDS: DULoxetine 30 MG CAPSULE PO SCH (10:16)
[2018-02-14] MEDS: SACCHAROMYCES BOULARDII 250 MG CAPSULE PO SCH (10:17)
[2018-02-14] MEDS ORDERED: MAGNESIUM CITRATE 296 ML BOTTLE PO ONE (10:19)
[2018-02-14] MEDS: POLYETHYLENE GLYCOL 3350 17 GM PACKET PO SCH (10:27)
[2018-02-14] MEDS: DOCUSATE SODIUM 250 MG CAPSULE PO SCH (10:47)
--- NOTE | 2018-02-14 10:55 | Discharge Plan ---
Discharge Plan Disposition: 01 Home, Self Care Condition: Stable Prescriptions: Nystatin Cream [Mycostatin Cream] 1 applic TOP BID #1 tube Diet: Diabetic Activity Restrictions: Activity as Tolerated Shower Restrictions: No Driving Restrictions: No Assistance Devices: Wheelchair Weight Bearing: Partial Weight Instruction Topics: Fluconazole tablets No Smoking: If you smoke, Please STOP! Call for help. Follow-up with: Sylvia Martinez ARNP [Primary Care Provider] -
--- NOTE | 2018-02-14 11:21 | DISCHARGE SUMMARY ---
Discharge Summary Admit Date: 02/06/18 Discharge Date: 02/14/18 Discharging Provider: Rebecca Jack DO Primary Care Provider: Sylvia Martinez Code Status: Do Not Attempt Resuscitation Condition at Discharge: Stable Discharge Disposition: 01 Home, Self Care - DIAGNOSES Admission Diagnoses: 1. Community-acquired pneumonia 2. Urinary tract infection 3. Metabolic encephalopathy 4. Acute renal failure superimposed on stage III chronic kidney disease 5. Type 2 diabetes mellitus with complication, uncontrolled 6. Weakness generalized 7. Hyponatremia 8. Venous stasis dermatitis 9. Atrial fibrillation 10. Chronic pain 11. Hypertension Discharge Diagnoses with Status of Each Condition: 1. Community-acquired pneumonia- Resolved 2. Urinary tract infection- Resolved 3. Metabolic encephalopathy - Improved, there may be some hypercapnic component to this. 4. Acute renal failure superimposed on stage III chronic kidney disease- Stable , patient has not returned to baseline. 5. Type 2 diabetes mellitus with complication, uncontrolled - Blood sugars are improved but still not ideal. 6. Weakness generalized - Continues. 7. Hyponatremia -Corrected 8. Venous stasis dermatitis - Improved but still present 9. Atrial fibrillation- Rate controlled, the patient is on Eliquis. 10. Chronic pain - Controlled 11. Hypertension- Controlled - HPI History of Present Illness: Patient is a 72-year-old female with a past medical history significant for morbid obesity which has left her wheelchair bound with ability to transfer, poorly controlled diabetes, hypertension, atrial fibrillation on Xarelto, CKD stage III, pulmonary hypertension and chronic back pain who presents to the emergency department with a chief complaint of lethargy and generalized weakness. The patient lives with her granddaughter who is also her caregiver. The patient's granddaughter provides the history. The patient's granddaughter states that about 1 week ago she noticed that the patient was having increasing fatigue and having episodes of confusion and increasing weakness. She states that this slowly progressed to the point where 2 days ago the patient had a fall and they could not get her up. At that time she presented to the emergency department and was thought to have a left lower extremity cellulitis and was given antibiotics and sent home. The patient's granddaughter states that the patient continued to worsen last night she had decreased level of consciousness and was too weak to transfer just from her wheelchair to the commode. Then she states this morning the patient again fell off the couch and then was so lethargic that she was not responding or answering questions in the family decided to call 911. The granddaughter denies the patient having any cough or fevers at home. She also states that she has not noticed that the patient has had any gross urinary frequency or that she is complained of dysuria. The patient has been having increasing pain in her legs and has recently been started on oral Dilaudid. The patient herself does admit to feeling weak but denies any fevers, chills, cough, urinary symptoms, headache, neck stiffness, vomiting, diarrhea, abdominal pain. Patient denies any blurred vision, runny nose, sore throat, nasal congestion, difficulty swallowing, chest pain, shortness of air, orthopnea, PND, nausea, constipation, dysuria, increased urinary frequency, worsening back pain, changes in her appetite, recent unintentional weight loss, skin changes, hair loss or any focal neurologic deficits. On presentation to the emergency department the patient was afebrile, heart rate was in the 90s and blood pressure was 94/49. Her oxygen saturation was about 94% on room air and she was placed on 2 L of oxygen. The patient was quite lethargic on presentation and underwent workup with labs. Her CBC showed a slight chronic anemia but her white blood cell count was within normal limits. The patient was slightly hyponatremic with a sodium of 132 and had slightly worsening renal failure with a creatinine of 1.8. Patient also had a blood glucose of 473 but had a normal anion gap and no acidosis. The patient's troponin was negative. The patient did undergo a urine analysis which did show 6-10 WBCs with moderate occult blood and many bacteria consistent with a urinary tract infection. The patient's chest x-ray also revealed a new left basilar consolidation and a small to moderate left pleural effusion. The patient was admitted to the hospital for urinary tract infection and community- acquired pneumonia causing her lethargy and generalized weakness. - HOSPITAL COURSE Hospital Course: Patient came in in severe respiratory distress with hypoxia and hypercapnia. She was intubated on 02/07/2018 and extubated on 02/08/2018. The following day she was able to breathe easily on room air. It was thought that she may have been oversedated with her opioids. An echocardiogram showed a preserved ejection fraction. Patient continued on antibiotics and supplemental oxygen as well as bronchodilators and slowly continue to improve until today when she is back to baseline. She will be discharged home with her family on her home medications, and as she has had 8 days of IV antibiotics for her pneumonia she will not require any further antibiotics. - ALLERGIES Allergies/Adverse Reactions: Allergies Allergy/AdvReac Type Severity Reaction Status Date / Time Penicillins Allergy unknown Verified 02/03/18 18:36 - MEDICATIONS Home Medications: Ambulatory Orders Medication Instructions Recorded Confirmed Omeprazole 20 mg PO QDAC 08/23/15 02/06/18 Duloxetine HCl [Cymbalta] 60 mg PO DAILY 01/15/17 02/06/18 Furosemide 40 mg PO DAILY 01/15/17 02/06/18 Atorvastatin Calcium 80 mg PO QPM 07/14/17 02/06/18 Cyclobenzaprine [Flexeril] 10 mg PO TID PRN 07/14/17 02/06/18 Felodipine [Felodipine ER] 10 mg PO DAILY 07/14/17 02/06/18 Rivaroxaban [Xarelto] 20 mg PO DAILY 07/14/17 02/06/18 Diazepam [Valium] 5 mg PO QPM PRN 02/06/18 02/06/18 Gabapentin [Neurontin] 800 mg PO TID 02/06/18 02/06/18 Hydromorphone HCl [Dilaudid] 8 mg PO Q8H 02/06/18 02/06/18 Insulin Aspart [NovoLOG] 3 unit SUBQ TIDWM 02/06/18 02/06/18 Insulin Glargine [Lantus Solostar] 10 unit SUBQ BID 02/06/18 02/06/18 Fluconazole [Diflucan] 200 mg PO DAILY tablet 02/14/18 Insulin Aspart [NovoLOG] 3 - 11 unit SUBQ 02/14/18 0800,1200,1700,2100 pen Insulin Aspart [NovoLOG] 5 unit SUBQ TIDWM pen 02/14/18 Insulin Glargine [Lantus Solostar] 25 unit SUBQ QPM pen 02/14/18 Nystatin Cream [Mycostatin Cream] 1 applic TOP BID #1 tube 02/14/18 - PHYSICAL EXAM AT DISCHARGE General Appearance: positive: No acute distress, Lethargic Eyes Bilateral: positive: Normal inspection, PERRL, EOMI, No lid inflammation, Conjunctivae nml, No scleral icterus ENT: positive: ENT inspection nml, Pharynx nml, No signs of dehydration Neck: positive: Nml inspection, Thyroid nml, No JVD, Trachea midline. negative : Thyromegaly Respiratory: positive: Chest non-tender, No respiratory distress, Breath sounds nml. negative: Wheezes, Rales, Rhonchi Cardiovascular: positive: Regular rate & rhythm, No murmur, No gallop Peripheral Pulses: positive: 1+ Abdomen: positive: Non-tender, No organomegaly, Nml bowel sounds, No distention. negative: Guarding, Rebound Back: positive: Nml inspection. negative: CVA tenderness (R), CVA tenderness (L ) Skin: positive: Color nml, No rash, Warm, Dry. negative: Cyanosis Extremities: positive: Non-tender, Full ROM, Nml appearance, Pedal edema Neurologic/Psychiatric: positive: Oriented x3, CN's nml (2-12), Motor nml, Sensation nml, Mood/affect nml - LABS Result Diagrams: 02/14/18 06:35 02/14/18 04:25 - DIAGNOSTIC IMAGING Diagnostic Imaging Results: Prelim report reviewed Diagnostic Imaging Results Comments: EXAM: CHEST RADIOGRAPHY EXAM DATE: 02/06/2018 08:24 AM. CLINICAL HISTORY: Chest pain. COMPARISON: 07/14/2017. TECHNIQUE: 1 view. FINDINGS: Lungs/Pleura: New small to moderate left pleural effusion and left basilar opacity. No vascular congestion. No pneumothorax. Mediastinum: Heart is enlarged. Aorta is tortuous. Other: None. IMPRESSION: 1. New left basilar consolidation/atelectasis and small to moderate left pleural effusion. EXAM: Chest 1 View X-Ray DATE: 02/07/2018 12:01 PM CLINICAL HISTORY: Worsening, hypoxia, lethargy COMPARISON: 02/06/2018 TECHNIQUE: Single view of the chest. FINDINGS: Lungs/Pleura: Increasing pulmonary vascular redistribution and congestion with bilateral pleural effusions and basilar airspace disease. Mediastinum: Heart size accentuated by the AP technique Other: None. IMPRESSION: Worsening chest x-ray with increasing vascular congestion, bilateral pleural effusions and basilar air space disease left greater than right. EXAM: CHEST RADIOGRAPHY EXAM DATE: 02/08/2018 09:50 AM. CLINICAL HISTORY: Intubated patient follow CXR. COMPARISON: 02/07/2018. TECHNIQUE: 1 view. FINDINGS: Lungs/Pleura: Similar small to moderate left pleural effusion and basal atelectasis or infiltrate. Mild bilateral interstitial opacity probably edema. No pneumothorax. Cardiomegaly. Mediastinum: As above. Other: ETT terminates 4.7 cm above the berto. Enteric tube terminates below diaphragm, tip excluded from the [id number]. IMPRESSION: 1. Similar appearance of the chest suggesting mild congestive failure. Small to moderate left pleural effusion. 2. ETT terminates 4.7 cm above the berto. EXAM: Retroperitoneal Limited DATE: 02/11/2018 3:05 PM CLINICAL HISTORY: ARF COMPARISON: 08/02/2013 TECHNIQUE: Real-time scanning was performed with static images obtained. FINDINGS: Right Kidney: 10.5 x 6.0 x 4.6 cm. Possible small nonobstructing stone in an interpolar calyx. No hydronephrosis or solid renal lesion. Left Kidney: 10.5 x 6.5 x 5.7 cm. Normal echotexture with no stones, contour-deforming masses, or hydronephrosis.] Bladder: Decompressed with a Villa catheter. IMPRESSION: No hydronephrosis. Possible small nonobstructing right renal calculus. - FOLLOW UP Follow Up: With Sylvia Martinez in 1 week - TIME SPENT Time Spent in Discharge (Minutes): 45
--- NOTE | 2018-02-14 11:58 | Discharge Plan ---
"Discharge Plan for SNF / [facility] - DC Plan and Transition Orders Disposition: 03 SNF DC/Xfer Condition: Stable SNF Transition Orders: Admit to: [facility] under the care of Dr Dee Discharge Diagnosis: Pneumonia Medicare Certification: I certify that [facility] is medically necessary on a continuing basis for any of the conditions for which she/he is receiving care during hospitalization. Notify PCP of admission and forward orders to primary provider for signature. Weight on admission and weekly. Call PCP immediately if weight increases by 5 pounds or if patient develops dyspnea, chest pain/tightness or edema. House Bowel Program: yes If no BM after 2 days, nurse may give M.O.M. 30ml PO PRN and /or ducolax Supp 1 AR and /or STEVE 250mg P.O., and/or senna 1-2 tabs PO. On day 3 nurse may give repeat above order until residents constipation is resolved. Immunizations: Annual Influenza Vaccine: yes. (between Apr 19 and November 16.) Unless allergy or already given Two-Step PPD: yes per [facility] [id number] or appropriate documentation of approved exceptions Oxygen Orders: 2 l/m via nc prn sob Medications: PLEASE REFER TO THE DISCHARGE MEDICATION LIST. Insulin Orders? yes Diagnosis: Diabetes Initiate hypo and hyperglycemia protocols for BG <70 and BG >375. May check BG prn for signs/symptoms of dysglycemia. Frequency of BG checks: [AC/Meal/HS] Basal Insulin: Lantus 100 units / ml inject subq as follows: 25 units QHS Correction Insulin: - Select the type of insulin below Choose: Novolog 100 units /ml insulin inject subq per orders indicate below LOW DOSE X MODERATE DOSE MODERATE/HIGH DOSE HIGH DOSE GB UNITS GB UNITS GB UNITS GB UNITS 61-140 0 UNITS 61-140 0 UNITS 61-140 0 UNITS 61-140 0 UNITS 141-175 1 UNITS 141-175 1 UNITS 141-175 2 UNITS 141-175 3 UNITS 176-225 2 UNITS 176-225 3 UNITS 176-225 4 UNITS 176-225 5 UNITS 226-275 3 UNITS 226-275 5 UNITS 226-275 6 UNITS 226-275 7 UNITS 276-325 4 UNITS 276-325 7 UNITS 276-325 8 UNITS 276-325 9 UNITS 326-375 5 UNITS 326-375 9 UNITS 326-375 10 UNITS 326-375 11 UNITS >375 CONTACT MD >375 CONTACT MD >375 CONTACT MD >375 CONTACT MD Custom Dosing: [Novolog] 100 units/ml Insulin inject subq as follows: GB Units 61-140 [] Units 141-175 [] Units 176-225 [] Units 226-275 [] Units 276-325 []Units 326-375 [] Units >375 Contact MD Allergies and Adverse Reactions: Allergies Allergy/AdvReac Type Severity Reaction Status Date / Time Penicillins Allergy unknown Verified 02/03/18 18:36 - Medications New Prescriptions: Nystatin Cream [Mycostatin Cream] 1 applic TOP BID #1 tube - Diet Type: No added salt Texture: Regular Liquids: Thin May have monthly special meal: Yes - Therapies | Activity Therapy: Evaluation | Treat if indicated: PT, OT Rehabilitation Potential: Maximize functional status Activity: Activity as Tolerated Weight Bearing: Partial Weight Assistance Devices: Wheelchair Follow Up: With Sylvia Martinez in 1 week"
[2018-02-14 12:56] VITALS: BP 133/75
== END 2018-02-14 14:20 | DRG 208 ==
LOC: EDUNIT# → ED 07:41 → MS2 11:46 → ICU 02-07 12:10 → MS2 02-08 18:37 → ICU 02-10 16:26 → MS3 02-12 17:04
PROVIDERS: ADMIT Internal Medicine; ATTEND Hospitalist
PROC: 5A1935Z Respiratory Ventilation, Less than 24 Consecutive Hours (ICD-10-PCS; principal; 2018-02-07)
PROC: 0BH17EZ Insertion of Endotracheal Airway into Trachea, Via Natural or Artificial Opening (ICD-10-PCS; 2018-02-07)
PROC: 02HV33Z Insertion of Infusion Device into Superior Vena Cava, Percutaneous Approach (ICD-10-PCS; 2018-02-10)
DX: R41.0 Disorientation, unspecified (principal); J18.1 Lobar pneumonia, unspecified organism; G93.41 Metabolic encephalopathy; J96.02 Acute respiratory failure with hypercapnia; J96.01 Acute respiratory failure with hypoxia; N30.00 Acute cystitis without hematuria; N17.9 Acute kidney failure, unspecified; E87.1 Hypo-osmolality and hyponatremia; I48.91 Unspecified atrial fibrillation; Z68.44 Body mass index [BMI] 60.0-69.9, adult; E27.40 Unspecified adrenocortical insufficiency; E11.65 Type 2 diabetes mellitus with hyperglycemia; E11.620 Type 2 diabetes mellitus with diabetic dermatitis; I48.2 Chronic atrial fibrillation; G89.29 Other chronic pain; M54.9 Dorsalgia, unspecified; I12.9 Hypertensive chronic kidney disease with stage 1 through stage 4 chronic kidney disease, or unspecified chronic kidney disease; E11.22 Type 2 diabetes mellitus with diabetic chronic kidney disease; N18.3 Chronic kidney disease, stage 3 (moderate); E11.51 Type 2 diabetes mellitus with diabetic peripheral angiopathy without gangrene; E11.42 Type 2 diabetes mellitus with diabetic polyneuropathy; E86.0 Dehydration; L89.159 Pressure ulcer of sacral region, unspecified stage; I10 Essential (primary) hypertension; E78.00 Pure hypercholesterolemia, unspecified; R32 Unspecified urinary incontinence; R35.0 Frequency of micturition; H54.7 Unspecified visual loss; F32.9 Major depressive disorder, single episode, unspecified; I27.20 Pulmonary hypertension, unspecified; Z51.5 Encounter for palliative care; Z66 Do not resuscitate; Z78.1 Physical restraint status; M19.90 Unspecified osteoarthritis, unspecified site; Z79.4 Long term (current) use of insulin; Z79.891 Long term (current) use of opiate analgesic; Z79.899 Other long term (current) drug therapy; Z87.440 Personal history of urinary (tract) infections; Z87.01 Personal history of pneumonia (recurrent); E66.01 Morbid (severe) obesity due to excess calories; Z99.3 Dependence on wheelchair; Z87.891 Personal history of nicotine dependence
CPT/HCPCS: 36415; 36600; 51701; 71045; 76775; 80048; 80053; 80202; 81001; 81003; 82330; 82533; 82803; 83036; 83605; 83690; 83735; 83880; 84100; 84439; 84481; 84484; 85025; 85610; 85730; 87040; 87086; 87150; 93005; 93306; 94002; 94003; 94660; 96365; 99222; 99284

== ENCOUNTER 2018-02-14 14:32 | Outpatient (CLI) | payer MEDICARE, OTHER | END 2018-02-14 14:33 | disposition home or self-care (01) | LOC: EMS 14:32 | PROVIDERS: ATTEND Surgery | DX: Z74.01 Bed confinement status (principal) | CPT/HCPCS: A0425; A0429 ==

== ENCOUNTER 2018-02-19 15:00 | Outpatient (CLI) | payer MEDICARE, OTHER ==
[2018-02-19 17:57] LABS: BASOPHILS # (AUTO) 0.1 10^3/uL (0.0-0.1); BASOPHILS % (AUTO) 0.7 %; EOSINOPHILS # (AUTO) 0.2 10^3/uL (0.0-0.7); EOSINOPHILS % (AUTO) 1.5 %; HGB - HEMOGLOBIN 10.5 g/dL (12.0-16.0); LYMPHOCYTES # (AUTO) 1.2 10^3/uL (1.5-3.5); LYMPHOCYTES % (AUTO) 11.2 %; MEAN CORPUSCULAR HEMOGLOBIN 30.7 pg (27.0-31.0); MEAN CORPUSCULAR HGB CONC 32.6 g/dL (32.0-36.0); MEAN CORPUSCULAR VOLUME 94.2 fL (81.0-99.0); MEAN PLATELET VOLUME 8.3 fL (7.9-10.8); MONOCYTES % (AUTO) 9.3 %; NEUTROPHILS # (AUTO) 8.4 10^3/uL (1.5-6.6); NEUTROPHILS % (AUTO) 77.3 %; RED BLOOD COUNT 3.43 10^6/uL (4.20-5.40); RED CELL DISTRIBUTION WIDTH 14.4 % (12.0-15.0); WHITE BLOOD COUNT 10.9 x10^3/uL (4.8-10.8)
[2018-02-19 18:00] LABS: CALCIUM 8.1 mg/dL (8.5-10.3); CREATININE 2.7 mg/dL (0.4-1.0)
[2018-02-19 18:20] LABS: PLATELET MORPHOLOGY PLATELET CLUMPING (NORMAL)
[2018-02-19 18:21] LABS: RBC MORPHOLOGY (MULTIPLE) NORMAL APPEARANCE (NORMAL)
[2018-02-20 09:18] LABS: BILIRUBIN,DIRECT 0.1 mg/dL (0.1-0.5); BILIRUBIN,TOTAL 0.5 mg/dL (0.2-1.0); TOTAL PROTEIN 5.5 g/dL (6.7-8.2)
== END 2018-02-19 15:01 | disposition home or self-care (01) ==
LOC: LAB.R 15:00
DX: E11.65 Type 2 diabetes mellitus with hyperglycemia (principal); R79.89 Other specified abnormal findings of blood chemistry; E11.22 Type 2 diabetes mellitus with diabetic chronic kidney disease; N18.4 Chronic kidney disease, stage 4 (severe); N17.9 Acute kidney failure, unspecified
CPT/HCPCS: 80048; 80076; 85025

== ENCOUNTER 2018-02-20 11:11 | Outpatient (CLI) | payer MEDICARE, OTHER | END 2018-02-20 11:12 | disposition critical access hospital (66) | LOC: EMS 11:11 | PROVIDERS: ATTEND Surgery | DX: R06.02 Shortness of breath (principal); R41.82 Altered mental status, unspecified | CPT/HCPCS: A0425; A0429 ==

== ENCOUNTER 2018-02-20 11:16 | Inpatient (IN) | payer MEDICARE, OTHER ==
--- NOTE | 2018-02-20 12:18 | ED Physician Documentation ---
History of Present Illness - Stated complaint Stated Complaint: PNA - Chief complaint Chief Complaint: Resp - History obtained from History obtained from: Patient, EMS - History of Present Illness Timing: How many days ago (4) Review of Systems Unable to obtain: Confused Constitutional: reports: Chills, Myalgias, Fatigue Eyes: denies: Decreased vision Ears: denies: Ear pain Nose: reports: Congestion Respiratory: reports: Dyspnea, Cough : reports: Other (cloudy urine) Musculoskeletal: denies: Neck pain, Back pain Neurologic: reports: Generalized weakness, Altered mental status. 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: Other : Incontinence, Chronic bladder infection, Renal insuffiency, Frequency HEENT: Chronic vision loss Psych: Depression Musculoskeletal: Osteoarthritis, Chronic back pain Derm: Other - Past Surgical History Past Surgical History: Yes Ortho: Other Derm: Other - Present Medications Home Medications: Ambulatory Orders Medication Instructions Recorded Confirmed Omeprazole 20 mg PO QDAC 08/23/15 02/06/18 Duloxetine HCl [Cymbalta] 60 mg PO DAILY 01/15/17 02/06/18 Furosemide 40 mg PO DAILY 01/15/17 02/06/18 Atorvastatin Calcium 80 mg PO QPM 07/14/17 02/06/18 Cyclobenzaprine [Flexeril] 10 mg PO TID PRN 07/14/17 02/06/18 Felodipine [Felodipine ER] 10 mg PO DAILY 07/14/17 02/06/18 Rivaroxaban [Xarelto] 20 mg PO DAILY 07/14/17 02/06/18 Diazepam [Valium] 5 mg PO QPM PRN 02/06/18 02/06/18 Gabapentin [Neurontin] 800 mg PO TID 02/06/18 02/06/18 Hydromorphone HCl [Dilaudid] 8 mg PO Q8H 02/06/18 02/06/18 Insulin Aspart [NovoLOG] 3 unit SUBQ TIDWM 02/06/18 02/06/18 Insulin Glargine [Lantus Solostar] 10 unit SUBQ BID 02/06/18 02/06/18 Fluconazole [Diflucan] 200 mg PO DAILY tablet 02/14/18 Insulin Aspart [NovoLOG] 3 - 11 unit SUBQ 02/14/18 0800,1200,1700,2100 pen Insulin Aspart [NovoLOG] 5 unit SUBQ TIDWM pen 02/14/18 Insulin Glargine [Lantus Solostar] 25 unit SUBQ QPM pen 02/14/18 Nystatin Cream [Mycostatin Cream] 1 applic TOP BID #1 tube 02/14/18 - Allergies Allergies/Adverse Reactions: Allergies Allergy/AdvReac Type Severity Reaction Status Date / Time Penicillins Allergy unknown Verified 02/20/18 11:29 - Social History Does the pt smoke?: No Smoking Status: Never smoker Does the pt drink ETOH?: No Does the pt have substance abuse?: No - Immunizations Immunizations are current?: Yes - POLST Patient has POLST: Yes POLST Status: DNR PD ED PE NORMAL - Vitals Vital signs reviewed: Yes (hypotensive ) - General General: No acute distress, Well developed/nourished - HEENT HEENT: Atraumatic, PERRL, EOMI - Neck Neck: Supple, no meningeal sign - Cardiac Cardiac: RRR, No murmur - Respiratory Respiratory: No respiratory distress, Other (right mid lung field rhonchi) - Abdomen Abdomen: Soft, Non tender, Other (massive obesity) - Back Back: No CVA TTP, No spinal TTP - Derm Derm: Normal color, Warm and dry - Extremities Extremities: No deformity, Other Results - Vitals Vitals: Vital Signs - 24 hr 02/20/18 11:20 Temperature 36 C L Heart Rate 82 Respiratory 24 Rate Blood Pressure 99/42 L O2 Saturation 92 Oxygen O2 Source [With Activity] Room air O2 Source [Without Activity] Nasal cannula O2 Source Nasal cannula Oxygen Flow Rate 4 - Labs Labs: Laboratory Tests 02/20/18 02/20/18 02/20/18 12:20 12:20 12:20 WBC 11.4 H RBC 3.26 L Hgb 9.9 L Hct 30.1 L MCV 92.2 MCH 30.4 MCHC 33.0 RDW 14.3 Plt Count 116 L MPV 9.9 Neut # (Auto) 9.3 H Lymph # (Auto) 0.7 L [place] # (Auto) 1.2 H Eos # (Auto) 0.2 Baso # (Auto) 0.0 Absolute Nucleated RBC 0.00 Nucleated RBC % 0.0 Sodium 135 Potassium 5.8 H Chloride 106 Carbon Dioxide 24 Anion Gap 5.0 L BUN 62 H Creatinine 2.6 H Estimated GFR (MDRD) 18 L Glucose 75 Lactic Acid Calcium 8.1 L Total Bilirubin 0.6 AST 27 ALT 26 Alkaline Phosphatase 174 H Troponin I < 0.04 Total Protein 5.6 L Albumin 1.9 L Globulin 3.7 Albumin/Globulin Ratio 0.5 L Lipase 24 02/20/18 12:20 WBC RBC Hgb Hct MCV MCH MCHC RDW Plt Count MPV Neut # (Auto) Lymph # (Auto) [place] # (Auto) Eos # (Auto) Baso # (Auto) Absolute Nucleated RBC Nucleated RBC % Sodium Potassium Chloride Carbon Dioxide Anion Gap BUN Creatinine Estimated GFR (MDRD) Glucose Lactic Acid 0.5 Calcium Total Bilirubin AST ALT Alkaline Phosphatase Troponin I Total Protein Albumin Globulin Albumin/Globulin Ratio Lipase PD MEDICAL DECISION MAKING - Sepsis Event Vital Signs: Vital Signs - 24 hr 02/20/18 11:20 Temperature 36 C L Heart Rate 82 Respiratory 24 Rate Blood Pressure 99/42 L O2 Saturation 92 Oxygen O2 Source [With Activity] Room air O2 Source [Without Activity] Nasal cannula O2 Source Nasal cannula Oxygen Flow Rate 4 Departure - Departure Disposition: [facility] DC/Xfer Clinical Impression: health care associated pneumonia.
[2018-02-20 12:33] LABS: BASOPHILS % (AUTO) 0.3 %; EOSINOPHILS # (AUTO) 0.2 10^3/uL (0.0-0.7); EOSINOPHILS % (AUTO) 1.4 %; HGB - HEMOGLOBIN 9.9 g/dL (12.0-16.0); LYMPHOCYTES # (AUTO) 0.7 10^3/uL (1.5-3.5); LYMPHOCYTES % (AUTO) 6.4 %; MEAN CORPUSCULAR HEMOGLOBIN 30.4 pg (27.0-31.0); MEAN CORPUSCULAR VOLUME 92.2 fL (81.0-99.0); MEAN PLATELET VOLUME 9.9 fL (7.9-10.8); MONOCYTES # (AUTO) 1.2 10^3/uL (0.0-1.0); MONOCYTES % (AUTO) 10.2 %; NEUTROPHILS # (AUTO) 9.3 10^3/uL (1.5-6.6); NEUTROPHILS % (AUTO) 81.7 %; PLT - PLATELET COUNT 116 10^3/uL (130-450); RED BLOOD COUNT 3.26 10^6/uL (4.20-5.40); RED CELL DISTRIBUTION WIDTH 14.3 % (12.0-15.0); WHITE BLOOD COUNT 11.4 x10^3/uL (4.8-10.8)
[2018-02-20 12:43] LABS: ALBUMIN 1.9 g/dL (3.2-5.5); ALBUMIN/GLOBULIN RATIO 0.5 (1.0-2.2); BILIRUBIN,TOTAL 0.6 mg/dL (0.2-1.0); CALCIUM 8.1 mg/dL (8.5-10.3); CREATININE 2.6 mg/dL (0.4-1.0); TOTAL PROTEIN 5.6 g/dL (6.7-8.2)
[2018-02-20] MEDS ORDERED: HYDROCORTISONE SUCCINATE 100 MG/2 ML VIAL IVP STA (12:49)
--- NOTE | 2018-02-20 12:57 | XRAY Report ---
Procedure Date: 02/20/2018 Accession Number: [id number] / [id number] Procedure: XR - Chest 2 View X-Ray CPT Code: 21409 FULL RESULT: EXAM: CHEST RADIOGRAPHY EXAM DATE: 02/20/2018 12:19 PM. CLINICAL HISTORY: R mid lung rhonchi. COMPARISON: None. TECHNIQUE: 2 views. FINDINGS: Lungs/Pleura: Irregular opacities extending from the right perihilar station into the right upper lobe and left perihilar station into left upper lobe. Consolidations in the left lung base is silhouetting of the left hemidiaphragm. Small to moderate-sized left-sided pleural effusion. Mediastinum: The left and right heart borders are silhouetted by the adjacent airspace process. Other: None. IMPRESSION: Multifocal multi lobar pneumonia with [id number] sized left-sided pleural effusion, likely reactive. RADIA
[2018-02-20] MEDS ORDERED: FUROSEMIDE 100 MG/10 ML VIAL IVP STA (13:10)
[2018-02-20] MEDS ORDERED: IBUPROFEN 600 MG TABLET PO PRN (13:19)
[2018-02-20] MEDS ORDERED: TEMAZEPAM 15 MG CAPSULE PO PRN (13:19)
[2018-02-20] MEDS ORDERED: SODIUM CHLORIDE FLUSH 0.9% 10 ML SYRINGE IVP PRN (13:19)
--- NOTE | 2018-02-20 13:38 | HISTORY & PHYSICAL EXAMINATION ---
Chief Complaint - Chief Complaint Chief Complaint: Increasing somnolence, worsening short term memory History of Present Illness - Admitted From Admitted From:: [facility] - History Obtained From Records Reviewed: previous hospitalization 02/06/2018 History obtained from: Pt, granddaughter, ED physician - History of Present Illness HPI Comment/Other: Cleo Porter is a pleasant 72-year-old female who lives with her daughter and granddaughter and who was here at would be general 2 weeks ago, from February 06- when she was admitted for CAP. Following her hospitalization she was sent to [facility] nursing home facility for rehab to help her return home. Patient's granddaughter notes that over the last 2 or 3 days she has been noting gradually increasing somnolence and lack of responsiveness and when this did not get better today she brought the patient into the emergency department for evaluation. A chest x-ray found multifocal multi lobar pneumonia. She will be admitted for IV antibiotics, electrolyte correction, supplemental oxygen, and bronchodilators as needed. 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: Other : reports: Incontinence, Chronic bladder infection, Renal insuffiency, Frequency HEENT: reports: Chronic vision loss Psych: reports: Depression Musculoskeletal: reports: Osteoarthritis, Chronic back pain Derm: reports: Other MRSA Hx?: No - Past Surgical History Ortho: reports: Other Derm: reports: Other - Family & Social History Family History: Mother: , Father: , Sister: Alive and Well, Diabetes, Type 2, Renal Disease/Failure, Other family: Alcoholism (daughter) Living arrangement: At home Living Situation: With family - Substance History Use: Uses substance without health or social issues: NONE Abuse: Recurrent use of substance despite neg consequences: NONE Dependence: Experiences withdrawal or developed tolerances: NONE - POLST Patient has POLST: Yes POLST Status: DNR Meds/Allgy - Home Medications Home Medications: Ambulatory Orders Medication Instructions Recorded Confirmed Omeprazole 20 mg PO QDAC 08/23/15 02/20/18 Duloxetine HCl [Cymbalta] 60 mg PO DAILY 01/15/17 02/20/18 Furosemide 40 mg PO DAILY 01/15/17 02/20/18 Atorvastatin Calcium 80 mg PO QPM 07/14/17 02/20/18 Cyclobenzaprine [Flexeril] 10 mg PO TID PRN 07/14/17 02/20/18 Felodipine [Felodipine ER] 10 mg PO DAILY 07/14/17 02/20/18 Rivaroxaban [Xarelto] 20 mg PO DAILY 07/14/17 02/20/18 Diazepam [Valium] 5 mg PO QPM PRN 02/06/18 02/20/18 Gabapentin [Neurontin] 800 mg PO TID 02/06/18 02/20/18 Hydromorphone HCl [Dilaudid] 8 mg PO Q8H 02/06/18 02/20/18 Insulin Aspart [NovoLOG] 3 unit SUBQ TIDWM 02/06/18 02/20/18 Insulin Glargine [Lantus Solostar] 10 unit SUBQ BID 02/06/18 02/20/18 Insulin Aspart [NovoLOG] 3 - 11 unit SUBQ 02/14/18 02/20/18 0800,1200,1700,2100 pen Nystatin Cream [Mycostatin Cream] 1 applic TOP BID #1 tube 02/14/18 02/20/18 Cholecalciferol (Vitamin D3) 1,000 unit PO DAILY 02/20/18 02/20/18 [Vitamin D3] - Allergies Allergies/Adverse Reactions: Allergies Allergy/AdvReac Type Severity Reaction Status Date / Time Penicillins Allergy unknown Verified 02/20/18 11:29 Review of Systems - Constitutional Constitutional: reports: Fatigue, Malaise, Weakness. denies: Fever, Chills, Night sweats - Eyes Eyes: denies: Pain, Irritation, Amaurosis, Blurred vision, Dipolpia - Ears, Nose & Throat Ears, Nose & Throat: denies: Ear pain, Tinnitus, Vertigo, Nasal pain, Nosebleeds , Sore throat, Mouth lesions - Cardiovascular Cariovascular: denies: Irregular heart rate, Palpitations, Chest pain, Edema, Syncope, Orthopnea - Respiratory Respiratory: reports: SOB with exertion. denies: Cough, Sputum production, Wheezing, Hemoptysis, Orthopnea - Gastrointestinal Gastrointestinal: denies: Abdominal pain, Abdominal distention, Constipation, Diarrhea, Change in bowel habits, Rectal bleeding - Genitourinary Genitourinary: denies: Dysuria, Frequency, Urgency, Hematuria - Musculoskeletal Musculoskeletal: denies: Muscle pain, Back pain, Muscle aches, Stiffness - Integumentary Integumentary: denies: Rash, Pruritis, Lesions, Dryness - Neurological Neurological: reports: General weakness, Memory problems. denies: Focal weakness, Headache, Dizziness - Psychiatric Psychiatric: denies: Depression, Anxiety, Suicidal, Hallucinations, Homicidal - Endocrine Endocrine: denies: Polyuria, Polydypsia, Polyphagia - Hematologic/Lymphatic Hematologic/Lymphatic: denies: Anemia, Bruising, Petechiae, Lymphadenopathy - All Other Systems All Other Systems: reports: Reviewed and negative Exam - Vital Signs Reviewed Vital Signs: Yes Vital Signs: Vital Signs x48h Temp Pulse Resp BP Pulse Ox 02/20/18 11:20 36 C L 82 24 99/42 L 92 - Physical Exam General Appearance: positive: Alert, Mild distress Eyes Bilateral: positive: Normal inspection, PERRL, EOMI, No lid inflammation, Conjunctivae nml, No scleral icterus ENT: positive: ENT inspection nml, Pharynx nml, No signs of dehydration Neck: positive: Nml inspection, Thyroid nml, No JVD, Trachea midline. negative : Thyromegaly Respiratory: positive: Chest non-tender, No respiratory distress, Breath sounds nml. negative: Wheezes, Rales, Rhonchi Cardiovascular: positive: Regular rate & rhythm, No murmur, No gallop Peripheral Pulses: positive: 1+ Abdomen: positive: Non-tender, No organomegaly, Nml bowel sounds, No distention. negative: Guarding, Rebound Back: positive: Nml inspection. negative: CVA tenderness (R), CVA tenderness (L ) Skin: positive: Color nml, No rash, Warm, Dry. negative: Cyanosis Extremities: positive: Non-tender, Full ROM, Nml appearance, Pedal edema. negative: Joint swelling Neurologic/Psychiatric: positive: Oriented x3, CN's nml (2-12), Motor nml, Sensation nml, Mood/affect nml Conclusion/Plan - Problem List (1) Pneumonia Conclusion/Plan: Multifocal, multilobar. As the patient has recently been hospitalized and then in a rehab we have to consider this healthcare acquired. We will start her on cefepime and Levaquin, give her supplemental oxygen as needed, give her bronchodilators as needed, and ask physical therapy and respiratory therapy to work with her. Qualifiers: Pneumonia type: due to unspecified organism Laterality: left Lung location: lower lobe of lung Qualified Code(s): J18.1 - Lobar pneumonia, unspecified organism (2) Morbid obesity Conclusion/Plan: This has severely affected the patient's quality of life, affecting her mobility and her general health. I will ask dietary to meet with her. (3) Type 2 diabetes mellitus Conclusion/Plan: I will start the patient on a carb controlled diet and give her long-acting insulin, mealtime insulin, and sliding scale for coverage. I will check HgbA1C. (4) Chronic kidney disease, stage III (moderate) Conclusion/Plan: The patient's creatinine today is 2.6. This appears to be about her average during her hospitalizations over the last couple of years. We will give the patient IV fluids and monitor her renal function carefully. (5) Pulmonary hypertension Conclusion/Plan: I will start the patient on spironolactone for her pulmonary hypertension. (6) Atrial fibrillation Conclusion/Plan: Patient's atrial fibrillation is rate controlled. Continue Felodipine and Xarelto. Qualifiers: Atrial fibrillation type: chronic Qualified Code(s): I48.2 - Chronic atrial fibrillation (7) Chronic back pain Conclusion/Plan: I will restart the patient on her Flexeril and order Dilaudid as needed for her back pain as these are her home medications. - Lab Results Lab results reviewed: Yes Fish Bones: 02/20/18 12:20 02/20/18 12:20 - Diagnostic Imaging Results Diagnostic Imaging Results: positive: Final report reviewed Diagnostic Imaging Results Comments: EXAM: CHEST RADIOGRAPHY EXAM DATE: 02/20/2018 12:19 PM. CLINICAL HISTORY: R mid lung rhonchi. COMPARISON: None. TECHNIQUE: 2 views. FINDINGS: Lungs/Pleura: Irregular opacities extending from the right perihilar station into the right upper lobe and left perihilar station into left upper lobe. Consolidations in the left lung base is silhouetting of the left hemidiaphragm. Small to moderate-sized left-sided pleural effusion. Mediastinum: The left and right heart borders are silhouetted by the adjacent airspace process. Other: None. IMPRESSION: Multifocal multi lobar pneumonia with [id number] sized left-sided pleural effusion, likely reactive. Core Measures - Anticipated LOS I expect patient to be DC'd or transferred within 96 hours.: Yes - DVT/VTE - Prophylaxis VTE/DVT Device ordered at admit?: Yes
[2018-02-20 14:39] LABS: BILIRUBIN,URINE NEGATIVE (NEGATIVE); GLUCOSE, URINE (UA) NEGATIVE (NEGATIVE); KETONES,URINE (UA) NEGATIVE (NEGATIVE); LEUKOCYTE ESTERASE, URINE NEGATIVE (NEGATIVE); NITRITE,URINE NEGATIVE (NEGATIVE); OCCULT BLOOD,URINE LARGE (NEGATIVE); PH,URINE 5.5 PH (5.0-7.5); PROTEIN,URINE 30 mg/dL (NEGATIVE); UROBILINOGEN,URINE 0.2 (NORMAL) E.U./dL (NORMAL)
[2018-02-20 14:44] LABS: CLARITY,URINE CLOUDY (CLEAR)
[2018-02-20 14:52] LABS: AMORPHOUS SEDIMENT,UR Moderate /LPF; BACTERIA,URINE Many /HPF (None Seen); RBC,URINE TNTC /HPF (0-5); SQUAMOUS EPITHELIAL CELL,UR MOD Squamous (<= Few)
[2018-02-20 14:53] LABS: YEAST,URINE PRESENT
[2018-02-20] MEDS: CEFEPIME 2 GM in SODIUM CHLORIDE 0.9% MINIBAG 100 ML IV SCH (15:15)
[2018-02-20] MEDS: SODIUM CHLORIDE 0.9% 1,000 ML IV SCH (15:20)
[2018-02-20 15:23] LABS: ABG BASE EXCESS -1.4 mmol/L (-2.0-3.0); ABG HCO3 25.3 mmol/L (22.0-26.0); ABG OXYGEN SATURATION 88 % (94-98); ABG PCO2 51 mmHg (34-45); ABG PH 7.31 (7.35-7.45); ABG PO2 57 mmHg (80-100); ABG TCO2 26.9 MMOL/L (21.0-29.0); ALLEN TEST NEGATIVE
[2018-02-20] MEDS ORDERED: diazePAM 5 MG TABLET PO PRN (16:01)
[2018-02-20] MEDS ORDERED: CYCLOBENZAPRINE 10 MG TABLET PO PRN (16:01)
[2018-02-20] MEDS ORDERED: HYDROmorphone 2 MG TABLET PO SCH (16:15)
[2018-02-20] MEDS: levoFLOXacin 750 MG/150 ML 750 MG/150 ML BAG IV SCH (16:45)
[2018-02-20] MEDS ORDERED: HYDROmorphone 2 MG TABLET PO PRN (16:51)
[2018-02-20 16:53] LABS: HB2 TOTAL 10.5 g/dL; HEMOGLOBIN A1C 1.14 g/dL; HEMOGLOBIN A1C % 12.1 % (4.6-6.2)
[2018-02-20] MEDS: INSULIN ASPART 300 UNIT/3 ML PEN SUBQ SCH ×3 (17:09→21:05)
[2018-02-20] MEDS: SODIUM CHLORIDE FLUSH 0.9% 10 ML SYRINGE IVP SCH (17:10)
[2018-02-20 18:15] LABS: ABG HCO3 24.6 mmol/L (22.0-26.0); ABG PCO2 52 mmHg (34-45); ABG PO2 108 mmHg (80-100)
[2018-02-20 18:20] LABS: ABG BASE EXCESS -2.2 mmol/L (-2.0-3.0); ABG OXYGEN SATURATION 97 % (94-98); ABG TCO2 26.2 MMOL/L (21.0-29.0); ALLEN TEST POSITIVE
[2018-02-20] MEDS: SPIRONOLACTONE 25 MG TABLET PO SCH (19:20)
[2018-02-20 20:12] LABS: ABG BASE EXCESS -2.7 mmol/L (-2.0-3.0); ABG HCO3 23.7 mmol/L (22.0-26.0); ABG OXYGEN SATURATION 96 % (94-98); ABG PCO2 48 mmHg (34-45); ABG PH 7.31 (7.35-7.45); ABG PO2 86 mmHg (80-100); ABG TCO2 25.2 MMOL/L (21.0-29.0)
[2018-02-20 20:13] LABS: ALLEN TEST POSITIVE
[2018-02-20] MEDS: INSULIN GLARGINE 300 UNIT/3 ML PEN SUBQ SCH (21:09)
[2018-02-20] MEDS: GABAPENTIN 400 MG CAPSULE PO SCH (21:29)
[2018-02-20] MEDS: ATORVASTATIN 40 MG TABLET PO SCH (21:30)
[2018-02-20] MEDS: NYSTATIN CREAM 15 GM TUBE TOP SCH (21:30)
[2018-02-21] MEDS: SODIUM CHLORIDE FLUSH 0.9% 10 ML SYRINGE IVP SCH ×3 (01:27→17:57)
[2018-02-21] MEDS: SODIUM CHLORIDE 0.9% 1,000 ML IV SCH ×2 (03:09→14:47)
[2018-02-21 04:44] LABS: CALCIUM 8.3 mg/dL (8.5-10.3); CREATININE 2.8 mg/dL (0.4-1.0)
[2018-02-21 05:49] LABS: HGB - HEMOGLOBIN 9.6 g/dL (12.0-16.0); MEAN CORPUSCULAR HEMOGLOBIN 30.8 pg (27.0-31.0); MEAN CORPUSCULAR HGB CONC 33.9 g/dL (32.0-36.0); MEAN PLATELET VOLUME 8.4 fL (7.9-10.8); RED BLOOD COUNT 3.11 10^6/uL (4.20-5.40); RED CELL DISTRIBUTION WIDTH 13.9 % (12.0-15.0); WHITE BLOOD COUNT 9.9 x10^3/uL (4.8-10.8)
[2018-02-21] MEDS: GABAPENTIN 400 MG CAPSULE PO SCH ×3 (06:17→21:03)
[2018-02-21] MEDS: PANTOPRAZOLE 40 MG TABLET PO SCH (06:17)
[2018-02-21] MEDS: INSULIN ASPART 300 UNIT/3 ML PEN SUBQ SCH ×7 (08:34→21:04)
[2018-02-21] MEDS: DULoxetine 30 MG CAPSULE PO SCH (08:40)
[2018-02-21] MEDS: RIVAROXABAN 10 MG TABLET PO SCH (08:41)
[2018-02-21] MEDS: FUROSEMIDE 40 MG TABLET PO SCH (08:42)
[2018-02-21] MEDS: FELODIPINE ER 2.5 MG TABLET PO SCH (08:42)
[2018-02-21] MEDS: CHOLECALCIFEROL 1,000 UNIT TABLET PO SCH (08:42)
[2018-02-21] MEDS: POLYETHYLENE GLYCOL 3350 17 GM PACKET PO SCH (08:44)
[2018-02-21] MEDS ORDERED: SODIUM POLYSTYRENE SULFONATE 15 GM/60 ML BOTTLE PO ONE (09:00)
[2018-02-21] MEDS: SPIRONOLACTONE 25 MG TABLET PO SCH (09:10)
[2018-02-21] MEDS: INSULIN GLARGINE 300 UNIT/3 ML PEN SUBQ SCH ×2 (09:11→21:03)
[2018-02-21] MEDS: NYSTATIN CREAM 15 GM TUBE TOP SCH ×3 (12:23→20:59)
[2018-02-21] MEDS: CEFEPIME 2 GM in SODIUM CHLORIDE 0.9% MINIBAG 100 ML IV SCH (16:37)
--- NOTE | 2018-02-21 16:50 | PROVIDER PROGRESS NOTE ---
Subjective - Prog Note Date Prog Note Date: 02/21/18 Prog Note Time: 15:55 - Subjective Pt reports feeling: Improved Subjective: The patient is breathing much easier. Yesterday, when she was admitted, we had to put her in the intensive care unit on BiPAP because of respiratory failure.She was able to come off of the BiPAP after a few hours and has not needed to go back on. She denies any fevers, chills, nausea, or vomiting. Her pain is under control. Current Medications - Current Medications Current Medications: Active Medications Generic Name Dose Route Start Last Admin Trade Name Freq PRN Reason Stop Dose Admin Atorvastatin Calcium 80 mg 02/20/18 21:00 02/20/18 21:30 Lipitor PO 80 mg QPM JOSE G Administration Cholecalciferol 1,000 unit 02/21/18 09:00 02/21/18 08:42 Vitamin D3 PO 1,000 unit DAILY JOSE G Administration Cyclobenzaprine HCl 10 mg 02/20/18 16:01 Flexeril PO TID PRN Spasms Diazepam 5 mg 02/20/18 16:01 Valium PO QPM PRN Insomnia Duloxetine HCl 60 mg 02/21/18 09:00 02/21/18 08:40 Cymbalta PO 60 mg DAILY JOSE G Administration Felodipine 10 mg 02/21/18 09:00 02/21/18 08:42 Plendil PO 10 mg DAILY JOSE G Administration Furosemide 40 mg 02/21/18 09:00 02/21/18 08:42 Lasix PO 40 mg DAILY JOSE G Administration Gabapentin 800 mg 02/20/18 22:00 02/21/18 14:46 Neurontin PO 800 mg TID JOSE G Administration Hydromorphone HCl 8 mg 02/20/18 16:51 Dilaudid PO Q8H PRN PAIN Cefepime HCl 2 gm/ Sodium 100 mls @ 200 mls/hr 02/20/18 16:00 02/21/18 16:37 Chloride IV 200 mls/hr Q24H JOSE G Administration Levofloxacin 750 mg in 150 mls @ 150 mls/hr 02/20/18 14:30 02/20/18 17:45 Levaquin 750 Mg/150 Ml IV Infused Q48H JOSE G Infusion Sodium Chloride 1,000 mls @ 83.333 mls/hr 02/20/18 14:00 02/21/18 14:47 Normal Saline 0.9% IV 83.3 mls/hr .Q12H JOSE G Administration Ibuprofen 600 mg 02/20/18 13:19 Motrin PO Q6HR PRN Pain 1 to 4 Insulin Aspart 3 unit 02/20/18 17:00 02/21/18 12:23 Novolog SUBQ Not Given TIDWM [facility] Insulin Aspart 1 - 9 unit 02/20/18 17:00 02/21/18 12:23 Novolog SUBQ Not Given 0800,1200,1700,2100 [facility] Protocol Insulin Glargine 10 unit 02/20/18 21:00 02/21/18 09:11 Lantus Solostar SUBQ Not Given BID [facility] Nystatin 1 applic 02/20/18 21:00 02/21/18 14:30 Mycostatin Cream TOP 3 appful BID [facility] Administration Pantoprazole Sodium 40 mg 02/21/18 07:00 02/21/18 06:17 Protonix PO 40 mg QDAC [facility] Administration Polyethylene Glycol 17 gm 02/21/18 09:00 02/21/18 08:44 Miralax PO 17 gm DAILY [facility] Administration Rivaroxaban 20 mg 02/21/18 09:00 02/21/18 08:41 Xarelto PO 20 mg DAILY JOSE G Administration Sodium Chloride 10 ml 02/20/18 13:19 Normal Saline Flush 0.9% IVP PRN PRN NEEDED PER PROVIDER ORDERS Sodium Chloride 10 ml 02/20/18 17:00 02/21/18 09:10 Normal Saline Flush 0.9% IVP Not Given 0100,0900,1700 [facility] Spironolactone 25 mg 02/20/18 17:00 02/21/18 09:10 Aldactone PO Not Given DAILY [facility] Temazepam 15 mg 02/20/18 13:19 Restoril PO QPM PRN Insomnia Zinc Oxide 113 gm 02/21/18 05:43 Desitin TOP PRN PRN Skin Care Omeprazole 20 mg PO QDAC 08/23/15 Duloxetine HCl [Cymbalta] 60 mg PO DAILY 01/15/17 Furosemide 40 mg PO DAILY 01/15/17 Atorvastatin Calcium 80 mg PO QPM 07/14/17 Cyclobenzaprine [Flexeril] 10 mg PO TID PRN 07/14/17 Felodipine [Felodipine ER] 10 mg PO DAILY 07/14/17 Rivaroxaban [Xarelto] 20 mg PO DAILY 07/14/17 Diazepam [Valium] 5 mg PO QPM PRN 02/06/18 Gabapentin [Neurontin] 800 mg PO TID 02/06/18 Hydromorphone HCl [Dilaudid] 8 mg PO Q8H 02/06/18 Insulin Aspart [NovoLOG] 3 unit SUBQ TIDWM 02/06/18 Insulin Glargine [Lantus Solostar] 10 unit SUBQ BID 02/06/18 Cholecalciferol (Vitamin D3) [Vitamin D3] 1,000 unit PO DAILY 02/20/18 Objective - Vital Signs/Intake & Output Reviewed Vital Signs: Yes Vital Signs: Vital Signs x48h Temp Pulse Resp BP Pulse Ox 02/21/18 16:00 35.9 C L 82 19 123/68 96 02/21/18 15:00 82 16 103/52 L 95 02/21/18 14:00 79 19 102/53 L 94 02/21/18 13:00 62 16 96/66 95 02/21/18 11:59 36.4 C L 67 16 92/64 91 L 02/21/18 11:00 76 16 98/66 95 02/21/18 10:00 76 16 133/81 H 94 02/21/18 09:00 88 16 123/65 95 Intake & Output: Intake & Output 02/18/18 02/19/18 02/20/18 02/21/18 23:59 23:59 23:59 23:59 Intake Total 725.122 7735.952 Output Total 1265 1685 Balance -987.978 3658.952 - Objective General Appearance: positive: No acute distress, Alert Eyes Bilateral: positive: Normal inspection, PERRL, EOMI, No lid inflammation, Conjunctivae nml, No scleral icterus ENT: positive: ENT inspection nml, Pharynx nml, No signs of dehydration Neck: positive: Nml inspection, Thyroid nml, No JVD, Trachea midline. negative : Thyromegaly Respiratory: positive: Chest non-tender, No respiratory distress, Breath sounds nml. negative: Wheezes, Rales, Rhonchi Cardiovascular: positive: Regular rate & rhythm, No murmur, No gallop Abdomen: positive: Non-tender, No organomegaly, Nml bowel sounds, No distention. negative: Guarding, Rebound Back: positive: Nml inspection. negative: CVA tenderness (R), CVA tenderness (L ) Skin: positive: Color nml, No rash, Warm, Dry. negative: Cyanosis Extremities: positive: Non-tender, Full ROM, Nml appearance Neurologic/Psychiatric: positive: Oriented x3, CN's nml (2-12), Motor nml, Sensation nml, Mood/affect nml - Lab Results Fish Bones: 02/21/18 05:40 02/21/18 05:40 Other Labs: Lab Results x24hrs 02/21/18 02/21/18 02/20/18 Range/Units 05:40 05:40 20:04 WBC 9.9 (4.8-10.8) x10^3/uL RBC 3.11 L (4.20-5.40) 10^6/uL Hgb 9.6 L (12.0-16.0) g/dL Hct 28.3 L (37.0-47.0) % MCV 91.0 (81.0-99.0) fL MCH 30.8 (27.0-31.0) pg MCHC 33.9 (32.0-36.0) g/dL RDW 13.9 (12.0-15.0) % Plt Count 160 (130-450) 10^3/uL MPV 8.4 (7.9-10.8) fL Bld Gas Analysis Time 2010 Sample Site LEFT RADIAL ABG pH 7.31 L (7.35-7.45) ABG pCO2 48 H (34-45) mmHg ABG pO2 86 (80-100) mmHg ABG HCO3 23.7 (22.0-26.0) mmol/L ABG Total CO2 25.2 (21.0-29.0) MMOL/L ABG O2 Saturation 96 (94-98) % ABG Oximetry Spot Check % ABG Base Excess -2.7 L (-2.0-3.0) mmol/L Riley Test POSITIVE Respiration Rate 20 b/min O2 Delivery Device V-60 Vent Mode BIPAP FiO2 45.00 Tidal Volume 331 mL Pressure Support Vent cmH2O EPAP 6 cmH2O IPAP 14 cmH2O Sodium 136 (135-145) mmol/L Potassium 5.8 H (3.5-5.0) mmol/L Chloride 104 (101-111) mmol/L Carbon Dioxide 24 (21-32) mmol/L Anion Gap 8.0 (6-13) BUN 68 H (6-20) mg/dL Creatinine 2.8 H (0.4-1.0) mg/dL Estimated GFR (MDRD) 17 L (>89) Glucose 75 (70-100) mg/dL Calcium 8.3 L (8.5-10.3) mg/dL // Range/Units 18:04 WBC (4.8-10.8) x10^3/uL RBC (4.20-5.40) 10^6/uL Hgb (12.0-16.0) g/dL Hct (37.0-47.0) % MCV (81.0-99.0) fL MCH (27.0-31.0) pg MCHC (32.0-36.0) g/dL RDW (12.0-15.0) % Plt Count (130-450) 10^3/uL MPV (7.9-10.8) fL Bld Gas Analysis Time 1809 Sample Site RIGHT RADIAL ABG pH 7.30 L (7.35-7.45) ABG pCO2 52 H (34-45) mmHg ABG pO2 108 H (80-100) mmHg ABG HCO3 24.6 (22.0-26.0) mmol/L ABG Total CO2 26.2 (21.0-29.0) MMOL/L ABG O2 Saturation 97 (94-98) % ABG Oximetry Spot Check 99 % ABG Base Excess -2.2 L (-2.0-3.0) mmol/L Riley Test POSITIVE Respiration Rate 25 b/min O2 Delivery Device BiPAP Vent Mode SYNCHRONOUS/TIMES FiO2 55.00 Tidal Volume 339 mL Pressure Support Vent 4 cmH2O EPAP 6 cmH2O IPAP 10 cmH2O Sodium (135-145) mmol/L Potassium (3.5-5.0) mmol/L Chloride (101-111) mmol/L Carbon Dioxide (21-32) mmol/L Anion Gap (6-13) BUN (6-20) mg/dL Creatinine (0.4-1.0) mg/dL Estimated GFR (MDRD) (>89) Glucose (70-100) mg/dL Calcium (8.5-10.3) mg/dL - Diagnostic Imaging Diagnostic Imaging Results: positive: Final report reviewed Diagnostic Imaging Comments: EXAM: CHEST RADIOGRAPHY EXAM DATE: 02/20/2018 12:19 PM. CLINICAL HISTORY: R mid lung rhonchi. COMPARISON: None. TECHNIQUE: 2 views. FINDINGS: Lungs/Pleura: Irregular opacities extending from the right perihilar station into the right upper lobe and left perihilar station into left upper lobe. Consolidations in the left lung base is silhouetting of the left hemidiaphragm. Small to moderate-sized left-sided pleural effusion. Mediastinum: The left and right heart borders are silhouetted by the adjacent airspace process. Other: None. IMPRESSION: Multifocal multi lobar pneumonia with [id number] sized left-sided pleural effusion, likely reactive. ABX Reporting Has patient been on IV antibiotics over the past 48 hours?: Yes Assessment/Plan - Problem List (1) Pneumonia Impression: Multifocal, multilobar. As the patient has recently been hospitalized and was then sent to a rehab we have to consider this healthcare acquired. We have her on cefepime and Levaquin, and are giving her supplemental oxygen as needed, bronchodilators as needed, and we have asked physical therapy and respiratory therapy to work with her. Today the patient asked to be referred to palliative care/hospice care because she is "done fighting". I have called out a referral to palliative care at this time. Qualifiers: Pneumonia type: due to unspecified organism Laterality: left Lung location: lower lobe of lung Qualified Code(s): J18.1 - Lobar pneumonia, unspecified organism (2) Morbid obesity Impression: This has severely affected the patient's quality of life, affecting her mobility and her general health. I have asked for dietary consultation for her. (3) Type 2 diabetes mellitus Impression: The patient is on a carb controlled diet and I have given her long-acting insulin, mealtime insulin, and sliding scale insulin for coverage. The pt's HgbA1C is 12.1, indicative of an average glucose level of 301. Her blood sugars have been better controlled while she has been in hospital. (4) Chronic kidney disease, stage III (moderate) Impression: The patient's creatinine today is 2.8, up from 2.6 on admission. The increase is likely due to 100mg IVP lasix given yesterday afternoon. This appears to be about her average kidney function during her hospitalizations over the last couple of years. We will give the patient IV fluids and monitor her renal function carefully. (5) Pulmonary hypertension Impression: The patient has significant pulmonary hypertension and while I would normally give her spironolactone for this, her hyperkalemia is preventing me from doing so. I will change her over to Lasix as this will also presumably help with the hyperkalemia. (6) Atrial fibrillation Impression: Patient's atrial fibrillation is rate controlled. Continue Felodipine and Xarelto. Qualifiers: Atrial fibrillation type: chronic Qualified Code(s): I48.2 - Chronic atrial fibrillation (7) Chronic back pain Impression: I restarted the patient on her Flexeril and ordered Dilaudid as needed for her back pain as these are her home medications. She is comfortable at this time.
[2018-02-21] MEDS: COD LIVER OIL/ZINC OXIDE 113 GM TUBE TOP PRN (20:59)
[2018-02-21] MEDS: ATORVASTATIN 40 MG TABLET PO SCH (21:03)
[2018-02-22] MEDS: SODIUM CHLORIDE FLUSH 0.9% 10 ML SYRINGE IVP SCH ×3 (01:15→16:59)
[2018-02-22] MEDS: SODIUM CHLORIDE 0.9% 1,000 ML IV SCH ×2 (02:45→14:48)
[2018-02-22 05:25] LABS: ALBUMIN 1.8 g/dL (3.2-5.5); CREATININE 2.9 mg/dL (0.4-1.0)
[2018-02-22 05:53] LABS: MAGNESIUM 2.2 mg/dL (1.7-2.8); PHOSPHORUS 5.4 mg/dL (2.5-4.6)
[2018-02-22] MEDS: GABAPENTIN 400 MG CAPSULE PO SCH ×3 (06:04→21:03)
[2018-02-22] MEDS: PANTOPRAZOLE 40 MG TABLET PO SCH (06:04)
[2018-02-22 06:30] LABS: MEAN CORPUSCULAR HEMOGLOBIN 30.4 pg (27.0-31.0); MEAN CORPUSCULAR HGB CONC 32.9 g/dL (32.0-36.0); MEAN CORPUSCULAR VOLUME 92.5 fL (81.0-99.0); MEAN PLATELET VOLUME 7.9 fL (7.9-10.8); RED BLOOD COUNT 2.97 10^6/uL (4.20-5.40); RED CELL DISTRIBUTION WIDTH 14.2 % (12.0-15.0); WHITE BLOOD COUNT 8.1 x10^3/uL (4.8-10.8)
[2018-02-22] MEDS ORDERED: DEXTROSE 50% ABBOJECT 25 GM/50 ML SYRINGE ONE (07:59)
[2018-02-22] MEDS: INSULIN ASPART 300 UNIT/3 ML PEN SUBQ SCH ×7 (08:19→21:05)
[2018-02-22] MEDS ORDERED: SODIUM POLYSTYRENE SULFONATE 15 GM/60 ML BOTTLE PO ONE (08:25)
[2018-02-22] MEDS: POLYETHYLENE GLYCOL 3350 17 GM PACKET PO SCH (08:36)
[2018-02-22] MEDS: CHOLECALCIFEROL 1,000 UNIT TABLET PO SCH (08:37)
[2018-02-22] MEDS: DULoxetine 30 MG CAPSULE PO SCH (08:37)
[2018-02-22] MEDS: FELODIPINE ER 2.5 MG TABLET PO SCH (08:38)
[2018-02-22] MEDS: FUROSEMIDE 40 MG TABLET PO SCH (08:38)
[2018-02-22] MEDS: NYSTATIN CREAM 15 GM TUBE TOP SCH ×2 (08:39→21:04)
[2018-02-22] MEDS: RIVAROXABAN 10 MG TABLET PO SCH (08:40)
[2018-02-22] MEDS: INSULIN GLARGINE 300 UNIT/3 ML PEN SUBQ SCH ×2 (08:50→21:04)
[2018-02-22] MEDS: levoFLOXacin 750 MG/150 ML 750 MG/150 ML BAG IV SCH (14:58)
--- NOTE | 2018-02-22 16:41 | PROVIDER PROGRESS NOTE ---
Subjective - Prog Note Date Prog Note Date: 02/22/18 Prog Note Time: 15:00 - Subjective Pt reports feeling: Improved, No change Subjective: The patient is breathing easily on 5 L of supplemental oxygen with an oxygen saturation of 97%. She has become more lethargic and sleepy today. I will check an ABG to see with the patient's CO2 level is and if she is not hypercapnic I recognize that this may be her baseline. She denies any fevers or chills, pain, nausea, or vomiting. Current Medications - Current Medications Current Medications: Active Medications Generic Name Dose Route Start Last Admin Trade Name Freq PRN Reason Stop Dose Admin Atorvastatin Calcium 80 mg 02/20/18 21:00 02/21/18 21:03 Lipitor PO 80 mg QPM JOSE G Administration Cholecalciferol 1,000 unit 02/21/18 09:00 02/22/18 08:37 Vitamin D3 PO 1,000 unit DAILY JOSE G Administration Cyclobenzaprine HCl 10 mg 02/20/18 16:01 Flexeril PO TID PRN Spasms Diazepam 5 mg 02/20/18 16:01 Valium PO QPM PRN Insomnia Duloxetine HCl 60 mg 02/21/18 09:00 02/22/18 08:37 Cymbalta PO 60 mg DAILY JOSE G Administration Felodipine 10 mg 02/21/18 09:00 02/22/18 08:38 Plendil PO 10 mg DAILY JOSE G Administration Furosemide 40 mg 02/21/18 09:00 02/22/18 08:38 Lasix PO 40 mg DAILY JOSE G Administration Gabapentin 800 mg 02/20/18 22:00 02/22/18 14:47 Neurontin PO Not Given TID JOSE G Hydromorphone HCl 8 mg 02/20/18 16:51 Dilaudid PO Q8H PRN PAIN Cefepime HCl 2 gm/ Sodium 100 mls @ 200 mls/hr 02/20/18 16:00 02/21/18 17:07 Chloride IV Infused Q24H JOSE G Infusion Levofloxacin 750 mg in 150 mls @ 100 mls/hr 02/20/18 14:30 02/22/18 16:00 Levaquin 750 Mg/150 Ml IV 100 mls/hr Q48H JOSE G Infusion Sodium Chloride 1,000 mls @ 83.333 mls/hr 02/20/18 14:00 02/22/18 14:59 Normal Saline 0.9% IV 0 mls/hr .Q12H JOSE G Infusion Ibuprofen 600 mg 02/20/18 13:19 02/21/18 17:29 Motrin PO 600 mg Q6HR PRN Administration Pain 1 to 4 Insulin Aspart 3 unit 02/20/18 17:00 02/22/18 12:52 Novolog SUBQ Not Given TIDWM [facility] Insulin Aspart 1 - 9 unit 02/20/18 17:00 02/22/18 12:52 Novolog SUBQ Not Given 0800,1200,1700,2100 [facility] Protocol Insulin Glargine 10 unit 02/22/18 21:00 Lantus Solostar SUBQ QPM [facility] Nystatin 1 applic 02/20/18 21:00 02/22/18 08:39 Mycostatin Cream TOP 1 appful BID JOSE G Administration Pantoprazole Sodium 40 mg 02/21/18 07:00 02/22/18 06:04 Protonix PO 40 mg QDAC JOSE G Administration Polyethylene Glycol 17 gm 02/21/18 09:00 02/22/18 08:36 Miralax PO 17 gm DAILY JOSE G Administration Rivaroxaban 20 mg 02/21/18 09:00 02/22/18 08:40 Xarelto PO 20 mg DAILY JOSE G Administration Sodium Chloride 10 ml 02/20/18 13:19 Normal Saline Flush 0.9% IVP PRN PRN NEEDED PER PROVIDER ORDERS Sodium Chloride 10 ml 02/20/18 17:00 02/22/18 08:19 Normal Saline Flush 0.9% IVP Not Given 0100,0900,1700 [facility] Temazepam 15 mg 02/20/18 13:19 Restoril PO QPM PRN Insomnia Zinc Oxide 113 gm 02/21/18 05:43 02/21/18 20:59 Desitin TOP 1 applic PRN PRN Administration Skin Care Omeprazole 20 mg PO QDAC 08/23/15 Duloxetine HCl [Cymbalta] 60 mg PO DAILY 01/15/17 Furosemide 40 mg PO DAILY 01/15/17 Atorvastatin Calcium 80 mg PO QPM 07/14/17 Cyclobenzaprine [Flexeril] 10 mg PO TID PRN 07/14/17 Felodipine [Felodipine ER] 10 mg PO DAILY 07/14/17 Rivaroxaban [Xarelto] 20 mg PO DAILY 07/14/17 Diazepam [Valium] 5 mg PO QPM PRN 02/06/18 Gabapentin [Neurontin] 800 mg PO TID 02/06/18 Hydromorphone HCl [Dilaudid] 8 mg PO Q8H 02/06/18 Insulin Aspart [NovoLOG] 3 unit SUBQ TIDWM 02/06/18 Insulin Glargine [Lantus Solostar] 10 unit SUBQ BID 02/06/18 Cholecalciferol (Vitamin D3) [Vitamin D3] 1,000 unit PO DAILY 02/20/18 Objective - Vital Signs/Intake & Output Reviewed Vital Signs: Yes Vital Signs: Vital Signs Temp Pulse Resp BP Pulse Ox 02/22/18 16:00 36.4 C L 76 15 101/65 96 02/22/18 15:00 75 13 107/72 96 02/22/18 14:00 84 17 108/60 96 02/22/18 13:00 74 14 91/52 L 98 Intake & Output: Intake & Output 02/19/18 02/20/18 02/21/18 02/22/18 23:59 23:59 23:59 23:59 Intake Total 596.873 5639.200 2654.180 Output Total 1265 1906 910 Balance -820.386 7287.200 1744.180 - Objective General Appearance: positive: No acute distress, Lethargic Eyes Bilateral: positive: Normal inspection, PERRL, EOMI, No lid inflammation, Conjunctivae nml, No scleral icterus ENT: positive: ENT inspection nml, Pharynx nml, No signs of dehydration Neck: positive: Nml inspection, Thyroid nml, No JVD, Trachea midline. negative : Thyromegaly Respiratory: positive: Chest non-tender, No respiratory distress, Breath sounds nml. negative: Wheezes, Rales, Rhonchi Cardiovascular: positive: Regular rate & rhythm, No murmur, No gallop Abdomen: positive: Non-tender, No organomegaly, Nml bowel sounds, No distention. negative: Guarding, Rebound Back: positive: Nml inspection. negative: CVA tenderness (R), CVA tenderness (L ) Skin: positive: Color nml, No rash, Warm, Dry. negative: Cyanosis Extremities: positive: Non-tender. negative: Calf tenderness, Joint swelling Neurologic/Psychiatric: positive: Oriented x3, CN's nml (2-12), Motor nml, Sensation nml, Mood/affect nml - Lab Results Fish Bones: 02/22/18 04:40 02/22/18 04:40 Other Labs: Lab Results x24hrs 02/22/18 02/22/18 02/22/18 Range/Units 04:40 04:40 04:40 WBC 8.1 (4.8-10.8) x10^3/uL RBC 2.97 L (4.20-5.40) 10^6/uL Hgb 9.0 L (12.0-16.0) g/dL Hct 27.5 L (37.0-47.0) % MCV 92.5 (81.0-99.0) fL MCH 30.4 (27.0-31.0) pg MCHC 32.9 (32.0-36.0) g/dL RDW 14.2 (12.0-15.0) % Plt Count 166 (130-450) 10^3/uL MPV 7.9 (7.9-10.8) fL Sodium 136 (135-145) mmol/L Potassium 5.3 H (3.5-5.0) mmol/L Chloride 107 (101-111) mmol/L Carbon Dioxide 25 (21-32) mmol/L Anion Gap 4.0 L (6-13) BUN 67 H (6-20) mg/dL Creatinine 2.9 H (0.4-1.0) mg/dL Estimated GFR (MDRD) 16 L (>89) Glucose 67 L (70-100) mg/dL Calcium 8.0 L (8.5-10.3) mg/dL Phosphorus 5.4 H (2.5-4.6) mg/dL Magnesium 2.2 (1.7-2.8) mg/dL Albumin 1.8 L (3.2-5.5) g/dL - Diagnostic Imaging Diagnostic Imaging Results: positive: Final report reviewed Diagnostic Imaging Comments: EXAM: CHEST RADIOGRAPHY EXAM DATE: 02/20/2018 12:19 PM. CLINICAL HISTORY: R mid lung rhonchi. COMPARISON: None. TECHNIQUE: 2 views. FINDINGS: Lungs/Pleura: Irregular opacities extending from the right perihilar station into the right upper lobe and left perihilar station into left upper lobe. Consolidations in the left lung base is silhouetting of the left hemidiaphragm. Small to moderate-sized left-sided pleural effusion. Mediastinum: The left and right heart borders are silhouetted by the adjacent airspace process. Other: None. IMPRESSION: Multifocal multi lobar pneumonia with [id number] sized left-sided pleural effusion, likely reactive. Assessment/Plan - Problem List (1) Pneumonia Impression: Multifocal, multilobar. As the patient has recently been hospitalized and was then sent to a rehab we have to consider this healthcare acquired. We have her on cefepime and Levaquin, and are giving her supplemental oxygen as needed, bronchodilators as needed, and we have asked physical therapy and respiratory therapy to work with her. We have seen reduction in the patient's leukocyte count from 11.4 thousand to 8.1 thousand. and the pt remains afebrile. The patient asked to be referred to palliative care/hospice care because she is "done fighting", and I have called out a referral to palliative care at this time. Qualifiers: Pneumonia type: due to unspecified organism Laterality: left Lung location: lower lobe of lung Qualified Code(s): J18.1 - Lobar pneumonia, unspecified organism (2) Morbid obesity Impression: This has severely affected the patient's quality of life, affecting her mobility and her general health. I have asked for dietary consultation for her. (3) Type 2 diabetes mellitus Impression: The patient is on a carb controlled diet and I have given her long-acting insulin, mealtime insulin, and sliding scale insulin for coverage. The pt's HgbA1C is 12.1, indicative of an average glucose level of 301. Her blood sugars have been low over the last couple of days and I have adjusted her lantus and mealtime insulin doses. Will continue to monitor and adjust dosing as necessary. (4) Chronic kidney disease, stage III (moderate) Impression: The patient's creatinine today is 2.9, up from 2.6 on admission. The increase is likely due to IVP lasix we are giving the pt. This appears to be about her average kidney function during her hospitalizations over the last couple of years. We will give the patient IV fluids, change any nephrotoxic meds, and monitor her renal function carefully. (5) Hyperkalemia Impression: Yesterday I gave the patient a dose of Kayexalate which brought her potassium down from 5.8-5.3. We have also been giving her Lasix without any potassium supplements. I will repeat the Kayexalate today and recheck potassium levels tomorrow. (6) Pulmonary hypertension Impression: The patient has significant pulmonary hypertension and while I would normally give her spironolactone for this, her hyperkalemia is preventing me from doing so. I will change her over to Lasix as this will also presumably help with the hyperkalemia. (7) Atrial fibrillation Impression: Patient's atrial fibrillation is rate controlled. Continue Felodipine and Xarelto. Qualifiers: Atrial fibrillation type: chronic Qualified Code(s): I48.2 - Chronic atrial fibrillation (8) Chronic back pain Impression: I restarted the patient on her Flexeril and ordered Dilaudid as needed for her back pain as these are her home medications. She is comfortable at this time.
[2018-02-22] MEDS: CEFEPIME 2 GM in SODIUM CHLORIDE 0.9% MINIBAG 100 ML IV SCH (16:58)
[2018-02-22 17:18] LABS: ABG BASE EXCESS -1.5 mmol/L (-2.0-3.0); ABG HCO3 24.7 mmol/L (22.0-26.0); ABG OXYGEN SATURATION 95 % (94-98); ABG PCO2 49 mmHg (34-45); ABG PH 7.32 (7.35-7.45); ABG PO2 78 mmHg (80-100); ABG TCO2 26.2 MMOL/L (21.0-29.0); ALLEN TEST POSITIVE
[2018-02-22] MEDS: ATORVASTATIN 40 MG TABLET PO SCH (21:03)
[2018-02-22] MEDS: COD LIVER OIL/ZINC OXIDE 113 GM TUBE TOP PRN (21:04)
[2018-02-23] MEDS: SODIUM CHLORIDE FLUSH 0.9% 10 ML SYRINGE IVP SCH ×3 (01:39→17:29)
[2018-02-23] MEDS: SODIUM CHLORIDE 0.9% 1,000 ML IV SCH ×2 (04:09→14:15)
[2018-02-23] MEDS: GABAPENTIN 400 MG CAPSULE PO SCH ×3 (06:02→21:17)
[2018-02-23] MEDS: PANTOPRAZOLE 40 MG TABLET PO SCH (06:02)
[2018-02-23 06:21] LABS: CALCIUM 7.9 mg/dL (8.5-10.3); CREATININE 2.9 mg/dL (0.4-1.0)
[2018-02-23 06:43] LABS: HGB - HEMOGLOBIN 9.5 g/dL (12.0-16.0); MEAN CORPUSCULAR HEMOGLOBIN 30.8 pg (27.0-31.0); MEAN CORPUSCULAR HGB CONC 33.2 g/dL (32.0-36.0); MEAN CORPUSCULAR VOLUME 92.7 fL (81.0-99.0); MEAN PLATELET VOLUME 8.5 fL (7.9-10.8); RED BLOOD COUNT 3.07 10^6/uL (4.20-5.40); RED CELL DISTRIBUTION WIDTH 14.6 % (12.0-15.0); WHITE BLOOD COUNT 8.2 x10^3/uL (4.8-10.8)
[2018-02-23 06:47] LABS: MAGNESIUM 1.9 mg/dL (1.7-2.8); PHOSPHORUS 5.2 mg/dL (2.5-4.6)
[2018-02-23] MEDS ORDERED: SODIUM POLYSTYRENE SULFONATE 15 GM/60 ML BOTTLE PO ONE (07:38)
[2018-02-23] MEDS: INSULIN ASPART 300 UNIT/3 ML PEN SUBQ SCH ×7 (07:54→21:18)
[2018-02-23] MEDS: DULoxetine 30 MG CAPSULE PO SCH (07:56)
[2018-02-23] MEDS: CHOLECALCIFEROL 1,000 UNIT TABLET PO SCH (07:56)
[2018-02-23] MEDS: FELODIPINE ER 2.5 MG TABLET PO SCH (07:56)
[2018-02-23] MEDS: FUROSEMIDE 40 MG TABLET PO SCH (07:57)
[2018-02-23] MEDS: POLYETHYLENE GLYCOL 3350 17 GM PACKET PO SCH (07:57)
[2018-02-23] MEDS: RIVAROXABAN 10 MG TABLET PO SCH (07:57)
--- NOTE | 2018-02-23 11:26 | PROVIDER PROGRESS NOTE ---
Subjective - Prog Note Date Prog Note Date: 02/23/18 Prog Note Time: 11:40 - Subjective Pt reports feeling: Improved Subjective: Patient says she feels better but is most anxious to go home. She may be minimizing her complaints in order to do so. She is currently wearing oxygen, and Oxymizer at 5 L/min. She is breathing easily at this time. She is not showing any signs of any pain or complaining of any pain. Her appetite remains poor/fair and she is moving her bowels. Current Medications - Current Medications Current Medications: Active Medications Atorvastatin Calcium (Lipitor) 80 mg PO QPM [facility] Last Admin: 02/22/18 21:03 Dose: 80 mg Cholecalciferol (Vitamin D3) 1,000 unit PO DAILY [facility] Last Admin: 02/23/18 07:56 Dose: 1,000 unit Cyclobenzaprine HCl (Flexeril) 10 mg PO TID PRN PRN Reason: Spasms Diazepam (Valium) 5 mg PO QPM PRN PRN Reason: Insomnia Duloxetine HCl (Cymbalta) 60 mg PO DAILY [facility] Last Admin: 02/23/18 07:56 Dose: 60 mg Felodipine (Plendil) 10 mg PO DAILY [facility] Last Admin: 02/23/18 07:56 Dose: 10 mg Furosemide (Lasix) 40 mg PO DAILY [facility] Last Admin: 02/23/18 07:57 Dose: 40 mg Gabapentin (Neurontin) 800 mg PO TID [facility] Last Admin: 02/23/18 06:02 Dose: 800 mg Hydromorphone HCl (Dilaudid) 8 mg PO Q8H PRN PRN Reason: PAIN Cefepime HCl 2 gm/ Sodium (Chloride) 100 mls @ 200 mls/hr IV Q24H [facility] Last Infusion: 02/22/18 17:28 Dose: Infused Levofloxacin (Levaquin 750 Mg/150 Ml) 750 mg in 150 mls @ 100 mls/hr IV Q48H [facility] Last Infusion: 02/22/18 16:28 Dose: Infused Sodium Chloride (Normal Saline 0.9%) 1,000 mls @ 83.333 mls/hr IV .Q12H [facility] Last Admin: 02/23/18 04:09 Dose: 83.3 mls/hr Ibuprofen (Motrin) 600 mg PO Q6HR PRN PRN Reason: Pain 1 to 4 Last Admin: 02/21/18 17:29 Dose: 600 mg Insulin Aspart (Novolog) 3 unit SUBQ TIDWM [facility] Last Admin: 02/23/18 07:54 Dose: 3 unit Insulin Aspart (Novolog) 1 - 9 unit SUBQ 0800,1200,1700,2100 [facility] PRN Reason: Protocol Last Admin: 02/23/18 07:55 Dose: Not Given Insulin Glargine (Lantus Solostar) 10 unit SUBQ QPM [facility] Last Admin: 02/22/18 21:04 Dose: 10 unit Nystatin (Mycostatin Cream) 1 applic TOP BID [facility] Last Admin: 02/22/18 21:04 Dose: 1 appful Pantoprazole Sodium (Protonix) 40 mg PO QDAC [facility] Last Admin: 02/23/18 06:02 Dose: 40 mg Polyethylene Glycol (Miralax) 17 gm PO DAILY [facility] Last Admin: 02/23/18 07:57 Dose: 17 gm Rivaroxaban (Xarelto) 20 mg PO DAILY [facility] Last Admin: 02/23/18 07:57 Dose: 20 mg Sodium Chloride (Normal Saline Flush 0.9%) 10 ml IVP PRN PRN PRN Reason: NEEDED PER PROVIDER ORDERS Sodium Chloride (Normal Saline Flush 0.9%) 10 ml IVP 0100,0900,1700 [facility] Last Admin: 02/23/18 07:57 Dose: 10 ml Temazepam (Restoril) 15 mg PO QPM PRN PRN Reason: Insomnia Zinc Oxide (Desitin) 113 gm TOP PRN PRN PRN Reason: Skin Care Last Admin: 02/22/18 21:04 Dose: 1 applic Omeprazole 20 mg PO QDAC 08/23/15 Duloxetine HCl [Cymbalta] 60 mg PO DAILY 01/15/17 Furosemide 40 mg PO DAILY 01/15/17 Atorvastatin Calcium 80 mg PO QPM 07/14/17 Cyclobenzaprine [Flexeril] 10 mg PO TID PRN 07/14/17 Felodipine [Felodipine ER] 10 mg PO DAILY 07/14/17 Rivaroxaban [Xarelto] 20 mg PO DAILY 07/14/17 Diazepam [Valium] 5 mg PO QPM PRN 02/06/18 Gabapentin [Neurontin] 800 mg PO TID 02/06/18 Hydromorphone HCl [Dilaudid] 8 mg PO Q8H 02/06/18 Insulin Aspart [NovoLOG] 3 unit SUBQ TIDWM 02/06/18 Insulin Glargine [Lantus Solostar] 10 unit SUBQ BID 02/06/18 Cholecalciferol (Vitamin D3) [Vitamin D3] 1,000 unit PO DAILY 02/20/18 Objective - Vital Signs/Intake & Output Reviewed Vital Signs: Yes Vital Signs: Vital Signs Temp Pulse Resp BP Pulse Ox 02/23/18 10:00 82 16 107/67 95 02/23/18 09:00 90 15 116/72 93 02/23/18 08:00 36.6 C 92 19 111/59 L 94 Intake & Output: Intake & Output 02/20/18 02/21/18 02/22/18 02/23/18 23:59 23:59 23:59 23:59 Intake Total 279.777 8507.200 3613.312 2815.495 Output Total 1265 1906 1360 1160 Balance -909.834 5804.200 2253.312 1655.495 - Objective General Appearance: positive: No acute distress, Lethargic Eyes Bilateral: positive: Normal inspection, PERRL, EOMI, No lid inflammation, Conjunctivae nml, No scleral icterus ENT: positive: ENT inspection nml, Pharynx nml, No signs of dehydration Neck: positive: Nml inspection, Thyroid nml, No JVD, Trachea midline. negative : Thyromegaly Respiratory: positive: Chest non-tender, No respiratory distress, Breath sounds nml. negative: Wheezes, Rales, Rhonchi Cardiovascular: positive: Regular rate & rhythm, No murmur, No gallop Abdomen: positive: Non-tender, No organomegaly, Nml bowel sounds, No distention. negative: Guarding, Rebound Back: positive: Nml inspection. negative: CVA tenderness (R), CVA tenderness (L ) Skin: positive: Color nml, No rash, Warm, Dry. negative: Cyanosis Extremities: positive: Non-tender, Full ROM, Nml appearance, No pedal edema Neurologic/Psychiatric: positive: Oriented x3, CN's nml (2-12), Sensation nml, Depressed mood/affect - Lab Results Fish Bones: 02/23/18 06:35 02/23/18 05:00 Other Labs: Lab Results x24hrs 02/23/18 02/23/18 02/23/18 Range/Units 06:35 05:00 05:00 WBC 8.2 (4.8-10.8) x10^3/uL RBC 3.07 L (4.20-5.40) 10^6/uL Hgb 9.5 L (12.0-16.0) g/dL Hct 28.5 L (37.0-47.0) % MCV 92.7 (81.0-99.0) fL MCH 30.8 (27.0-31.0) pg MCHC 33.2 (32.0-36.0) g/dL RDW 14.6 (12.0-15.0) % Plt Count 178 (130-450) 10^3/uL MPV 8.5 (7.9-10.8) fL Bld Gas Analysis Time Sample Site ABG pH (7.35-7.45) ABG pCO2 (34-45) mmHg ABG pO2 (80-100) mmHg ABG HCO3 (22.0-26.0) mmol/L ABG Total CO2 (21.0-29.0) MMOL/L ABG O2 Saturation (94-98) % ABG Oximetry Spot Check % ABG Base Excess (-2.0-3.0) mmol/L Riley Test Respiration Rate b/min O2 Delivery Device O2 Liters/Min LPM Sodium 133 L (135-145) mmol/L Potassium 5.1 H (3.5-5.0) mmol/L Chloride 101 (101-111) mmol/L Carbon Dioxide 23 (21-32) mmol/L Anion Gap 9.0 (6-13) BUN 66 H (6-20) mg/dL Creatinine 2.9 H (0.4-1.0) mg/dL Estimated GFR (MDRD) 16 L (>89) Glucose 121 H (70-100) mg/dL Calcium 7.9 L (8.5-10.3) mg/dL Phosphorus 5.2 H (2.5-4.6) mg/dL Magnesium 1.9 (1.7-2.8) mg/dL 02/22/18 Range/Units 17:11 WBC (4.8-10.8) x10^3/uL RBC (4.20-5.40) 10^6/uL Hgb (12.0-16.0) g/dL Hct (37.0-47.0) % MCV (81.0-99.0) fL MCH (27.0-31.0) pg MCHC (32.0-36.0) g/dL RDW (12.0-15.0) % Plt Count (130-450) 10^3/uL MPV (7.9-10.8) fL Bld Gas Analysis Time 1716 Sample Site RIGHT RADIAL ABG pH 7.32 L (7.35-7.45) ABG pCO2 49 H (34-45) mmHg ABG pO2 78 L (80-100) mmHg ABG HCO3 24.7 (22.0-26.0) mmol/L ABG Total CO2 26.2 (21.0-29.0) MMOL/L ABG O2 Saturation 95 (94-98) % ABG Oximetry Spot Check 96 % ABG Base Excess -1.5 (-2.0-3.0) mmol/L Riley Test POSITIVE Respiration Rate 14 b/min O2 Delivery Device OXYMIZER O2 Liters/Min 5.00 LPM Sodium (135-145) mmol/L Potassium (3.5-5.0) mmol/L Chloride (101-111) mmol/L Carbon Dioxide (21-32) mmol/L Anion Gap (6-13) BUN (6-20) mg/dL Creatinine (0.4-1.0) mg/dL Estimated GFR (MDRD) (>89) Glucose (70-100) mg/dL Calcium (8.5-10.3) mg/dL Phosphorus (2.5-4.6) mg/dL Magnesium (1.7-2.8) mg/dL - Diagnostic Imaging Diagnostic Imaging Results: positive: Final report reviewed Diagnostic Imaging Comments: EXAM: CHEST RADIOGRAPHY EXAM DATE: 02/20/2018 12:19 PM. CLINICAL HISTORY: R mid lung rhonchi. COMPARISON: None. TECHNIQUE: 2 views. FINDINGS: Lungs/Pleura: Irregular opacities extending from the right perihilar station into the right upper lobe and left perihilar station into left upper lobe. Consolidations in the left lung base is silhouetting of the left hemidiaphragm. Small to moderate-sized left-sided pleural effusion. Mediastinum: The left and right heart borders are silhouetted by the adjacent airspace process. Other: None. IMPRESSION: Multifocal multi lobar pneumonia with [id number] sized left-sided pleural effusion, likely reactive. Assessment/Plan - Problem List (1) Pneumonia Impression: Improving, as evidenced by the patient requiring only 5 L/min of supplemental oxygen on her Oxymizer to keep her saturation in the mid/high 90s. The patient has been afebrile and her leukocyte count has normalized. We will transfer her to a medical surgical bed at this time. Qualifiers: Pneumonia type: due to unspecified organism Laterality: left Lung location: lower lobe of lung Qualified Code(s): J18.1 - Lobar pneumonia, unspecified organism (2) Morbid obesity Impression: This has severely affected the patient's quality of life, affecting her mobility and her general health. I have asked for dietary consultation for her. (3) Type 2 diabetes mellitus Impression: The patient is on a carb controlled diet and I have given her long-acting insulin, mealtime insulin, and sliding scale insulin for coverage. The pt's HgbA1C is 12.1, indicative of an average glucose level of 301. Her blood sugars have been low( 67, 75,78) over the last couple of days and I have adjusted her lantus and mealtime insulin doses. BS this morning was 121. Will continue to monitor and adjust dosing as necessary. (4) Chronic kidney disease, stage III (moderate) Impression: The patient's creatinine today is 2.9, up from 2.6 on admission. The increase is likely due to IVP lasix we are giving the pt. This appears to be about her average kidney function during her hospitalizations over the last couple of years. We will give the patient IV fluids, change any nephrotoxic meds, and monitor her renal function carefully. (5) Hyperkalemia Impression: Yesterday I gave the patient a dose of Kayexalate which brought her potassium down from 5.3-5.1. We have also been giving her Lasix without any potassium supplements. I will repeat the Kayexalate today and recheck potassium levels tomorrow. (6) Pulmonary hypertension Impression: The patient has significant pulmonary hypertension and while I would normally give her spironolactone for this, her hyperkalemia is preventing me from doing so. I will change her over to Lasix as this will also presumably help with the hyperkalemia. (7) Atrial fibrillation Impression: Patient's atrial fibrillation is rate controlled. Continue Felodipine and Xarelto. Qualifiers: Atrial fibrillation type: chronic Qualified Code(s): I48.2 - Chronic atrial fibrillation (8) Chronic back pain Impression: I restarted the patient on her Flexeril and ordered Dilaudid as needed for her back pain as these are her home medications. She is comfortable at this time.
[2018-02-23] MEDS: CEFEPIME 2 GM in SODIUM CHLORIDE 0.9% MINIBAG 100 ML IV SCH (15:37)
[2018-02-23] MEDS: NYSTATIN CREAM 15 GM TUBE TOP SCH ×2 (15:37→21:17)
[2018-02-23] MEDS: INSULIN GLARGINE 300 UNIT/3 ML PEN SUBQ SCH (21:18)
[2018-02-23] MEDS: ATORVASTATIN 40 MG TABLET PO SCH (21:18)
--- NOTE | 2018-02-23 23:42 | XRAY Report ---
Procedure Date: 02/23/2018 Accession Number: [id number] / [id number] Procedure: XR - Chest 1 View X-Ray CPT Code: 12262 FULL RESULT: EXAM: CHEST RADIOGRAPHY EXAM DATE: 02/23/2018 10:30 PM. CLINICAL HISTORY: Worsening shortness of breath. Possible new CHF. COMPARISON: 02/20/2018. 02/10/2018. TECHNIQUE: 1 view. FINDINGS: Lungs/Pleura: Increasing patchy bilateral infiltrates, most pronounced in the right upper lobe and left perihilar region. No pleural effusion or pneumothorax. Mediastinum: Unchanged cardiomegaly. Other: Degenerative changes within the spine. IMPRESSION: 1. Stable cardiomegaly. 2. Increasing patchy bilateral infiltrates, appearance suggesting worsening multifocal infection. [facility]
[2018-02-24] MEDS: CLINDAMYCIN INJ 300 MG in SODIUM CHLORIDE 0.9% 50 ML IV SCH ×3 (00:29→06:08)
[2018-02-24] MEDS: SODIUM CHLORIDE FLUSH 0.9% 10 ML SYRINGE IVP SCH ×3 (00:29→16:46)
[2018-02-24] MEDS: SODIUM CHLORIDE 0.9% 1,000 ML IV SCH ×2 (01:52→16:16)
[2018-02-24 05:51] LABS: CALCIUM 8.1 mg/dL (8.5-10.3)
[2018-02-24] MEDS: PANTOPRAZOLE 40 MG TABLET PO SCH (06:09)
[2018-02-24] MEDS: GABAPENTIN 400 MG CAPSULE PO SCH (06:09)
[2018-02-24 06:32] LABS: HGB - HEMOGLOBIN 9.3 g/dL (12.0-16.0); MEAN CORPUSCULAR HEMOGLOBIN 30.5 pg (27.0-31.0); MEAN CORPUSCULAR VOLUME 92.5 fL (81.0-99.0); MEAN PLATELET VOLUME 7.8 fL (7.9-10.8); RED BLOOD COUNT 3.06 10^6/uL (4.20-5.40); RED CELL DISTRIBUTION WIDTH 14.3 % (12.0-15.0); WHITE BLOOD COUNT 10.8 x10^3/uL (4.8-10.8)
[2018-02-24] MEDS ORDERED: VANCOMYCIN PER PHARMACY 100 GM in SODIUM CHLORIDE 0.9% 250 ML IV SCH (08:00)
[2018-02-24] MEDS: INSULIN ASPART 300 UNIT/3 ML PEN SUBQ SCH ×7 (08:34→20:56)
[2018-02-24] MEDS: POLYETHYLENE GLYCOL 3350 17 GM PACKET PO SCH (08:35)
[2018-02-24] MEDS ORDERED: GABAPENTIN 400 MG CAPSULE PO SCH (08:42)
[2018-02-24] MEDS: MEROPENEM 1 GM in SODIUM CHLORIDE 0.9% MINIBAG 100 ML IV SCH ×2 (09:53→20:14)
[2018-02-24] MEDS: DULoxetine 30 MG CAPSULE PO SCH (09:54)
[2018-02-24] MEDS: CHOLECALCIFEROL 1,000 UNIT TABLET PO SCH (09:54)
[2018-02-24] MEDS: FELODIPINE ER 2.5 MG TABLET PO SCH (09:54)
[2018-02-24] MEDS: FUROSEMIDE 40 MG TABLET PO SCH (09:54)
[2018-02-24] MEDS: RIVAROXABAN 10 MG TABLET PO SCH (09:55)
[2018-02-24] MEDS ORDERED: VANCOMYCIN INJ 2 GM in SODIUM CHLORIDE 0.9% 500 ML IV ONE (10:00)
[2018-02-24] MEDS: NYSTATIN CREAM 15 GM TUBE TOP SCH ×2 (11:00→20:55)
[2018-02-24] MEDS: LINEZOLID 600 MG/300 ML 600 MG/300 ML BAG IV SCH (11:48)
[2018-02-24] MEDS: GABAPENTIN 300 MG CAPSULE PO SCH ×2 (14:56→20:55)
--- NOTE | 2018-02-24 17:18 | CONSULTATION NOTE ---
Palliative Care Follow Up - Referral Referring Provider: Dr. Rebecca Jack Time of Visit: [id number] Referral setting: Hospitalized patient Referral Reason: HAP/Goals of Care - Information Sources Records reviewed: RN notes reviewed, Previous records reviewed History/Review of Systems obtained from: Patient, Family (granddaughter Reshma) , Caregiver (RN/Hospitalist) Exam limitations: Clinical condition (patient with lethargy; does seem easily overwhelmed; able to participate some in goal s of care;) - History of Present Illness Update Brief HPI Update: This is a 72-year-old woman who is chronically ill, most recently was hospitalized 02/06-02/14 with community-acquired pneumonia, urinary tract infection, and metabolic encephalopathy. She also has known renal failure stage III kidney disease, type 2 diabetes uncontrolled, venous stasis dermatitis, atrial fib, hypertension, and now bedbound status. [facility], but had increased lethargy and was readmitted 02/20/2018 With a positive chest x-ray for multifocal multilobular health care acquired pneumonia. She has been put on antibiotics, with very poor response, she has had increased difficulty with hypoxia, continued decreased responsiveness, and concern regarding her continued decline. This is been complicated by her social situation, concern regarding her decreased consciousness last time as a result of some drug diversion so should not receive opioids as is opiod naive, patient does have underlying severe peripheral neuropathy, is currently on gabapentin 800 mg 3 times daily, this is been decreased to 300 mg 3 times daily in hopes to improve her responsiveness. Palliative care has been asked to meet with patient and granddaughter, to clarify goals of care, there is concern given patient's poor improvement over the last few days, there may be need for further conversation and goals regarding intubation/BiPAP/possible consideration of comfort measures vs assisted care plan. Social History - Living Situation Living arrangement: At home Living Situation: With family Support System: Patient does live at home with her granddaughter Reshma, who recently was approved by the CT for caregiver status. There is ongoing pending APS investigation regarding concerns of care situation, but granddaughter is quite committed and devoted to her grandmother. She has been raised and cared for and has lived with her most of her life. She is also been designated as the DPOAE. She is feeling somewhat overwhelmed, she is in the middle as far as family, patient keeps deferring to "whatever the family wants"., Versus trying to decide what patient's wishes are in the context of previous conversations and the seriousness of her current illness. Medications/Allergies - Medications Active Medication List: Active Medications Atorvastatin Calcium (Lipitor) 80 mg PO QPM [facility] Last Admin: 02/23/18 21:18 Dose: 80 mg Cholecalciferol (Vitamin D3) 1,000 unit PO DAILY [facility] Last Admin: 02/24/18 09:54 Dose: 1,000 unit Cyclobenzaprine HCl (Flexeril) 10 mg PO TID PRN PRN Reason: Spasms Diazepam (Valium) 5 mg PO QPM PRN PRN Reason: Insomnia Duloxetine HCl (Cymbalta) 30 mg PO DAILY [facility] Last Admin: 02/24/18 09:54 Dose: 30 mg Felodipine (Plendil) 10 mg PO DAILY [facility] Last Admin: 02/24/18 09:54 Dose: 10 mg Furosemide (Lasix) 40 mg PO DAILY [facility] Last Admin: 02/24/18 09:54 Dose: 40 mg Gabapentin (Neurontin) 300 mg PO TID [facility] Last Admin: 02/24/18 14:56 Dose: Not Given Hydromorphone HCl (Dilaudid) 8 mg PO Q8H PRN PRN Reason: PAIN Sodium Chloride (Normal Saline 0.9%) 1,000 mls @ 83.333 mls/hr IV .Q12H [facility] Last Admin: 02/24/18 16:16 Dose: 83.3 mls/hr Meropenem 1 gm/ Sodium (Chloride) 100 mls @ 200 mls/hr IV Q12H [facility] Last Infusion: 02/24/18 10:33 Dose: Infused Linezolid (Zyvox 600 Mg/300 Ml) 600 mg in 300 mls @ 300 mls/hr IV Q12H [facility] Last Infusion: 02/24/18 12:48 Dose: Infused Ibuprofen (Motrin) 600 mg PO Q6HR PRN PRN Reason: Pain 1 to 4 Last Admin: 02/21/18 17:29 Dose: 600 mg Insulin Aspart (Novolog) 3 unit SUBQ TIDWM [facility] Last Admin: 02/24/18 13:46 Dose: Not Given Insulin Aspart (Novolog) 1 - 9 unit SUBQ 0800,1200,1700,2100 [facility] PRN Reason: Protocol Last Admin: 02/24/18 13:46 Dose: Not Given Insulin Glargine (Lantus Solostar) 10 unit SUBQ QPM [facility] Last Admin: 02/23/18 21:18 Dose: 10 unit Nystatin (Mycostatin Cream) 1 applic TOP BID [facility] Last Admin: 02/24/18 11:00 Dose: 1 appful Pantoprazole Sodium (Protonix) 40 mg PO QDAC [facility] Last Admin: 02/24/18 06:09 Dose: 40 mg Polyethylene Glycol (Miralax) 17 gm PO DAILY [facility] Last Admin: 02/24/18 08:35 Dose: 17 gm Rivaroxaban (Xarelto) 20 mg PO DAILY [facility] Last Admin: 02/24/18 09:55 Dose: 20 mg Sodium Chloride (Normal Saline Flush 0.9%) 10 ml IVP PRN PRN PRN Reason: NEEDED PER PROVIDER ORDERS Sodium Chloride (Normal Saline Flush 0.9%) 10 ml IVP 0100,0900,1700 [facility] Last Admin: 02/24/18 16:46 Dose: Not Given Temazepam (Restoril) 15 mg PO QPM PRN PRN Reason: Insomnia Zinc Oxide (Desitin) 113 gm TOP PRN PRN PRN Reason: Skin Care Last Admin: 02/22/18 21:04 Dose: 1 applic Omeprazole 20 mg PO QDAC 08/23/15 Duloxetine HCl [Cymbalta] 60 mg PO DAILY 01/15/17 Furosemide 40 mg PO DAILY 01/15/17 Atorvastatin Calcium 80 mg PO QPM 07/14/17 Cyclobenzaprine [Flexeril] 10 mg PO TID PRN 07/14/17 Felodipine [Felodipine ER] 10 mg PO DAILY 07/14/17 Rivaroxaban [Xarelto] 20 mg PO DAILY 07/14/17 Diazepam [Valium] 5 mg PO QPM PRN 02/06/18 Gabapentin [Neurontin] 800 mg PO TID 02/06/18 Hydromorphone HCl [Dilaudid] 8 mg PO Q8H 02/06/18 Insulin Aspart [NovoLOG] 3 unit SUBQ TIDWM 02/06/18 Insulin Glargine [Lantus Solostar] 10 unit SUBQ BID 02/06/18 Cholecalciferol (Vitamin D3) [Vitamin D3] 1,000 unit PO DAILY 02/20/18 - Allergies Allergies/Adverse Reactions: Allergies Allergy/AdvReac Type Severity Reaction Status Date / Time Penicillins Allergy unknown Verified 02/20/18 11:29 Review of Systems - Constitutional Constitutional: reports: Fatigue, Weight gain - Eyes Eyes: reports: Vision loss - Ears, Nose & Throat Ears, Nose & Throat: reports: Hearing loss, Dry mouth - Cardiovascular Cardiovascular: reports: Edema, Exertional dyspnea, Decr. exercise tolerance, Orthopnea - Respiratory Respiratory: reports: SOB at rest, SOB with exertion - Gastrointestinal Gastrointestinal: reports: Other (ate breakfast). denies: Constipation, Diarrhea, Nausea, Reflux/heartburn - Genitourinary Genitourinary: reports: Other (odom catheter) - Musculoskeletal Musculoskeletal: reports: Stiffness, Muscle weakness, Other (bedbound at this point) - Integumentary Integumentary: reports: Dryness, Other (venous stasis dermititis) - Neurological Neurological: reports: Memory problems, Incoordination, Slurred speech - Psychiatric Psychiatric: reports: Anxiety - Endocrine Endocrine: reports: Diabetes type 2 - Hematologic/Lymphatic Hematologic/Lymphatic: reports: Anemia, Recurrent infections (second hospitalization for pneumonia; hx UTI; Hx of cellulitis) - All Other Systems All Other Systems: reports: Reviewed and negative Physical Exam - Vital Signs Vital Signs: Vital Signs x48h Temp Pulse Resp BP Pulse Ox 02/24/18 16:00 37.1 C 84 18 118/87 H 96 02/24/18 15:00 89 16 117/67 94 02/24/18 13:51 81 13 113/57 L 96 02/24/18 09:37 89 15 108/81 H 92 - Physical Exam General Appearance: positive: Moderate distress, Anxious Eyes Bilateral: positive: Other (difficulty keeping her eyes open/focused) ENT: positive: Dry mucous membranes (has oxygen mask on) Neck: positive: Trachea midline Cardiovascular: positive: Irregular Respiratory: positive: Diminished throughout (difficult to appreciate breath sounds with morbid obesity; resp. 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 Concern regarding patient's continued decline, patient certainly fragile, with significant symptoms regarding her HAP. Patient expresses fatigue, she is worried about leaving her children behind when asked what she worries about most. When asked given the seriousness of her illness, what direction she would like to go, she defers to her family. Reshma, her granddaughter, who is her DPOA is feeling significantly overwhelmed given the context of past conversations as far as not extending suffering versus her current situation, versus family pressuring her to "keep her alive". We did discuss in the context of the immediacy of decisions, regarding her breathing status, patient wants to know "if she is dying". We did discuss in the seriousness of her illness, we do not know at this point what her response is going to be to her current treatment but she is not doing well, but that we are possibly facing the decision about intubation/BiPAP again. She is quite clear she does not want either one of these, this was approached from several angles, but said no directly when asked each question separately. We did discuss that we would continue to treat and focus on trying to get her better, as her overall goal is to try and return home. But there may be a decision point, if she does not improve, we would be focusing on comfort. This was helpful for Reshma to have a definitive decision regarding intubation/ BiPAP. We did discuss multiply scenarios, patient's daughter Yesi from [place], is due back 03/05, She would be here then indefinitely to help with patient's care. We did discuss given patient's severity of her illness, her morbid obesity, that it would be very difficult for her to be a primary caregiver without assistance. This was proposed to patient, if patient does respond, and improves to transition back to [facility], until caregiving support and equipment could be set up. Also introduced we may need to if patient does not improve, consider transition to comfort measures, and could weigh benefits and burdens at that point in time of transitioning home with hospice but would be difficult if she were in respiratory distress, may better managed here. Results - Lab Results Lab results reviewed: Yes Fish Bones: 02/24/18 05:20 02/24/18 05:20 Lab and Imaging Results: Lab Results x24hrs 02/24/18 02/24/18 Range/Units 05:20 05:20 WBC 10.8 (4.8-10.8) x10^3/uL RBC 3.06 L (4.20-5.40) 10^6/uL Hgb 9.3 L (12.0-16.0) g/dL Hct 28.3 L (37.0-47.0) % MCV 92.5 (81.0-99.0) fL MCH 30.5 (27.0-31.0) pg MCHC 33.0 (32.0-36.0) g/dL RDW 14.3 (12.0-15.0) % Plt Count 174 (130-450) 10^3/uL MPV 7.8 L (7.9-10.8) fL Sodium 138 (135-145) mmol/L Potassium 5.2 H (3.5-5.0) mmol/L Chloride 107 (101-111) mmol/L Carbon Dioxide 24 (21-32) mmol/L Anion Gap 7.0 (6-13) BUN 64 H (6-20) mg/dL Creatinine 3.0 H (0.4-1.0) mg/dL Estimated GFR (MDRD) 15 L (>89) Glucose 134 H (70-100) mg/dL Calcium 8.1 L (8.5-10.3) mg/dL Impression and Recommendations - Palliative Care Impression: This is a acutely ill 72-year-old woman with multiple co-morbidities, now hospitalized with hospital acquired pneumonia. Patient's ultimate goal is to be able to transition home, but with her high care needs and complex social situation has added to the complexity to meeting this. Palliative care to continue to provide support through the decision-making process, and follow for goals of care Recommendations/Counseling Done: 1. Metabolic encephalopathy. Recommendations to discontinue the Dilaudid, agree with decreasing gabapentin given patient without signs or symptoms of acute distress or chronic pain at this point, to see if can improve lethargy.2. Hospital acquired pneumonia. Patient with recent change in antibiotics, awaiting to see patient's response, goals of care conversation included next steps if needed, patient has declined intubation and or BiPAP. Aware this would transition goals to comfort measures, patient still hopeful to be able to improve. Unclear if she recognizes the seriousness of her situation, did present current concerns as well as future decision making plans. 3. Advanced care planning. Counseling with Kelle regarding goals of care, support given for decision-making, including patient's defining some of the more immediate decisions. At this point, if patient does improve her recover, goal would be to return to [facility], until care plan/caregiving in place. Reshma is hopeful to meet patient's goals to return home, recognizing she would probably at that point choose not to return to hospital, and focus on comfort. At this juncture, hoping for the best for some improvement, but aware situation fragile and may need to revisit goals for comfort. 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
--- NOTE | 2018-02-24 18:06 | PROVIDER PROGRESS NOTE ---
Subjective - Prog Note Date Prog Note Date: 02/24/18 Prog Note Time: 17:35 - Subjective Pt reports feeling: No change Subjective: The patient is having a hard time breathing today. She was on 5 L/min yesterday and is on 8 L/min today. We did change the patient's antibiotics based on the chest x-ray which noted worsening infiltrates this morning. She denies any fevers or chills and her pain is well-managed. Current Medications - Current Medications Current Medications: Active Medications Atorvastatin Calcium (Lipitor) 80 mg PO QPM REPLACED BY [facility] Last Admin: 02/23/18 21:18 Dose: 80 mg Cholecalciferol (Vitamin D3) 1,000 unit PO DAILY REPLACED BY [facility] Last Admin: 02/24/18 09:54 Dose: 1,000 unit Cyclobenzaprine HCl (Flexeril) 10 mg PO TID PRN PRN Reason: Spasms Diazepam (Valium) 5 mg PO QPM PRN PRN Reason: Insomnia Duloxetine HCl (Cymbalta) 30 mg PO DAILY REPLACED BY [facility] Last Admin: 02/24/18 09:54 Dose: 30 mg Felodipine (Plendil) 10 mg PO DAILY REPLACED BY [facility] Last Admin: 02/24/18 09:54 Dose: 10 mg Furosemide (Lasix) 40 mg PO DAILY REPLACED BY [facility] Last Admin: 02/24/18 09:54 Dose: 40 mg Gabapentin (Neurontin) 300 mg PO TID REPLACED BY [facility] Last Admin: 02/24/18 14:56 Dose: Not Given Hydromorphone HCl (Dilaudid) 8 mg PO Q8H PRN PRN Reason: PAIN Sodium Chloride (Normal Saline 0.9%) 1,000 mls @ 83.333 mls/hr IV .Q12H REPLACED BY [facility] Last Admin: 02/24/18 16:16 Dose: 83.3 mls/hr Meropenem 1 gm/ Sodium (Chloride) 100 mls @ 200 mls/hr IV Q12H REPLACED BY [facility] Last Infusion: 02/24/18 10:33 Dose: Infused Linezolid (Zyvox 600 Mg/300 Ml) 600 mg in 300 mls @ 300 mls/hr IV Q12H REPLACED BY [facility] Last Infusion: 02/24/18 12:48 Dose: Infused Ibuprofen (Motrin) 600 mg PO Q6HR PRN PRN Reason: Pain 1 to 4 Last Admin: 02/21/18 17:29 Dose: 600 mg Insulin Aspart (Novolog) 3 unit SUBQ TIDWM REPLACED BY [facility] Last Admin: 02/24/18 13:46 Dose: Not Given Insulin Aspart (Novolog) 1 - 9 unit SUBQ 0800,1200,1700,2100 REPLACED BY [facility] PRN Reason: Protocol Last Admin: 02/24/18 13:46 Dose: Not Given Insulin Glargine (Lantus Solostar) 10 unit SUBQ QPM REPLACED BY [facility] Last Admin: 02/23/18 21:18 Dose: 10 unit Nystatin (Mycostatin Cream) 1 applic TOP BID REPLACED BY [facility] Last Admin: 02/24/18 11:00 Dose: 1 appful Pantoprazole Sodium (Protonix) 40 mg PO QDAC REPLACED BY [facility] Last Admin: 02/24/18 06:09 Dose: 40 mg Polyethylene Glycol (Miralax) 17 gm PO DAILY REPLACED BY [facility] Last Admin: 02/24/18 08:35 Dose: 17 gm Rivaroxaban (Xarelto) 20 mg PO DAILY REPLACED BY [facility] Last Admin: 02/24/18 09:55 Dose: 20 mg Sodium Chloride (Normal Saline Flush 0.9%) 10 ml IVP PRN PRN PRN Reason: NEEDED PER PROVIDER ORDERS Sodium Chloride (Normal Saline Flush 0.9%) 10 ml IVP 0100,0900,1700 REPLACED BY [facility] Last Admin: 02/24/18 16:46 Dose: Not Given Temazepam (Restoril) 15 mg PO QPM PRN PRN Reason: Insomnia Zinc Oxide (Desitin) 113 gm TOP PRN PRN PRN Reason: Skin Care Last Admin: 02/22/18 21:04 Dose: 1 applic Omeprazole 20 mg PO QDAC 08/23/15 Duloxetine HCl [Cymbalta] 60 mg PO DAILY 01/15/17 Furosemide 40 mg PO DAILY 01/15/17 Atorvastatin Calcium 80 mg PO QPM 07/14/17 Cyclobenzaprine [Flexeril] 10 mg PO TID PRN 07/14/17 Felodipine [Felodipine ER] 10 mg PO DAILY 07/14/17 Rivaroxaban [Xarelto] 20 mg PO DAILY 07/14/17 Diazepam [Valium] 5 mg PO QPM PRN 02/06/18 Gabapentin [Neurontin] 800 mg PO TID 02/06/18 Hydromorphone HCl [Dilaudid] 8 mg PO Q8H 02/06/18 Insulin Aspart [NovoLOG] 3 unit SUBQ TIDWM 02/06/18 Insulin Glargine [Lantus Solostar] 10 unit SUBQ BID 02/06/18 Cholecalciferol (Vitamin D3) [Vitamin D3] 1,000 unit PO DAILY 02/20/18 Objective - Vital Signs/Intake & Output Vital Signs: Vital Signs x48h Temp Pulse Resp BP Pulse Ox 02/24/18 16:00 37.1 C 84 18 118/87 H 96 02/24/18 15:00 89 16 117/67 94 02/24/18 13:51 81 13 113/57 L 96 Intake & Output: Intake & Output 02/21/18 02/22/18 02/23/18 02/24/18 23:59 23:59 23:59 23:59 Intake Total 3789.200 3613.312 4316.825 2911.668 Output Total 1906 1360 2110 1330 Balance 3306.808 6886.312 2206.825 1581.668 - Objective General Appearance: positive: No acute distress, Alert Eyes Bilateral: positive: Normal inspection, PERRL, EOMI, No lid inflammation, Conjunctivae nml, No scleral icterus ENT: positive: ENT inspection nml, Pharynx nml, No signs of dehydration Neck: positive: Nml inspection, Thyroid nml, No JVD, Trachea midline. negative : Thyromegaly Respiratory: positive: Chest non-tender, Rales, Rhonchi. negative: Wheezes Cardiovascular: positive: No murmur, No gallop, Irregularly irregular Abdomen: positive: Non-tender, No organomegaly, Nml bowel sounds, No distention. negative: Guarding, Rebound Back: positive: Nml inspection. negative: CVA tenderness (R), CVA tenderness (L ) Skin: positive: Color nml, Warm, Dry, Decubitus (multiple very shallow wounds to the pt's buttocks and backs of her legs). negative: Cyanosis Extremities: positive: Non-tender, Full ROM, Nml appearance Neurologic/Psychiatric: positive: Oriented x3, CN's nml (2-12), Motor nml, Sensation nml, Depressed mood/affect - Lab Results Fish Bones: 02/24/18 05:20 02/24/18 05:20 Other Labs: Lab Results x24hrs 02/24/18 02/24/18 Range/Units 05:20 05:20 WBC 10.8 (4.8-10.8) x10^3/uL RBC 3.06 L (4.20-5.40) 10^6/uL Hgb 9.3 L (12.0-16.0) g/dL Hct 28.3 L (37.0-47.0) % MCV 92.5 (81.0-99.0) fL MCH 30.5 (27.0-31.0) pg MCHC 33.0 (32.0-36.0) g/dL RDW 14.3 (12.0-15.0) % Plt Count 174 (130-450) 10^3/uL MPV 7.8 L (7.9-10.8) fL Sodium 138 (135-145) mmol/L Potassium 5.2 H (3.5-5.0) mmol/L Chloride 107 (101-111) mmol/L Carbon Dioxide 24 (21-32) mmol/L Anion Gap 7.0 (6-13) BUN 64 H (6-20) mg/dL Creatinine 3.0 H (0.4-1.0) mg/dL Estimated GFR (MDRD) 15 L (>89) Glucose 134 H (70-100) mg/dL Calcium 8.1 L (8.5-10.3) mg/dL - Diagnostic Imaging Diagnostic Imaging Results: positive: Final report reviewed Diagnostic Imaging Comments: EXAM: CHEST RADIOGRAPHY EXAM DATE: 02/20/2018 12:19 PM. CLINICAL HISTORY: R mid lung rhonchi. COMPARISON: None. TECHNIQUE: 2 views. FINDINGS: Lungs/Pleura: Irregular opacities extending from the right perihilar station into the right upper lobe and left perihilar station into left upper lobe. Consolidations in the left lung base is silhouetting of the left hemidiaphragm. Small to moderate-sized left-sided pleural effusion. Mediastinum: The left and right heart borders are silhouetted by the adjacent airspace process. Other: None. IMPRESSION: Multifocal multi lobar pneumonia with [id number] sized left-sided pleural effusion, likely reactive. EXAM: CHEST RADIOGRAPHY EXAM DATE: 02/23/2018 10:30 PM. CLINICAL HISTORY: Worsening shortness of breath. Possible new CHF. COMPARISON: 02/20/2018. 02/10/2018. TECHNIQUE: 1 view. FINDINGS: Lungs/Pleura: Increasing patchy bilateral infiltrates, most pronounced in the right upper lobe and left perihilar region. No pleural effusion or pneumothorax. Mediastinum: Unchanged cardiomegaly. Other: Degenerative changes within the spine. IMPRESSION: 1. Stable cardiomegaly. 2. Increasing patchy bilateral infiltrates, appearance suggesting worsening multifocal infection. ABX Reporting Has patient been on IV antibiotics over the past 48 hours?: Yes Assessment/Plan - Problem List (1) Pneumonia Impression: Patient's pneumonia is worsening as evidenced by worsening chest x-ray which shows increasing infiltrates and clinically, the patient requires 15 L/min on nonrebreather mask to maintain her oxygen saturation in the mid to high 90s. We changed the patient's antibiotics from cefepime, clindamycin, and Levaquin to vancomycin and linezolid for better coverage and to be easier on the patient's kidneys which are impaired with a creatinine clearance of 3.0 this morning. Several days ago the patient requested a palliative care consult which was done today with Becca Mead. During the interview the patient made very clear to Ms. Mead and to her daughter who was present that she does not wish to be intubated nor does she wish BiPAP. We will continue with the patient's current care, giving her supplemental oxygen and bronchodilators as needed. Qualifiers: Pneumonia type: due to unspecified organism Laterality: left Lung location: lower lobe of lung Qualified Code(s): J18.1 - Lobar pneumonia, unspecified organism (2) Morbid obesity Impression: This has severely affected the patient's quality of life, affecting her mobility and her general health. I have asked for dietary consultation for her. (3) Type 2 diabetes mellitus Impression: The patient is on a carb controlled diet and I have given her long-acting insulin, mealtime insulin, and sliding scale insulin for coverage. The pt's HgbA1C is 12.1, indicative of an average glucose level of 301. Her blood sugars have been low( 67, 75,78) over the last couple of days and I accordingly adjusted her lantus and mealtime insulin doses. BS yesterday was 121 and this morning was 134. Will continue to monitor and adjust dosing as necessary. (4) Chronic kidney disease, stage III (moderate) Impression: The patient's creatinine today is 3.0, up from 2.6 on admission and 2.9 yesterday. The increase is likely due to IVP lasix we are giving the pt. This appears to be about her average kidney function during her hospitalizations over the last couple of years. We will give the patient IV fluids, change any nephrotoxic meds, and monitor her renal function carefully. (5) Hyperkalemia Impression: I am unsure of the etiology. We have been giving the patient Kayexalate daily which brought her potassium level down from 5.8-5.3 the first day, and 5.3-5.1 the second day. Yesterday after a 3rd dose the patient's potassium actually went up to 5.2. I have gone over the patient's medication regimen closely with the pharmacist and we have made a couple of minor changes but there is nothing obvious to account for the increasing Lasix potassium especially in the face of the patient receiving Lasix daily without any potassium supplementation. I will repeat the Kayexalate today and recheck potassium levels tomorrow. (6) Pulmonary hypertension Impression: The patient has significant pulmonary hypertension and while I would normally give her spironolactone for this, her hyperkalemia is preventing me from doing so. I changed her over to Lasix as this will also presumably help with the hyperkalemia. (7) Atrial fibrillation Impression: Patient's atrial fibrillation is rate controlled. Continue Felodipine and Xarelto. Qualifiers: Atrial fibrillation type: chronic Qualified Code(s): I48.2 - Chronic atrial fibrillation (8) Chronic back pain Impression: I restarted the patient on her Flexeril and ordered Dilaudid as needed for her back pain as these are her home medications. She is comfortable at this time.
[2018-02-24] MEDS: ATORVASTATIN 40 MG TABLET PO SCH (20:55)
[2018-02-24] MEDS: COD LIVER OIL/ZINC OXIDE 113 GM TUBE TOP PRN (20:55)
[2018-02-24] MEDS: INSULIN GLARGINE 300 UNIT/3 ML PEN SUBQ SCH (20:56)
[2018-02-25] MEDS: LINEZOLID 600 MG/300 ML 600 MG/300 ML BAG IV SCH ×3 (00:31→22:32)
[2018-02-25] MEDS: SODIUM CHLORIDE FLUSH 0.9% 10 ML SYRINGE IVP SCH ×4 (01:06→21:35)
[2018-02-25] MEDS: SODIUM CHLORIDE 0.9% 1,000 ML IV SCH ×2 (05:22→19:30)
[2018-02-25] MEDS: PANTOPRAZOLE 40 MG TABLET PO SCH (06:25)
[2018-02-25] MEDS: GABAPENTIN 300 MG CAPSULE PO SCH ×3 (06:25→20:57)
[2018-02-25 08:10] LABS: BASOPHILS % (AUTO) 0.4 %; EOSINOPHILS # (AUTO) 0.1 10^3/uL (0.0-0.7); EOSINOPHILS % (AUTO) 1.2 %; HGB - HEMOGLOBIN 9.1 g/dL (12.0-16.0); LYMPHOCYTES # (AUTO) 0.5 10^3/uL (1.5-3.5); LYMPHOCYTES % (AUTO) 5.7 %; MEAN CORPUSCULAR HEMOGLOBIN 30.9 pg (27.0-31.0); MEAN CORPUSCULAR HGB CONC 33.4 g/dL (32.0-36.0); MEAN CORPUSCULAR VOLUME 92.4 fL (81.0-99.0); MEAN PLATELET VOLUME 8.7 fL (7.9-10.8); MONOCYTES # (AUTO) 0.6 10^3/uL (0.0-1.0); MONOCYTES % (AUTO) 6.9 %; NEUTROPHILS # (AUTO) 7.8 10^3/uL (1.5-6.6); NEUTROPHILS % (AUTO) 85.8 %; PLT - PLATELET COUNT 136 10^3/uL (130-450); RED BLOOD COUNT 2.95 10^6/uL (4.20-5.40); RED CELL DISTRIBUTION WIDTH 14.1 % (12.0-15.0); WHITE BLOOD COUNT 9.1 x10^3/uL (4.8-10.8)
[2018-02-25] MEDS: MEROPENEM 1 GM in SODIUM CHLORIDE 0.9% MINIBAG 100 ML IV SCH ×2 (08:11→19:59)
[2018-02-25 08:24] LABS: ALBUMIN 1.8 g/dL (3.2-5.5); ALBUMIN/GLOBULIN RATIO 0.4 (1.0-2.2); ALKALINE PHOSPHATASE 265 IU/L (42-121); ALT ALANINE AMINOTRANSFERASE 25 IU/L (10-60); AST ASPARTATE AMINOTRANSFERASE 23 IU/L (10-42); BILIRUBIN,TOTAL 0.6 mg/dL (0.2-1.0); BUN - BLOOD UREA NITROGEN 63 mg/dL (6-20); CARBON DIOXIDE - CO2 23 mmol/L (21-32); CHLORIDE 104 mmol/L (101-111); CREATININE 3.2 mg/dL (0.4-1.0); GFR - MDRD 14 (>89); GLUCOSE 103 mg/dL (70-100); MAGNESIUM 1.7 mg/dL (1.7-2.8); PHOSPHORUS 5.5 mg/dL (2.5-4.6); SODIUM 134 mmol/L (135-145); TOTAL PROTEIN 5.9 g/dL (6.7-8.2)
[2018-02-25] MEDS: RIVAROXABAN 10 MG TABLET PO SCH (08:36)
[2018-02-25] MEDS: CHOLECALCIFEROL 1,000 UNIT TABLET PO SCH (08:36)
[2018-02-25] MEDS: FELODIPINE ER 2.5 MG TABLET PO SCH (08:36)
[2018-02-25] MEDS: DULoxetine 30 MG CAPSULE PO SCH (08:36)
[2018-02-25] MEDS: INSULIN ASPART 300 UNIT/3 ML PEN SUBQ SCH ×5 (08:42→20:52)
[2018-02-25 08:48] LABS: VBG PH 7.334 (7.31-7.41)
[2018-02-25] MEDS: FUROSEMIDE 40 MG/4 ML VIAL IVP SCH ×2 (09:48→14:44)
[2018-02-25] MEDS: COD LIVER OIL/ZINC OXIDE 113 GM TUBE TOP PRN ×2 (11:18→21:18)
[2018-02-25] MEDS: NYSTATIN CREAM 15 GM TUBE TOP SCH ×2 (11:18→21:18)
[2018-02-25] MEDS: POLYETHYLENE GLYCOL 3350 17 GM PACKET PO SCH (11:19)
--- NOTE | 2018-02-25 14:55 | CONSULTATION NOTE ---
Palliative Care Follow Up - Referral Referring Provider: Dr. Rebecca Jack Time of Visit: [id number] Referral setting: Hospitalized patient Referral Reason: HAP/Goals of care - Information Sources Records reviewed: RN notes reviewed, Previous records reviewed History/Review of Systems obtained from: Patient, Caregiver (clinical staff/ hospitalist) Exam limitations: Clinical condition (patient with lethargy; respiratory effort; ) - History of Present Illness Update Brief HPI Update: This is a 72-year-old woman who is chronically ill, most recently was hospitalized 02/06-02/14 with community-acquired pneumonia, urinary tract infection, and metabolic encephalopathy. She also has known renal failure stage III kidney disease, type 2 diabetes uncontrolled, venous stasis dermatitis, atrial fib, hypertension, and now bedbound status. [facility], for [facility], but had increased lethargy and was readmitted 02/20/2018 With a positive chest x-ray for multifocal multilobular health care acquired pneumonia. She has had her antibiotics changed, still with no positive response, remains with 13 liters of oxygen to keep her oxygen in 90's, signficiant respiratory effort, bilateral crackles, and fluctuating mental status and lethargy despite medication adjustments in decreasing gabapentin to less than 50% of previous dosing, she has not had any resulting increase in pain. Her stated goals are to go home, appears to have some but limited into the seriousness of her situation , and her social situation continues to be quite complex. Social History - Living Situation Living arrangement: At home Living Situation: With family (complicated multigenerational family, family dynamics, and saftey concerns with APS currently monitoring. Daughter Yesi, second DPOA is coming as soon as can get here, in response to ongoing family issues) Medications/Allergies - Medications Active Medication List: Active Medications Atorvastatin Calcium (Lipitor) 80 mg PO QPM [facility] Last Admin: 02/24/18 20:55 Dose: 80 mg Cholecalciferol (Vitamin D3) 1,000 unit PO DAILY [facility] Last Admin: 02/25/18 08:36 Dose: 1,000 unit Cyclobenzaprine HCl (Flexeril) 10 mg PO TID PRN PRN Reason: Spasms Diazepam (Valium) 5 mg PO QPM PRN PRN Reason: Insomnia Duloxetine HCl (Cymbalta) 30 mg PO DAILY [facility] Last Admin: 02/25/18 08:36 Dose: 30 mg Felodipine (Plendil) 10 mg PO DAILY [facility] Last Admin: 02/25/18 08:36 Dose: 10 mg Furosemide (Lasix Inj 40 Mg Vial) 80 mg IVP BIDDIURETIC [facility] Last Admin: 02/25/18 14:44 Dose: 80 mg Gabapentin (Neurontin) 300 mg PO TID [facility] Last Admin: 02/25/18 14:44 Dose: Not Given Sodium Chloride (Normal Saline 0.9%) 1,000 mls @ 83.333 mls/hr IV .Q12H [facility] Last Admin: 02/25/18 05:22 Dose: 83.3 mls/hr Meropenem 1 gm/ Sodium (Chloride) 100 mls @ 200 mls/hr IV Q12H [facility] Last Infusion: 02/25/18 08:42 Dose: Infused Linezolid (Zyvox 600 Mg/300 Ml) 600 mg in 300 mls @ 300 mls/hr IV Q12H [facility] Last Infusion: 02/25/18 12:30 Dose: Infused Ibuprofen (Motrin) 600 mg PO Q6HR PRN PRN Reason: Pain 1 to 4 Last Admin: 02/21/18 17:29 Dose: 600 mg Insulin Aspart (Novolog) 1 - 9 unit SUBQ 0800,1200,1700,2100 [facility] PRN Reason: Protocol Last Admin: 02/25/18 13:37 Dose: Not Given Insulin Glargine (Lantus Solostar) 10 unit SUBQ QPM [facility] Last Admin: 02/24/18 20:56 Dose: 10 unit Nystatin (Mycostatin Cream) 1 applic TOP BID [facility] Last Admin: 02/25/18 11:18 Dose: 1 appful Pantoprazole Sodium (Protonix) 40 mg PO QDAC [facility] Last Admin: 02/25/18 06:25 Dose: 40 mg Polyethylene Glycol (Miralax) 17 gm PO DAILY [facility] Last Admin: 02/25/18 11:19 Dose: Not Given Rivaroxaban (Xarelto) 20 mg PO DAILY [facility] Last Admin: 02/25/18 08:36 Dose: 20 mg Sodium Chloride (Normal Saline Flush 0.9%) 10 ml IVP PRN PRN PRN Reason: NEEDED PER PROVIDER ORDERS Sodium Chloride (Normal Saline Flush 0.9%) 10 ml IVP 0100,0900,1700 [facility] Last Admin: 02/25/18 11:18 Dose: 10 ml Temazepam (Restoril) 15 mg PO QPM PRN PRN Reason: Insomnia Zinc Oxide (Desitin) 113 gm TOP PRN PRN PRN Reason: Skin Care Last Admin: 02/25/18 11:18 Dose: 1 applic Omeprazole 20 mg PO QDAC 08/23/15 Duloxetine HCl [Cymbalta] 60 mg PO DAILY 01/15/17 Furosemide 40 mg PO DAILY 01/15/17 Atorvastatin Calcium 80 mg PO QPM 07/14/17 Cyclobenzaprine [Flexeril] 10 mg PO TID PRN 07/14/17 Felodipine [Felodipine ER] 10 mg PO DAILY 07/14/17 Rivaroxaban [Xarelto] 20 mg PO DAILY 07/14/17 Diazepam [Valium] 5 mg PO QPM PRN 02/06/18 Gabapentin [Neurontin] 800 mg PO TID 02/06/18 Hydromorphone HCl [Dilaudid] 8 mg PO Q8H 02/06/18 Insulin Aspart [NovoLOG] 3 unit SUBQ TIDWM 02/06/18 Insulin Glargine [Lantus Solostar] 10 unit SUBQ BID 02/06/18 Cholecalciferol (Vitamin D3) [Vitamin D3] 1,000 unit PO DAILY 02/20/18 - Allergies Allergies/Adverse Reactions: Allergies Allergy/AdvReac Type Severity Reaction Status Date / Time Penicillins Allergy unknown Verified 02/20/18 11:29 Review of Systems - Constitutional Constitutional: reports: Fatigue, Poor appetite (difficulty eating with respiratory effort) - Ears, Nose & Throat Ears, Nose & Throat: reports: Hearing loss, Dry mouth - Cardiovascular Cardiovascular: reports: Irregular heart rate, Edema - Respiratory Respiratory: reports: Orthopnea, SOB at rest, SOB with exertion, Other ( difficulty keeping oxygen sats greater than 90% at 13 liters) - Gastrointestinal Gastrointestinal: reports: Bloating, Poor appetite. denies: Nausea - Genitourinary Genitourinary: reports: Other (odom catheter; still making urine) - Musculoskeletal Musculoskeletal: reports: Muscle weakness (bedbound) - Integumentary Integumentary: reports: Dryness, Other (venous stasis/decubs) - Neurological Neurological: reports: General weakness, Memory problems, Slurred speech ( lethargic; difficulty with conversation) - Psychiatric Psychiatric: reports: Anxiety (worried about granddaughter) - Endocrine Endocrine: reports: Diabetes type 2 - Hematologic/Lymphatic Hematologic/Lymphatic: reports: Recurrent infections - All Other Systems All Other Systems: reports: Reviewed and negative Physical Exam - Vital Signs Vital Signs: Vital Signs x48h Temp Pulse Resp BP Pulse Ox 02/25/18 11:40 90 14 119/65 91 L 02/25/18 09:00 36.8 C 95 124 H 106/60 93 - Physical Exam General Appearance: positive: Moderate distress (respiratoy) Eyes Bilateral: positive: Other (dry eyes) ENT: positive: Dry mucous membranes Neck: positive: No JVD, Trachea midline Cardiovascular: positive: Regular rate & rhythm Respiratory: positive: Diminished throughout, Rales. negative: Wheezes Abdomen: positive: Soft, Obese Skin: positive: Other (LE venous stasis) Extremities: positive: Other (third spacing into upper arms/abd/thighs/sacrum) Neurologic/Psychiatric: positive: Disoriented to time, Weakness, Slurred/abnml speech Palliative Care - POLST Patient has POLST: Yes POLST Status: DNR, Selective Treatment Pain: No pain - Palliative Care Discussion: Meeting with patient, sister Megha and her daughter present (came from [place] has not seen for 5 years), daughter Layla, and granddaughter Reshma (DPOA) and her young son. Kim GUARDADO joined and present as well. Reviewed the seriousness/ precariousness of the current situation with little improvement in last 24 hours despite changes and working with the medications. Patient's stated goals are still to go home, reviewed given her respiratory status, most likely not an option if things don't improve, and the focus would be on comfort care in her current setting. This has gotten more complicated given family issues and concerns about safe care at home, her daughter Yesi from [facility]. is trying to get up her MARICARMEN. Questions and concerns addressed, reviewed hoping for the best , but may not get to transition home, arrangements on hold given this reality. Counseling regarding benefits and burdens of treatment, comfort care, and anticipatory guidance. Agreement will continue to revisit again tomorrow patient status in context of decisions regarding transitions. Family aware of the seriousness of situation, Reshma has made contact with regarding arrangements. Results - Lab Results Lab results reviewed: Yes Fish Bones: 02/25/18 08:02 02/25/18 08:02 Lab and Imaging Results: Lab Results x24hrs 02/25/18 02/25/18 02/25/18 Range/Units 08:02 08:02 08:02 WBC 9.1 (4.8-10.8) x10^3/uL RBC 2.95 L (4.20-5.40) 10^6/uL Hgb 9.1 L (12.0-16.0) g/dL Hct 27.2 L (37.0-47.0) % MCV 92.4 (81.0-99.0) fL MCH 30.9 (27.0-31.0) pg MCHC 33.4 (32.0-36.0) g/dL RDW 14.1 (12.0-15.0) % Plt Count 136 (130-450) 10^3/uL MPV 8.7 (7.9-10.8) fL Neut # (Auto) 7.8 H (1.5-6.6) 10^3/uL Lymph # (Auto) 0.5 L (1.5-3.5) 10^3/uL Elk # (Auto) 0.6 (0.0-1.0) 10^3/uL Eos # (Auto) 0.1 (0.0-0.7) 10^3/uL Baso # (Auto) 0.0 (0.0-0.1) 10^3/uL Absolute Nucleated RBC 0.00 x10^3/uL Nucleated RBC % 0.0 /100WBC VBG pH 7.334 (7.31-7.41) Ionized Calcium 1.09 L YES (1.15-1.33) mmol/L Sodium 134 L (135-145) mmol/L Potassium 5.0 (3.5-5.0) mmol/L Chloride 104 (101-111) mmol/L Carbon Dioxide 23 (21-32) mmol/L Anion Gap 7.0 (6-13) BUN 63 H (6-20) mg/dL Creatinine 3.2 H (0.4-1.0) mg/dL Estimated GFR (MDRD) 14 L (>89) Glucose 103 H (70-100) mg/dL Calcium 8.0 L (8.5-10.3) mg/dL Phosphorus 5.5 H (2.5-4.6) mg/dL Magnesium 1.7 (1.7-2.8) mg/dL Total Bilirubin 0.6 (0.2-1.0) mg/dL AST 23 (10-42) IU/L ALT 25 (10-60) IU/L Alkaline Phosphatase 265 H (42-121) IU/L Total Protein 5.9 L (6.7-8.2) g/dL Albumin 1.8 L (3.2-5.5) g/dL Globulin 4.1 (2.1-4.2) g/dL Albumin/Globulin Ratio 0.4 L (1.0-2.2) Impression and Recommendations - Palliative Care Impression: This is an acutely ill 72-year-old woman with multiple comorbidities, now hospitalized with Healthcare acquired pneumonia, continues to respond poorly to her current antibiotic regimen with increasing respiratory distress, hypoxia, and worsening kidney function. Patient is a do not attempt resuscitation, her goals are to try and return home, but her high level care needs and complex social situation have made this quite complex. Palliative care is continue the discussion regarding the support for the decision making process, weighing benefits and burdens of continuing versus comfort care. Recommendations/Counseling Done: 1. HAP. Counseling regarding family meeting with granddaughter Reshma HARPER, daughter Brian, sister Megha and her daughter, and with patient. Anticipatory guidance provided regarding benefit versus burden of treatments, concept of prolonged suffering vs hoping for the best, anticipatory guidance, education regarding comfort measures, and addressing questions regarding goals of care. Patient continues to wish to go home, given the acute status, this remains very tenuous goal and situation, made more complex by family issues. Will again revisit as patient either improves or worsens in hoping for the best, but preparing family for possible transition to comfort measures. Time Spent: 45 minutes was given 50% of this done in counseling, family conference, and anticipatory guidance
[2018-02-25] MEDS ORDERED: IPRATROPIUM/ALBUTEROL 3 ML NEB INH PRN (16:40)
--- NOTE | 2018-02-25 16:49 | PROVIDER PROGRESS NOTE ---
Assessment/Plan - Problem List (1) Acute respiratory failure with hypoxia and hypercapnia Assessment/Plan: Patient continues to have worsening respiratory failure and is now requiring 13L of O2 with O2 sats in the low 90 and lethargy. She has refused intubation and BiPAP. Likely cause is pneumonia, obesity hypoventilation, pulmonary hypertension and likely some CHF. She had worsening pneumonia on repeat CXR with possible CHF. SHe does sound wet on exam today Abx were changed yesterday Plan: Supplemental O2 Continue IV linezolid and meropenum Change lasix to 80 mg IV BID Start IV steroids and nebs prn Monitor closely if patient is not improving in 24 hours patient and family want comfort care Palliative Care is following (2) Pneumonia Impression: Patient has health care associated pneumonia. Patient's pneumonia is worsening as evidenced by worsening chest x-ray which shows increasing infiltrates and clinically, the patient requires 13 L/min on oxymask to maintain her oxygen saturation in the low 90s. We changed the patient 's antibiotics from cefepime, clindamycin, and Levaquin to meropenum and linezolid for better coverage and to be easier on the patient's kidneys which are impaired with a creatinine continuing to go up yesterday. Palliative Care has been consulted and is following. The patient has made it clear to her daughter and granddaughter who is DPOA that she does not wish to be intubated nor does she wish BiPAP. We will continue with the patient's current care for another 24 hours but if not improving family is considering hospice. Qualifiers: Pneumonia type: due to unspecified organism Laterality: left Lung location: lower lobe of lung Qualified Code(s): J18.1 - Lobar pneumonia, unspecified organism (3) Acute on chronic kidney disease, stage III (moderate) Impression: The patient's creatinine today is 3.2, up from 2.6 on admission and 3.0 yesterday. Increase was thought to be secondary to IV lasix and abx so patient lasix was switched to PO and abx were changed. Bag Bailer continues to worsen and patient appears more wet on exam after IVFs. Will stop IVFs, increase lasix to 80 mg IV lasix BID and continue to monitor Bag Bailer. Avoid nephrotoxic agents. (4) Type 2 diabetes mellitus Impression: The pt's HgbA1C is 12.1, indicative of an average glucose level of 301. BG continues to be low. Will stop scheduled mealtime insulin and continue lantus at 10 units with SS insulin. Monitor BG ACHS and continue to titrate insulin. (5) Morbid obesity Impression: This has severely affected the patient's quality of life, affecting her mobility and her general health. Also likely causing OHS. (6) Hyperkalemia Impression: Likely secondary to renal failure Patient given kayexylate K is stable Continue to monitor (7) Pulmonary hypertension Impression: The patient has significant pulmonary hypertension and while I would normally give her spironolactone for this, her hyperkalemia is preventing me from doing so. Will continue supplemental O2 and IV lasix. (8) Atrial fibrillation Impression: Patient's atrial fibrillation is rate controlled. Continue Felodipine and Xarelto. Stable. Qualifiers: Atrial fibrillation type: chronic Qualified Code(s): I48.2 - Chronic atrial fibrillation (9) Chronic back pain Impression: Given patients lethargy will stop dilaudid. - Current Meds Current Meds: Current Medications Generic Name Dose Route Start Last Admin Trade Name Jarvisq PRN Reason Stop Dose Admin Atorvastatin Calcium 80 mg 02/20/18 21:00 02/24/18 20:55 Lipitor PO 80 mg QPM JOSE G Administration Cholecalciferol 1,000 unit 02/21/18 09:00 02/25/18 08:36 Vitamin D3 PO 1,000 unit DAILY JOSE G Administration Duloxetine HCl 30 mg 02/24/18 08:44 02/25/18 08:36 Cymbalta PO 30 mg DAILY JOSE G Administration Felodipine 10 mg 02/21/18 09:00 02/25/18 08:36 Plendil PO 10 mg DAILY JOSE G Administration Furosemide 80 mg 02/25/18 09:00 02/25/18 14:44 Lasix Inj 40 Mg Vial IVP 80 mg BIDDIURETIC JOSE G Administration Gabapentin 300 mg 02/24/18 09:04 02/25/18 14:44 Neurontin PO Not Given TID JOSE G Sodium Chloride 1,000 mls @ 83.333 mls/hr 02/20/18 14:00 02/25/18 05:22 Normal Saline 0.9% IV 83.3 mls/hr .Q12H JOSE G Administration Meropenem 1 gm/ Sodium 100 mls @ 200 mls/hr 02/24/18 08:00 02/25/18 08:42 Chloride IV Infused Q12H JOSE G Infusion Linezolid 600 mg in 300 mls @ 300 mls/hr 02/24/18 11:00 02/25/18 12:30 Zyvox 600 Mg/300 Ml IV Infused Q12H JOSE G Infusion Ibuprofen 600 mg 02/20/18 13:19 02/21/18 17:29 Motrin PO 600 mg Q6HR PRN Administration Pain 1 to 4 Insulin Aspart 1 - 9 unit 02/20/18 17:00 02/25/18 13:37 Novolog SUBQ Not Given 0800,1200,1700,2100 [facility] Protocol Insulin Glargine 10 unit 02/22/18 21:00 02/24/18 20:56 Lantus Solostar SUBQ 10 unit QPM JOSE G Administration Nystatin 1 applic 02/20/18 21:00 02/25/18 11:18 Mycostatin Cream TOP 1 appful BID JOSE G Administration Pantoprazole Sodium 40 mg 02/21/18 07:00 02/25/18 06:25 Protonix PO 40 mg QDAC JOSE G Administration Polyethylene Glycol 17 gm 02/21/18 09:00 02/25/18 11:19 Miralax PO Not Given DAILY JOSE G Rivaroxaban 20 mg 02/21/18 09:00 02/25/18 08:36 Xarelto PO 20 mg DAILY JOSE G Administration Sodium Chloride 10 ml 02/20/18 17:00 02/25/18 11:18 Normal Saline Flush 0.9% IVP 10 ml 0100,0900,1700 JOSE G Administration Zinc Oxide 113 gm 02/21/18 05:43 02/25/18 11:18 Desitin TOP 1 applic PRN PRN Administration Skin Care - Lab Result Lab results reviewed: Yes Fish Bone Diagrams: 02/25/18 08:02 02/25/18 08:02 Other Lab Results: Abnormal Lab Results 02/24/18 02/24/18 02/25/18 05:20 05:20 08:02 RBC 3.06 10^6/uL L 10^6/uL 2.95 10^6/uL L 10^6/uL (4.20-5.40) (4.20-5.40) Hgb 9.3 g/dL L g/dL 9.1 g/dL L g/dL (12.0-16.0) (12.0-16.0) Hct 28.3 % L % 27.2 % L % (37.0-47.0) (37.0-47.0) MPV 7.8 fL L fL (7.9-10.8) Neut # (Auto) 7.8 10^3/uL H 10^3/uL (1.5-6.6) Lymph # (Auto) 0.5 10^3/uL L 10^3/uL (1.5-3.5) Ionized Calcium Sodium Potassium 5.2 mmol/L H mmol/L (3.5-5.0) BUN 64 mg/dL H mg/dL (6-20) Creatinine 3.0 mg/dL H mg/dL (0.4-1.0) Estimated GFR (MDRD) 15 L (>89) Glucose 134 mg/dL H mg/dL (70-100) Calcium 8.1 mg/dL L mg/dL (8.5-10.3) Phosphorus Alkaline Phosphatase Total Protein Albumin Albumin/Globulin Ratio 02/25/18 02/25/18 08:02 08:02 RBC Hgb Hct MPV Neut # (Auto) Lymph # (Auto) Ionized Calcium 1.09 mmol/L L mmol/L (1.15-1.33) Sodium 134 mmol/L L mmol/L (135-145) Potassium BUN 63 mg/dL H mg/dL (6-20) Creatinine 3.2 mg/dL H mg/dL (0.4-1.0) Estimated GFR (MDRD) 14 L (>89) Glucose 103 mg/dL H mg/dL (70-100) Calcium 8.0 mg/dL L mg/dL (8.5-10.3) Phosphorus 5.5 mg/dL H mg/dL (2.5-4.6) Alkaline Phosphatase 265 IU/L H IU/L (42-121) Total Protein 5.9 g/dL L g/dL (6.7-8.2) Albumin 1.8 g/dL L g/dL (3.2-5.5) Albumin/Globulin Ratio 0.4 L (1.0-2.2) - Diagnostic Imaging Results Diagnostic Imaging Results: Final report reviewed - Additional Planning Condition/Complexity: Critical My Orders: My Active Orders 02/25/18 09:00 FUROSEMIDE INJ 40mg VIAL [LASIX INJ 40 mg VIAL] 80 mg IVP BIDDIURETIC 02/25/18 Lunch Dysphagia Puree Diet [DIET] 02/26/18 05:00 BNP - B-NATRIURETIC PEPTIDE [IAI] DAILYLAB CBC - COMP BLD CT W/AUTO DIFF [HEME] DAILYLAB CMP, RFLX TO IONIZED CA IF [CHEM] DAILYLAB MAGNESIUM [CHEM] DAILYLAB PHOSPHORUS [CHEM] DAILYLAB 02/27/18 05:00 BNP - B-NATRIURETIC PEPTIDE [IAI] DAILYLAB CBC - COMP BLD CT W/AUTO DIFF [HEME] DAILYLAB CMP, RFLX TO IONIZED CA IF [CHEM] DAILYLAB MAGNESIUM [CHEM] DAILYLAB PHOSPHORUS [CHEM] DAILYLAB 02/28/18 05:00 BNP - B-NATRIURETIC PEPTIDE [IAI] DAILYLAB CBC - COMP BLD CT W/AUTO DIFF [HEME] DAILYLAB CMP, RFLX TO IONIZED CA IF [CHEM] DAILYLAB MAGNESIUM [CHEM] DAILYLAB PHOSPHORUS [CHEM] DAILYLAB 03/01/18 05:00 CBC - COMP BLD CT W/AUTO DIFF [HEME] DAILYLAB CMP, RFLX TO IONIZED CA IF [CHEM] DAILYLAB MAGNESIUM [CHEM] DAILYLAB PHOSPHORUS [CHEM] DAILYLAB Consult/Specialty: Other (Palliative Care) Plan Discussed with:: Patient, Family Time Spent: Greater than 60 minutes Subjective - Subjective Patient Reports: Other (Patient is lethargic. So weak she cannot chew her food. She states she does not want intubation. She is in respriatory distress. She was afebrile.) Nursing Reports: Other (Lethargic, increasing hypoxia.) Objective Vital Signs: Vital Signs - 24 hr 02/24/18 02/24/18 02/24/18 17:00 19:00 21:00 Temperature Heart Rate [ 84 88 89 Monitoring electrodes] Respiratory 12 25 H 14 Rate Blood Pressure 99/53 L 108/56 L 100/57 L [Right Brachial artery] O2 Saturation 96 94 94 02/25/18 02/25/18 02/25/18 00:34 04:09 09:00 Temperature 36.3 C L 36.8 C Heart Rate [ 85 84 95 Monitoring electrodes] Respiratory 12 12 124 H Rate Blood Pressure 111/62 106/60 106/60 [Right Brachial artery] O2 Saturation 95 97 93 02/25/18 02/25/18 11:40 15:31 Temperature 36.6 C Heart Rate [ 90 88 Monitoring electrodes] Respiratory 14 13 Rate Blood Pressure 119/65 97/56 L [Right Brachial artery] O2 Saturation 91 L 90 L Oxygen O2 Source Oxymask I&O (Last 24 Hrs): Intake and Output Totals x24h 02/23/18 02/24/18 02/25/18 23:59 23:59 23:59 Intake Total 4316.825 3161.668 2250 Output Total 2110 1435 1525 Balance 2206.825 1726.668 725 General: Moderate distress (respiratory), Other (lethargic. Obese) HEENT: Atraumatic, PERRLA, EOMI, Mucous membr. moist/pink Neck: Supple, No thyromegaly, +2 carotid pulse wo bruit, No LAD Lymphatic: no adenopathy Neuro: Non Focal, Other (Lethargic) Cardiovascular: Other (Irregularly, irregular) Respiratory: Wheezes, Rales, Rhonchi Abdomen: Normal bowel sounds, Soft, No tenderness, No hepatospenomegaly Extremities: No clubbing, No cyanosis, Normal pulses, Other (Bilateral LE edema with chronic stasis dermatitis) Comments/Notes: Chronic stasis dermatitis - Results Results: Laboratory Results WBC 9.1 x10^3/uL (4.8-10.8) 02/25/18 08:02 RBC 2.95 10^6/uL (4.20-5.40) L 02/25/18 08:02 Hgb 9.1 g/dL (12.0-16.0) L 02/25/18 08:02 Hct 27.2 % (37.0-47.0) L 02/25/18 08:02 MCV 92.4 fL (81.0-99.0) 02/25/18 08:02 MCH 30.9 pg (27.0-31.0) 02/25/18 08:02 MCHC 33.4 g/dL (32.0-36.0) 02/25/18 08:02 RDW 14.1 % (12.0-15.0) 02/25/18 08:02 Plt Count 136 10^3/uL (130-450) 02/25/18 08:02 MPV 8.7 fL (7.9-10.8) 02/25/18 08:02 Neut # (Auto) 7.8 10^3/uL (1.5-6.6) H 02/25/18 08:02 Lymph # (Auto) 0.5 10^3/uL (1.5-3.5) L 02/25/18 08:02 Cooper # (Auto) 0.6 10^3/uL (0.0-1.0) 02/25/18 08:02 Eos # (Auto) 0.1 10^3/uL (0.0-0.7) 02/25/18 08:02 Baso # (Auto) 0.0 10^3/uL (0.0-0.1) 02/25/18 08:02 Absolute Nucleated RBC 0.00 x10^3/uL 02/25/18 08:02 Nucleated RBC % 0.0 /100WBC 02/25/18 08:02 Bld Gas Analysis Time 1716 02/22/18 17:11 Sample Site RIGHT RADIAL 02/22/18 17:11 ABG pH 7.32 (7.35-7.45) L 02/22/18 17:11 ABG pCO2 49 mmHg (34-45) H 02/22/18 17:11 ABG pO2 78 mmHg (80-100) L 02/22/18 17:11 ABG HCO3 24.7 mmol/L (22.0-26.0) 02/22/18 17:11 ABG Total CO2 26.2 MMOL/L (21.0-29.0) 02/22/18 17:11 ABG O2 Saturation 95 % (94-98) 02/22/18 17:11 ABG Oximetry Spot Check 96 % 02/22/18 17:11 ABG Base Excess -1.5 mmol/L (-2.0-3.0) 02/22/18 17:11 Riley Test POSITIVE 02/22/18 17:11 VBG pH 7.334 (7.31-7.41) 02/25/18 08:02 Ionized Calcium 1.09 mmol/L (1.15-1.33) L 02/25/18 08:02 Respiration Rate 14 b/min 02/22/18 17:11 O2 Delivery Device OXYMIZER 02/22/18 17:11 O2 Liters/Min 5.00 LPM 02/22/18 17:11 Vent Mode BIPAP 02/20/18 20:04 FiO2 45.00 02/20/18 20:04 Tidal Volume 331 mL 02/20/18 20:04 Pressure Support Vent 4 cmH2O 02/20/18 18:04 EPAP 6 cmH2O 02/20/18 20:04 IPAP 14 cmH2O 02/20/18 20:04 Sodium 134 mmol/L (135-145) L 02/25/18 08:02 Potassium 5.0 mmol/L (3.5-5.0) 02/25/18 08:02 Chloride 104 mmol/L (101-111) 02/25/18 08:02 Carbon Dioxide 23 mmol/L (21-32) 02/25/18 08:02 Anion Gap 7.0 (6-13) 02/25/18 08:02 BUN 63 mg/dL (6-20) H 02/25/18 08:02 Creatinine 3.2 mg/dL (0.4-1.0) H 02/25/18 08:02 Estimated GFR (MDRD) 14 (>89) L 02/25/18 08:02 Glucose 103 mg/dL (70-100) H 02/25/18 08:02 Glycated Hemoglobin 12.1 % (4.6-6.2) H 02/20/18 12:20 Estim Average Glucose 301 (70-100) H 02/20/18 12:20 Lactic Acid 0.5 mmol/L (0.5-2.2) 02/20/18 12:20 Calcium 8.0 mg/dL (8.5-10.3) L 02/25/18 08:02 Ionized Calcium YES 02/25/18 08:02 Phosphorus 5.5 mg/dL (2.5-4.6) H 02/25/18 08:02 Magnesium 1.7 mg/dL (1.7-2.8) 02/25/18 08:02 Total Bilirubin 0.6 mg/dL (0.2-1.0) 02/25/18 08:02 AST 23 IU/L (10-42) 02/25/18 08:02 ALT 25 IU/L (10-60) 02/25/18 08:02 Alkaline Phosphatase 265 IU/L (42-121) H 02/25/18 08:02 Troponin I < 0.04 ng/mL (<0.49) 02/20/18 12:20 Total Protein 5.9 g/dL (6.7-8.2) L 02/25/18 08:02 Albumin 1.8 g/dL (3.2-5.5) L 02/25/18 08:02 Globulin 4.1 g/dL (2.1-4.2) 02/25/18 08:02 Albumin/Globulin Ratio 0.4 (1.0-2.2) L 02/25/18 08:02 Lipase 24 U/L (22-51) 02/20/18 12:20 Urine Color YELLOW 02/20/18 14:32 Urine Clarity CLOUDY (CLEAR) 02/20/18 14:32 Urine pH 5.5 PH (5.0-7.5) 02/20/18 14:32 Ur Specific [place] 1.020 (1.002-1.030) 02/20/18 14:32 Urine Protein 30 mg/dL (NEGATIVE) H 02/20/18 14:32 Urine Glucose (UA) NEGATIVE mg/dL (NEGATIVE) 02/20/18 14:32 Urine Ketones NEGATIVE mg/dL (NEGATIVE) 02/20/18 14:32 Urine Occult Blood LARGE (NEGATIVE) H 02/20/18 14:32 Urine Nitrite NEGATIVE (NEGATIVE) 02/20/18 14:32 Urine Bilirubin NEGATIVE (NEGATIVE) 02/20/18 14:32 Urine Urobilinogen 0.2 (NORMAL) E.U./dL (NORMAL) 02/20/18 14:32 Ur Leukocyte Esterase NEGATIVE (NEGATIVE) 02/20/18 14:32 Urine RBC TNTC /HPF (0-5) H 02/20/18 14:32 Urine WBC >25 /HPF (0-5) H 02/20/18 14:32 Ur Squamous Epith Cells MOD Squamous (<= Few) H 02/20/18 14:32 Amorphous Sediment Moderate /LPF 02/20/18 14:32 Urine Bacteria Many /HPF (None Seen) H 02/20/18 14:32 Urine Yeast PRESENT 02/20/18 14:32 Ur Microscopic Review INDICATED 02/20/18 14:32 Urine Culture Comments NOT INDICATED 02/20/18 14:32 - Procedures Procedures: Procedures INSERTION OF ENDOTRACHEAL AIRWAY INTO TRACHEA, VIA OPENING (02/06/18) INSERTION OF INFUSION DEV INTO SUP VENA CAVA, PERC APPROACH (02/06/18) RESPIRATORY VENTILATION, LESS THAN 24 CONSECUTIVE HOURS (02/06/18) ABX Reporting Has patient been on IV antibiotics over the past 48 hours?: Yes Current Medications - Current Medications Current Medications: Active Medications Generic Name Dose Route Start Last Admin Trade Name Freq PRN Reason Stop Dose Admin Albuterol/Ipratropium 3 ml 02/25/18 16:40 Duoneb INH Q4HR PRN Wheezing Atorvastatin Calcium 80 mg 02/20/18 21:00 02/24/18 20:55 Lipitor PO 80 mg QPM JOSE G Administration Cholecalciferol 1,000 unit 02/21/18 09:00 02/25/18 08:36 Vitamin D3 PO 1,000 unit DAILY JOSE G Administration Cyclobenzaprine HCl 10 mg 02/20/18 16:01 Flexeril PO TID PRN Spasms Diazepam 5 mg 02/20/18 16:01 Valium PO QPM PRN Insomnia Duloxetine HCl 30 mg 02/24/18 08:44 02/25/18 08:36 Cymbalta PO 30 mg DAILY JOSE G Administration Felodipine 10 mg 02/21/18 09:00 02/25/18 08:36 Plendil PO 10 mg DAILY JOSE G Administration Furosemide 80 mg 02/25/18 09:00 02/25/18 14:44 Lasix Inj 40 Mg Vial IVP 80 mg BIDDIURETIC JOSE G Administration Gabapentin 300 mg 02/24/18 09:04 02/25/18 14:44 Neurontin PO Not Given TID JOSE G Sodium Chloride 1,000 mls @ 83.333 mls/hr 02/20/18 14:00 02/25/18 05:22 Normal Saline 0.9% IV 83.3 mls/hr .Q12H JOSE G Administration Meropenem 1 gm/ Sodium 100 mls @ 200 mls/hr 02/24/18 08:00 02/25/18 08:42 Chloride IV Infused Q12H JOSE G Infusion Linezolid 600 mg in 300 mls @ 300 mls/hr 02/24/18 11:00 02/25/18 12:30 Zyvox 600 Mg/300 Ml IV Infused Q12H JOSE G Infusion Ibuprofen 600 mg 02/20/18 13:19 02/21/18 17:29 Motrin PO 600 mg Q6HR PRN Administration Pain 1 to 4 Insulin Aspart 1 - 9 unit 02/20/18 17:00 02/25/18 13:37 Novolog SUBQ Not Given 0800,1200,1700,2100 [facility] Protocol Insulin Glargine 10 unit 02/22/18 21:00 02/24/18 20:56 Lantus Solostar SUBQ 10 unit QPM JOSE G Administration Methylprednisolone 40 mg 02/25/18 17:00 Solu-Medrol (40mg Vial) IVP TID JOSE G Nystatin 1 applic 02/20/18 21:00 02/25/18 11:18 Mycostatin Cream TOP 1 appful BID JOSE G Administration Pantoprazole Sodium 40 mg 02/21/18 07:00 02/25/18 06:25 Protonix PO 40 mg QDAC JOSE G Administration Polyethylene Glycol 17 gm 02/21/18 09:00 02/25/18 11:19 Miralax PO Not Given DAILY [facility] Rivaroxaban 20 mg 02/21/18 09:00 02/25/18 08:36 Xarelto PO 20 mg DAILY JOSE G Administration Sodium Chloride 10 ml 02/20/18 13:19 Normal Saline Flush 0.9% IVP PRN PRN NEEDED PER PROVIDER ORDERS Sodium Chloride 10 ml 02/20/18 17:00 02/25/18 11:18 Normal Saline Flush 0.9% IVP 10 ml 0100,0900,1700 JOSE G Administration Temazepam 15 mg 02/20/18 13:19 Restoril PO QPM PRN Insomnia Zinc Oxide 113 gm 02/21/18 05:43 02/25/18 11:18 Desitin TOP 1 applic PRN PRN Administration Skin Care Omeprazole 20 mg PO QDAC 08/23/15 Duloxetine HCl [Cymbalta] 60 mg PO DAILY 01/15/17 Furosemide 40 mg PO DAILY 01/15/17 Atorvastatin Calcium 80 mg PO QPM 07/14/17 Cyclobenzaprine [Flexeril] 10 mg PO TID PRN 07/14/17 Felodipine [Felodipine ER] 10 mg PO DAILY 07/14/17 Rivaroxaban [Xarelto] 20 mg PO DAILY 07/14/17 Diazepam [Valium] 5 mg PO QPM PRN 02/06/18 Gabapentin [Neurontin] 800 mg PO TID 02/06/18 Hydromorphone HCl [Dilaudid] 8 mg PO Q8H 02/06/18 Insulin Aspart [NovoLOG] 3 unit SUBQ TIDWM 02/06/18 Insulin Glargine [Lantus Solostar] 10 unit SUBQ BID 02/06/18 Cholecalciferol (Vitamin D3) [Vitamin D3] 1,000 unit PO DAILY 02/20/18
[2018-02-25] MEDS: methylPREDNISolone SUCCINATE 40 MG/ML VIAL IVP SCH ×2 (17:25→21:35)
[2018-02-25] MEDS: INSULIN GLARGINE 300 UNIT/3 ML PEN SUBQ SCH (20:51)
[2018-02-25] MEDS: ATORVASTATIN 40 MG TABLET PO SCH (20:57)
[2018-02-26 05:23] LABS: ALBUMIN 1.8 g/dL (3.2-5.5); ALBUMIN/GLOBULIN RATIO 0.4 (1.0-2.2); ALKALINE PHOSPHATASE 259 IU/L (42-121); ALT ALANINE AMINOTRANSFERASE 22 IU/L (10-60); AST ASPARTATE AMINOTRANSFERASE 20 IU/L (10-42); BILIRUBIN,TOTAL 0.9 mg/dL (0.2-1.0); BUN - BLOOD UREA NITROGEN 68 mg/dL (6-20); CALCIUM 8.4 mg/dL (8.5-10.3); CARBON DIOXIDE - CO2 21 mmol/L (21-32); CHLORIDE 105 mmol/L (101-111); CREATININE 3.3 mg/dL (0.4-1.0); GFR - MDRD 14 (>89); GLUCOSE 153 mg/dL (70-100); MAGNESIUM 1.7 mg/dL (1.7-2.8); PHOSPHORUS 6.6 mg/dL (2.5-4.6); SODIUM 137 mmol/L (135-145); TOTAL PROTEIN 6.1 g/dL (6.7-8.2)
[2018-02-26 05:54] LABS: BASOPHILS % (AUTO) 0.1 %; HGB - HEMOGLOBIN 9.5 g/dL (12.0-16.0); LYMPHOCYTES # (AUTO) 0.2 10^3/uL (1.5-3.5); LYMPHOCYTES % (AUTO) 2.8 %; MEAN CORPUSCULAR HEMOGLOBIN 31.6 pg (27.0-31.0); MEAN CORPUSCULAR HGB CONC 33.5 g/dL (32.0-36.0); MEAN CORPUSCULAR VOLUME 94.2 fL (81.0-99.0); MEAN PLATELET VOLUME 7.8 fL (7.9-10.8); MONOCYTES # (AUTO) 0.1 10^3/uL (0.0-1.0); MONOCYTES % (AUTO) 0.8 %; NEUTROPHILS # (AUTO) 8.3 10^3/uL (1.5-6.6); NEUTROPHILS % (AUTO) 96.3 %; PLT - PLATELET COUNT 159 10^3/uL (130-450); RED BLOOD COUNT 3.02 10^6/uL (4.20-5.40); RED CELL DISTRIBUTION WIDTH 14.2 % (12.0-15.0); WHITE BLOOD COUNT 8.6 x10^3/uL (4.8-10.8)
[2018-02-26] MEDS: FUROSEMIDE 40 MG/4 ML VIAL IVP SCH (06:10)
[2018-02-26] MEDS: methylPREDNISolone SUCCINATE 40 MG/ML VIAL IVP SCH (06:10)
[2018-02-26] MEDS: PANTOPRAZOLE 40 MG TABLET PO SCH (06:11)
[2018-02-26] MEDS: GABAPENTIN 300 MG CAPSULE PO SCH (06:11)
[2018-02-26] MEDS: SODIUM CHLORIDE 0.9% 1,000 ML IV SCH (08:12)
[2018-02-26] MEDS: MEROPENEM 1 GM in SODIUM CHLORIDE 0.9% MINIBAG 100 ML IV SCH (08:13)
[2018-02-26] MEDS: CHOLECALCIFEROL 1,000 UNIT TABLET PO SCH (08:14)
[2018-02-26] MEDS: FELODIPINE ER 2.5 MG TABLET PO SCH (08:14)
[2018-02-26] MEDS: POLYETHYLENE GLYCOL 3350 17 GM PACKET PO SCH (08:14)
[2018-02-26] MEDS: DULoxetine 30 MG CAPSULE PO SCH (08:14)
[2018-02-26] MEDS: SODIUM CHLORIDE FLUSH 0.9% 10 ML SYRINGE IVP SCH (08:20)
[2018-02-26] MEDS: RIVAROXABAN 10 MG TABLET PO SCH (08:22)
[2018-02-26] MEDS: INSULIN ASPART 300 UNIT/3 ML PEN SUBQ SCH ×2 (08:23→11:48)
[2018-02-26] MEDS: NYSTATIN CREAM 15 GM TUBE TOP SCH (09:10)
[2018-02-26] MEDS: COD LIVER OIL/ZINC OXIDE 113 GM TUBE TOP PRN (09:10)
[2018-02-26] MEDS: LINEZOLID 600 MG/300 ML 600 MG/300 ML BAG IV SCH (11:45)
[2018-02-26] MEDS ORDERED: ATROPINE 1% OPHTH DROPS 2 ML SL PRN (13:16)
[2018-02-26] MEDS ORDERED: CARBOXYMETHYLCELLULOSE OPHTH DROPS EACHEYE PRN (13:16)
[2018-02-26] MEDS ORDERED: ONDANSETRON ODT 4 MG TABLET TL PRN (13:16)
[2018-02-26] MEDS ORDERED: GLYCOPYRROLATE 1 MG/5 ML VIAL SUBQ PRN (13:16)
[2018-02-26] MEDS: MORPHINE 2 MG/ML SYRINGE IVP PRN (14:10)
[2018-02-26] MEDS: LORazepam 2 MG/ML VIAL IVP PRN (14:10)
--- NOTE | 2018-02-26 15:18 | PROVIDER PROGRESS NOTE ---
Assessment/Plan - Problem List (1) Acute respiratory failure with hypoxia and hypercapnia Assessment/Plan: Patient continues to worsen this morning with increased lethargy and continued hypoxia Patients mine surveyor also increasing with decreased urine output Patient becoming hypotensive this afternoon Appears to be having multiorgan failure at this point with worsening respiratory function, worsening renal failure and worsening mentation Spoke with patients family including her NAE Justice and all family members were in agreement that given patients continued decline and her previous wishes that the best plan of care would be to make patient comfort measures only Medications including abx and lasix stopped Stop blood work Stop telemetry and vitals Patient made comfort care Morphine and ativan for comfort Patient will likely within the next 24 hours therefore will keep her in the hospital for now (2) Pneumonia Impression: Patient continues to worsen this morning with increased lethargy and continued hypoxia Patients mine surveyor also increasing with decreased urine output Patient becoming hypotensive this afternoon Spoke with patients family including her DENZELBRITTANY Justice and all family members were in agreement that given patients continued decline and her previous wishes that the best plan of care would be to make patient comfort measures only Medications including abx and lasix stopped Stop blood work Stop telemetry and vitals Patient made comfort care Morphine and ativan for comfort Patient will likely within the next 24 hours therefore will keep her in the hospital for now Qualifiers: Pneumonia type: due to unspecified organism Laterality: left Lung location: lower lobe of lung Qualified Code(s): J18.1 - Lobar pneumonia, unspecified organism (3) Acute on chronic kidney disease, stage III (moderate) Impression: Patient continues to worsen this morning with increased lethargy and continued hypoxia Patients mine surveyor also increasing with decreased urine output Patient becoming hypotensive this afternoon Spoke with patients family including her DENZELBRITTANY Reshma and all family members were in agreement that given patients continued decline and her previous wishes that the best plan of care would be to make patient comfort measures only Medications including abx and lasix stopped Stop blood work Stop telemetry and vitals Patient made comfort care Morphine and ativan for comfort Patient will likely within the next 24 hours therefore will keep her in the hospital for now (4) Type 2 diabetes mellitus Impression: Patient continues to worsen this morning with increased lethargy and continued hypoxia Patients mine surveyor also increasing with decreased urine output Patient becoming hypotensive this afternoon Spoke with patients family including her NAE Justice and all family members were in agreement that given patients continued decline and her previous wishes that the best plan of care would be to make patient comfort measures only Medications including abx and lasix stopped Insulin stopped Stop blood work Stop telemetry and vitals Patient made comfort care Morphine and ativan for comfort Patient will likely within the next 24 hours therefore will keep her in the hospital for now - Current Meds Current Meds: Current Medications Generic Name Dose Route Start Last Admin Trade Name Freq PRN Reason Stop Dose Admin Lorazepam 1 mg 02/26/18 13:16 02/26/18 14:10 Ativan Inj (Vial) IVP 1 mg Q1H PRN Administration Anxiety/Agitation Morphine Sulfate 2 mg 02/26/18 13:16 02/26/18 14:10 Morphine IVP 2 mg Q1H PRN Administration Pain or Shortness of air - Lab Result Fish Bone Diagrams: 02/26/18 05:45 02/26/18 04:30 - Diagnostic Imaging Results Diagnostic Imaging Results: Final report reviewed - Additional Planning Condition/Complexity: Critical My Orders: My Active Orders 02/26/18 13:16 Comfort Care [RC] QSHIFT Oral Care - Nursing [RC] BID Turn and Reposition [RC] prn Vital Signs [RC] PRN Atropine 1% Ophth Drops [Isopto Atropine 1% Ophth Drops] 1 - 4 drops SL Q2H PRN Carboxymethylcellulose 1% Opht [Refresh 1% Ophth Drops] 1 drops EACHEYE QID PRN Glycopyrrolate [Robinul] 0.2 mg SUBQ Q4H PRN LORazepam INJ [Ativan Inj (Vial)] 1 mg IVP Q1H PRN Morphine Inj [Morphine] 2 mg IVP Q1H PRN Ondansetron Odt [Zofran Odt] 4 mg TL Q8H PRN Plan Discussed with:: Patient, Family Time Spent: Greater than 60 minutes Subjective - Subjective Patient Reports: Other (Increasing lethargy, decreased responsiveness. Decreasing blood pressures. Continues to be hypoxic. Decreased urine output.) Nursing Reports: Sedated Objective Vital Signs: Vital Signs - 24 hr 02/25/18 02/25/18 02/25/18 15:31 17:00 21:00 Temperature 36.6 C 97.4 C H 36.5 C Heart Rate [ 88 95 Monitoring electrodes] Respiratory 13 13 13 Rate Blood Pressure 105/60 [Left Brachial artery] Blood Pressure [Left Radial artery] Blood Pressure 97/56 L 106/55 L [Right Brachial artery] O2 Saturation 90 L 92 91 L 02/26/18 02/26/18 02/26/18 01:00 04:17 08:00 Temperature 36.9 C 37.1 C Heart Rate [ 96 93 96 Monitoring electrodes] Respiratory 17 11 L 12 Rate Blood Pressure 107/55 L 98/57 L [Left Brachial artery] Blood Pressure 97/56 L [Left Radial artery] Blood Pressure [Right Brachial artery] O2 Saturation 93 94 95 02/26/18 11:54 Temperature 37.0 C Heart Rate [ 95 Monitoring electrodes] Respiratory 10 L Rate Blood Pressure [Left Brachial artery] Blood Pressure 88/45 L [Left Radial artery] Blood Pressure [Right Brachial artery] O2 Saturation 94 Oxygen O2 Source Oxymask I&O (Last 24 Hrs): Intake and Output Totals x24h 02/24/18 02/25/18 02/26/18 23:59 23:59 23:59 Intake Total 3161.668 3700 1897.828 Output Total 1435 1750 275 Balance 8281.665 5300 1622.828 General: Moderate distress (Lethargic, respiratory distress) HEENT: Atraumatic, PERRLA, EOMI, Mucous membr. moist/pink Neck: Supple, No JVD, No thyromegaly, +2 carotid pulse wo bruit, No LAD Lymphatic: no adenopathy Neuro: Non Focal, Other (Lethargic) Cardiovascular: Other (Irregular) Respiratory: Wheezes, Rales, Rhonchi, Other (Decreased at bases, respiratory distress) Abdomen: Normal bowel sounds, Soft, No tenderness, No hepatospenomegaly, Other ( Obese) Extremities: No clubbing, No cyanosis, Other (Bilateral LE swelling with chronic stasis dermatitis) Comments/Notes: Bilateral LE changes of stasis dermatitis - Results Results: Laboratory Results WBC 8.6 x10^3/uL (4.8-10.8) 02/26/18 05:45 RBC 3.02 10^6/uL (4.20-5.40) L 02/26/18 05:45 Hgb 9.5 g/dL (12.0-16.0) L 02/26/18 05:45 Hct 28.4 % (37.0-47.0) L 02/26/18 05:45 MCV 94.2 fL (81.0-99.0) 02/26/18 05:45 MCH 31.6 pg (27.0-31.0) H 02/26/18 05:45 MCHC 33.5 g/dL (32.0-36.0) 02/26/18 05:45 RDW 14.2 % (12.0-15.0) 02/26/18 05:45 Plt Count 159 10^3/uL (130-450) 02/26/18 05:45 MPV 7.8 fL (7.9-10.8) L 02/26/18 05:45 Neut # (Auto) 8.3 10^3/uL (1.5-6.6) H 02/26/18 05:45 Lymph # (Auto) 0.2 10^3/uL (1.5-3.5) L 02/26/18 05:45 [place] # (Auto) 0.1 10^3/uL (0.0-1.0) 02/26/18 05:45 Eos # (Auto) 0.0 10^3/uL (0.0-0.7) 02/26/18 05:45 Baso # (Auto) 0.0 10^3/uL (0.0-0.1) 02/26/18 05:45 Absolute Nucleated RBC 0.00 x10^3/uL 02/26/18 05:45 Nucleated RBC % 0.0 /100WBC 02/26/18 05:45 Bld Gas Analysis Time 1716 02/22/18 17:11 Sample Site RIGHT RADIAL 02/22/18 17:11 ABG pH 7.32 (7.35-7.45) L 02/22/18 17:11 ABG pCO2 49 mmHg (34-45) H 02/22/18 17:11 ABG pO2 78 mmHg (80-100) L 02/22/18 17:11 ABG HCO3 24.7 mmol/L (22.0-26.0) 02/22/18 17:11 ABG Total CO2 26.2 MMOL/L (21.0-29.0) 02/22/18 17:11 ABG O2 Saturation 95 % (94-98) 02/22/18 17:11 ABG Oximetry Spot Check 96 % 02/22/18 17:11 ABG Base Excess -1.5 mmol/L (-2.0-3.0) 02/22/18 17:11 [place] Test POSITIVE 02/22/18 17:11 VBG pH 7.334 (7.31-7.41) 02/25/18 08:02 Ionized Calcium 1.09 mmol/L (1.15-1.33) L 02/25/18 08:02 Respiration Rate 14 b/min 02/22/18 17:11 O2 Delivery Device OXYMIZER 02/22/18 17:11 O2 Liters/Min 5.00 LPM 02/22/18 17:11 Vent Mode BIPAP 02/20/18 20:04 FiO2 45.00 02/20/18 20:04 Tidal Volume 331 mL 02/20/18 20:04 Pressure Support Vent 4 cmH2O 02/20/18 18:04 EPAP 6 cmH2O 02/20/18 20:04 IPAP 14 cmH2O 02/20/18 20:04 Sodium 137 mmol/L (135-145) 02/26/18 04:30 Potassium 5.7 mmol/L (3.5-5.0) H 02/26/18 04:30 Chloride 105 mmol/L (101-111) 02/26/18 04:30 Carbon Dioxide 21 mmol/L (21-32) 02/26/18 04:30 Anion Gap 11.0 (6-13) 02/26/18 04:30 BUN 68 mg/dL (6-20) H 02/26/18 04:30 Creatinine 3.3 mg/dL (0.4-1.0) H 02/26/18 04:30 Estimated GFR (MDRD) 14 (>89) L 02/26/18 04:30 Glucose 153 mg/dL (70-100) H 02/26/18 04:30 Glycated Hemoglobin 12.1 % (4.6-6.2) H 02/20/18 12:20 Estim Average Glucose 301 (70-100) H 02/20/18 12:20 Lactic Acid 0.5 mmol/L (0.5-2.2) 02/20/18 12:20 Calcium 8.4 mg/dL (8.5-10.3) L 02/26/18 04:30 Ionized Calcium NO 02/26/18 04:30 Phosphorus 6.6 mg/dL (2.5-4.6) H 02/26/18 04:30 Magnesium 1.7 mg/dL (1.7-2.8) 02/26/18 04:30 Total Bilirubin 0.9 mg/dL (0.2-1.0) 02/26/18 04:30 AST 20 IU/L (10-42) 02/26/18 04:30 ALT 22 IU/L (10-60) 02/26/18 04:30 Alkaline Phosphatase 259 IU/L (42-121) H 02/26/18 04:30 Troponin I < 0.04 ng/mL (<0.49) 02/20/18 12:20 B-Natriuretic Peptide 225 pg/mL (5-100) H 02/26/18 04:30 Total Protein 6.1 g/dL (6.7-8.2) L 02/26/18 04:30 Albumin 1.8 g/dL (3.2-5.5) L 02/26/18 04:30 Globulin 4.3 g/dL (2.1-4.2) H 02/26/18 04:30 Albumin/Globulin Ratio 0.4 (1.0-2.2) L 02/26/18 04:30 Lipase 24 U/L (22-51) 02/20/18 12:20 Urine Color YELLOW 02/20/18 14:32 Urine Clarity CLOUDY (CLEAR) 02/20/18 14:32 Urine pH 5.5 PH (5.0-7.5) 02/20/18 14:32 Ur Specific [place] 1.020 (1.002-1.030) 02/20/18 14:32 Urine Protein 30 mg/dL (NEGATIVE) H 02/20/18 14:32 Urine Glucose (UA) NEGATIVE mg/dL (NEGATIVE) 02/20/18 14:32 Urine Ketones NEGATIVE mg/dL (NEGATIVE) 02/20/18 14:32 Urine Occult Blood LARGE (NEGATIVE) H 02/20/18 14:32 Urine Nitrite NEGATIVE (NEGATIVE) 02/20/18 14:32 Urine Bilirubin NEGATIVE (NEGATIVE) 02/20/18 14:32 Urine Urobilinogen 0.2 (NORMAL) E.U./dL (NORMAL) 02/20/18 14:32 Ur Leukocyte Esterase NEGATIVE (NEGATIVE) 02/20/18 14:32 Urine RBC TNTC /HPF (0-5) H 02/20/18 14:32 Urine WBC >25 /HPF (0-5) H 02/20/18 14:32 Ur Squamous Epith Cells MOD Squamous (<= Few) H 02/20/18 14:32 Amorphous Sediment Moderate /LPF 02/20/18 14:32 Urine Bacteria Many /HPF (None Seen) H 02/20/18 14:32 Urine Yeast PRESENT 02/20/18 14:32 Ur Microscopic Review INDICATED 02/20/18 14:32 Urine Culture Comments NOT INDICATED 02/20/18 14:32 - Procedures Procedures: Procedures INSERTION OF ENDOTRACHEAL AIRWAY INTO TRACHEA, VIA OPENING (02/06/18) INSERTION OF INFUSION DEV INTO SUP VENA CAVA, PERC APPROACH (02/06/18) RESPIRATORY VENTILATION, LESS THAN 24 CONSECUTIVE HOURS (02/06/18) ABX Reporting Has patient been on IV antibiotics over the past 48 hours?: Yes Current Medications - Current Medications Current Medications: Active Medications Generic Name Dose Route Start Last Admin Trade Name Freq PRN Reason Stop Dose Admin Atropine Sulfate 1 - 4 drops 02/26/18 13:16 Isopto Atropine 1% Ophth Drops SL Q2H PRN Excessive secretions Carboxymethylcellulose 1 drops 02/26/18 13:16 Refresh 1% Ophth Drops EACHEYE QID PRN Dry Eye Glycopyrrolate 0.2 mg 02/26/18 13:16 Robinul SUBQ Q4H PRN Excessive secretions Lorazepam 1 mg 02/26/18 13:16 02/26/18 14:10 Ativan Inj (Vial) IVP 1 mg Q1H PRN Administration Anxiety/Agitation Morphine Sulfate 2 mg 02/26/18 13:16 02/26/18 14:10 Morphine IVP 2 mg Q1H PRN Administration Pain or Shortness of air Ondansetron HCl 4 mg 02/26/18 13:16 Zofran Odt TL Q8H PRN Nausea / Vomiting Omeprazole 20 mg PO QDAC 08/23/15 Duloxetine HCl [Cymbalta] 60 mg PO DAILY 01/15/17 Furosemide 40 mg PO DAILY 01/15/17 Atorvastatin Calcium 80 mg PO QPM 07/14/17 Cyclobenzaprine [Flexeril] 10 mg PO TID PRN 07/14/17 Felodipine [Felodipine ER] 10 mg PO DAILY 07/14/17 Rivaroxaban [Xarelto] 20 mg PO DAILY 07/14/17 Diazepam [Valium] 5 mg PO QPM PRN 02/06/18 Gabapentin [Neurontin] 800 mg PO TID 02/06/18 Hydromorphone HCl [Dilaudid] 8 mg PO Q8H 02/06/18 Insulin Aspart [NovoLOG] 3 unit SUBQ TIDWM 02/06/18 Insulin Glargine [Lantus Solostar] 10 unit SUBQ BID 02/06/18 Cholecalciferol (Vitamin D3) [Vitamin D3] 1,000 unit PO DAILY 02/20/18
[2018-02-27] MEDS: MORPHINE 2 MG/ML SYRINGE IVP PRN ×8 (07:46→21:19)
[2018-02-27] MEDS: LORazepam 2 MG/ML VIAL IVP PRN (08:15)
[2018-02-27] MEDS ORDERED: SODIUM CHLORIDE FLUSH 0.9% 10 ML SYRINGE ONE ×4 (08:21→18:29)
--- NOTE | 2018-02-27 13:38 | PROVIDER PROGRESS NOTE ---
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 Appears to be having multiorgan failure at this point with worsening respiratory function, worsening renal failure and worsening mentation Spoke with patients family including her NAE Justice and all family members were in agreement that given patients continued decline and her previous wishes that the best plan of care would be to make patient comfort measures only Medications including abx and lasix stopped Stopped blood work Stopped telemetry and vitals Patient made comfort care Morphine and ativan for comfort Patient will likely within the next 24-48 hours therefore will keep her in the hospital for now (2) Pneumonia Impression: Treated with IV abx but did not appear to be improving infact despite changing antibiotics patient had worsening CXR and worsening hypoxia Changed to comfort care yesterday and abx stopped Patients O2 requirement has decreased since stopping abx but she is minimally responsive at this point Comfort care Qualifiers: Pneumonia type: due to unspecified organism Laterality: left Lung location: lower lobe of lung Qualified Code(s): J18.1 - Lobar pneumonia, unspecified organism (3) Acute on chronic kidney disease, stage III (moderate) Impression: Patient had worsening renal failure and continues to have decreasing urine output She appears to be dying with multiorgan failure and was made comfort care yesterday (4) Metabolic Encephalopathy Impression: Secondary to infection, renal failure and multiorgan failure Comfort care - Current Meds Current Meds: Current Medications Generic Name Dose Route Start Last Admin Trade Name Freq PRN Reason Stop Dose Admin Lorazepam 1 mg 02/26/18 13:16 02/27/18 08:15 Ativan Inj (Vial) IVP 1 mg Q1H PRN Administration Anxiety/Agitation Morphine Sulfate 2 mg 02/26/18 13:16 02/27/18 12:32 Morphine IVP 2 mg Q1H PRN Administration Pain or Shortness of air - Lab Result Lab results reviewed: Yes Fish Bone Diagrams: 02/26/18 05:45 02/26/18 04:30 - Diagnostic Imaging Results Diagnostic Imaging Results: Final report reviewed - Additional Planning Condition/Complexity: Critical My Orders: My Active Orders 02/26/18 13:16 Comfort Care [RC] QSHIFT Oral Care - Nursing [RC] BID Turn and Reposition [RC] prn Vital Signs [RC] PRN Atropine 1% Ophth Drops [Isopto Atropine 1% Ophth Drops] 1 - 4 drops SL Q2H PRN Carboxymethylcellulose 1% Opht [Refresh 1% Ophth Drops] 1 drops EACHEYE QID PRN Glycopyrrolate [Robinul] 0.2 mg SUBQ Q4H PRN LORazepam INJ [Ativan Inj (Vial)] 1 mg IVP Q1H PRN Morphine Inj [Morphine] 2 mg IVP Q1H PRN Ondansetron Odt [Zofran Odt] 4 mg TL Q8H PRN Consult/Specialty: Other (Palliative Care) Plan Discussed with:: Patient Time Spent: 31-60 minutes Subjective - Subjective Patient Reports: Resting Comfortably, No Complaints, Other (Minimally arousable but appears comfortable) Nursing Reports: No Complaints Objective Vital Signs: Vital Signs - 24 hr 02/26/18 02/27/18 02/27/18 17:00 00:27 06:13 Temperature 36.2 C L 36.2 C L 36.2 C L Heart Rate [ 92 91 90 Monitoring electrodes] Respiratory 13 10 L 10 L Rate Blood Pressure 104/48 L [Left Radial artery] Blood Pressure 109/49 L [Right Brachial artery] O2 Saturation 92 93 94 02/27/18 02/27/18 07:03 08:00 Temperature 36.9 C Heart Rate [ 94 93 Monitoring electrodes] Respiratory 10 L 16 Rate Blood Pressure 143/88 H [Left Radial artery] Blood Pressure [Right Brachial artery] O2 Saturation 94 92 Oxygen O2 Source Oxymask I&O (Last 24 Hrs): Intake and Output Totals x24h 02/25/18 02/26/18 02/27/18 23:59 23:59 23:59 Intake Total 3700 2197.828 Output Total 1750 385 35 Balance 1950 1812.828 -35 General: Other (Minimally arousable) HEENT: Atraumatic, PERRLA, EOMI, Other (Dry musus membranes) Neck: Supple, No JVD, No thyromegaly, +2 carotid pulse wo bruit, No LAD Lymphatic: no adenopathy Neuro: Non Focal, Other (Minimally arousable) Cardiovascular: No murmurs, Other (Irregular) Respiratory: Rales, Rhonchi Abdomen: Normal bowel sounds, Soft, No tenderness Extremities: No clubbing, No cyanosis, Normal pulses, Other (Bilateral LE swelling) Comments/Notes: Bilateral lower extremity stasis dermatitis - Results Results: Laboratory Results WBC 8.6 x10^3/uL (4.8-10.8) 02/26/18 05:45 RBC 3.02 10^6/uL (4.20-5.40) L 02/26/18 05:45 Hgb 9.5 g/dL (12.0-16.0) L 02/26/18 05:45 Hct 28.4 % (37.0-47.0) L 02/26/18 05:45 MCV 94.2 fL (81.0-99.0) 02/26/18 05:45 MCH 31.6 pg (27.0-31.0) H 02/26/18 05:45 MCHC 33.5 g/dL (32.0-36.0) 02/26/18 05:45 RDW 14.2 % (12.0-15.0) 02/26/18 05:45 Plt Count 159 10^3/uL (130-450) 02/26/18 05:45 MPV 7.8 fL (7.9-10.8) L 02/26/18 05:45 Neut # (Auto) 8.3 10^3/uL (1.5-6.6) H 02/26/18 05:45 Lymph # (Auto) 0.2 10^3/uL (1.5-3.5) L 02/26/18 05:45 [place] # (Auto) 0.1 10^3/uL (0.0-1.0) 02/26/18 05:45 Eos # (Auto) 0.0 10^3/uL (0.0-0.7) 02/26/18 05:45 Baso # (Auto) 0.0 10^3/uL (0.0-0.1) 02/26/18 05:45 Absolute Nucleated RBC 0.00 x10^3/uL 02/26/18 05:45 Nucleated RBC % 0.0 /100WBC 02/26/18 05:45 Bld Gas Analysis Time 1716 02/22/18 17:11 Sample Site RIGHT RADIAL 02/22/18 17:11 ABG pH 7.32 (7.35-7.45) L 02/22/18 17:11 ABG pCO2 49 mmHg (34-45) H 02/22/18 17:11 ABG pO2 78 mmHg (80-100) L 02/22/18 17:11 ABG HCO3 24.7 mmol/L (22.0-26.0) 02/22/18 17:11 ABG Total CO2 26.2 MMOL/L (21.0-29.0) 02/22/18 17:11 ABG O2 Saturation 95 % (94-98) 02/22/18 17:11 ABG Oximetry Spot Check 96 % 02/22/18 17:11 ABG Base Excess -1.5 mmol/L (-2.0-3.0) 02/22/18 17:11 Riley Test POSITIVE 02/22/18 17:11 VBG pH 7.334 (7.31-7.41) 02/25/18 08:02 Ionized Calcium 1.09 mmol/L (1.15-1.33) L 02/25/18 08:02 Respiration Rate 14 b/min 02/22/18 17:11 O2 Delivery Device OXYMIZER 02/22/18 17:11 O2 Liters/Min 5.00 LPM 02/22/18 17:11 Vent Mode BIPAP 02/20/18 20:04 FiO2 45.00 02/20/18 20:04 Tidal Volume 331 mL 02/20/18 20:04 Pressure Support Vent 4 cmH2O 02/20/18 18:04 EPAP 6 cmH2O 02/20/18 20:04 IPAP 14 cmH2O 02/20/18 20:04 Sodium 137 mmol/L (135-145) 02/26/18 04:30 Potassium 5.7 mmol/L (3.5-5.0) H 02/26/18 04:30 Chloride 105 mmol/L (101-111) 02/26/18 04:30 Carbon Dioxide 21 mmol/L (21-32) 02/26/18 04:30 Anion Gap 11.0 (6-13) 02/26/18 04:30 BUN 68 mg/dL (6-20) H 02/26/18 04:30 Creatinine 3.3 mg/dL (0.4-1.0) H 02/26/18 04:30 Estimated GFR (MDRD) 14 (>89) L 02/26/18 04:30 Glucose 153 mg/dL (70-100) H 02/26/18 04:30 POC Whole Bld Glucose 168 mg/dL (70 - 100) H 02/26/18 11:30 Glycated Hemoglobin 12.1 % (4.6-6.2) H 02/20/18 12:20 Estim Average Glucose 301 (70-100) H 02/20/18 12:20 Lactic Acid 0.5 mmol/L (0.5-2.2) 02/20/18 12:20 Calcium 8.4 mg/dL (8.5-10.3) L 02/26/18 04:30 Ionized Calcium NO 02/26/18 04:30 Phosphorus 6.6 mg/dL (2.5-4.6) H 02/26/18 04:30 Magnesium 1.7 mg/dL (1.7-2.8) 02/26/18 04:30 Total Bilirubin 0.9 mg/dL (0.2-1.0) 02/26/18 04:30 AST 20 IU/L (10-42) 02/26/18 04:30 ALT 22 IU/L (10-60) 02/26/18 04:30 Alkaline Phosphatase 259 IU/L (42-121) H 02/26/18 04:30 Troponin I < 0.04 ng/mL (<0.49) 02/20/18 12:20 B-Natriuretic Peptide 225 pg/mL (5-100) H 02/26/18 04:30 Total Protein 6.1 g/dL (6.7-8.2) L 02/26/18 04:30 Albumin 1.8 g/dL (3.2-5.5) L 02/26/18 04:30 Globulin 4.3 g/dL (2.1-4.2) H 02/26/18 04:30 Albumin/Globulin Ratio 0.4 (1.0-2.2) L 02/26/18 04:30 Lipase 24 U/L (22-51) 02/20/18 12:20 Urine Color YELLOW 02/20/18 14:32 Urine Clarity CLOUDY (CLEAR) 02/20/18 14:32 Urine pH 5.5 PH (5.0-7.5) 02/20/18 14:32 Ur Specific [place] 1.020 (1.002-1.030) 02/20/18 14:32 Urine Protein 30 mg/dL (NEGATIVE) H 02/20/18 14:32 Urine Glucose (UA) NEGATIVE mg/dL (NEGATIVE) 02/20/18 14:32 Urine Ketones NEGATIVE mg/dL (NEGATIVE) 02/20/18 14:32 Urine Occult Blood LARGE (NEGATIVE) H 02/20/18 14:32 Urine Nitrite NEGATIVE (NEGATIVE) 02/20/18 14:32 Urine Bilirubin NEGATIVE (NEGATIVE) 02/20/18 14:32 Urine Urobilinogen 0.2 (NORMAL) E.U./dL (NORMAL) 02/20/18 14:32 Ur Leukocyte Esterase NEGATIVE (NEGATIVE) 02/20/18 14:32 Urine RBC TNTC /HPF (0-5) H 02/20/18 14:32 Urine WBC >25 /HPF (0-5) H 02/20/18 14:32 Ur Squamous Epith Cells MOD Squamous (<= Few) H 02/20/18 14:32 Amorphous Sediment Moderate /LPF 02/20/18 14:32 Urine Bacteria Many /HPF (None Seen) H 02/20/18 14:32 Urine Yeast PRESENT 02/20/18 14:32 Ur Microscopic Review INDICATED 02/20/18 14:32 Urine Culture Comments NOT INDICATED 02/20/18 14:32 - Procedures Procedures: Procedures INSERTION OF ENDOTRACHEAL AIRWAY INTO TRACHEA, VIA OPENING (02/06/18) INSERTION OF INFUSION DEV INTO SUP VENA CAVA, PERC APPROACH (02/06/18) RESPIRATORY VENTILATION, LESS THAN 24 CONSECUTIVE HOURS (02/06/18) ABX Reporting Has patient been on IV antibiotics over the past 48 hours?: No Current Medications - Current Medications Current Medications: Laboratory Results WBC 8.6 x10^3/uL (4.8-10.8) 02/26/18 05:45 RBC 3.02 10^6/uL (4.20-5.40) L 02/26/18 05:45 Hgb 9.5 g/dL (12.0-16.0) L 02/26/18 05:45 Hct 28.4 % (37.0-47.0) L 02/26/18 05:45 MCV 94.2 fL (81.0-99.0) 02/26/18 05:45 MCH 31.6 pg (27.0-31.0) H 02/26/18 05:45 MCHC 33.5 g/dL (32.0-36.0) 02/26/18 05:45 RDW 14.2 % (12.0-15.0) 02/26/18 05:45 Plt Count 159 10^3/uL (130-450) 02/26/18 05:45 MPV 7.8 fL (7.9-10.8) L 02/26/18 05:45 Neut # (Auto) 8.3 10^3/uL (1.5-6.6) H 02/26/18 05:45 Lymph # (Auto) 0.2 10^3/uL (1.5-3.5) L 02/26/18 05:45 [place] # (Auto) 0.1 10^3/uL (0.0-1.0) 02/26/18 05:45 Eos # (Auto) 0.0 10^3/uL (0.0-0.7) 02/26/18 05:45 Baso # (Auto) 0.0 10^3/uL (0.0-0.1) 02/26/18 05:45 Absolute Nucleated RBC 0.00 x10^3/uL 02/26/18 05:45 Nucleated RBC % 0.0 /100WBC 02/26/18 05:45 Bld Gas Analysis Time 1716 02/22/18 17:11 Sample Site RIGHT RADIAL 02/22/18 17:11 ABG pH 7.32 (7.35-7.45) L 02/22/18 17:11 ABG pCO2 49 mmHg (34-45) H 02/22/18 17:11 ABG pO2 78 mmHg (80-100) L 02/22/18 17:11 ABG HCO3 24.7 mmol/L (22.0-26.0) 02/22/18 17:11 ABG Total CO2 26.2 MMOL/L (21.0-29.0) 02/22/18 17:11 ABG O2 Saturation 95 % (94-98) 02/22/18 17:11 ABG Oximetry Spot Check 96 % 02/22/18 17:11 ABG Base Excess -1.5 mmol/L (-2.0-3.0) 02/22/18 17:11 Riley Test POSITIVE 02/22/18 17:11 VBG pH 7.334 (7.31-7.41) 02/25/18 08:02 Ionized Calcium 1.09 mmol/L (1.15-1.33) L 02/25/18 08:02 Respiration Rate 14 b/min 02/22/18 17:11 O2 Delivery Device OXYMIZER 02/22/18 17:11 O2 Liters/Min 5.00 LPM 02/22/18 17:11 Vent Mode BIPAP 02/20/18 20:04 FiO2 45.00 02/20/18 20:04 Tidal Volume 331 mL 02/20/18 20:04 Pressure Support Vent 4 cmH2O 02/20/18 18:04 EPAP 6 cmH2O 02/20/18 20:04 IPAP 14 cmH2O 02/20/18 20:04 Sodium 137 mmol/L (135-145) 02/26/18 04:30 Potassium 5.7 mmol/L (3.5-5.0) H 02/26/18 04:30 Chloride 105 mmol/L (101-111) 02/26/18 04:30 Carbon Dioxide 21 mmol/L (21-32) 02/26/18 04:30 Anion Gap 11.0 (6-13) 02/26/18 04:30 BUN 68 mg/dL (6-20) H 02/26/18 04:30 Creatinine 3.3 mg/dL (0.4-1.0) H 02/26/18 04:30 Estimated GFR (MDRD) 14 (>89) L 02/26/18 04:30 Glucose 153 mg/dL (70-100) H 02/26/18 04:30 POC Whole Bld Glucose 168 mg/dL (70 - 100) H 02/26/18 11:30 Glycated Hemoglobin 12.1 % (4.6-6.2) H 02/20/18 12:20 Estim Average Glucose 301 (70-100) H 02/20/18 12:20 Lactic Acid 0.5 mmol/L (0.5-2.2) 02/20/18 12:20 Calcium 8.4 mg/dL (8.5-10.3) L 02/26/18 04:30 Ionized Calcium NO 02/26/18 04:30 Phosphorus 6.6 mg/dL (2.5-4.6) H 02/26/18 04:30 Magnesium 1.7 mg/dL (1.7-2.8) 02/26/18 04:30 Total Bilirubin 0.9 mg/dL (0.2-1.0) 02/26/18 04:30 AST 20 IU/L (10-42) 02/26/18 04:30 ALT 22 IU/L (10-60) 02/26/18 04:30 Alkaline Phosphatase 259 IU/L (42-121) H 02/26/18 04:30 Troponin I < 0.04 ng/mL (<0.49) 02/20/18 12:20 B-Natriuretic Peptide 225 pg/mL (5-100) H 02/26/18 04:30 Total Protein 6.1 g/dL (6.7-8.2) L 02/26/18 04:30 Albumin 1.8 g/dL (3.2-5.5) L 02/26/18 04:30 Globulin 4.3 g/dL (2.1-4.2) H 02/26/18 04:30 Albumin/Globulin Ratio 0.4 (1.0-2.2) L 02/26/18 04:30 Lipase 24 U/L (22-51) 02/20/18 12:20 Urine Color YELLOW 02/20/18 14:32 Urine Clarity CLOUDY (CLEAR) 02/20/18 14:32 Urine pH 5.5 PH (5.0-7.5) 02/20/18 14:32 Ur Specific [place] 1.020 (1.002-1.030) 02/20/18 14:32 Urine Protein 30 mg/dL (NEGATIVE) H 02/20/18 14:32 Urine Glucose (UA) NEGATIVE mg/dL (NEGATIVE) 02/20/18 14:32 Urine Ketones NEGATIVE mg/dL (NEGATIVE) 02/20/18 14:32 Urine Occult Blood LARGE (NEGATIVE) H 02/20/18 14:32 Urine Nitrite NEGATIVE (NEGATIVE) 02/20/18 14:32 Urine Bilirubin NEGATIVE (NEGATIVE) 02/20/18 14:32 Urine Urobilinogen 0.2 (NORMAL) E.U./dL (NORMAL) 07/05/18 14:32 Ur Leukocyte Esterase NEGATIVE (NEGATIVE) 02/20/18 14:32 Urine RBC TNTC /HPF (0-5) H 02/20/18 14:32 Urine WBC >25 /HPF (0-5) H 02/20/18 14:32 Ur Squamous Epith Cells MOD Squamous (<= Few) H 02/20/18 14:32 Amorphous Sediment Moderate /LPF 02/20/18 14:32 Urine Bacteria Many /HPF (None Seen) H 02/20/18 14:32 Urine Yeast PRESENT 02/20/18 14:32 Ur Microscopic Review INDICATED 02/20/18 14:32 Urine Culture Comments NOT INDICATED 02/20/18 14:32
[2018-02-27 16:10] VITALS: BP 93/50
[2018-02-27] MEDS: SODIUM CHLORIDE FLUSH 0.9% 10 ML SYRINGE ONE (21:19)
[2018-02-28] MEDS: SODIUM CHLORIDE FLUSH 0.9% 10 ML SYRINGE ONE (06:20)
[2018-02-28] MEDS: MORPHINE 2 MG/ML SYRINGE IVP PRN ×3 (06:20→17:55)
[2018-02-28] MEDS ORDERED: SODIUM CHLORIDE FLUSH 0.9% 10 ML SYRINGE ONE ×2 (12:39→18:06)
--- NOTE | 2018-02-28 18:38 | PROVIDER PROGRESS NOTE ---
Assessment/Plan - Problem List (1) Acute respiratory failure with hypoxia and hypercapnia Assessment/Plan: Patient appears comfortable Patients O2 sats were down to 35% early this am then down to 65% later but patient improved and now has sats in the 90s She is completely unresponsive and not making any urine She will remain comfort care in the hospital as appears imminent at this point (2) Pneumonia Impression: Comfort care Qualifiers: Pneumonia type: due to unspecified organism Laterality: left Lung location: lower lobe of lung Qualified Code(s): J18.1 - Lobar pneumonia, unspecified organism (3) Acute on chronic kidney disease, stage III (moderate) Impression: No urine output Comatosed Comfort care (4) Metabolic Encephalopathy Impression: Secondary to infection, renal failure and multiorgan failure Comfort care - Current Meds Current Meds: Current Medications Generic Name Dose Route Start Last Admin Trade Name Freq PRN Reason Stop Dose Admin Lorazepam 1 mg 02/26/18 13:16 02/27/18 08:15 Ativan Inj (Vial) IVP 1 mg Q1H PRN Administration Anxiety/Agitation Morphine Sulfate 2 mg 02/26/18 13:16 02/28/18 17:55 Morphine IVP 2 mg Q1H PRN Administration Pain or Shortness of air - Lab Result Lab results reviewed: Yes Fish Bone Diagrams: 02/26/18 05:45 02/26/18 04:30 - Diagnostic Imaging Results Diagnostic Imaging Results: Final report reviewed - Additional Planning Condition/Complexity: Critical Plan Discussed with:: Family Time Spent: 31-60 minutes Subjective - Subjective Patient Reports: Other (Patient look as though she was going to pass away this am but is still breathing. She is unresponsive with no urine output. Appears comfortable with family at bedside.) Nursing Reports: No Complaints Objective Vital Signs: Oxygen O2 Source Oxymask I&O (Last 24 Hrs): Intake and Output Totals x24h 02/26/18 02/27/18 02/28/18 23:59 23:59 23:59 Intake Total 2197.828 0 Output Total 385 65 20 Balance 1812.828 -65 -20 General: Other (Comatosed) HEENT: Atraumatic, PERRLA, EOMI, Other (dry mucus membranes) Neck: Supple, No JVD, No thyromegaly, +2 carotid pulse wo bruit, No LAD Lymphatic: no adenopathy Neuro: Other (comatosed) Cardiovascular: Other (Irregular, systolic murmur) Respiratory: Rales, Rhonchi Abdomen: Normal bowel sounds, Soft, No tenderness, No hepatospenomegaly Extremities: Normal pulses, Other (bilateral LE edema, stasis dermatitis) Comments/Notes: bilateral lower extremity stasis dermatitis - Results Results: Laboratory Results WBC 8.6 x10^3/uL (4.8-10.8) 02/26/18 05:45 RBC 3.02 10^6/uL (4.20-5.40) L 02/26/18 05:45 Hgb 9.5 g/dL (12.0-16.0) L 02/26/18 05:45 Hct 28.4 % (37.0-47.0) L 02/26/18 05:45 MCV 94.2 fL (81.0-99.0) 02/26/18 05:45 MCH 31.6 pg (27.0-31.0) H 02/26/18 05:45 MCHC 33.5 g/dL (32.0-36.0) 02/26/18 05:45 RDW 14.2 % (12.0-15.0) 02/26/18 05:45 Plt Count 159 10^3/uL (130-450) 02/26/18 05:45 MPV 7.8 fL (7.9-10.8) L 02/26/18 05:45 Neut # (Auto) 8.3 10^3/uL (1.5-6.6) H 02/26/18 05:45 Lymph # (Auto) 0.2 10^3/uL (1.5-3.5) L 02/26/18 05:45 [place] # (Auto) 0.1 10^3/uL (0.0-1.0) 02/26/18 05:45 Eos # (Auto) 0.0 10^3/uL (0.0-0.7) 02/26/18 05:45 Baso # (Auto) 0.0 10^3/uL (0.0-0.1) 02/26/18 05:45 Absolute Nucleated RBC 0.00 x10^3/uL 02/26/18 05:45 Nucleated RBC % 0.0 /100WBC 02/26/18 05:45 Bld Gas Analysis Time 1716 02/22/18 17:11 Sample Site RIGHT RADIAL 02/22/18 17:11 ABG pH 7.32 (7.35-7.45) L 02/22/18 17:11 ABG pCO2 49 mmHg (34-45) H 02/22/18 17:11 ABG pO2 78 mmHg (80-100) L 02/22/18 17:11 ABG HCO3 24.7 mmol/L (22.0-26.0) 02/22/18 17:11 ABG Total CO2 26.2 MMOL/L (21.0-29.0) 02/22/18 17:11 ABG O2 Saturation 95 % (94-98) 02/22/18 17:11 ABG Oximetry Spot Check 96 % 02/22/18 17:11 ABG Base Excess -1.5 mmol/L (-2.0-3.0) 02/22/18 17:11 Riley Test POSITIVE 02/22/18 17:11 VBG pH 7.334 (7.31-7.41) 02/25/18 08:02 Ionized Calcium 1.09 mmol/L (1.15-1.33) L 02/25/18 08:02 Respiration Rate 14 b/min 02/22/18 17:11 O2 Delivery Device OXYMIZER 02/22/18 17:11 O2 Liters/Min 5.00 LPM 02/22/18 17:11 Vent Mode BIPAP 02/20/18 20:04 FiO2 45.00 02/20/18 20:04 Tidal Volume 331 mL 02/20/18 20:04 Pressure Support Vent 4 cmH2O 02/20/18 18:04 EPAP 6 cmH2O 02/20/18 20:04 IPAP 14 cmH2O 02/20/18 20:04 Sodium 137 mmol/L (135-145) 02/26/18 04:30 Potassium 5.7 mmol/L (3.5-5.0) H 02/26/18 04:30 Chloride 105 mmol/L (101-111) 02/26/18 04:30 Carbon Dioxide 21 mmol/L (21-32) 02/26/18 04:30 Anion Gap 11.0 (6-13) 02/26/18 04:30 BUN 68 mg/dL (6-20) H 02/26/18 04:30 Creatinine 3.3 mg/dL (0.4-1.0) H 02/26/18 04:30 Estimated GFR (MDRD) 14 (>89) L 02/26/18 04:30 Glucose 153 mg/dL (70-100) H 02/26/18 04:30 POC Whole Bld Glucose 168 mg/dL (70 - 100) H 02/26/18 11:30 Glycated Hemoglobin 12.1 % (4.6-6.2) H 02/20/18 12:20 Estim Average Glucose 301 (70-100) H 02/20/18 12:20 Lactic Acid 0.5 mmol/L (0.5-2.2) 02/20/18 12:20 Calcium 8.4 mg/dL (8.5-10.3) L 02/26/18 04:30 Ionized Calcium NO 02/26/18 04:30 Phosphorus 6.6 mg/dL (2.5-4.6) H 02/26/18 04:30 Magnesium 1.7 mg/dL (1.7-2.8) 02/26/18 04:30 Total Bilirubin 0.9 mg/dL (0.2-1.0) 02/26/18 04:30 AST 20 IU/L (10-42) 02/26/18 04:30 ALT 22 IU/L (10-60) 02/26/18 04:30 Alkaline Phosphatase 259 IU/L (42-121) H 02/26/18 04:30 Troponin I < 0.04 ng/mL (<0.49) 02/20/18 12:20 B-Natriuretic Peptide 225 pg/mL (5-100) H 02/26/18 04:30 Total Protein 6.1 g/dL (6.7-8.2) L 02/26/18 04:30 Albumin 1.8 g/dL (3.2-5.5) L 02/26/18 04:30 Globulin 4.3 g/dL (2.1-4.2) H 02/26/18 04:30 Albumin/Globulin Ratio 0.4 (1.0-2.2) L 02/26/18 04:30 Lipase 24 U/L (22-51) 02/20/18 12:20 Urine Color YELLOW 02/20/18 14:32 Urine Clarity CLOUDY (CLEAR) 02/20/18 14:32 Urine pH 5.5 PH (5.0-7.5) 02/20/18 14:32 Ur Specific [place] 1.020 (1.002-1.030) 02/20/18 14:32 Urine Protein 30 mg/dL (NEGATIVE) H 02/20/18 14:32 Urine Glucose (UA) NEGATIVE mg/dL (NEGATIVE) 02/20/18 14:32 Urine Ketones NEGATIVE mg/dL (NEGATIVE) 02/20/18 14:32 Urine Occult Blood LARGE (NEGATIVE) H 02/20/18 14:32 Urine Nitrite NEGATIVE (NEGATIVE) 02/20/18 14:32 Urine Bilirubin NEGATIVE (NEGATIVE) 02/20/18 14:32 Urine Urobilinogen 0.2 (NORMAL) E.U./dL (NORMAL) 02/20/18 14:32 Ur Leukocyte Esterase NEGATIVE (NEGATIVE) 02/20/18 14:32 Urine RBC TNTC /HPF (0-5) H 02/20/18 14:32 Urine WBC >25 /HPF (0-5) H 02/20/18 14:32 Ur Squamous Epith Cells MOD Squamous (<= Few) H 02/20/18 14:32 Amorphous Sediment Moderate /LPF 02/20/18 14:32 Urine Bacteria Many /HPF (None Seen) H 02/20/18 14:32 Urine Yeast PRESENT 02/20/18 14:32 Ur Microscopic Review INDICATED 02/20/18 14:32 Urine Culture Comments NOT INDICATED 02/20/18 14:32 - Procedures Procedures: Procedures INSERTION OF ENDOTRACHEAL AIRWAY INTO TRACHEA, VIA OPENING (02/06/18) INSERTION OF INFUSION DEV INTO SUP VENA CAVA, PERC APPROACH (02/06/18) RESPIRATORY VENTILATION, LESS THAN 24 CONSECUTIVE HOURS (02/06/18) ABX Reporting Has patient been on IV antibiotics over the past 48 hours?: No Current Medications - Current Medications Current Medications: Active Medications Generic Name Dose Route Start Last Admin Trade Name Freq PRN Reason Stop Dose Admin Atropine Sulfate 1 - 4 drops 02/26/18 13:16 Isopto Atropine 1% Ophth Drops SL Q2H PRN Excessive secretions Carboxymethylcellulose 1 drops 02/26/18 13:16 Refresh 1% Ophth Drops EACHEYE QID PRN Dry Eye Glycopyrrolate 0.2 mg 02/26/18 13:16 [place] SUBQ Q4H PRN Excessive secretions Lorazepam 1 mg 02/26/18 13:16 02/27/18 08:15 Ativan Inj (Vial) IVP 1 mg Q1H PRN Administration Anxiety/Agitation Morphine Sulfate 2 mg 02/26/18 13:16 02/28/18 17:55 Morphine IVP 2 mg Q1H PRN Administration Pain or Shortness of air Ondansetron HCl 4 mg 02/26/18 13:16 Zofran Odt TL Q8H PRN Nausea / Vomiting Omeprazole 20 mg PO QDAC 08/23/15 Duloxetine HCl [Cymbalta] 60 mg PO DAILY 01/15/17 Furosemide 40 mg PO DAILY 01/15/17 Atorvastatin Calcium 80 mg PO QPM 07/14/17 Cyclobenzaprine [Flexeril] 10 mg PO TID PRN 07/14/17 Felodipine [Felodipine ER] 10 mg PO DAILY 07/14/17 Rivaroxaban [Xarelto] 20 mg PO DAILY 07/14/17 Diazepam [Valium] 5 mg PO QPM PRN 02/06/18 Gabapentin [Neurontin] 800 mg PO TID 02/06/18 Hydromorphone HCl [Dilaudid] 8 mg PO Q8H 02/06/18 Insulin Aspart [NovoLOG] 3 unit SUBQ TIDWM 02/06/18 Insulin Glargine [Lantus Solostar] 10 unit SUBQ BID 02/06/18 Cholecalciferol (Vitamin D3) [Vitamin D3] 1,000 unit PO DAILY 02/20/18
[2018-03-01] MEDS: MORPHINE 2 MG/ML SYRINGE IVP PRN ×8 (06:44→20:16)
[2018-03-01] MEDS ORDERED: SODIUM CHLORIDE FLUSH 0.9% 10 ML SYRINGE ONE ×7 (06:51→18:54)
--- NOTE | 2018-03-01 15:57 | PROVIDER PROGRESS NOTE ---
Assessment/Plan - Problem List (1) Acute respiratory failure with hypoxia and hypercapnia Assessment/Plan: Patient appears comfortable O2 sats continue to vary between 60% to 90% She is completely unresponsive and not making any urine She will remain comfort care in the hospital as appears imminent at this point (2) Pneumonia Impression: Comfort care Qualifiers: Pneumonia type: due to unspecified organism Laterality: left Lung location: lower lobe of lung Qualified Code(s): J18.1 - Lobar pneumonia, unspecified organism (3) Acute on chronic kidney disease, stage III (moderate) Impression: No urine output Comatosed Comfort care (4) Metabolic Encephalopathy Impression: Secondary to infection, renal failure and multiorgan failure Comfort care - Current Meds Current Meds: Current Medications Generic Name Dose Route Start Last Admin Trade Name Freq PRN Reason Stop Dose Admin Lorazepam 1 mg 02/26/18 13:16 02/27/18 08:15 Ativan Inj (Vial) IVP 1 mg Q1H PRN Administration Anxiety/Agitation Morphine Sulfate 2 mg 02/26/18 13:16 03/01/18 15:51 Morphine IVP 2 mg Q1H PRN Administration Pain or Shortness of air - Lab Result [place] Diagrams: 02/26/18 05:45 02/26/18 04:30 - Additional Planning Condition/Complexity: Critical Plan Discussed with:: Family Time Spent: 15-30 minutes Subjective - Subjective Patient Reports: Other (COmatosed) Nursing Reports: No Complaints Objective Vital Signs: Oxygen O2 Source Oxymask I&O (Last 24 Hrs): Intake and Output Totals x24h 02/27/18 02/28/18 03/01/18 23:59 23:59 23:59 Intake Total 0 0 Output Total 65 20 0 Balance -65 -20 0 General: Other (Comatosed) HEENT: Atraumatic, PERRLA, EOMI, Other (Dry mucus membranes) Neck: Supple, No JVD, No thyromegaly, +2 carotid pulse wo bruit, No LAD Neuro: Other (Comatosed) Cardiovascular: No murmurs, Other (irregularly irregular) Respiratory: Chest non-tender, Rales, Rhonchi Abdomen: Soft, No tenderness Extremities: Normal pulses, Other (Bilateral LE edema with stasis dermatitis) Comments/Notes: stasis dermatitis - Results Results: Laboratory Results WBC 8.6 x10^3/uL (4.8-10.8) 02/26/18 05:45 RBC 3.02 10^6/uL (4.20-5.40) L 02/26/18 05:45 Hgb 9.5 g/dL (12.0-16.0) L 02/26/18 05:45 Hct 28.4 % (37.0-47.0) L 02/26/18 05:45 MCV 94.2 fL (81.0-99.0) 02/26/18 05:45 MCH 31.6 pg (27.0-31.0) H 02/26/18 05:45 MCHC 33.5 g/dL (32.0-36.0) 02/26/18 05:45 RDW 14.2 % (12.0-15.0) 02/26/18 05:45 Plt Count 159 10^3/uL (130-450) 02/26/18 05:45 MPV 7.8 fL (7.9-10.8) L 02/26/18 05:45 Neut # (Auto) 8.3 10^3/uL (1.5-6.6) H 02/26/18 05:45 Lymph # (Auto) 0.2 10^3/uL (1.5-3.5) L 02/26/18 05:45 [place] # (Auto) 0.1 10^3/uL (0.0-1.0) 02/26/18 05:45 Eos # (Auto) 0.0 10^3/uL (0.0-0.7) 02/26/18 05:45 Baso # (Auto) 0.0 10^3/uL (0.0-0.1) 02/26/18 05:45 Absolute Nucleated RBC 0.00 x10^3/uL 02/26/18 05:45 Nucleated RBC % 0.0 /100WBC 02/26/18 05:45 Bld Gas Analysis Time 1716 02/22/18 17:11 Sample Site RIGHT RADIAL 02/22/18 17:11 ABG pH 7.32 (7.35-7.45) L 02/22/18 17:11 ABG pCO2 49 mmHg (34-45) H 02/22/18 17:11 ABG pO2 78 mmHg (80-100) L 02/22/18 17:11 ABG HCO3 24.7 mmol/L (22.0-26.0) 02/22/18 17:11 ABG Total CO2 26.2 MMOL/L (21.0-29.0) 02/22/18 17:11 ABG O2 Saturation 95 % (94-98) 02/22/18 17:11 ABG Oximetry Spot Check 96 % 02/22/18 17:11 ABG Base Excess -1.5 mmol/L (-2.0-3.0) 02/22/18 17:11 Riley Test POSITIVE 02/22/18 17:11 VBG pH 7.334 (7.31-7.41) 02/25/18 08:02 Ionized Calcium 1.09 mmol/L (1.15-1.33) L 02/25/18 08:02 Respiration Rate 14 b/min 02/22/18 17:11 O2 Delivery Device OXYMIZER 02/22/18 17:11 O2 Liters/Min 5.00 LPM 02/22/18 17:11 Vent Mode BIPAP 02/20/18 20:04 FiO2 45.00 02/20/18 20:04 Tidal Volume 331 mL 02/20/18 20:04 Pressure Support Vent 4 cmH2O 02/20/18 18:04 EPAP 6 cmH2O 02/20/18 20:04 IPAP 14 cmH2O 02/20/18 20:04 Sodium 137 mmol/L (135-145) 02/26/18 04:30 Potassium 5.7 mmol/L (3.5-5.0) H 02/26/18 04:30 Chloride 105 mmol/L (101-111) 02/26/18 04:30 Carbon Dioxide 21 mmol/L (21-32) 02/26/18 04:30 Anion Gap 11.0 (6-13) 02/26/18 04:30 BUN 68 mg/dL (6-20) H 02/26/18 04:30 Creatinine 3.3 mg/dL (0.4-1.0) H 02/26/18 04:30 Estimated GFR (MDRD) 14 (>89) L 02/26/18 04:30 Glucose 153 mg/dL (70-100) H 02/26/18 04:30 POC Whole Bld Glucose 168 mg/dL (70 - 100) H 02/26/18 11:30 Glycated Hemoglobin 12.1 % (4.6-6.2) H 02/20/18 12:20 Estim Average Glucose 301 (70-100) H 02/20/18 12:20 Lactic Acid 0.5 mmol/L (0.5-2.2) 02/20/18 12:20 Calcium 8.4 mg/dL (8.5-10.3) L 02/26/18 04:30 Ionized Calcium NO 02/26/18 04:30 Phosphorus 6.6 mg/dL (2.5-4.6) H 02/26/18 04:30 Magnesium 1.7 mg/dL (1.7-2.8) 02/26/18 04:30 Total Bilirubin 0.9 mg/dL (0.2-1.0) 02/26/18 04:30 AST 20 IU/L (10-42) 02/26/18 04:30 ALT 22 IU/L (10-60) 02/26/18 04:30 Alkaline Phosphatase 259 IU/L (42-121) H 02/26/18 04:30 Troponin I < 0.04 ng/mL (<0.49) 02/20/18 12:20 B-Natriuretic Peptide 225 pg/mL (5-100) H 02/26/18 04:30 Total Protein 6.1 g/dL (6.7-8.2) L 02/26/18 04:30 Albumin 1.8 g/dL (3.2-5.5) L 02/26/18 04:30 Globulin 4.3 g/dL (2.1-4.2) H 02/26/18 04:30 Albumin/Globulin Ratio 0.4 (1.0-2.2) L 02/26/18 04:30 Lipase 24 U/L (22-51) 02/20/18 12:20 Urine Color YELLOW 02/20/18 14:32 Urine Clarity CLOUDY (CLEAR) 02/20/18 14:32 Urine pH 5.5 PH (5.0-7.5) 02/20/18 14:32 Ur Specific [place] 1.020 (1.002-1.030) 02/20/18 14:32 Urine Protein 30 mg/dL (NEGATIVE) H 02/20/18 14:32 Urine Glucose (UA) NEGATIVE mg/dL (NEGATIVE) 02/20/18 14:32 Urine Ketones NEGATIVE mg/dL (NEGATIVE) 02/20/18 14:32 Urine Occult Blood LARGE (NEGATIVE) H 02/20/18 14:32 Urine Nitrite NEGATIVE (NEGATIVE) 02/20/18 14:32 Urine Bilirubin NEGATIVE (NEGATIVE) 02/20/18 14:32 Urine Urobilinogen 0.2 (NORMAL) E.U./dL (NORMAL) 02/20/18 14:32 Ur Leukocyte Esterase NEGATIVE (NEGATIVE) 02/20/18 14:32 Urine RBC TNTC /HPF (0-5) H 02/20/18 14:32 Urine WBC >25 /HPF (0-5) H 02/20/18 14:32 Ur Squamous Epith Cells MOD Squamous (<= Few) H 02/20/18 14:32 Amorphous Sediment Moderate /LPF 02/20/18 14:32 Urine Bacteria Many /HPF (None Seen) H 02/20/18 14:32 Urine Yeast PRESENT 02/20/18 14:32 Ur Microscopic Review INDICATED 02/20/18 14:32 Urine Culture Comments NOT INDICATED 02/20/18 14:32 - Procedures Procedures: Procedures INSERTION OF ENDOTRACHEAL AIRWAY INTO TRACHEA, VIA OPENING (02/06/18) INSERTION OF INFUSION DEV INTO SUP VENA CAVA, PERC APPROACH (02/06/18) RESPIRATORY VENTILATION, LESS THAN 24 CONSECUTIVE HOURS (02/06/18) ABX Reporting Has patient been on IV antibiotics over the past 48 hours?: No Current Medications - Current Medications Current Medications: Laboratory Results WBC 8.6 x10^3/uL (4.8-10.8) 02/26/18 05:45 RBC 3.02 10^6/uL (4.20-5.40) L 02/26/18 05:45 Hgb 9.5 g/dL (12.0-16.0) L 02/26/18 05:45 Hct 28.4 % (37.0-47.0) L 02/26/18 05:45 MCV 94.2 fL (81.0-99.0) 02/26/18 05:45 MCH 31.6 pg (27.0-31.0) H 02/26/18 05:45 MCHC 33.5 g/dL (32.0-36.0) 02/26/18 05:45 RDW 14.2 % (12.0-15.0) 02/26/18 05:45 Plt Count 159 10^3/uL (130-450) 02/26/18 05:45 MPV 7.8 fL (7.9-10.8) L 02/26/18 05:45 Neut # (Auto) 8.3 10^3/uL (1.5-6.6) H 02/26/18 05:45 Lymph # (Auto) 0.2 10^3/uL (1.5-3.5) L 02/26/18 05:45 [place] # (Auto) 0.1 10^3/uL (0.0-1.0) 02/26/18 05:45 Eos # (Auto) 0.0 10^3/uL (0.0-0.7) 02/26/18 05:45 Baso # (Auto) 0.0 10^3/uL (0.0-0.1) 02/26/18 05:45 Absolute Nucleated RBC 0.00 x10^3/uL 02/26/18 05:45 Nucleated RBC % 0.0 /100WBC 02/26/18 05:45 Bld Gas Analysis Time 1716 02/22/18 17:11 Sample Site RIGHT RADIAL 02/22/18 17:11 ABG pH 7.32 (7.35-7.45) L 02/22/18 17:11 ABG pCO2 49 mmHg (34-45) H 02/22/18 17:11 ABG pO2 78 mmHg (80-100) L 02/22/18 17:11 ABG HCO3 24.7 mmol/L (22.0-26.0) 02/22/18 17:11 ABG Total CO2 26.2 MMOL/L (21.0-29.0) 02/22/18 17:11 ABG O2 Saturation 95 % (94-98) 02/22/18 17:11 ABG Oximetry Spot Check 96 % 02/22/18 17:11 ABG Base Excess -1.5 mmol/L (-2.0-3.0) 02/22/18 17:11 Riley Test POSITIVE 02/22/18 17:11 VBG pH 7.334 (7.31-7.41) 02/25/18 08:02 Ionized Calcium 1.09 mmol/L (1.15-1.33) L 02/25/18 08:02 Respiration Rate 14 b/min 02/22/18 17:11 O2 Delivery Device OXYMIZER 02/22/18 17:11 O2 Liters/Min 5.00 LPM 02/22/18 17:11 Vent Mode BIPAP 02/20/18 20:04 FiO2 45.00 02/20/18 20:04 Tidal Volume 331 mL 02/20/18 20:04 Pressure Support Vent 4 cmH2O 02/20/18 18:04 EPAP 6 cmH2O 02/20/18 20:04 IPAP 14 cmH2O 02/20/18 20:04 Sodium 137 mmol/L (135-145) 02/26/18 04:30 Potassium 5.7 mmol/L (3.5-5.0) H 02/26/18 04:30 Chloride 105 mmol/L (101-111) 02/26/18 04:30 Carbon Dioxide 21 mmol/L (21-32) 02/26/18 04:30 Anion Gap 11.0 (6-13) 02/26/18 04:30 BUN 68 mg/dL (6-20) H 02/26/18 04:30 Creatinine 3.3 mg/dL (0.4-1.0) H 02/26/18 04:30 Estimated GFR (MDRD) 14 (>89) L 02/26/18 04:30 Glucose 153 mg/dL (70-100) H 02/26/18 04:30 POC Whole Bld Glucose 168 mg/dL (70 - 100) H 02/26/18 11:30 Glycated Hemoglobin 12.1 % (4.6-6.2) H 02/20/18 12:20 Estim Average Glucose 301 (70-100) H 02/20/18 12:20 Lactic Acid 0.5 mmol/L (0.5-2.2) 02/20/18 12:20 Calcium 8.4 mg/dL (8.5-10.3) L 02/26/18 04:30 Ionized Calcium NO 02/26/18 04:30 Phosphorus 6.6 mg/dL (2.5-4.6) H 02/26/18 04:30 Magnesium 1.7 mg/dL (1.7-2.8) 02/26/18 04:30 Total Bilirubin 0.9 mg/dL (0.2-1.0) 02/26/18 04:30 AST 20 IU/L (10-42) 02/26/18 04:30 ALT 22 IU/L (10-60) 02/26/18 04:30 Alkaline Phosphatase 259 IU/L (42-121) H 02/26/18 04:30 Troponin I < 0.04 ng/mL (<0.49) 02/20/18 12:20 B-Natriuretic Peptide 225 pg/mL (5-100) H 02/26/18 04:30 Total Protein 6.1 g/dL (6.7-8.2) L 02/26/18 04:30 Albumin 1.8 g/dL (3.2-5.5) L 02/26/18 04:30 Globulin 4.3 g/dL (2.1-4.2) H 02/26/18 04:30 Albumin/Globulin Ratio 0.4 (1.0-2.2) L 02/26/18 04:30 Lipase 24 U/L (22-51) 02/20/18 12:20 Urine Color YELLOW 02/20/18 14:32 Urine Clarity CLOUDY (CLEAR) 02/20/18 14:32 Urine pH 5.5 PH (5.0-7.5) 02/20/18 14:32 Ur Specific [place] 1.020 (1.002-1.030) 02/20/18 14:32 Urine Protein 30 mg/dL (NEGATIVE) H 02/20/18 14:32 Urine Glucose (UA) NEGATIVE mg/dL (NEGATIVE) 02/20/18 14:32 Urine Ketones NEGATIVE mg/dL (NEGATIVE) 02/20/18 14:32 Urine Occult Blood LARGE (NEGATIVE) H 02/20/18 14:32 Urine Nitrite NEGATIVE (NEGATIVE) 02/20/18 14:32 Urine Bilirubin NEGATIVE (NEGATIVE) 02/20/18 14:32 Urine Urobilinogen 0.2 (NORMAL) E.U./dL (NORMAL) 02/20/18 14:32 Ur Leukocyte Esterase NEGATIVE (NEGATIVE) 02/20/18 14:32 Urine RBC TNTC /HPF (0-5) H 02/20/18 14:32 Urine WBC >25 /HPF (0-5) H 02/20/18 14:32 Ur Squamous Epith Cells MOD Squamous (<= Few) H 02/20/18 14:32 Amorphous Sediment Moderate /LPF 02/20/18 14:32 Urine Bacteria Many /HPF (None Seen) H 02/20/18 14:32 Urine Yeast PRESENT 02/20/18 14:32 Ur Microscopic Review INDICATED 02/20/18 14:32 Urine Culture Comments NOT INDICATED 02/20/18 14:32
[2018-03-01] MEDS ORDERED: SODIUM CHLORIDE FLUSH 0.9% 10 ML SYRINGE IVP PRN (19:19)
--- NOTE | 2018-03-02 14:42 | DISCHARGE SUMMARY ---
Discharge Summary Admit Date: 02/20/18 Discharge Date: 03/01/18 (Time of : 22:33) Discharging Provider: Gallo Tompkins MD Primary Care Provider: Sylvia VICK Discharge Disposition: 20 - DIAGNOSES Admission Diagnoses: 1. Left lower lobe pneumonia 2. Morbid obesity 3. Type 2 diabetes mellitus 4. Chronic kidney disease stage III 5. Pulmonary hypertension 6. Atrial fibrillation 7. Chronic back pain Discharge Diagnoses with Status of Each Condition: 1. Cardiopulmonary arrest: 2. Acute respiratory failure with hypoxia and hypercapnia: 3. Healthcare associated pneumonia: 4. Acute on chronic kidney disease stage III: 5. Metabolic encephalopathy: 6. Multiorgan failure: 7. Type 2 diabetes mellitus: 8. Morbid obesity: 9. Hyperkalemia: 10. Pulmonary hypertension: 11. Atrial fibrillation: 12. Chronic back pain: - HPI History of Present Illness: Cleo Porter is a pleasant 72-year-old female who lives with her daughter and granddaughter and who was here at [facility] 2 weeks ago, from February 06- when she was admitted for CAP. Following her hospitalization she was sent to [facility] for rehab to help her return home. Patient's granddaughter notes that over the last 2 or 3 days she has been noting gradually increasing somnolence and lack of responsiveness and when this did not get better today she brought the patient into the emergency department for evaluation. A chest x-ray found multifocal multi lobar pneumonia. She will be admitted for IV antibiotics, electrolyte correction, supplemental oxygen, and bronchodilators as needed. - HOSPITAL COURSE Hospital Course: The patient was initially admitted with a healthcare associated pneumonia. This was the patient's second admission in the last month. She had very poor health overall that she had morbid obesity which left her wheelchair-bound, with poorly controlled diabetes, poorly controlled hypertension, atrial fibrillation, chronic kidney disease stage III, pulmonary hypertension and chronic back pain. After her most recent hospitalization the patient was discharged for rehab at [facility] and then developed increasing cough and shortness of breath and presented back to us here at the hospital and was admitted with a left lower lobe pneumonia. During her course in the hospital the patient had worsening of her pneumonia and developed acute respiratory failure with hypoxia and hypercapnia. The patient made it clear that she did not want intubation and also refused BiPAP when it was offered to her. It became apparent that the patient was not going to improve without escalation of care to BiPAP or intubation but patient refused these efforts. The patient had continued decline of her kidney function and began having less and less urine output. The patient became increasingly lethargic and less and less responsive. Multiple family conferences were had throughout the hospitalization and finally on 02/26/2018 decision was made by the entire family that patient should be made comfort care measures only. This appeared to be the appropriate decision given that the patient status was continuing to decline and it would be very unlikely that the patient would recover even with continued treatment with antibiotics, respiratory support and fluids. It appeared that the patient would pass very quickly after she was made comfort care however the patient showed incredible resolve and despite her multiorgan failure survived an additional 3 days in the hospital. The patient had episodes where her oxygen saturation dropped to 30% and heart rate increased to 180 but she continued to survive. She was made comfortable with morphine and Ativan and appeared comfortable for the last 3 days of her life. She made no urine for the last 48 hours and was comatose for the last 72 hours of her life. The patient's family was at bedside throughout her last few days. She finally on 03/01/2018 at 2233 in the care of hospitalist Carol Lutz who performed the final examination and pronounced her on the night of 03/01/2018. Family was at bedside and notified and our condolences were passed on. The patient's remains were released to a home. - ALLERGIES Allergies/Adverse Reactions: Allergies Allergy/AdvReac Type Severity Reaction Status Date / Time Penicillins Allergy unknown Verified 02/20/18 11:29 - MEDICATIONS Home Medications: Ambulatory Orders Medication Instructions Recorded Confirmed Omeprazole 20 mg PO QDAC 08/23/15 02/20/18 Duloxetine HCl [Cymbalta] 60 mg PO DAILY 01/15/17 02/20/18 Furosemide 40 mg PO DAILY 01/15/17 02/20/18 Atorvastatin Calcium 80 mg PO QPM 07/14/17 02/20/18 Cyclobenzaprine [Flexeril] 10 mg PO TID PRN 07/14/17 02/20/18 Felodipine [Felodipine ER] 10 mg PO DAILY 07/14/17 02/20/18 Rivaroxaban [Xarelto] 20 mg PO DAILY 07/14/17 02/20/18 Diazepam [Valium] 5 mg PO QPM PRN 02/06/18 02/20/18 Gabapentin [Neurontin] 800 mg PO TID 02/06/18 02/20/18 Hydromorphone HCl [Dilaudid] 8 mg PO Q8H 02/06/18 02/20/18 Insulin Aspart [NovoLOG] 3 unit SUBQ TIDWM 02/06/18 02/20/18 Insulin Glargine [Lantus Solostar] 10 unit SUBQ BID 02/06/18 02/20/18 Insulin Aspart [NovoLOG] 3 - 11 unit SUBQ 02/14/18 02/20/18 0800,1200,1700,2100 pen Nystatin Cream [Mycostatin Cream] 1 applic TOP BID #1 tube 02/14/18 02/20/18 Cholecalciferol (Vitamin D3) 1,000 unit PO DAILY 02/20/18 02/20/18 [Vitamin D3] - PHYSICAL EXAM AT DISCHARGE Physical Exam Other/Comments: I did not perform the final examination but the patient was found to be at 2233 on 03/01/2018. At that time the patient had no pulse, no heart sounds, no breath sounds, and no pupillary or corneal reflexes. - LABS Result Diagrams: 02/26/18 05:45 02/26/18 04:30 Other Lab Results: Laboratory Results WBC 8.6 x10^3/uL (4.8-10.8) 02/26/18 05:45 RBC 3.02 10^6/uL (4.20-5.40) L 02/26/18 05:45 Hgb 9.5 g/dL (12.0-16.0) L 02/26/18 05:45 Hct 28.4 % (37.0-47.0) L 02/26/18 05:45 MCV 94.2 fL (81.0-99.0) 02/26/18 05:45 MCH 31.6 pg (27.0-31.0) H 02/26/18 05:45 MCHC 33.5 g/dL (32.0-36.0) 02/26/18 05:45 RDW 14.2 % (12.0-15.0) 02/26/18 05:45 Plt Count 159 10^3/uL (130-450) 02/26/18 05:45 MPV 7.8 fL (7.9-10.8) L 02/26/18 05:45 Neut # (Auto) 8.3 10^3/uL (1.5-6.6) H 02/26/18 05:45 Lymph # (Auto) 0.2 10^3/uL (1.5-3.5) L 02/26/18 05:45 [place] # (Auto) 0.1 10^3/uL (0.0-1.0) 02/26/18 05:45 Eos # (Auto) 0.0 10^3/uL (0.0-0.7) 02/26/18 05:45 Baso # (Auto) 0.0 10^3/uL (0.0-0.1) 02/26/18 05:45 Absolute Nucleated RBC 0.00 x10^3/uL 02/26/18 05:45 Nucleated RBC % 0.0 /100WBC 02/26/18 05:45 Bld Gas Analysis Time 1716 02/22/18 17:11 Sample Site RIGHT RADIAL 02/22/18 17:11 ABG pH 7.32 (7.35-7.45) L 02/22/18 17:11 ABG pCO2 49 mmHg (34-45) H 02/22/18 17:11 ABG pO2 78 mmHg (80-100) L 02/22/18 17:11 ABG HCO3 24.7 mmol/L (22.0-26.0) 02/22/18 17:11 ABG Total CO2 26.2 MMOL/L (21.0-29.0) 02/22/18 17:11 ABG O2 Saturation 95 % (94-98) 02/22/18 17:11 ABG Oximetry Spot Check 96 % 02/22/18 17:11 ABG Base Excess -1.5 mmol/L (-2.0-3.0) 02/22/18 17:11 Riley Test POSITIVE 02/22/18 17:11 VBG pH 7.334 (7.31-7.41) 02/25/18 08:02 Ionized Calcium 1.09 mmol/L (1.15-1.33) L 02/25/18 08:02 Respiration Rate 14 b/min 02/22/18 17:11 O2 Delivery Device OXYMIZER 02/22/18 17:11 O2 Liters/Min 5.00 LPM 02/22/18 17:11 Vent Mode BIPAP 02/20/18 20:04 FiO2 45.00 02/20/18 20:04 Tidal Volume 331 mL 02/20/18 20:04 Pressure Support Vent 4 cmH2O 02/20/18 18:04 EPAP 6 cmH2O 02/20/18 20:04 IPAP 14 cmH2O 02/20/18 20:04 Sodium 137 mmol/L (135-145) 02/26/18 04:30 Potassium 5.7 mmol/L (3.5-5.0) H 02/26/18 04:30 Chloride 105 mmol/L (101-111) 02/26/18 04:30 Carbon Dioxide 21 mmol/L (21-32) 02/26/18 04:30 Anion Gap 11.0 (6-13) 02/26/18 04:30 BUN 68 mg/dL (6-20) H 02/26/18 04:30 Creatinine 3.3 mg/dL (0.4-1.0) H 02/26/18 04:30 Estimated GFR (MDRD) 14 (>89) L 02/26/18 04:30 Glucose 153 mg/dL (70-100) H 02/26/18 04:30 POC Whole Bld Glucose 168 mg/dL (70 - 100) H 02/26/18 11:30 Glycated Hemoglobin 12.1 % (4.6-6.2) H 02/20/18 12:20 Estim Average Glucose 301 (70-100) H 02/20/18 12:20 Lactic Acid 0.5 mmol/L (0.5-2.2) 02/20/18 12:20 Calcium 8.4 mg/dL (8.5-10.3) L 02/26/18 04:30 Ionized Calcium NO 02/26/18 04:30 Phosphorus 6.6 mg/dL (2.5-4.6) H 02/26/18 04:30 Magnesium 1.7 mg/dL (1.7-2.8) 02/26/18 04:30 Total Bilirubin 0.9 mg/dL (0.2-1.0) 02/26/18 04:30 AST 20 IU/L (10-42) 02/26/18 04:30 ALT 22 IU/L (10-60) 02/26/18 04:30 Alkaline Phosphatase 259 IU/L (42-121) H 02/26/18 04:30 Troponin I < 0.04 ng/mL (<0.49) 02/20/18 12:20 B-Natriuretic Peptide 225 pg/mL (5-100) H 02/26/18 04:30 Total Protein 6.1 g/dL (6.7-8.2) L 02/26/18 04:30 Albumin 1.8 g/dL (3.2-5.5) L 02/26/18 04:30 Globulin 4.3 g/dL (2.1-4.2) H 02/26/18 04:30 Albumin/Globulin Ratio 0.4 (1.0-2.2) L 02/26/18 04:30 Lipase 24 U/L (22-51) 02/20/18 12:20 Urine Color YELLOW 02/20/18 14:32 Urine Clarity CLOUDY (CLEAR) 02/20/18 14:32 Urine pH 5.5 PH (5.0-7.5) 02/20/18 14:32 Ur Specific [place] 1.020 (1.002-1.030) 02/20/18 14:32 Urine Protein 30 mg/dL (NEGATIVE) H 02/20/18 14:32 Urine Glucose (UA) NEGATIVE mg/dL (NEGATIVE) 02/20/18 14:32 Urine Ketones NEGATIVE mg/dL (NEGATIVE) 02/20/18 14:32 Urine Occult Blood LARGE (NEGATIVE) H 02/20/18 14:32 Urine Nitrite NEGATIVE (NEGATIVE) 02/20/18 14:32 Urine Bilirubin NEGATIVE (NEGATIVE) 02/20/18 14:32 Urine Urobilinogen 0.2 (NORMAL) E.U./dL (NORMAL) 02/20/18 14:32 Ur Leukocyte Esterase NEGATIVE (NEGATIVE) 02/20/18 14:32 Urine RBC TNTC /HPF (0-5) H 02/20/18 14:32 Urine WBC >25 /HPF (0-5) H 07/05/18 14:32 Ur Squamous Epith Cells MOD Squamous (<= Few) H 02/20/18 14:32 Amorphous Sediment Moderate /LPF 02/20/18 14:32 Urine Bacteria Many /HPF (None Seen) H 02/20/18 14:32 Urine Yeast PRESENT 02/20/18 14:32 Ur Microscopic Review INDICATED 02/20/18 14:32 Urine Culture Comments NOT INDICATED 02/20/18 14:32 - DIAGNOSTIC IMAGING Diagnostic Imaging Results: Final report reviewed Diagnostic Imaging Results Comments: Chest x-ray 02/20/2018 Impression: Multifocal multilobar pneumonia with small to moderate-sized left sided pleural effusion, likely reactive. Chest x-ray 02/23/2018 Impression: 1. Stable cardiomegaly 2. Increasing patchy bilateral infiltrates, appearance suggesting worsening multifocal infection. - FOLLOW UP Follow Up: Patient's remains released to home. Time of 03/01/2018 at 2233. - TIME SPENT Time Spent in Discharge (Minutes): 35
--- NOTE | 2018-03-04 03:02 | PROVIDER PROGRESS NOTE ---
Waiter Waitress Note - Waiter Waitress Note Waiter Waitress Note: This is a late entry dictation for a . Date of dictation is March 04, 2018 Date of is March 01, 2018 at 22: 33. The patient has been steadily deteriorating with imminent expected. Daughter is at the bedside. RN asked me to come see the patient because of lack of spontaneous respiration or pulse. Patient was examined for a minute. There was no spontaneous pulse, no spontaneous respiration. Pupils are fixed and dilated. pronounced.
== END 2018-03-01 20:33 | disposition expired | DRG 193 ==
LOC: EDUNIT# → ED 11:16 → MS3 13:19 → ICU 15:35
PROVIDERS: ADMIT Hospitalist; ATTEND Internal Medicine
DX: J18.9 Pneumonia, unspecified organism (principal); I10 Essential (primary) hypertension; E78.00 Pure hypercholesterolemia, unspecified; I48.91 Unspecified atrial fibrillation; J18.1 Lobar pneumonia, unspecified organism; J96.02 Acute respiratory failure with hypercapnia; N28.9 Disorder of kidney and ureter, unspecified; G93.41 Metabolic encephalopathy; J96.01 Acute respiratory failure with hypoxia; N17.9 Acute kidney failure, unspecified; Z68.44 Body mass index [BMI] 60.0-69.9, adult; Y95 Nosocomial condition; I13.10 Hypertensive heart and chronic kidney disease without heart failure, with stage 1 through stage 4 chronic kidney disease, or unspecified chronic kidney disease; E11.22 Type 2 diabetes mellitus with diabetic chronic kidney disease; N18.3 Chronic kidney disease, stage 3 (moderate); E87.5 Hyperkalemia; E11.42 Type 2 diabetes mellitus with diabetic polyneuropathy; I27.20 Pulmonary hypertension, unspecified; I48.2 Chronic atrial fibrillation; F32.9 Major depressive disorder, single episode, unspecified; M19.90 Unspecified osteoarthritis, unspecified site; G89.29 Other chronic pain; M54.9 Dorsalgia, unspecified; R32 Unspecified urinary incontinence; R35.0 Frequency of micturition; H54.7 Unspecified visual loss; Z66 Do not resuscitate; K21.9 Gastro-esophageal reflux disease without esophagitis; E66.01 Morbid (severe) obesity due to excess calories; Z79.4 Long term (current) use of insulin; Z71.3 Dietary counseling and surveillance; Z87.01 Personal history of pneumonia (recurrent); Z87.440 Personal history of urinary (tract) infections
CPT/HCPCS: 36415; 36600; 71045; 71046; 80048; 80053; 81001; 81003; 82040; 82330; 82803; 83036; 83605; 83690; 83735; 83880; 84100; 84484; 85025; 85027; 87040; 87086; 87150; 94660; 99233; 99284